=== PATIENT | female | born 1950 | race Caucasian/White ===

== ENCOUNTER 2019-05-19 05:14 | Inpatient (IN) | payer MEDICARE, SELFPAY ==
[2019-05-19] VITALS (8 sets, daily range): BP systolic 148–187; BP diastolic 65–100; PULSE 68–73; RESP 18–20; TEMP 36.6–37.1; O2SAT 94–96; BMI 30.4
--- NOTE | ~2019-05-19 | XR_ITS ---
EXAMINATION: XR chest 2V DATE: 05/19/2019 05:58 INDICATION: Shortness of breath. TECHNIQUE: Frontal and lateral views of the chest were obtained. COMPARISON: Chest 2 views 01/16/2019 FINDINGS: There are small pleural effusions. There are airspace opacities at the lung bases, left wor se than right. No pneumothorax. The heart size is normal. There is a chronic compression fracture in lumbar spine. IMPRESSION: 1. Small pleural effusions. 2. Airspace opacities at the lung bases, left worse than right, consistent with atelectasis versus pn eumonia. Reviewed, dictated and finalized at location A. STORAGE SUPERVISOR IMPRESSION: 1. Small pleural effusions. 2. Airspace opacities at the lung bases, left worse than right, consistent with atelectasis versus pneumonia.
--- NOTE | 2019-05-19 05:34 | ECG_ITS ---
Measurements Intervals [place] Rate: 72 P: 72 NM: 171 QRS: 14 QRSD: 91 T: 93 QT: 407 QTc: 447 Interpretive Statements SINUS RHYTHM BORDERLINE ST-T WAVE ABNORMALITY- INF/LAT LEADS BASELINE ARTIFACT- II, III, AVL, AVF, V6 BORDERLINE ECG Electronically Signed On 05-19-2019 8:09:20 WASHING MACHINE LOADER by Jl Floyd D.O.
[2019-05-19 05:47] LABS: Basophils Absolute Auto 0.1 K/mm3 (0.0-0.1); Basophils Percent Auto 0.9 % (0.2-1.2); Eosinophils Absolute Auto 0.5 K/mm3 (0-0.3); Eosinophils Percent Auto 4.3 % (0-4.4); Hematocrit 35.1 % (37.0-47.0); Hemoglobin 11.5 g/dL (12.0-15.0); Immature Granulocyte Absolute 0.06 K/mm3 (0.00-0.031); Immature Granulocyte Percent A 0.5 % (0-0.5); Lymphocytes Absolute Auto 1.96 K/mm3 (0.9-3.2); Lymphocytes Percent Auto 16.7 % (18.3-44.2); Mean Corpuscular HGB Conc 32.8 g/dl (32-36); Mean Corpuscular Hemoglobin 28.6 pg (26-34); Mean Corpuscular Volume 87.3 fl (80-100); Mean Platelet Volume 10.2 fl (7.4-10.4); Monocytes Absolute Auto 0.7 K/mm3 (0.1-0.6); Monocytes Percent Auto 6.3 % (2.6-8.5); Neutrophils Absolute Auto 8.4 K/mm3 (1.3-6.7); Neutrophils Percent Auto 71.3 % (45.5-73.1); Platelet Count Result 472 k/mm3 (150-375); Red Blood Count 4.02 M/mm3 (4.2-5.4); Red Cell Distribution Width 13.7 % (11.5-14.5); White Blood Count 11.8 K/mm3 (4.5-10.0)
[2019-05-19 06:02] LABS: INR 0.9; Prothrombin Time 12.1 Seconds (11.1-14.7)
[2019-05-19 06:03] LABS: Partial Thromboplastin Time 34.4 SECONDS (22.3-36.8)
[2019-05-19 06:14] LABS: Blood Urea Nitrogen 35 mg/dL (7-17); Carbon Dioxide 28 mmol/L (22-30); Chloride 97 mmol/L (98-107); Estimated CRCL calculation 30 ml/min; Estimated Glomerular Filt Rate 34; Glucose 95 mg/dL (65-105); NT Pro B Type Natriuretic Pept 5220 PG/ML (5-100); Potassium 4.4 mmol/L (3.4-5.0); Sodium 135 mmol/L (137-145)
[2019-05-19] MEDS: FUROSEMIDE INJ 40 MG/4 ML VIAL IV PUSH ×2 (06:25→18:12)
--- NOTE | 2019-05-19 06:27 | ED.SOB ---
HPI - SOB/Dyspnea General Chief Complaint: Shortness of Breath/Dyspnea Stated Complaint: sob Time Seen by Provider: 05/19/19 06:01 History of Present Illness HPI Narrative: Patient is a 69-year-old female who presents ER with shortness of breath ongoing since this morning. Patient has history of CHF and was found to be newly oxygen dependent this morning. She is wearing 2 L a minute via nasal cannula. Patient reports compliance with her home medications. Reports it is hard to maintain a good diet where she lives as they often feed her ham and hot dogs. She denies any runny nose/sore throat/productive cough. She is without any fevers or chills. She denies any chest pressure. She does note that she has had a 30 pound weight gain over the last couple weeks and has felt a decline in her energy and ability to get around. No alleviating factors. Exertion worsens her dyspnea. Related Data Home Medications Medication Instructions Recorded Confirmed amlodipine 10 mg tablet 10 mg PO DAILY tablet 03/29/19 atorvastatin 80 mg tablet 80 mg PO DAILY tablet 03/29/19 furosemide 80 mg tablet 80 mg PO DAILY tablet 03/29/19 metformin 1,000 mg tablet 1,000 mg PO BID tablet 03/29/19 metoprolol succinate 200 mg 200 mg PO DAILY tablet 03/29/19 tablet,extended release 24 hr morphine 15 mg tablet,extended tablet PO 03/29/19 release potassium chloride 20 mEq 20 meq PO DAILY tablet 03/29/19 tablet,extended release(part/cryst) ropinirole 0.5 mg tablet 0.5 mg PO DAILY tablet 03/29/19 telmisartan 40 mg tablet 40 mg PO DAILY tablet 03/29/19 sertraline [Zoloft] 50 mg PO DAILY 05/19/19 Allergies Allergy/AdvReac Type Severity Reaction Status Date / Time No Known Allergies Allergy Verified 05/19/19 05:37 Review of Systems Review of Systems: All systems reviewed & are unremarkable except as noted in HPI and below Constitutional: Constitutional: Denies chills, Reports fatigue and Denies fever(s) ENT: Denies dysphagia, Denies nasal congestion and Denies sore throat Cardiovascular: Cardiovascular: Denies chest pain and Denies radiating jaw, neck or arm pain Respiratory: Respiratory: Denies chest congestion, Denies cough, Reports dyspnea and Denies wheezing Neurologic: Denies focal weakness and Denies numbness PMFSH Past Medical History Medical History (Updated 05/19/19 @ 06:50 by Den Escalante MD) CVA (cerebral vascular accident) Depression DM type 2 (diabetes mellitus, type 2) Hyperlipidemia Hypertension Peripheral neuropathy Surgical History Surgical History (Updated 05/19/19 @ 06:46 by Den Escalante MD) H/O cataract extraction History of cholecystectomy Social History Social History (Updated 05/19/19 @ 06:47 by Den Escalante MD) Smoking status: Former smoker Exam Narrative: Exam Narrative: GENERAL: Well-appearing, well-nourished, and in no acute distress. HEAD: Normocephalic, atraumatic. ENT: Mucous membranes moist. CHEST: Diminished in bases bilaterally with faint crackles.. No respiratory distress. HEART: Regular rate and rhythm. Normal peripheral pulses. ABDOMEN: Soft, nontender, nondistended. EXTREMITIES: Normal range of motion. 2+ edema. SKIN: Warm, dry, no rash. NEURO: Alert and oriented x3. Course Vital Signs Vital signs: Vital Signs Temperature 98.7 F 05/19/19 05:13 Pulse Rate 69 05/19/19 05:13 Respiratory Rate 18 05/19/19 05:13 Blood Pressure 187/74 H 05/19/19 05:13 Pulse Oximetry 95 05/19/19 05:13 Temperature 98.7 F 05/19/19 05:13 Pulse Rate 71 05/19/19 05:23 Respiratory Rate 18 05/19/19 05:13 Blood Pressure 187/74 H 05/19/19 05:13 Pulse Oximetry 95 05/19/19 05:13 MDM - SOB/Dyspnea Lab Data Result diagrams: 05/19/19 05:37 05/19/19 05:37 Labs: Lab Results 05/19/19 05/19/19 05/19/19 Range/Units 05:37 05:37 05:37 WBC 11.8 H (4.5-10.0) K/mm3 RBC 4.02 L (4.2-5.4) M/mm3 Hgb
--- NOTE | 2019-05-19 07:32 | ADMGEN ---
This patient, Lupe Gomez, was admitted to 3 [facility] Surg Room 313-01. Patient/family oriented to hospital policies and general routines including ID bracelet, bed and alarms, visiting hours, pain management, procedures, bathroom and other care routines, personal items, smoking policy, room service/diet, and visiting hours. Valuables list has been completed. Information on how to activate the Rapid Response Team has been discussed. Patient/Family are encouraged to report perceived risks to care and to ask questions if they do not understand what they are told or what they should do.
[2019-05-19] MEDS: DOCUSATE SODIUM 100 MG CAPSULE PO (11:58)
[2019-05-19] MEDS: ASPIRIN 81 MG ENTERIC TABLET PO (11:58)
[2019-05-19] MEDS: AMLODIPINE BESYLATE 5 MG TABLET 10 MG PO (11:59)
[2019-05-19] MEDS: SERTRALINE HCL 50 MG TABLET PO (11:59)
[2019-05-19] MEDS: MAGNESIUM OXIDE 400 MG TABLET PO (11:59)
[2019-05-19] MEDS: METOPROLOL SUCCINATE EXT REL 100 MG TABCR 200 MG PO (11:59)
[2019-05-19] MEDS: ENOXAPARIN 40 MG/0.4 ML SYRINGE SUB-Q (12:01)
[2019-05-19] MEDS: ACETAMINOPHEN 325 MG TABLET 650 MG PO ×2 (12:28→18:18)
[2019-05-19 13:03] LABS: Glucose Point of Care 120 (65-105)
--- NOTE | 2019-05-19 16:35 | PM.IMHP ---
H&P: HPI History of Present Illness Chief complaint: chf exacerbation/hypoxia Narrative: Date of visit 05/19/2019. 1200 noon. Lupe Gomez is a 69 year old female with hypertension, diastolic heart failure, chronic renal failure stage 3 with nephrotic syndrome, diabetes mellitus and chronic pain syndrome who presented to the emergency room from the longterm with complaints of increasing weakness, shortness of breath, and edema. She states that over the last 1 week to week at least she has had increasing symptomatology. She admits to poor diet that she is fed with lots of salt. She does take her medicine faithfully and was last hospitalized here some 4 months ago. No chest pain or palpitations. In the emergency room she is found to be in heart failure was admitted for evaluation of the same Review of Systems Review of Systems: Narrative: Constitutional she says she has gained probably over 20 lb over last several weeks with no change in her eating habits, no fever no chills Ophthalmology , no scotomas or double vision Pulmonary as per speech present illness , all occasional cough nothing significant CV as per present illness no palpitation as stated above GI no melena medication diarrhea constipation no dysuria hematuria Musculoskeletal no particular joint discomfort but chronic back pain Integument no skin breakdown rashes Neuro no seizures no syncope Psych been some history of depression The remainder the of systems if not documented here were evaluated and found to be negative PMFSH Past Medical History Medical History (Updated 05/19/19 @ 16:42 by Jnoo Bustamante MD) CVA (cerebral vascular accident) Depression DM type 2 (diabetes mellitus, type 2) Hyperlipidemia Hypertension Peripheral neuropathy Surgical History Surgical History (Updated 05/19/19 @ 06:46 by eDn Escalante MD) H/O cataract extraction History of cholecystectomy Family History Family History (Updated 05/19/19 @ 08:00 by Amy Hall RN) Mother Lung cancer Sibling Malignant neoplasm of prostate Diabetes mellitus Osteoarthritis Dialysis patient Heart disease Social History Social History (Updated 05/19/19 @ 06:47 by Den Escalante MD) Smoking status: Former smoker Tobacco type: cigarettes Alcohol intake: former Substance use: never Gender identity (if verbalized by the patient): Female Meds Home Medications and Allergies Home Medications Medication Instructions Recorded Confirmed Type amlodipine 10 mg tablet 10 mg PO DAILY tablet 03/29/19 05/19/19 History aspirin 81 mg tablet,delayed 81 mg PO DAILY #1 tablet 03/29/19 05/19/19 Rx release atorvastatin 80 mg tablet 80 mg PO HS tablet 03/29/19 05/19/19 History docusate sodium 100 mg tablet 100 mg PO DAILY #1 tablet 03/29/19 05/19/19 Rx ergocalciferol (vitamin D2) 1,250 50,000 unit PO 3XW #1 cap 03/29/19 05/19/19 Rx mcg (50,000 unit) capsule furosemide 80 mg tablet 80 mg PO DAILY tablet 03/29/19 05/19/19 History magnesium oxide 400 mg PO DAILY #1 tablet 03/29/19 05/19/19 Rx metformin 1,000 mg tablet 1,000 mg PO BID tablet 03/29/19 05/19/19 History metoprolol succinate 200 mg 200 mg PO DAILY tablet 03/29/19 05/19/19 History tablet,extended release 24 hr morphine 15 mg tablet,extended 15 tablet PO Q12H 03/29/19 05/19/19 History release potassium chloride 20 mEq 20 meq PO DAILY tablet 03/29/19 05/19/19 History tablet,extended release(part/cryst) ropinirole 0.5 mg tablet 0.5 mg PO DAILY tablet 03/29/19 05/19/19 History sennosides 8.6 mg tablet 8.6 mg PO BID #1 tablet 03/29/19 05/19/19 Rx telmisartan 40 mg tablet 40 mg PO DAILY tablet 03/29/19 05/19/19 History hydrochlorothiazide 12.5 mg tablet 12.5 mg PO DAILY #30 tablet 05/10/19 05/19/19 Rx acetaminophen 1,000 mg PO Q12H PRN 05/19/19 05/19/19 History diphenhydramine HCl [Allergy 25 mg PO Q6H PRN 05/19/19 05/19/19 History (diphenhydramine)] morphine 15 mg PO Q12H 05/19/19 0
[2019-05-19 17:44] LABS: Glucose Point of Care 118 (65-105)
[2019-05-19] MEDS: ATORVASTATIN 40 MG TABLET 80 MG PO (21:22)
[2019-05-19 22:25] LABS: Glucose Point of Care 148 (65-105)
[2019-05-20] MEDS: MORPHINE SULFATE 4 MG/ML INJ IV PUSH (03:02)
[2019-05-20 06:00] VITALS: BP 177/66; PULSE 73; RESP 18; TEMP 36.5; O2SAT 100
[2019-05-20] MEDS: FUROSEMIDE INJ 40 MG/4 ML VIAL IV PUSH ×2 (06:02→18:13)
[2019-05-20 06:37] LABS: Alanine Aminotransferase 12 U/L (4-35); Alkaline Phosphatase 66 U/L (38-126); Aspartate Amino Transferase 26 U/L (14-36); Bilirubin,Total 0.2 mg/dL (0.2-1.3); Blood Urea Nitrogen 40 mg/dL (7-17); Calcium 8.3 mg/dL (8.4-10.2); Carbon Dioxide 29 mmol/L (22-30); Chloride 97 mmol/L (98-107); Estimated CRCL calculation 29 ml/min; Estimated Glomerular Filt Rate 34; Glucose 133 mg/dL (65-105); Potassium 3.7 mmol/L (3.4-5.0); Sodium 134 mmol/L (137-145)
[2019-05-20 07:49] LABS: Free T4 Free Thyroxine Reflex 1.43 ng/dL (0.78-2.19)
[2019-05-20 07:53] LABS: Glucose Point of Care 124 (65-105)
[2019-05-20] MEDS: AMLODIPINE BESYLATE 5 MG TABLET 10 MG PO (08:40)
[2019-05-20] MEDS: ENOXAPARIN 40 MG/0.4 ML SYRINGE SUB-Q (08:40)
[2019-05-20] MEDS: TELMISARTAN 40 MG TABLET PO (08:41)
[2019-05-20] MEDS: METOPROLOL SUCCINATE EXT REL 100 MG TABCR 200 MG PO (08:41)
[2019-05-20] MEDS: MORPHINE SULFATE 15 MG TABCR PO ×2 (10:18→20:46)
[2019-05-20 11:28] LABS: Total Triiodothyronine (T3) 0.88 NG/ML (0.97-1.69)
[2019-05-20 12:53] LABS: Glucose Point of Care 158 (65-105)
[2019-05-20] MEDS: DOCUSATE SODIUM 100 MG CAPSULE PO (13:20)
[2019-05-20] MEDS: ASPIRIN 81 MG ENTERIC TABLET PO (13:21)
[2019-05-20] MEDS: MAGNESIUM OXIDE 400 MG TABLET PO (13:21)
[2019-05-20 14:36] VITALS: BP 168/63; PULSE 69; RESP 16; TEMP 36.9; O2SAT 95
--- NOTE | 2019-05-20 14:38 | PM.IMPN ---
Progress Note: A&P Assessment and Plan (1) Acute on chronic diastolic CHF (congestive heart failure): Code(s): I50.33 - Acute on chronic diastolic (congestive) heart failure Status: Acute Assessment and Plan: Echo in January showed a normal ejection fraction of 70% with grade 2 diastolic dysfunction. Continue diuresis with beta-rika. In also continue her ARB (2) Essential (primary) hypertension: Code(s): I10 - Essential (primary) hypertension Status: Acute Assessment and Plan: Blood pressure fair controlled continue the ARB beta-rika and diuretic If stays up maybe even calcium channel rika (3) Nephrotic syndrome due to diabetes mellitus: Code(s): E11.21 - Type 2 diabetes mellitus with diabetic nephropathy Status: Acute Assessment and Plan: Recheck UA. 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 69-year-old hypertensive type 2 diabetic with diastolic heart failure chronic pain admitted with increasing weakness, edema, and weight gain. She states that she has not been following a diet correctly at the [place] [facility]. She relates to weight gain of several lb over last few weeks. No PND orthopnea male E increasing fatigue and edema. Thought to be in acute diastolic heart failure in ER and admitted for the same Exam Narrative: Exam Narrative: Blood pressure 170/66 pulse is 72 regular sat 100% on RA, is laying on her right side afebrile Pupils equal reactive to light sclera anicteric Lungs decreased breath sounds in the bases CV regular rate rhythm no murmurs Abdomen is soft nontender no masses Extremities edema to the knees bilaterally and some even in the thighs but decrease from admission, distal pulses are 1+ symmetrical Neuro alert pleasant cooperative no focal deficits Objective Data Vital Signs Vital Signs: Vital Signs - 24 hr 05/19/19 22:00 05/20/19 06:00 Temperature 36.9 C 36.5 C Pulse Rate 68 73 Respiratory Rate 20 18 Blood Pressure 160/65 H 177/66 H Pulse Oximetry 95 100 Intake/Output Intake/Output: Intake & Output 05/17/19 05/18/19 05/19/19 05/20/19 23:59 23:59 23:59 23:59 Intake Total 985 640 Output Total 1375 1300 Balance -390 -660 Meds/Results Medications: Active Medications Generic Name Dose Route Start Last Admin Trade Name Freq PRN Reason Stop Dose Admin Acetaminophen 650 mg 05/19/19 06:42 05/19/19 18:18 Tylenol Tablet PO 650 mg Q4H PRN Administration Mild Pain (1-3) or Fever Hydrocodone Bitart/Acetaminophen 1 tab 05/19/19 06:42 05/19/19 23:42 [place] 5-325 Mg PO 1 tab Q4H PRN Administration Pain Rated 4-6 Amlodipine Besylate 10 mg 05/19/19 09:30 05/20/19 08:40 Norvasc PO 10 mg DAILY KEIRA Administration Aspirin 81 mg 05/19/19 09:30 05/20/19 13:21 Aspirin Ec PO 81 mg DAILY KEIRA Administration Atorvastatin Calcium 80 mg 05/19/19 21:00 05/19/19 21:22 Lipitor PO 80 mg HS KEIRA Administration Dextrose 12.5 gm 05/19/19 12:25 Dextrose 50% Syringe IV PUSH PRN PRN
[2019-05-20 17:21] LABS: Glucose Point of Care 119 (65-105)
[2019-05-20] MEDS: ATORVASTATIN 40 MG TABLET 80 MG PO (20:46)
[2019-05-20 21:26] LABS: Add Urine Microscopic? YES; Appearance Urine Clear (Clear); Bilirubin Urine Negative (Negative); Blood Urine Negative (Negative); Color Urine Straw (Yellow); Glucose Urine UA 2+ mg/dL (Negative); Ketones Urine Negative (Negative); Leukocyte Esterase Ur Negative LEU/UL (NEGATIVE); Mucus Urine Rare /lpf; Nitrate Urine Negative (Negative); Protein Urine 3+ mg/dL (Negative); Specific Grav Ur 1.013 (1.001-1.035); Squamous Epithelial Cell Urine Rare /hpf (Few); Urobilinogen Urine Negative mg/dL (<2.0); WBC Urine 0-3 /hpf (0-3)
[2019-05-20 22:00] VITALS: BP 160/84; PULSE 101; RESP 20; TEMP 37; O2SAT 94
[2019-05-21] MEDS: FUROSEMIDE INJ 40 MG/4 ML VIAL IV PUSH ×2 (05:26→18:24)
[2019-05-21 06:00] VITALS: BP 156/75; PULSE 71; RESP 20; TEMP 36.7; O2SAT 94
[2019-05-21 06:51] LABS: Blood Urea Nitrogen 36 mg/dL (7-17); Calcium 8.3 mg/dL (8.4-10.2); Carbon Dioxide 27 mmol/L (22-30); Chloride 96 mmol/L (98-107); Estimated CRCL calculation 34 ml/min; Estimated Glomerular Filt Rate 40; Glucose 114 mg/dL (65-105); Potassium 3.5 mmol/L (3.4-5.0); Sodium 132 mmol/L (137-145)
[2019-05-21 08:25] LABS: Glucose Point of Care 108 (65-105)
[2019-05-21] MEDS: MORPHINE SULFATE 15 MG TABCR PO ×2 (08:33→20:16)
[2019-05-21 08:34] VITALS: PULSE 71
[2019-05-21] MEDS: AMLODIPINE BESYLATE 5 MG TABLET 10 MG PO (08:34)
[2019-05-21] MEDS: METOPROLOL SUCCINATE EXT REL 100 MG TABCR 200 MG PO (08:34)
[2019-05-21] MEDS: ENOXAPARIN 40 MG/0.4 ML SYRINGE SUB-Q (08:35)
[2019-05-21] MEDS: ASPIRIN 81 MG ENTERIC TABLET PO (08:35)
[2019-05-21] MEDS: DOCUSATE SODIUM 100 MG CAPSULE PO (08:35)
[2019-05-21] MEDS: TELMISARTAN 40 MG TABLET PO (08:35)
--- NOTE | 2019-05-21 10:57 | PCPTNOTE ---
Attempted PT evaluation this date at approximately 10:45 AM. Pt refused to participate in evaluation at this time. Will attempt to complete PT eval at a later time.
[2019-05-21 11:59] LABS: Glucose Point of Care 178 (65-105)
[2019-05-21] MEDS: POTASSIUM CHLORIDE 20 MEQ TABLET 40 MEQ PO (13:00)
[2019-05-21] MEDS: ERGOCALCIFEROL 50,000 UNIT CAPSULE 50000 UNITS PO (13:01)
[2019-05-21] MEDS: MAGNESIUM OXIDE 400 MG TABLET PO (13:01)
--- NOTE | 2019-05-21 13:15 | PM.IMPN ---
Progress Note: A&P Assessment and Plan (1) Acute on chronic diastolic CHF (congestive heart failure): Code(s): I50.33 - Acute on chronic diastolic (congestive) heart failure Status: Acute Assessment and Plan: Echo in January showed a normal ejection fraction of 70% with grade 2 diastolic dysfunction. Continue diuresis with beta-rika. also continue her ARB (2) Essential (primary) hypertension: Code(s): I10 - Essential (primary) hypertension Status: Acute Assessment and Plan: Blood pressure fair controlled continue the ARB ,beta-rika,amlodipine, and diuretic (3) Nephrotic syndrome due to diabetes mellitus: Code(s): E11.21 - Type 2 diabetes mellitus with diabetic nephropathy Status: Acute Assessment and Plan: UA 3+ prot and serum albumin 3.0. 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 PT for ambulation (6) DVT prophylaxis: Code(s): Z29.9 - Encounter for prophylactic measures, unspecified Status: Acute Assessment and Plan: Lovenox Subjective Date/time seen: 05/21/19 13:15 Interval history: Date of visit 05/20/2019. 69-year-old hypertensive type 2 diabetic with diastolic heart failure chronic pain admitted with increasing weakness, edema, and weight gain. She states that she has not been following a diet correctly at the [place] [facility]. She relates to weight gain of several lbs over last few weeks. No PND orthopnea but iincreasing fatigue and edema. Thought to be in acute diastolic heart failure in ER and admitted for the same Slept better and less fatigued Exam Narrative: Exam Narrative: Blood pressure 156/75 pulse is 72 regular sat 100% on RA, is laying on her right side afebrile Pupils equal reactive to light sclera anicteric Lungs decreased breath sounds in the bases CV regular rate rhythm no murmurs Abdomen is soft nontender no masses Extremities edema subsiding and none above knees now, distal pulses are 1+ symmetrical Neuro alert pleasant cooperative no focal deficits Objective Data Vital Signs Vital Signs: Vital Signs - 24 hr 05/20/19 14:36 05/20/19 22:00 05/21/19 06:00 Temperature 36.9 C 37.0 C 36.7 C Pulse Rate 69 101 H 71 Respiratory Rate 16 20 20 Blood Pressure 168/63 H 160/84 H 156/75 H Pulse Oximetry 95 94 94 05/21/19 08:34 Temperature Pulse Rate 71 Respiratory Rate Blood Pressure Pulse Oximetry Intake/Output Intake/Output: Intake & Output 05/18/19 05/19/19 05/20/19 05/21/19 23:59 23:59 23:59 23:59 Intake Total 985 1870 390 Output Total 1375 1700 600 Balance -390 170 -210 Meds/Results Medications: Active Medications Generic Name Dose Route Start Last Admin Trade Name Freq PRN Reason Stop Dose Admin Acetaminophen 650 mg 05/19/19 06:42 05/19/19 18:18 Tylenol Tablet PO 650 mg Q4H PRN Administration Mild Pain (1-3) or Fever Hydrocodone Bitart/Acetaminophen 1 tab 05/19/19 06:42 05/21/19 00:13 [place] 5-325 Mg PO 1 tab Q4H PRN Administration Pain Rated 4-6 Amlodipine Besylate 10 mg 05/19/19 09:30 05/21/19 08:34 Norvasc PO 10 mg DAILY KEIRA Administration Aspirin 81 mg 05/19/19 09:30 05/21/19 08:35 Aspirin Ec PO 81 mg DAILY KEIRA Administration Atorvastatin Calcium 80 mg 05/19/19 21:00
[2019-05-21 14:00] VITALS: BP 151/59; PULSE 67; RESP 16; TEMP 36.9; O2SAT 95
[2019-05-21 18:58] LABS: Glucose Point of Care 144 (65-105)
[2019-05-21] MEDS: ATORVASTATIN 40 MG TABLET 80 MG PO (20:16)
[2019-05-21 20:32] LABS: Glucose Point of Care 179 (65-105)
[2019-05-21 21:41] VITALS: BP 148/58; PULSE 74; RESP 20; TEMP 37
[2019-05-21 22:52] VITALS: O2SAT 94
[2019-05-22] MEDS: ACETAMINOPHEN 325 MG TABLET 650 MG PO (01:24)
[2019-05-22 06:00] VITALS: BP 133/57; PULSE 78; RESP 20; TEMP 37.5; O2SAT 90
[2019-05-22] MEDS: FUROSEMIDE INJ 40 MG/4 ML VIAL IV PUSH ×2 (06:25→18:09)
[2019-05-22 07:11] LABS: Blood Urea Nitrogen 38 mg/dL (7-17); Calcium 7.7 mg/dL (8.4-10.2); Carbon Dioxide 25 mmol/L (22-30); Chloride 98 mmol/L (98-107); Estimated CRCL calculation 34 ml/min; Estimated Glomerular Filt Rate 40; Glucose 117 mg/dL (65-105); Potassium 3.9 mmol/L (3.4-5.0); Sodium 131 mmol/L (137-145)
[2019-05-22 07:59] LABS: Glucose Point of Care 112 (65-105)
[2019-05-22] MEDS: MORPHINE SULFATE 15 MG TABCR PO ×2 (08:35→20:32)
[2019-05-22 08:36] VITALS: PULSE 78
[2019-05-22] MEDS: AMLODIPINE BESYLATE 5 MG TABLET 10 MG PO (08:36)
[2019-05-22] MEDS: ASPIRIN 81 MG ENTERIC TABLET PO (08:36)
[2019-05-22] MEDS: ENOXAPARIN 40 MG/0.4 ML SYRINGE SUB-Q (08:36)
[2019-05-22] MEDS: METOPROLOL SUCCINATE EXT REL 100 MG TABCR 200 MG PO (08:36)
[2019-05-22] MEDS: TELMISARTAN 40 MG TABLET PO (08:37)
--- NOTE | 2019-05-22 09:57 | PCOTNOTE ---
Attempted to see patient this AM for skilled OT, however, patient stated she was tired and was waiting for the doctor to come in and did not wish to participate in any functional activities or transfers at this time. Will re-attempt if time permits today.
--- NOTE | 2019-05-22 11:06 | PCPTNOTE ---
Patient refused treatment at this time due to not wanting to do anything until this afternoon. Therapist reminded Pt of the importance of therapy however Pt continued to refuse stating she was waiting for the doctor to come in and is not going to do anything until this afternoon.
[2019-05-22] MEDS: MAGNESIUM OXIDE 400 MG TABLET PO (13:05)
[2019-05-22] MEDS: DOCUSATE SODIUM 100 MG CAPSULE PO (13:05)
--- NOTE | 2019-05-22 13:05 | PM.IMPN ---
Progress Note: A&P Assessment and Plan (1) Acute on chronic diastolic CHF (congestive heart failure): Code(s): I50.33 - Acute on chronic diastolic (congestive) heart failure Status: Acute Assessment and Plan: Echo in January showed a normal ejection fraction of 70% with grade 2 diastolic dysfunction. Continue diuresis with beta-rika and ARB. Home oxygen evaluation. [facility]. (2) Essential (primary) hypertension: Code(s): I10 - Essential (primary) hypertension Status: Acute Assessment and Plan: Blood pressure fair controlled continue the ARB ,beta-rika,amlodipine, and diuretic (3) Nephrotic syndrome due to diabetes mellitus: Code(s): E11.21 - Type 2 diabetes mellitus with diabetic nephropathy Status: Acute Assessment and Plan: UA 3+ prot and serum albumin 3.0. Stage III renal failure and creatinine of about where has been at 1.4-2.0, continue the ARB and diurese Creatinine 1.3 today (4) Type 2 diabetes mellitus with complication, with long-term current use of insulin: Code(s): E11.8 - Type 2 diabetes mellitus with unspecified complications; Z79.4 - [facility] (current) use of insulin Status: Acute Assessment and Plan: A1c 6.0, held oral hypoglycemic and started low-dose sliding scale (5) Chronic low back pain: Qualifiers: Back pain laterality: unspecified Sciatica presence: unspecified whether sciatica present Qualified Code(s): M54.5 - Low back pain; G89.29 - Other chronic pain Code(s): M54.5 - Low back pain; G89.29 - Other chronic pain Status: Acute Assessment and Plan: Patient has tapered off some of for pain medications but with worsening pain will restart her MS contin. PT for ambulation (6) DVT prophylaxis: Code(s): Z29.9 - Encounter for prophylactic measures, unspecified Status: Acute Assessment and Plan: Lovenox Subjective Date/time seen: 05/22/19 13:05 Interval history: Breathing better. Discouraged. Still with some edema. Still dyspnea on exertion. Still very short of breath without her oxygen at 3 L. Review of Systems Review of Systems: All systems reviewed & are unremarkable except as noted in HPI and below Exam Narrative: Exam Narrative: HEENT: EOMI, PERRL, pharyngeal mucosa pink and intact NECK: No JVD, adenopathy, or thyromegaly CHEST: Clear to auscultation. Normal effort. HEART: NL S1/S2, regular, no murmur ABDOMEN: BS+, soft, nontender, no mass, no bruits EXTREMITIES: No cyanosis, 1+ pretibial edema NEUROLOGIC: CN intact and symmetric to inspection. MUSCULOSKELETAL: Tone and strength symmetric. PSYCH: Alert. Oriented to person, place, and time. Objective Data Vital Signs Vital Signs: Vital Signs - 24 hr 05/21/19 14:00 05/21/19 21:41 05/21/19 22:52 Temperature 98.4 F 98.6 F Pulse Rate 67 74 Respiratory Rate 16 20 Blood Pressure 151/59 H 148/58 H Pulse Oximetry 95 94 05/22/19 06:00 05/22/19 08:36 Temperature 99.5 F Pulse Rate 78 78 Respiratory Rate 20 Blood Pressure 133/57 L Pulse Oximetry 90 Intake/Output Intake/Output: Intake & Output 05/19/19 05/20/19 05/21/19 05/22/19 23:59 23:59 23:59 23:59 Intake Total 985 1870 1405 570 Output Total 1375 1700 2100 550 Balance -390 170 -695 20 Meds/Results Medications: Active Medications Generic Name Dose Route Start Last Admin Trade Name Freq PRN Reason Stop Dose Admin Acetaminophen 650 mg 05/19/19 06:42 05/22/19 01:24 Tylenol Tablet PO 650 mg Q4H PRN Administration Mild Pain (1-3) or Fever Hydrocodone Bitart/Acetaminophen 1 tab 05/19/19 06:42 05/21/19 00:13 [place] 5-325 Mg PO 1 tab Q4H PRN Administration Pain Rated 4-6 Amlodipine Besylate 10 mg 05/19/19 09:30 05/22/19 08:36 Norvasc PO 10 mg DAILY KEIRA Administration Aspirin 81 mg 05/19/19 09:30 05/22/19 08:36 Aspirin Ec PO 81 mg VANCE
[2019-05-22 13:30] LABS: Glucose Point of Care 119 (65-105)
[2019-05-22 14:00] VITALS: BP 181/72; PULSE 64; RESP 16; TEMP 37.1; O2SAT 96
--- NOTE | 2019-05-22 14:26 | PCOTNOTE ---
Pt refused skilled OT this pm. Pt stated that she was feeling punky .
--- NOTE | 2019-05-22 14:42 | PCPTNOTE ---
Patient refused treatment this session due to fatigue and not feeling well. Pt explained to therapist that they knew the importance of therapy however just did not feel well enough this date to participate.
[2019-05-22 17:35] LABS: Glucose Point of Care 131 (65-105)
[2019-05-22] MEDS: ATORVASTATIN 40 MG TABLET 80 MG PO (20:32)
[2019-05-22 22:00] VITALS: BP 156/64; PULSE 72; RESP 16; TEMP 36.9; O2SAT 94
[2019-05-22 22:52] LABS: Glucose Point of Care 143 (65-105)
[2019-05-23] MEDS: ONDANSETRON INJ 4 MG/2 ML VIAL IV PUSH (05:22)
[2019-05-23] MEDS: FUROSEMIDE INJ 40 MG/4 ML VIAL IV PUSH (05:22)
[2019-05-23 06:00] VITALS: BP 174/67; PULSE 83; RESP 18; TEMP 37.1; O2SAT 91
[2019-05-23 06:37] LABS: Hematocrit 32.5 % (37.0-47.0); Hemoglobin 10.7 g/dL (12.0-15.0); Mean Corpuscular HGB Conc 32.9 g/dl (32-36); Mean Corpuscular Hemoglobin 28.5 pg (26-34); Mean Corpuscular Volume 86.4 fl (80-100); Mean Platelet Volume 10.4 fl (7.4-10.4); Platelet Count Result 402 k/mm3 (150-375); Red Blood Count 3.76 M/mm3 (4.2-5.4); Red Cell Distribution Width 14.2 % (11.5-14.5); White Blood Count 12.1 K/mm3 (4.5-10.0)
[2019-05-23 07:06] LABS: Blood Urea Nitrogen 37 mg/dL (7-17); Calcium 8.2 mg/dL (8.4-10.2); Carbon Dioxide 29 mmol/L (22-30); Chloride 95 mmol/L (98-107); Estimated CRCL calculation 32 ml/min; Estimated Glomerular Filt Rate 37; Glucose 111 mg/dL (65-105); Potassium 3.5 mmol/L (3.4-5.0); Sodium 131 mmol/L (137-145)
[2019-05-23] MEDS: DOCUSATE SODIUM 100 MG CAPSULE PO (08:13)
[2019-05-23] MEDS: MAGNESIUM OXIDE 400 MG TABLET PO (08:13)
[2019-05-23 08:14] VITALS: PULSE 72
[2019-05-23] MEDS: METOPROLOL SUCCINATE EXT REL 100 MG TABCR 200 MG PO (08:14)
[2019-05-23] MEDS: ASPIRIN 81 MG ENTERIC TABLET PO (08:14)
[2019-05-23] MEDS: ERGOCALCIFEROL 50,000 UNIT CAPSULE 50000 UNITS PO (08:15)
[2019-05-23] MEDS: ENOXAPARIN 40 MG/0.4 ML SYRINGE SUB-Q (08:16)
[2019-05-23] MEDS: AMLODIPINE BESYLATE 5 MG TABLET 10 MG PO (08:16)
[2019-05-23] MEDS: TELMISARTAN 40 MG TABLET PO (08:17)
[2019-05-23] MEDS: MORPHINE SULFATE 15 MG TABCR PO ×2 (08:18→20:29)
[2019-05-23 08:29] LABS: Glucose Point of Care 102 (65-105)
--- NOTE | 2019-05-23 08:33 | PCOTNOTE ---
Attempted to see patient this am, however patient declined therapy stating, I don't want to.
--- NOTE | 2019-05-23 11:24 | PCRCNOTE ---
HOME O2 EVAL COMPLETE. NO REQUIREMENTS.
--- NOTE | 2019-05-23 11:40 | PCRCNOTE ---
HOME O2 EVAL NOT REQUIRED, PT. GOING TO [facility].
--- NOTE | 2019-05-23 13:46 | PCPTNOTE ---
The PT treatment was unable to be completed today due to patient refusal. Will continue per Plan of Care frequency and duration.
--- NOTE | 2019-05-23 13:54 | PM.DS ---
DS: Diagnosis Admitting Diagnosis Admitting Diagnosis: Acute on chronic diastolic (congestive) heart failure Discharge Diagnosis (1) Acute on chronic diastolic CHF (congestive heart failure): Code(s): I50.33 - Acute on chronic diastolic (congestive) heart failure Status: Acute Assessment and Plan: Echo in January showed a normal ejection fraction of 70% with grade 2 diastolic dysfunction. Continue diuresis with beta-rika and ARB. Home oxygen evaluation. Possibly return to prison in 1-2 days. (2) Essential (primary) hypertension: Code(s): I10 - Essential (primary) hypertension Status: Acute Assessment and Plan: Blood pressure fair controlled continue the ARB ,beta-rika,amlodipine, and diuretic (3) Nephrotic syndrome due to diabetes mellitus: Code(s): E11.21 - Type 2 diabetes mellitus with diabetic nephropathy Status: Acute Assessment and Plan: UA 3+ prot and serum albumin 3.0. Stage III renal failure and creatinine of about where has been at 1.4-2.0. Continued the ARB and diuresis Creatinine 1.4 today (4) Type 2 diabetes mellitus with complication, with long-term current use of insulin: Code(s): E11.8 - Type 2 diabetes mellitus with unspecified complications; Z79.4 - intermediate manager (current) use of insulin Status: Acute Assessment and Plan: A1c 6.0 Resume oral hypoglycemic (5) Chronic low back pain: Qualifiers: Back pain laterality: unspecified Sciatica presence: unspecified whether sciatica present Qualified Code(s): M54.5 - Low back pain; G89.29 - Other chronic pain Code(s): M54.5 - Low back pain; G89.29 - Other chronic pain Status: Acute Assessment and Plan: Patient has tapered off some of for pain medications but with worsening pain will restart her MS contin. PT for ambulation, but patient refused meaningful participation. (6) DVT prophylaxis: Code(s): Z29.9 - Encounter for prophylactic measures, unspecified Status: Acute Assessment and Plan: Lovenox DS: Summary Hospital Course Reason for hospitalization: dyspnea Hospital Course: 69 y/o female presented [facility] the emergency room from the prison with complaints of increasing weakness, shortness of breath, and edema. She states that over the last 1 week to week at least she has had increasing symptomatology. She admits to poor diet that she is fed with lots of salt. She does take her medicine faithfully and was last hospitalized here some 4 months ago. No chest pain or palpitations. In the emergency room imaging studies and lab were c/w heart failure and was admitted for treatment. Status at Discharge Functional status at discharge: wheelchair bound Overall status at discharge: patient is progressing back to baseline Time Spent with Patient Time attestation: Total time spent providing and/or coordinating discharge services: 38 min Exam Narrative: Exam Narrative: HEENT: EOMI, PERRL, pharyngeal mucosa pink and intact NECK: No JVD, adenopathy, or thyromegaly CHEST: Clear to auscultation. Normal effort. HEART: NL S1/S2, regular, no murmur ABDOMEN: BS+, soft, nontender, no mass, no bruits EXTREMITIES: No cyanosis, 1+ pretibial edema NEUROLOGIC: CN intact and symmetric to inspection. MUSCULOSKELETAL: Tone and strength symmetric. PSYCH: Alert. Oriented to person, place, and time. DS: Data Data Completed and Pending Labs on day of discharge: Labs from last 24 hours 05/23/19 05/23/19 05/23/19 08:12 05:54 05:54 WBC 12.1 H RBC 3.76 L Hgb 10.7 L Hct 32.5 L MCV 86.4 MCH 28.5 MCHC 32.9 RDW 14.2 Plt Count 402 H MPV 10.4 Sodium 131 L Potassium 3.5 Chloride 95 L Carbon Dioxide 29 BUN 37 H Creatinine 1.40 H Estim Creat Clear Calc 32 Estimated GFR 37 L Glucose 111 H POC Capillary Glucose 102 Calcium 8.2 L 05/22/19 05/22/19 20:34 17:29 WBC RBC Hg
[2019-05-23 13:58] LABS: Glucose Point of Care 123 (65-105)
[2019-05-23 14:00] VITALS: BP 130/58; PULSE 73; RESP 18; TEMP 36.7; O2SAT 97
[2019-05-23] MEDS: ATORVASTATIN 40 MG TABLET 80 MG PO (20:30)
[2019-05-24 04:11] LABS: Glucose Point of Care 108 (65-105)
== END 2019-05-23 21:25 | DRG 291 ==
LOC: ANHED 06:50 → ANH3MEDSUR 06:53
PROVIDERS: Emergency Medicine; Internal Medicine; Admitting Provider Family Medicine; Emergency Provider Emergency Medicine; PCP Internal Medicine; Visit Provider Internal Medicine
DX: I13.0 Hypertensive heart and chronic kidney disease with heart failure and stage 1 through stage 4 chronic kidney disease, or unspecified chronic kidney disease (principal); I50.33 Acute on chronic diastolic (congestive) heart failure; E11.22 Type 2 diabetes mellitus with diabetic chronic kidney disease; N18.3 Chronic kidney disease, stage 3 (moderate); E11.21 Type 2 diabetes mellitus with diabetic nephropathy; E11.42 Type 2 diabetes mellitus with diabetic polyneuropathy; M54.5 Low back pain; G89.29 Other chronic pain; E78.5 Hyperlipidemia, unspecified; F32.9 Major depressive disorder, single episode, unspecified; Z99.3 Dependence on wheelchair; Z86.73 Personal history of transient ischemic attack (TIA), and cerebral infarction without residual deficits; Z90.49 Acquired absence of other specified parts of digestive tract; Z79.4 Long term (current) use of insulin; Z87.891 Personal history of nicotine dependence
CPT/HCPCS: 36415; 71046; 80048; 80076; 81001; 83036; 83880; 84439; 84443; 84480; 84484; 85025; 85027; 85610; 85730; 87081; 93005; 96372; 96374; 96375; 96376; 97161; 97165; 99285; A9270; G0378; J1650; J1940; J2270; J2405

== ENCOUNTER 2019-07-05 13:58 | Inpatient (IN) | payer MEDICARE, SELFPAY ==
[2019-07-05] VITALS (17 sets, daily range): BP systolic 115–152; BP diastolic 56–106; PULSE 66–77; RESP 13–20; TEMP 36.4–36.7; O2SAT 84–94; BMI 32.1
--- NOTE | ~2019-07-05 | US_ITS ---
EXAMINATION: US venous doppler LE EXAM DATE: 07/06/2019 09:18 INDICATION: Bilateral leg edema. TECHNIQUE: Multiple grayscale, color flow and Doppler images of the lower extremity deep venous syste ms bilaterally were obtained and reviewed. Comparison is made to prior examination from 01/16/2019. FINDINGS: RIGHT SIDE Common femoral: -------- Normal. Profunda femoral: ------- Normal. Femoral: Normal. Popliteal: Normal. Posterior tibial: --------- Paired, nonocclusive thrombus. Peroneal: Normal. Gastrocnemius: Not visualized. Soleus: Not visualized. Greater saphenous: ----- Normal. Lesser saphenous: ------ Not visualized. LEFT SIDE Common femoral: -------- Normal. Profunda femoral: ------- Normal. Femoral: Normal. Popliteal: Normal. Posterior tibial: --------- Normal. Peroneal: Paired, 1 thrombosed. Gastrocnemius: Not visualized. Soleus: Not visualized. Greater saphenous: ----- Normal. Lesser saphenous: ------ Not visualized. IMPRESSION: 1. Positive for bilateral calf DVT I discussed positive results with nurse practitioner Ruthie Hawkins at 07/06/2019 09:25 OUTBOARD MOTOR TESTER Reviewed, dictated and finalized at location A. OARD MOTOR TESTER
--- NOTE | ~2019-07-05 | XR_ITS ---
EXAMINATION: XR chest 2V DATE: 07/13/2019 13:51 INDICATION: Infiltrates. TECHNIQUE: Frontal and lateral views of the chest were obtained. COMPARISON: Chest single view 07/10/2019 FINDINGS: There are moderate-sized right and small left pleural effusions. There are airspace opaciti es at the lung bases, right worse than left. There is a diffuse interstitial pattern in the lungs, co nsistent with pulmonary edema. No pneumothorax. Cardiomegaly is noted. IMPRESSION: 1. Mild pulmonary edema. 2. Airspace opacities at the lung bases, right worse than left with worsening on the right, consisten t with atelectasis versus pneumonia. 3. Moderate-sized right and small left pleural effusions. 4. Cardiomegaly. Reviewed, dictated and finalized at location A. UNT EXECUTIVE IMPRESSION: 1. Mild pulmonary edema. 2. Airspace opacities at the lung bases, right worse than left with worsening o n the right, consistent with atelectasis versus pneumonia. 3. Moderate-sized right and small left pleural effusions. 4. Cardiomegaly.
--- NOTE | ~2019-07-05 | XR_ITS ---
EXAMINATION: XR chest 2V DATE: 07/16/2019 11:18 INDICATION: Pleural effusion right postthoracentesis TECHNIQUE: frontal and lateral views of the chest were obtained. COMPARISON: Chest radiograph dated 07/15/2019 FINDINGS: Significant decrease in size of a now very small right pleural effusion. There is some residual airsp keshia disease in the right lower lung zone. No significant change in a small left pleural effusion with additional airspace disease in the left lower lung zone. No pneumothorax. Cardiomegaly. Atherosclero tic aorta. Severe thoracolumbar spondylosis. Chronic upper lumbar compression fracture. Bilateral corbin oping shoulders with caudal subluxation of the left and right humeral heads with respect to the gleno ids which given the symmetry most likely reflects muscular weakness of the shoulder girdle. IMPRESSION: 1. Small bilateral pleural effusions significantly decreased on the right post right-sided thoracente sis. No pneumothorax. 2. Airspace disease at the bilateral lower lung zones which could represent atelectasis and/or pneumo yvette. 3. Cardiomegaly. Reviewed, dictated and finalized at location A. PING AND RECEIVING COORDINATOR IMPRESSION: 1. Small bilateral pleural effusions significantly decreased on the right post right-sided thoracentesis. No pneumothorax. 2. Airspace disease at the bilateral lower lung zones which could represent ate lectasis and/or pneumonia. 3. Cardiomegaly.
--- NOTE | ~2019-07-05 | US_ITS ---
EXAMINATION: US renal BI DATE: 07/13/2019 13:06 INDICATION: Chronic renal failure stage III with nephrotic syndrome. TECHNIQUE: Multiple ultrasound grayscale images of the kidneys were obtained. COMPARISON: None. FINDINGS: The right kidney measures 11.3 x 4.4 x 4.8 cm. The left kidney measures 10.4 x 5.0 x 5.9 cm. The kidn eys demonstrate normal parenchymal echogenicity. There is no hydronephrosis. The bladder is decompres sed by a Arshad catheter. IMPRESSION: 1. Normal kidney sizes. No hydronephrosis. Reviewed, dictated and finalized at location A. Y
--- NOTE | ~2019-07-05 | XR_ITS ---
EXAMINATION: XR chest 1V portable DATE: 07/10/2019 17:34 INDICATION: Shortness of breath TECHNIQUE: frontal and lateral views of the chest were obtained. COMPARISON: Chest radiograph dated 07/05/2019 FINDINGS: Lung volumes are decreased with gradient of hazy airspace opacities at the bilateral lower lung zones consistent with small bilateral pleural effusions with associated basilar atelectasis versus pneumon ia. Pulmonary vascular congestion with increased bilateral perihilar opacities most likely worsening pulmonary edema. No pneumothorax. Cardiac megaly. Atherosclerotic aorta. Severe thoracolumbar spondyl osis. IMPRESSION: 1. Small bilateral pleural effusions with bibasilar opacities which could represent atelectasis and/o r pneumonia. 2. Increasing bilateral perihilar opacities most likely pulmonary edema although differential include s pneumonia 2. Cardiomegaly. Reviewed, dictated and finalized at location A. TECHNOLOGIST IMPRESSION: 1. Small bilateral pleural effusions with bibasilar opacities which could repre sent atelectasis and/or pneumonia. 2. Increasing bilateral perihilar opacities most likely pulmonary edema althoug h differential includes pneumonia 2. Cardiomegaly.
--- NOTE | ~2019-07-05 | XR_ITS ---
EXAMINATION: XR chest 2V DATE: 07/15/2019 09:11 INDICATION: Pleural effusions. TECHNIQUE: Frontal and lateral views of the chest were obtained. COMPARISON: Chest 2 views 07/13/2019 FINDINGS: There are small pleural effusions. There are airspace opacities at the lung bases, right wo rse than left. No pneumothorax. The heart size is normal. IMPRESSION: 1. Stable small pleural effusions. 2. Airspace opacities at the lung bases, right worse than left with worsening on the right, consisten t with atelectasis versus pneumonia. Reviewed, dictated and finalized at location A. NCIAL AID OFFICER IMPRESSION: 1. Stable small pleural effusions. 2. Airspace opacities at the lung bases, right worse than left with worsening o n the right, consistent with atelectasis versus pneumonia.
--- NOTE | ~2019-07-05 | XR_ITS ---
XR chest 2V 07/05/2019 15:33 Indication: Hypoxia. Dyspnea. Procedure: 2 view chest Comparison: 05/19/2019 Findings: Persistent bibasilar airspace disease, compatible with pneumonia. Cardiomegaly. Small pleur al effusions. There is atherosclerosis. No pneumothorax. Impression: 1: Bibasilar airspace disease, compatible with pneumonia. 2: Small pleural effusions. Reviewed, dictated and finalized at location A. IFIED CRAFT WORKER ELECTRICIAN Impression: 1: Bibasilar airspace disease, compatible with pneumonia. 2: Small pleural effusions.
--- NOTE | ~2019-07-05 | US_ITS ---
EXAMINATION: US venous doppler [facility] DATE: 07/09/2019 08:57 INDICATION: Lower limb edema, deep venous thrombosis TECHNIQUE: Thomas scale images without and with compression and Doppler images of the bilateral lower e xtremity veins were obtained. COMPARISON: 07/06/2019. FINDINGS: The right common femoral vein, profunda femoral vein, femoral vein, popliteal vein, peroneal trunk, p osterior tibial veins, and greater saphenous vein are patent. The left common femoral vein, profunda femoral vein, femoral vein, popliteal vein, peroneal trunk, po sterior tibial veins, and greater saphenous vein are patent. IMPRESSION: 1. Patent bilateral lower extremity veins. No evidence of deep venous thrombosis. Reviewed, dictated and finalized at location A. CHECKER IMPRESSION: 1. Patent bilateral lower extremity veins. No evidence of deep venous thrombosi s.
--- NOTE | ~2019-07-05 | US_ITS ---
EXAMINATION: US thoracentesis DATE: 07/16/2019 11:18 INDICATION: pleural effusion TECHNIQUE: The procedure and its risks and benefits were discussed with the patient. Potential risks discussed included bleeding, infection, and pneumothorax. The patient understood the risks and agreed to proceed. The skin was prepped and draped in sterile fashion. 1% lidocaine was used for local anes thesia. Under ultrasound guidance, a 5 Fr catheter with trochar was advanced into the small to modera te sized right pleural effusion. Fluid was aspirated and sent to the lab for studies as ordered by [facility] referring physician. The catheter was removed, and a dressing was applied. There were no immediate complications. FINDINGS: Ultrasound images demonstrate a small to moderate sized right pleural effusion and the catheter withi n the fluid. Minimal residual pleural effusion post aspiration 1000 mL of fluid. IMPRESSION: 1. Successful ultrasound-guided thoracentesis yielding 1000 mL of clear yellowish fluid. Reviewed, dictated and finalized at location A. GRATION CONSULTANT IMPRESSION: 1. Successful ultrasound-guided thoracentesis yielding 1000 mL of clear yellow patricia fluid.
--- NOTE | ~2019-07-05 | XR_ITS ---
EXAMINATION: XR cervical spine min 6V DATE: 07/13/2019 13:51 INDICATION: Arm weakness. TECHNIQUE: 6 views of cervical spine including flexion and extension views were obtained. COMPARISON: None. FINDINGS: Bone alignment is normal. Vertebral body heights are normal. There is moderately decreased disc height at C5-C6 and C6-C7. The spine is hypomobile with flexion and extension. There is multilev el mild facet joint osteoarthritis. No central canal stenosis or prevertebral soft tissue swelling. IMPRESSION: 1. Moderate cervical spondylosis. Reviewed, dictated and finalized at location A. L COORDINATOR
--- NOTE | 2019-07-05 14:15 | ECG_ITS ---
Measurements Intervals [place] Rate: 69 P: [place]: 0 QRS: 14 QRSD: 84 T: 75 QT: 388 QTc: 418 Interpretive Statements ECTOPIC ATRIAL RHYTHM LOW QRS VOLTAGE IN PRECORDIAL LEADS CANNOT RULE OUT SEPTAL INFARCT, AGE INDETERMINATE BORDERLINE ST-T WAVE ABNORMALITY- LATERAL LEADS ABNORMAL ECG Electronically Signed On 07-05-2019 15:23:04 FINANCE EFFECTIVENESS MANAGER by Jl Floyd D.O.
--- NOTE | 2019-07-05 14:43 | ED.WEAKNESS ---
HPI - Weakness General Chief complaint: Unspecified Stated complaint: SWELLING Time Seen by Provider: 07/05/19 14:40 Source: patient, family and RN notes reviewed Mode of arrival: EMS Limitations: no limitations History of Present Illness HPI Narrative: A 69 y/o female presents to the ED via EMS from [place] with generalized weakness beginning this morning. She states that she was laying in bed on her rt side earlier today and was too weak to sit up, so the staff called EMS to bring the pt here. The pt reports that he weakness has since improved but that she has been having generalized swelling that is most severe in her face. She also notes increased thirst and that she is currently on Lasix. She denies any CP, SOB, fevers, chills, sweats, dysuria, urinary frequency, or ABD pain. MD Complaint: generalized weakness Onset (ago): hour(s) (this morning) Duration: improved Location: generalized Associated symptoms: other (generalized swelling that is most severe in her face, increased thirst) Related Data Home Medications Medication Instructions Recorded Confirmed amlodipine 10 mg tablet 10 mg PO DAILY tablet 03/29/19 07/05/19 atorvastatin 80 mg tablet 80 mg PO HS tablet 03/29/19 07/05/19 furosemide 80 mg tablet 80 mg PO DAILY tablet 03/29/19 07/05/19 metformin 1,000 mg tablet 1,000 mg PO BID tablet 03/29/19 07/05/19 metoprolol succinate 200 mg 200 mg PO DAILY tablet 03/29/19 07/05/19 tablet,extended release 24 hr potassium chloride 20 mEq 20 meq PO DAILY tablet 03/29/19 07/05/19 tablet,extended release(part/cryst) ropinirole 0.5 mg tablet 0.5 mg PO DAILY tablet 03/29/19 07/05/19 ergocalciferol (vitamin D2) 50,000 unit .ROUTE 3XW 07/05/19 07/05/19 metoclopramide HCl [Reglan] 10 mg PO HS 07/05/19 07/05/19 pregabalin 75 mg PO HS 07/05/19 07/05/19 sacubitril-valsartan [Entresto] 1 tablet PO BID 07/05/19 07/05/19 valacyclovir 1,000 mg PO TID 07/05/19 07/05/19 Allergies Allergy/AdvReac Type Severity Reaction Status Date / Time No Known Allergies Allergy Verified 05/19/19 05:37 Review of Systems Review of Systems: All systems reviewed & are unremarkable except as noted in HPI and below Constitutional: Constitutional: Denies chills, Denies fever(s), Reports weakness (generalized) and Reports other (generalized swelling that is most severe in her face. Denies: sweats.) ENT: Reports other (increased thirst) Cardiovascular: Cardiovascular: Denies chest pain Respiratory: Respiratory: Denies dyspnea Gastrointestinal: Gastrointestinal: Denies abdominal pain Genitourinary: Genitourinary: Denies nocturia and Denies dysuria [facility] Past Medical History Medical History (Updated 07/05/19 @ 21:04 by Yvette Floyd MD) Chronic anemia Chronic kidney disease, stage 3 Baseline creatinine between 1.4 and 1.60. Chronic low back pain Chronic pain syndrome Had previously been on morphine 15 milligrams b.i.d. Recently started on Lyrica. Depression Diastolic congestive heart failure Echocardiogram in January 2019 demonstrated normal left ventricular size and function with ejection fraction of > 70% diastolic dysfunction grade 2. Hyperlipidemia Hypertension Type 2 diabetes mellitus with peripheral neuropathy Surgical History Surgical History History of knee surgery Hx of toe surgery Status post cataract extraction Status post cholecystectomy Family History Family History Mother Lung cancer Sibling Malignant neoplasm of prostate Diabetes mellitus Osteoarthritis Dialysis patient Heart disease Social History Social History (Updated 07/05/19 @ 19:08 by Maricruz Randall PA-C) Social History: The patient has been since 2010, when her from cancer. Her daughter was killed that same year and a drunk driving accident. She does have a son who lives in [place], [place]. Her
[2019-07-05 15:12] LABS: Alveolar/Arterial O2 Gradient 48.2 mmHg; Base Excess ABG 1.2 mEq/l (+/-2.0); Carboxyhemoglobin 0.3 % THb (0-2.0); Fractional Inspired Oxygen 21 %; HCO3 ABG 25.6 mEq/l (22.0-26.0); Methemoglobin ABG 0.1 %THb (0-1.5); Oxygen Content ABG 11.7 %vol (16.0-22.0); Oxygen Saturation ABG 89.2 % (95.0-100.0); Oxyhemoglobin 88.2 % THb (90.0-100.0); PCO2 ABG 39.4 mmHg (35.0-45.0); PO2 ABG 54.4 mmHg (80.0-100.0); PO2 FiO2 Ratio Arterial Blood 2.59 %; Reduced Hemoglobin 11.4 %THb (0-5.0); Total Hemoglobin 9.4 g/dL (12.0-18.0)
[2019-07-05 15:13] LABS: Device ROOM AIR; Modified Allen's Test Pass; Site Drawn RIGHT RADIAL
[2019-07-05 15:18] LABS: Basophils Absolute Auto 0.1 K/mm3 (0.0-0.1); Basophils Percent Auto 0.7 % (0.2-1.2); Eosinophils Absolute Auto 0.1 K/mm3 (0-0.3); Eosinophils Percent Auto 0.4 % (0-4.4); Hemoglobin 9.4 g/dL (12.0-15.0); Immature Granulocyte Absolute 0.06 K/mm3 (0.00-0.031); Immature Granulocyte Percent A 0.5 % (0-0.5); Lymphocytes Absolute Auto 2.41 K/mm3 (0.9-3.2); Lymphocytes Percent Auto 20.4 % (18.3-44.2); Mean Corpuscular HGB Conc 31.3 g/dl (32-36); Mean Corpuscular Hemoglobin 28.7 pg (26-34); Mean Corpuscular Volume 91.7 fl (80-100); Mean Platelet Volume 10.3 fl (7.4-10.4); Monocytes Absolute Auto 1.3 K/mm3 (0.1-0.6); Monocytes Percent Auto 11.3 % (2.6-8.5); Neutrophils Absolute Auto 7.9 K/mm3 (1.3-6.7); Neutrophils Percent Auto 66.7 % (45.5-73.1); Platelet Count Result 379 k/mm3 (150-375); Red Blood Count 3.27 M/mm3 (4.2-5.4); Red Cell Distribution Width 17.2 % (11.5-14.5); White Blood Count 11.8 K/mm3 (4.5-10.0)
[2019-07-05 15:25] LABS: INR 0.9
[2019-07-05 15:26] LABS: Partial Thromboplastin Time 34.4 SECONDS (22.3-36.8)
[2019-07-05 15:27] LABS: Alanine Aminotransferase 32 U/L (4-35); Albumin Level 3.1 g/dL (3.5-5.1); Alkaline Phosphatase 91 U/L (38-126); Aspartate Amino Transferase 48 U/L (14-36); Bilirubin,Total 0.4 mg/dL (0.2-1.3); Blood Urea Nitrogen 52 mg/dL (7-17); Calcium 8.5 mg/dL (8.4-10.2); Carbon Dioxide 27 mmol/L (22-30); Chloride 99 mmol/L (98-107); Estimated Glomerular Filt Rate 28; Glucose 99 mg/dL (65-105); Potassium 5.2 mmol/L (3.4-5.0); Sodium 136 mmol/L (137-145)
[2019-07-05 15:52] LABS: NT Pro B Type Natriuretic Pept 6720 PG/ML (5-100)
[2019-07-05 15:53] LABS: Troponin I 0.014 ng/mL (0.000-0.034)
[2019-07-05] MEDS: IPRATROPIUM BR 0.02% INH SOLN 0.5 MG/2.5 ML VIAL INHALATION ×2 (16:15→19:49)
[2019-07-05] MEDS: ALBUTEROL SULFATE NEB 2.5 MG/0.5 ML INH 5 MG INHALATION ×2 (16:15→19:49)
[2019-07-05 16:18] LABS: Add Urine Microscopic? YES; Appearance Urine Clear (Clear); Bacteria Urine Trace /hpf; Bilirubin Urine Negative (Negative); Blood Urine Negative (Negative); Color Urine Straw (Yellow); Glucose Urine UA 1+ mg/dL (Negative); Ketones Urine Negative (Negative); Leukocyte Esterase Ur Negative LEU/UL (Negative); Mucus Urine Rare /lpf; Nitrate Urine Negative (Negative); Protein Urine 3+ mg/dL (Negative); RBC Urine 0-2 /hpf (0-2); Squamous Epithelial Cell Urine Rare /hpf (Few); Urobilinogen Urine Negative mg/dL (<2.0)
--- NOTE | 2019-07-05 16:30 | PM.IMHP ---
H&P: HPI History of Present Illness Chief complaint: Generalized weakness. Narrative: Lupe Gomez is a very pleasant 69-year-old female with type 2 diabetes mellitus, hypertension, and hyperlipidemia who presented to the emergency department earlier this afternoon via EMS from [facility] for evaluation of generalized weakness. She reports a gradual onset of generalized malaise and weakness for the last day and a half or so. She does not have any specific symptoms aside from the generalized malaise. Today, she could hardly even get herself out of bed to the wheelchair, and staff were concerned that perhaps her speech was slurred and so they sent her in for evaluation. It is also noted that she has periorbital edema, but says that is not unusual for to have swelling ?off and on? for which she is taking furosemide. She was hypoxic on arrival to the emergency department, and chest x-ray did demonstrate bibasilar pneumonia. She denies fever, chills, sweats, sinus congestion, rhinorrhea, otalgia, and odynophagia. She has not really had a cough but perhaps is mildly short of breath. No chest pain, pleuritic pain, or palpitations. She has chronic edema as detailed above, and that has not been any worse than usual. No calf pain or tenderness. She has not had nausea, vomiting, or diarrhea. She denies focal weakness and paresthesias, but does mention that she has pretty severe neuropathy from her diabetes. She denies dysarthria and dysphagia. Review of Systems Review of Systems: Narrative: Twelve systems were reviewed with pertinent positive and negatives as per HPI. No headache or neck ache. We his remained stable to her knowledge. No history of thyroid disease. She denies significant hair loss. No diarrhea or constipation. She for edema, which is unchanged, and she takes furosemide for this daily. Her appetite has been okay. She denies nausea and vomiting. No diarrhea. Occasional constipation due to pain medications. She has pretty severe neuropathy in her lower legs, and she says this is why she is mostly in a wheelchair. She blames it on not taking care for diabetes when she was younger. She denies blurry vision, polydipsia, and polyuria. She does not recall her last hemoglobin A1c. Except as documented, all other systems were reviewed and are negative. [facility] Past Medical History Medical History (Updated 07/05/19 @ 19:08 by Maricruz Randall PA-C) Chronic anemia Chronic kidney disease, stage 3 Baseline creatinine between 1.4 and 1.60. Chronic low back pain Chronic pain syndrome Had previously been on morphine 15 milligrams b.i.d. Recently started on Lyrica. Depression Diastolic congestive heart failure Echocardiogram in January 2019 demonstrated normal left ventricular size and function with ejection fraction of > 70% diastolic dysfunction grade 2. Hyperlipidemia Hypertension Type 2 diabetes mellitus with peripheral neuropathy Surgical History Surgical History History of knee surgery Hx of toe surgery Status post cataract extraction Status post cholecystectomy Family History Family History Mother Lung cancer Sibling Malignant neoplasm of prostate Diabetes mellitus Osteoarthritis Dialysis patient Heart disease Social History Social History (Updated 07/05/19 @ 19:08 by Maricruz Randall PA-C) Social History: The patient has been since 2010, when her from cancer. Her daughter was killed that same year and a drunk driving accident. She does have a son who lives in [place], [place]. Her brother, Kolton Macias, is her surrogate decision maker and she wishes to be a do not resuscitate. She is a former smoker and denies alcohol and drug abuse. Smoking packs per day: 1 Smoking cigarettes per day: 20.0 Years smoked: 5 Smoking pack-years: 5.00
--- NOTE | 2019-07-05 17:51 | ADMGEN ---
This patient, Lupe Gomez, was admitted to Medical Room 343-01. Patient/family oriented to hospital policies and general routines including ID bracelet, bed and alarms, visiting hours, pain management, procedures, bathroom and other care routines, personal items, smoking policy, room service/diet, and visiting hours. Valuables list has been completed. Information on how to activate the Rapid Response Team has been discussed. Patient/Family are encouraged to report perceived risks to care and to ask questions if they do not understand what they are told or what they should do.
[2019-07-05 20:05] LABS: Hemoglobin A1C 5.9 % (<5.7)
[2019-07-05 20:08] LABS: Blood Urea Nitrogen 53 mg/dL (7-17); Calcium 8.1 mg/dL (8.4-10.2); Carbon Dioxide 26 mmol/L (22-30); Chloride 99 mmol/L (98-107); Creatine Kinase 56 U/L (30-135); Estimated CRCL calculation 26 ml/min; Estimated Glomerular Filt Rate 30; Glucose 136 mg/dL (65-105); Potassium 5.2 mmol/L (3.4-5.0); Sodium 133 mmol/L (137-145)
[2019-07-05] MEDS: SODIUM CHLORIDE 0.9% IV 250 ML 75 ML IV CONT (20:55)
[2019-07-05] MEDS: METOCLOPRAMIDE HCL 10 MG TABLET PO (23:07)
[2019-07-05] MEDS: ATORVASTATIN 40 MG TABLET 80 MG PO (23:07)
[2019-07-05] MEDS: PREGABALIN 75 MG CAPSULE PO (23:09)
[2019-07-05 23:52] LABS: Glucose Point of Care 140 (65-105)
[2019-07-06] VITALS (12 sets, daily range): BP systolic 135–150; BP diastolic 53–66; PULSE 71–93; RESP 14–20; TEMP 36.1–36.5; O2SAT 91–96
[2019-07-06] MEDS: IPRATROPIUM BR 0.02% INH SOLN 0.5 MG/2.5 ML VIAL INHALATION ×4 (02:47→21:08)
[2019-07-06] MEDS: ALBUTEROL SULFATE NEB 2.5 MG/0.5 ML INH 5 MG INHALATION ×4 (02:47→21:07)
[2019-07-06 06:05] LABS: Blood Urea Nitrogen 54 mg/dL (7-17); Calcium 7.9 mg/dL (8.4-10.2); Carbon Dioxide 28 mmol/L (22-30); Chloride 99 mmol/L (98-107); Estimated CRCL calculation 23 ml/min; Estimated Glomerular Filt Rate 26; Glucose 148 mg/dL (65-105); Magnesium 2.4 mg/dL (1.6-2.3); Phosphorus 5.9 mg/dL (2.5-4.5); Potassium 4.9 mmol/L (3.4-5.0); Sodium 133 mmol/L (137-145)
[2019-07-06 06:57] LABS: Basophils Absolute Auto 0.1 K/mm3 (0.0-0.1); Basophils Percent Auto 0.5 % (0.2-1.2); Eosinophils Percent Auto 0.3 % (0-4.4); Hematocrit 24.5 % (37.0-47.0); Hemoglobin 7.9 g/dL (12.0-15.0); Immature Granulocyte Absolute 0.06 K/mm3 (0.00-0.031); Immature Granulocyte Percent A 0.5 % (0-0.5); Lymphocytes Absolute Auto 1.53 K/mm3 (0.9-3.2); Mean Corpuscular HGB Conc 32.2 g/dl (32-36); Mean Corpuscular Hemoglobin 29.3 pg (26-34); Mean Corpuscular Volume 90.7 fl (80-100); Mean Platelet Volume 10.7 fl (7.4-10.4); Monocytes Absolute Auto 1.2 K/mm3 (0.1-0.6); Monocytes Percent Auto 10.5 % (2.6-8.5); Neutrophils Absolute Auto 8.8 K/mm3 (1.3-6.7); Neutrophils Percent Auto 75.2 % (45.5-73.1); Platelet Count Result 335 k/mm3 (150-375); Red Cell Distribution Width 17.1 % (11.5-14.5); White Blood Count 11.7 K/mm3 (4.5-10.0)
[2019-07-06] MEDS: MAGNESIUM OXIDE 400 MG TABLET PO (09:41)
[2019-07-06] MEDS: FUROSEMIDE 80 MG TABLET PO (09:41)
[2019-07-06] MEDS: AMLODIPINE BESYLATE 5 MG TABLET 10 MG PO (09:41)
[2019-07-06] MEDS: DOCUSATE SODIUM 100 MG CAPSULE PO (09:41)
[2019-07-06] MEDS: VALACYCLOVIR HCL 500 MG TABLET 1000 MG PO ×3 (09:42→17:39)
[2019-07-06] MEDS: METOPROLOL SUCCINATE EXT REL 100 MG TABCR 200 MG PO (09:42)
[2019-07-06] MEDS: SENNOSIDES 8.6 MG TABLET PO ×2 (09:45→17:39)
[2019-07-06 09:47] LABS: Hematocrit 25.5 % (37.0-47.0); Hemoglobin 8.2 g/dL (12.0-15.0)
[2019-07-06 09:49] LABS: Immature Reticulocyte Fraction 12.8 % (3.0-15.9); Reticulocyte Hemoglobin Conten 32.1 pg (28.2-35.7); Reticulocyte Percent 2.02 % (0.7-4.3); Reticulocytes Absolute 0.06 B/L (32.2-175.7)
[2019-07-06] MEDS: ASPIRIN 81 MG ENTERIC TABLET PO (09:55)
[2019-07-06 09:59] LABS: Bilirubin,Total 0.3 mg/dL (0.2-1.3); Lactate Dehydrogenase 422 U/L (313-618)
[2019-07-06 10:08] LABS: Transferrin 187 mg/dL (206-381)
[2019-07-06 10:10] LABS: NT Pro B Type Natriuretic Pept 7190 PG/ML (5-100)
[2019-07-06 10:32] LABS: Iron 14 ug/dL (37-170)
[2019-07-06 10:43] LABS: Percent Iron Saturation 5 % (20-50)
[2019-07-06 11:02] LABS: Glucose Point of Care 111 (65-105)
[2019-07-06 11:07] LABS: Folic Acid 12.5 ng/mL (2.76->20)
[2019-07-06 12:18] LABS: Glucose Point of Care 175 (65-105)
[2019-07-06] MEDS: FUROSEMIDE INJ 40 MG/4 ML VIAL IV PUSH (15:21)
[2019-07-06 15:26] LABS: Glucose Point of Care 175 (65-105)
--- NOTE | 2019-07-06 15:38 | P.PNIM_ITS ---
Progress Note: A&P Assessment and Plan (1) Acute respiratory failure with hypoxia: Code(s): J96.01 - Acute respiratory failure with hypoxia Status: Acute Assessment and Plan: * Secondary to pneumonia. * Pulmonary embolism is considered but is less likely by history. * Doppler positive cap DVTs * Wean oxygen as tolerated. (2) Community acquired pneumonia: Qualifiers: Laterality: unspecified laterality Qualified Code(s): J18.9 - Pneumonia, unspecified organism Code(s): J18.9 - Pneumonia, unspecified organism Status: Acute Assessment and Plan: * Continue azithromycin and ceftriaxone per antibiotic stewardship recommendations. * Influenza testing is negative. * Sputum to be attempted for culture. * Will schedule updrafts q.6 hours. (3) Chronic kidney disease, stage 3: Code(s): N18.3 - Chronic kidney disease, stage 3 (moderate) Status: Acute Assessment and Plan: * BUN creatinine are higher than what they typically run, likely due to her diuretics. * creatine Today 1.90, baseline 1.30 It is noted that she is now taking Entresto, which could be in implicating factor as well. -BMP yesterday 6720 due to overnight fluid challenge and treatment for dehydration BNP has increased to 7190. - avoid nephrotoxic agents * Continue Lasix * Repeat renal function in a.m. (4) Chronic anemia: Code(s): D64.9 - Anemia, unspecified Status: Acute Assessment and Plan: * Previous labs were reviewed, and her hemoglobin is about a gram lower than what it typically runs. * She gives no history to suggest acute blood loss. * Previous hemoglobin 9.4 this a.m. from 7.9 repeat 8.2 * -hemoglobins and hematocrits q.8 hours * Type and screen completed, will infuse as needed * For now will continue to monitor. * Anemia workup pending * Occult blood pending * Will continue to monitor hemoglobin and hematocrit possible hemorrhage. (5) Hypertension: Code(s): I10 - Essential (primary) hypertension Status: Acute Assessment and Plan: * Blood pressures were reviewed and they are reasonably well controlled. * Will continue antihypertensives and monitor daily. (6) Edema: Code(s): R60.9 - Edema, unspecified Status: Acute Assessment and Plan: * A chronic ongoing issue with this patient with multiple causes including diastolic dysfunction, chronic kidney disease with nephrotic syndrome. (7) Type 2 diabetes mellitus with peripheral neuropathy: Code(s): E11.42 - Type 2 diabetes mellitus with diabetic polyneuropathy Status: Acute Assessment and Plan: * Hold metformin given worsening renal function. * Will initiate sliding scale insulin, Accu-Cheks, and hypoglycemic protocol. * hemoglobin A1c-5.9 (8) DVT (deep venous thrombosis): Code(s): I82.409 - Acute embolism and thrombosis of unspecified deep veins of unspecified lower extremity Status: Acute Assessment and Plan: -Dopplers indicated calf DVT's -spoke with Dr. Fleming-suggested we start the patient on high-dose ASA. Due to location of clots patient sent over. Repeat in 2 days. Determine if the patient has a bleeding. If it is determined that the patient is not hemorrha ging, start therapy and consult him. Subjective Date/time seen: 07/06/19 15:38 patient is complaining of generalized weakness and requesting physical therapy/occupational therapy .Patient able to tolerate
--- NOTE | 2019-07-06 15:38 | PM.IMPN ---
Progress Note: A&P Assessment and Plan (1) Acute respiratory failure with hypoxia: Code(s): J96.01 - Acute respiratory failure with hypoxia Status: Acute Assessment and Plan: Secondary to pneumonia. Pulmonary embolism is considered but is less likely by history. Doppler positive cap DVTs Wean oxygen as tolerated. (2) Community acquired pneumonia: Qualifiers: Laterality: unspecified laterality Qualified Code(s): J18.9 - Pneumonia, unspecified organism Code(s): J18.9 - Pneumonia, unspecified organism Status: Acute Assessment and Plan: Continue azithromycin and ceftriaxone per antibiotic stewardship recommendations. Influenza testing is negative. Sputum to be attempted for culture. Will schedule updrafts q.6 hours. (3) Chronic kidney disease, stage 3: Code(s): N18.3 - Chronic kidney disease, stage 3 (moderate) Status: Acute Assessment and Plan: BUN creatinine are higher than what they typically run, likely due to her diuretics. creatine Today 1.90, baseline 1.30 It is noted that she is now taking Entresto, which could be in implicating factor as well. -BMP yesterday 6720 due to overnight fluid challenge and treatment for dehydration BNP has increased to 7190. - avoid nephrotoxic agents Continue Lasix Repeat renal function in a.m. (4) Chronic anemia: Code(s): D64.9 - Anemia, unspecified Status: Acute Assessment and Plan: Previous labs were reviewed, and her hemoglobin is about a gram lower than what it typically runs. She gives no history to suggest acute blood loss. Previous hemoglobin 9.4 this a.m. from 7.9 repeat 8.2 -hemoglobins and hematocrits q.8 hours Type and screen completed, will infuse as needed For now will continue to monitor. Anemia workup pending Occult blood pending Will continue to monitor hemoglobin and hematocrit possible hemorrhage. (5) Hypertension: Code(s): I10 - Essential (primary) hypertension Status: Acute Assessment and Plan: Blood pressures were reviewed and they are reasonably well controlled. Will continue antihypertensives and monitor daily. (6) Edema: Code(s): R60.9 - Edema, unspecified Status: Acute Assessment and Plan: A chronic ongoing issue with this patient with multiple causes including diastolic dysfunction, chronic kidney disease with nephrotic syndrome. (7) Type 2 diabetes mellitus with peripheral neuropathy: Code(s): E11.42 - Type 2 diabetes mellitus with diabetic polyneuropathy Status: Acute Assessment and Plan: Hold metformin given worsening renal function. Will initiate sliding scale insulin, Accu-Cheks, and hypoglycemic protocol. hemoglobin A1c-5.9 (8) DVT (deep venous thrombosis): Code(s): I82.409 - Acute embolism and thrombosis of unspecified deep veins of unspecified lower extremity Status: Acute Assessment and Plan: -Dopplers indicated calf DVT's -spoke with Dr. Fleming-suggested we start the patient on high-dose ASA. Due to location of clots patient sent over. Repeat in 2 days. Determine if the patient has a bleeding. If it is determined that the patient is not hemorrhaging, start therapy and consult him. Subjective Date/time seen: 07/06/19 15:38 patient is complaining of generalized weakness and requesting physical therapy/occupational therapy .Patient able to tolerate all meals , and slept well. Patient denies SOB, CP, palpitation, extremity numbness, lightheadness, dizziness, constipation, diarrhea, or chills or fever. doppler indicated positive bilateral DVTs. Patient hemoglobin dropped from 9.4 to a 7.9 repeat hemoglobin indicated 8.2. Speak with Dr. Fleming - will repeat a Noam LE doppler on tuesday to determine to status of DVT. below the knee dvt puts pt at lo risk. Will start on high dose AsA and monitor patient to make sure s
[2019-07-06 17:00] LABS: Glucose Point of Care 148 (65-105)
[2019-07-06 19:28] LABS: Hematocrit 26.6 % (37.0-47.0); Hemoglobin 8.5 g/dL (12.0-15.0)
[2019-07-06] MEDS: ATORVASTATIN 40 MG TABLET 80 MG PO (21:22)
[2019-07-06] MEDS: METOCLOPRAMIDE HCL 10 MG TABLET PO (21:22)
[2019-07-06] MEDS: PREGABALIN 75 MG CAPSULE PO (21:22)
[2019-07-06 22:31] LABS: Glucose Point of Care 135 (65-105)
[2019-07-07] VITALS (14 sets, daily range): BP systolic 126–155; BP diastolic 58–72; PULSE 68–101; RESP 16–20; TEMP 36.2–36.4; O2SAT 86–97
[2019-07-07] MEDS: IPRATROPIUM BR 0.02% INH SOLN 0.5 MG/2.5 ML VIAL INHALATION ×4 (03:09→20:20)
[2019-07-07] MEDS: ALBUTEROL SULFATE NEB 2.5 MG/0.5 ML INH 5 MG INHALATION ×4 (03:09→20:20)
[2019-07-07 06:18] LABS: Hematocrit 22.7 % (37.0-47.0); Hemoglobin 7.3 g/dL (12.0-15.0); Mean Corpuscular HGB Conc 32.2 g/dl (32-36); Mean Corpuscular Hemoglobin 29.1 pg (26-34); Mean Corpuscular Volume 90.4 fl (80-100); Mean Platelet Volume 10.5 fl (7.4-10.4); Platelet Count Result 315 k/mm3 (150-375); Red Blood Count 2.51 M/mm3 (4.2-5.4); Red Cell Distribution Width 16.7 % (11.5-14.5); White Blood Count 10.2 K/mm3 (4.5-10.0)
[2019-07-07 06:30] LABS: Blood Urea Nitrogen 59 mg/dL (7-17); Carbon Dioxide 27 mmol/L (22-30); Chloride 97 mmol/L (98-107); Estimated CRCL calculation 22 ml/min; Estimated Glomerular Filt Rate 25; Glucose 121 mg/dL (65-105); Potassium 4.2 mmol/L (3.4-5.0); Sodium 133 mmol/L (137-145)
[2019-07-07 06:39] LABS: NT Pro B Type Natriuretic Pept 5930 PG/ML (5-100)
[2019-07-07] MEDS: INSULIN ASPART (*BKC) 100 UNITS/ML SUB-Q (07:21)
[2019-07-07 07:22] LABS: Glucose Point of Care 234 (65-105)
--- NOTE | 2019-07-07 08:53 | P.PNIM_ITS ---
Progress Note: A&P Assessment and Plan (1) Acute respiratory failure with hypoxia: Code(s): J96.01 - Acute respiratory failure with hypoxia Status: Acute Assessment and Plan: * Secondary to pneumonia.. * Doppler positive for DVT (2) Community acquired pneumonia: Qualifiers: Laterality: unspecified laterality Qualified Code(s): J18.9 - Pneumonia, unspecified organism Code(s): J18.9 - Pneumonia, unspecified organism Status: Acute Assessment and Plan: * Continue azithromycin and ceftriaxone per antibiotic stewardship recommendations. * Influenza testing is negative. * Sputum to be attempted for culture. * Will schedule updrafts q.6 hours. (3) Chronic kidney disease, stage 3: Code(s): N18.3 - Chronic kidney disease, stage 3 (moderate) Status: Acute Assessment and Plan: * BUN creatinine are higher than what they typically run, likely due to her diuretics. * creatine Today 2.00, baseline 1.30 * Nephro consulted-awaiting recommendation. Thank you for the care this patient * avoid nephrotoxic agents * Continue Lasix with cautious due to kidney disease * Repeat renal function in a.m. (4) Chronic anemia: Code(s): D64.9 - Anemia, unspecified Status: Acute Assessment and Plan: * Hemoglobin dropping today at a 7.3 on admission 9.4 * She gives no history to suggest acute blood loss. * GI consult- awaiting recommendations thank you for the care of this patient * Type and screen completed, infused with hemoglobin of less than 7 * For now will continue to monitor. * Anemia workup pending * Occult blood pending * * (5) Hypertension: Code(s): I10 - Essential (primary) hypertension Status: Acute Assessment and Plan: * Blood pressures were reviewed and they are reasonably well controlled. * Will continue antihypertensives and monitor daily. (6) Edema: Code(s): R60.9 - Edema, unspecified Status: Acute Assessment and Plan: * A chronic ongoing issue with this patient with multiple causes including diastolic dysfunction, chronic kidney disease with nephrotic syndrome. (7) Type 2 diabetes mellitus with peripheral neuropathy: Code(s): E11.42 - Type 2 diabetes mellitus with diabetic polyneuropathy Status: Acute Assessment and Plan: * Hold metformin given worsening renal function. * Will initiate sliding scale insulin, Accu-Cheks, and hypoglycemic protocol. * hemoglobin A1c-5.9 (8) DVT (deep venous thrombosis): Code(s): I82.409 - Acute embolism and thrombosis of unspecified deep veins of unspecified lower extremity Status: Acute Assessment and Plan: -Dopplers indicated calf DVT's -spoke with Dr. Fleming-suggested we start the patient on high-dose ASA. Due to location of clots patient is at low risk. Repeat Doppler in 2 days. Will determine if the patient has a bleed. If it is determined that the patient is not hemorrhaging, start anticoagulant therapy and consult Cardiology. Subjective Date/time seen: 07/07/19 08:53 patient in bed and is more fatigued then yesterday. she noted that she is extremity tired and she she pale in color. she is not having any problems with breathing , cp, palpitations ,n/v, hematuria, bloody stools or or diarrhea. She is constipated . GI has been consulted for possible GI bleed. awaiting recomendation. Review of Systems Constitutional: Constitutional: Ca
--- NOTE | 2019-07-07 08:53 | PM.IMPN ---
Progress Note: A&P Assessment and Plan (1) Acute respiratory failure with hypoxia: Code(s): J96.01 - Acute respiratory failure with hypoxia Status: Acute Assessment and Plan: Secondary to pneumonia.. Doppler positive for DVT (2) Community acquired pneumonia: Qualifiers: Laterality: unspecified laterality Qualified Code(s): J18.9 - Pneumonia, unspecified organism Code(s): J18.9 - Pneumonia, unspecified organism Status: Acute Assessment and Plan: Continue azithromycin and ceftriaxone per antibiotic stewardship recommendations. Influenza testing is negative. Sputum to be attempted for culture. Will schedule updrafts q.6 hours. (3) Chronic kidney disease, stage 3: Code(s): N18.3 - Chronic kidney disease, stage 3 (moderate) Status: Acute Assessment and Plan: BUN creatinine are higher than what they typically run, likely due to her diuretics. creatine Today 2.00, baseline 1.30 Nephro consulted-awaiting recommendation. Thank you for the care this patient avoid nephrotoxic agents Continue Lasix with cautious due to kidney disease Repeat renal function in a.m. (4) Chronic anemia: Code(s): D64.9 - Anemia, unspecified Status: Acute Assessment and Plan: Hemoglobin dropping today at a 7.3 on admission 9.4 She gives no history to suggest acute blood loss. GI consult- awaiting recommendations thank you for the care of this patient Type and screen completed, infused with hemoglobin of less than 7 For now will continue to monitor. Anemia workup pending Occult blood pending (5) Hypertension: Code(s): I10 - Essential (primary) hypertension Status: Acute Assessment and Plan: Blood pressures were reviewed and they are reasonably well controlled. Will continue antihypertensives and monitor daily. (6) Edema: Code(s): R60.9 - Edema, unspecified Status: Acute Assessment and Plan: A chronic ongoing issue with this patient with multiple causes including diastolic dysfunction, chronic kidney disease with nephrotic syndrome. (7) Type 2 diabetes mellitus with peripheral neuropathy: Code(s): E11.42 - Type 2 diabetes mellitus with diabetic polyneuropathy Status: Acute Assessment and Plan: Hold metformin given worsening renal function. Will initiate sliding scale insulin, Accu-Cheks, and hypoglycemic protocol. hemoglobin A1c-5.9 (8) DVT (deep venous thrombosis): Code(s): I82.409 - Acute embolism and thrombosis of unspecified deep veins of unspecified lower extremity Status: Acute Assessment and Plan: -Dopplers indicated calf DVT's -spoke with Dr. Fleming-suggested we start the patient on high-dose ASA. Due to location of clots patient is at low risk. Repeat Doppler in 2 days. Will determine if the patient has a bleed. If it is determined that the patient is not hemorrhaging, start anticoagulant therapy and consult Cardiology. Subjective Date/time seen: 07/07/19 08:53 patient in bed and is more fatigued then yesterday. she noted that she is extremity tired and she she pale in color. she is not having any problems with breathing , cp, palpitations ,n/v, hematuria, bloody stools or or diarrhea. She is constipated . GI has been consulted for possible GI bleed. awaiting recomendation. Review of Systems Constitutional: Constitutional: Denies chills, Reports fatigue, Denies fever(s), Denies headache(s) and Reports lethargy ENT: Denies headache(s) Cardiovascular: Cardiovascular: Denies chest pain, Denies chest pain with activity, Denies diaphoresis, Denies rapid heart rate, Denies dyspnea and Denies dyspnea on exertion Respiratory: Respiratory: Denies cough, Denies hemoptysis, Denies dyspnea and Denies dyspnea on exertion Gastrointestinal: Gastrointestinal: Denies melena, Denies bloating, Denies hematochezia, D
[2019-07-07] MEDS: polyethylene glycoL 3350 17 GM POWD.PACK PO (09:34)
[2019-07-07] MEDS: METOPROLOL SUCCINATE EXT REL 100 MG TABCR 200 MG PO (09:34)
[2019-07-07] MEDS: FUROSEMIDE 80 MG TABLET PO (09:35)
[2019-07-07] MEDS: MAGNESIUM OXIDE 400 MG TABLET PO (09:35)
[2019-07-07] MEDS: VALACYCLOVIR HCL 500 MG TABLET 1000 MG PO ×3 (09:35→16:29)
[2019-07-07] MEDS: AMLODIPINE BESYLATE 5 MG TABLET 10 MG PO (09:35)
[2019-07-07] MEDS: DOCUSATE SODIUM 100 MG CAPSULE PO (09:35)
[2019-07-07] MEDS: SENNOSIDES 8.6 MG TABLET PO ×2 (09:38→16:32)
[2019-07-07] MEDS: ASPIRIN 325 MG ENTERIC TABLET PO (09:58)
--- NOTE | 2019-07-07 11:16 | WPDGICN ---
Assessment and Plan Assessment and plan (1) Chronic anemia: Code(s): D64.9 - Anemia, unspecified Status: Acute Assessment and Plan: new diagnosis of DVT and also noted anemia, patient will need anticoagulation. probably we can proceed with scopes to make sure that she won't be at risk of bleeding when she is put on blood thinners, but will wait another day until respiratory condition is better, apparently she never had scopes, no overt gib probably part of her anemia could be from acute on chronic disease. 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: Code(s): E11.21 - Type 2 diabetes mellitus with diabetic nephropathy Status: Acute (5) Acute on chronic diastolic CHF (congestive heart failure): Code(s): I50.33 - Acute on chronic diastolic (congestive) heart failure Status: Acute (6) DVT (deep venous thrombosis): Qualifiers: DVT location: lower extremity Affected thrombotic vein of extremity: unspecified vein of extremity Chronicity: acute Laterality: bilateral Qualified Code(s): I82.403 - Acute embolism and thrombosis of unspecified deep veins of lower extremity, bilateral Code(s): I82.409 - Acute embolism and thrombosis of unspecified deep veins of unspecified lower extremity Status: Acute Assessment and Plan: new diagnosis, primary started her on aspirin for now with plan to repeat another doppler to reassess with consideration to start blood thinners GI Consult Note Consult date/time: 07/07/19 11:16 Reason for consult: anemia HPI: Lupe Gomez is a 69 year old female with history of diabetes mellitus, hypertension, CKD stage 3 here with new onset of generalized weakness and malaise for almost 2 days. She was not even able to get herself out of bed to the wheelchair thus staff were concerned and she was sent to the ER. Evaluation in the emergency showed that she was hypoxic and chest x-ray did demonstrate bibasilar pneumonia. She was admitted to the hospital, started on antibiotics and using oxygen. Still feeling weak. I was called because hb 7.5 (baseline 9), she also had ANGIE (creatinine 2- baseline 1.6). She denies overt GIB, no melena. Normal platelets and coagulation. Never had scopes. Review of Systems Constitutional: Constitutional: Reports fatigue and Reports weakness Eyes: Eyes: Denies blurry vision ENT: Reports Normal hearing present Cardiovascular: Cardiovascular: Denies leg edema Respiratory: Respiratory: Reports dyspnea Gastrointestinal: Gastrointestinal: Denies abdominal pain and Denies hematochezia Genitourinary: Genitourinary: Denies dysuria Musculoskeletal: Musculoskeletal: Denies joint swelling Integumentary/Breasts: Skin/Breast: Denies rash Neurologic: Denies confusion Psychiatric: Psychiatric: Denies homicidal ideation Hematologic/Lymphatic: Hematologic/Lymphatic: Denies easy bleeding Allergic/Immunologic: Allergic/Immunologic: Denies urticaria PMFSH Past Medical History Medical History (Updated 07/07/19 @ 11:25 by Kurtis iFnney MD) Chronic anemia Chronic kidney disease, stage 3 Baseline creatinine between 1.4 and 1.60. Chronic low back pain Chronic pain syndrome Had previously been on morphine 15 milligrams b.i.d. Recently started on Lyrica. Depression Diastolic congestive heart failure Echocardiogram in January 2019 demonstrated normal left ventricular size and function with ejection fraction of > 70% diastolic dysfunction grade 2. Hyperlipidemia Hypertension Type 2 diabetes mellitu
[2019-07-07 11:38] LABS: Glucose Point of Care 155 (65-105)
[2019-07-07 17:02] LABS: Glucose Point of Care 128 (65-105)
[2019-07-07] MEDS: ATORVASTATIN 40 MG TABLET 80 MG PO (21:15)
[2019-07-07] MEDS: PREGABALIN 75 MG CAPSULE PO (21:17)
[2019-07-07] MEDS: METOCLOPRAMIDE HCL 10 MG TABLET PO (21:18)
[2019-07-07] MEDS: ACETAMINOPHEN 325 MG TABLET 650 MG PO (23:06)
[2019-07-07 23:09] LABS: Glucose Point of Care 199 (65-105)
[2019-07-08] VITALS (12 sets, daily range): BP systolic 114–155; BP diastolic 71–89; PULSE 66–77; RESP 15–20; TEMP 36.1–36.6; O2SAT 92–96
[2019-07-08] MEDS: ALBUTEROL SULFATE NEB 2.5 MG/0.5 ML INH 5 MG INHALATION ×4 (03:22→21:39)
[2019-07-08] MEDS: IPRATROPIUM BR 0.02% INH SOLN 0.5 MG/2.5 ML VIAL INHALATION ×4 (03:23→21:38)
[2019-07-08 05:41] LABS: Hematocrit 22.5 % (37.0-47.0); Hemoglobin 7.5 g/dL (12.0-15.0); Mean Corpuscular HGB Conc 33.3 g/dl (32-36); Mean Corpuscular Hemoglobin 29.3 pg (26-34); Mean Corpuscular Volume 87.9 fl (80-100); Mean Platelet Volume 10.5 fl (7.4-10.4); Platelet Count Result 338 k/mm3 (150-375); Red Blood Count 2.56 M/mm3 (4.2-5.4); Red Cell Distribution Width 16.6 % (11.5-14.5); White Blood Count 8.9 K/mm3 (4.5-10.0)
[2019-07-08 05:58] LABS: Blood Urea Nitrogen 64 mg/dL (7-17); Carbon Dioxide 25 mmol/L (22-30); Chloride 98 mmol/L (98-107); Estimated CRCL calculation 23 ml/min; Estimated Glomerular Filt Rate 26; Glucose 114 mg/dL (65-105); Potassium 4.4 mmol/L (3.4-5.0); Sodium 133 mmol/L (137-145)
[2019-07-08 07:09] LABS: Glucose Point of Care 110 (65-105)
[2019-07-08] MEDS: ASPIRIN 325 MG ENTERIC TABLET PO (08:45)
[2019-07-08] MEDS: FUROSEMIDE 80 MG TABLET PO (08:45)
[2019-07-08] MEDS: DOCUSATE SODIUM 100 MG CAPSULE PO (08:45)
[2019-07-08] MEDS: VALACYCLOVIR HCL 500 MG TABLET 1000 MG PO ×3 (08:45→16:37)
[2019-07-08] MEDS: MAGNESIUM OXIDE 400 MG TABLET PO (08:45)
[2019-07-08] MEDS: AMLODIPINE BESYLATE 5 MG TABLET 10 MG PO (08:45)
[2019-07-08] MEDS: SENNOSIDES 8.6 MG TABLET PO ×2 (09:45→16:30)
[2019-07-08] MEDS: METOPROLOL SUCCINATE EXT REL 100 MG TABCR 200 MG PO (09:45)
[2019-07-08 12:30] LABS: Glucose Point of Care 162 (65-105)
--- NOTE | 2019-07-08 12:45 | WPDGIPROGNO ---
Progress Note: A&P Assessment and Plan (1) Chronic anemia: Code(s): D64.9 - Anemia, unspecified Status: Acute Assessment and Plan: patient will need anticoagulation given new diagnosis of DVT, patient denies gi work up to assess for source of anemia. will proceed with egd and colonoscopy tomorrow. (2) Community acquired pneumonia: Qualifiers: Laterality: unspecified laterality Qualified Code(s): J18.9 - Pneumonia, unspecified organism Code(s): J18.9 - Pneumonia, unspecified organism Status: Acute Assessment and Plan: she is feeling better, on iv abx (3) DVT (deep venous thrombosis): Qualifiers: DVT location: lower extremity Affected thrombotic vein of extremity: unspecified vein of extremity Chronicity: acute Laterality: bilateral Qualified Code(s): I82.403 - Acute embolism and thrombosis of unspecified deep veins of lower extremity, bilateral Code(s): I82.409 - Acute embolism and thrombosis of unspecified deep veins of unspecified lower extremity Status: Acute Assessment and Plan: new diagnosis, fow now only on aspirin but consideration to use other blood thinners (4) Type 2 diabetes mellitus with peripheral neuropathy: Code(s): E11.42 - Type 2 diabetes mellitus with diabetic polyneuropathy Status: Acute Subjective Date/time seen: 07/08/19 12:45 Interval history: complaining of weakness and generalized pain in arms, no signs of bleeding. Review of Systems Review of Systems: All systems reviewed & are unremarkable except as noted in HPI and below Exam Const: Other: using oxygen HENMT: General nose exam: Normal nares present Eyes: General: appearance normal, both eyes and all related structures Neck: Neck: no JVD Resp: Auscultation: no wheezes and diminished lung sounds Cardio: Rate: regular rate Rhythm: regular rhythm GI: Inspection: non-distended GI Palp: Yes Soft to palpation and No Tenderness to palpation present (GI) Auscultation: normal bowel sounds Skin: General skin exam: no erythema, no jaundice and pallor Neuro: Speech: normal speech Extrem: General: normal to inspection Psych: Mental Status: mental status grossly normal Objective Data Vital Signs Vital Signs: Vital Signs - 24 hr 07/07/19 14:00 07/07/19 15:20 07/07/19 15:25 Temperature 97.6 F Pulse Rate 68 70 74 Respiratory Rate 20 16 20 Blood Pressure 126/72 Pulse Oximetry 97 07/07/19 20:20 07/07/19 20:22 07/07/19 20:32 Temperature Pulse Rate 75 77 Respiratory Rate 18 18 Blood Pressure Pulse Oximetry 90 07/07/19 22:00 07/08/19 03:23 07/08/19 03:33 Temperature 97.1 F L Pulse Rate 79 72 74 Respiratory Rate 18 18 18 Blood Pressure 155/62 H Pulse Oximetry 92 07/08/19 04:31 07/08/19 07:47 07/08/19 08:01 Temperature 97.2 F L Pulse Rate 73 74 77 Respiratory Rate 16 18 18 Blood Pressure 155/71 H Pulse Oximetry 95 93 07/08/19 09:45 Temperature Pulse Rate 77 Respiratory Rate Blood Pressure Pulse Oximetry Intake/Output Intake/Output: Intake & Output 07/05/19 07/06/19 07/07/19 07/08/19 23:59 23:59 23:59 23:59 Intake Total 200 2040 2936 440 Output Total 800 1850 2100 900 Balance -600 190 836 -460 Meds/Results Medications: Active Medications Generic Name Dose Route Start Last Admin Trade Name Freq PRN Reason Stop Dose Admin Acetaminophen 650 mg 07/07/19 15:45 07/07/19 23:06 Tylenol Tablet PO 650 mg Q4H PRN Administration Mild Pain (1-3) or Fever Hydrocodone Bitart/Acetaminophen 1 tab 07/07/19 15:45 [place] 5-325 Mg PO Q6H PRN Pain Rated 7-10 Albuterol 5 mg 07/05/19 20:00 07/08/19 07:47 Albuterol Sulf Neb 2.5mg/0.5ml INHALATION 5 mg Q6HRT KEIRA Administration Amlodipine Besylate 10 mg 07/06/19 09:00 07/08/19 08:45 Norvasc PO 10 mg DAILY KEIRA Administration Aspirin 325 mg 07/07/19 09:00 07/08/19 08:45 A
--- NOTE | 2019-07-08 13:52 | P.PNIM_ITS ---
Progress Note: A&P Assessment and Plan (1) Community acquired pneumonia: Qualifiers: Laterality: unspecified laterality Qualified Code(s): J18.9 - Pneumonia, unspecified organism Code(s): J18.9 - Pneumonia, unspecified organism Status: Acute Assessment and Plan: * Continue azithromycin and ceftriaxone (2) Acute respiratory failure with hypoxia: Code(s): J96.01 - Acute respiratory failure with hypoxia Status: Acute Assessment and Plan: * Secondary to pneumonia. (3) DVT (deep venous thrombosis): Qualifiers: DVT location: lower extremity Affected thrombotic vein of extremity: unspecified vein of extremity Chronicity: acute Laterality: bilateral Qualified Code(s): I82.403 - Acute embolism and thrombosis of unspecified deep veins of lower extremity, bilateral Code(s): I82.409 - Acute embolism and thrombosis of unspecified deep veins of unspecified lower extremity Status: Acute Assessment and Plan: * bilateral tibial and peroneal DVTs * ASA * Repeat venous doppler 07/09 * Prophylactic heparin (no overt bleeding) (4) Type 2 diabetes mellitus with complication, with long-term current use of insulin: Code(s): E11.8 - Type 2 diabetes mellitus with unspecified complications; Z79.4 - intermediate designer (current) use of insulin Status: Acute Assessment and Plan: * continue SSI (5) Chronic kidney disease, stage 3: Code(s): N18.3 - Chronic kidney disease, stage 3 (moderate) Status: Acute Assessment and Plan: * 07/08 creatinine 1.9 (6) Chronic anemia: Code(s): D64.9 - Anemia, unspecified Status: Acute Assessment and Plan: * lab c/w ACD * no sign of overt bleeding * GI evaluation in progress (EGD and colon planned for 07/09) (7) Hypertension: Qualifiers: Hypertension type: essential hypertension Qualified Code(s): I10 - Essential (primary) hypertension Code(s): I10 - Essential (primary) hypertension Status: Acute Assessment and Plan: * Blood pressures were reviewed and they are reasonably well controlled. * Will continue antihypertensives and monitor daily. (8) Edema: Qualifiers: Edema type: localized Qualified Code(s): R60.0 - Localized edema Code(s): R60.9 - Edema, unspecified Status: Acute Assessment and Plan: * A chronic ongoing issue with this patient with multiple causes including diastolic dysfunction, chronic kidney disease with nephrotic syndrome. (9) Type 2 diabetes mellitus with peripheral neuropathy: Code(s): E11.42 - Type 2 diabetes mellitus with diabetic polyneuropathy Status: Acute Assessment and Plan: * Hold metformin given worsening renal function. * Will initiate sliding scale insulin, Accu-Cheks, and hypoglycemic protocol. * hemoglobin A1c-5.9 Subjective Date/time seen: 07/08/19 13:52 Interval history: Feels like crap . HUTCHINS. Fatigued. No cp. No gi/gu c/o. No ABNL bleeding. Review of Systems Review of Systems: All systems reviewed & are unremarkable except as noted in HPI and below Exam Narrative: Exam Narrative: HEENT: EOMI, PERRL, pharyngeal mucosa pink and intact NECK: No JVD CHEST: Coarse BS bilaterally, NL effort HEART: NL S1/S2, regular, no murmur ABDOMEN: BS+, soft, nontender, no mass, no bruits EXTREMITIES: No cyanosis, mild bilateral ankle edema
--- NOTE | 2019-07-08 13:52 | PM.IMPN ---
Progress Note: A&P Assessment and Plan (1) Community acquired pneumonia: Qualifiers: Laterality: unspecified laterality Qualified Code(s): J18.9 - Pneumonia, unspecified organism Code(s): J18.9 - Pneumonia, unspecified organism Status: Acute Assessment and Plan: Continue azithromycin and ceftriaxone (2) Acute respiratory failure with hypoxia: Code(s): J96.01 - Acute respiratory failure with hypoxia Status: Acute Assessment and Plan: Secondary to pneumonia. (3) DVT (deep venous thrombosis): Qualifiers: DVT location: lower extremity Affected thrombotic vein of extremity: unspecified vein of extremity Chronicity: acute Laterality: bilateral Qualified Code(s): I82.403 - Acute embolism and thrombosis of unspecified deep veins of lower extremity, bilateral Code(s): I82.409 - Acute embolism and thrombosis of unspecified deep veins of unspecified lower extremity Status: Acute Assessment and Plan: bilateral tibial and peroneal DVTs ASA Repeat venous doppler 07/09 Prophylactic heparin (no overt bleeding) (4) Type 2 diabetes mellitus with complication, with long-term current use of insulin: Code(s): E11.8 - Type 2 diabetes mellitus with unspecified complications; Z79.4 - ocean transportation intermediary (current) use of insulin Status: Acute Assessment and Plan: continue SSI (5) Chronic kidney disease, stage 3: Code(s): N18.3 - Chronic kidney disease, stage 3 (moderate) Status: Acute Assessment and Plan: 07/08 creatinine 1.9 (6) Chronic anemia: Code(s): D64.9 - Anemia, unspecified Status: Acute Assessment and Plan: lab c/w ACD no sign of overt bleeding GI evaluation in progress (EGD and colon planned for 07/09) (7) Hypertension: Qualifiers: Hypertension type: essential hypertension Qualified Code(s): I10 - Essential (primary) hypertension Code(s): I10 - Essential (primary) hypertension Status: Acute Assessment and Plan: Blood pressures were reviewed and they are reasonably well controlled. Will continue antihypertensives and monitor daily. (8) Edema: Qualifiers: Edema type: localized Qualified Code(s): R60.0 - Localized edema Code(s): R60.9 - Edema, unspecified Status: Acute Assessment and Plan: A chronic ongoing issue with this patient with multiple causes including diastolic dysfunction, chronic kidney disease with nephrotic syndrome. (9) Type 2 diabetes mellitus with peripheral neuropathy: Code(s): E11.42 - Type 2 diabetes mellitus with diabetic polyneuropathy Status: Acute Assessment and Plan: Hold metformin given worsening renal function. Will initiate sliding scale insulin, Accu-Cheks, and hypoglycemic protocol. hemoglobin A1c-5.9 Subjective Date/time seen: 07/08/19 13:52 Interval history: Feels like crap . HUTCHINS. Fatigued. No cp. No gi/gu c/o. No ABNL bleeding. Review of Systems Review of Systems: All systems reviewed & are unremarkable except as noted in HPI and below Exam Narrative: Exam Narrative: HEENT: EOMI, PERRL, pharyngeal mucosa pink and intact NECK: No JVD CHEST: Coarse BS bilaterally, NL effort HEART: NL S1/S2, regular, no murmur ABDOMEN: BS+, soft, nontender, no mass, no bruits EXTREMITIES: No cyanosis, mild bilateral ankle edema NEUROLOGIC: CN intact and symmetric to inspection. MUSCULOSKELETAL: Tone and strength symmetric. PSYCH: Alert. Oriented to person, place, and time (including year, mo, day of week) Objective Data Vital Signs Vital Signs: Vital Signs - 24 hr 07/07/19 14:00 07/07/19 15:20 07/07/19 15:25 Temperature 97.6 F Pulse Rate 68 70 74 Respiratory Rate 20 16 20 Blood Pressure 126/72 Pulse Oximetry 97 07/07/19 20:20 07/07/19 20:22 07/07/19 20:32 Temperature Pulse Rate 75 77 Respiratory Rate 18
[2019-07-08 14:58] LABS: Legionella pneumophila Ag Ur Not Detected (Not Detected); Pneumococcal Antigen Urine Not Detected (Not Detected)
[2019-07-08 15:09] LABS: Hemoglobin 7.9 g/dL (12.0-15.0)
[2019-07-08] MEDS: BISACODYL 5 MG TABLET EC 20 MG PO (16:25)
[2019-07-08] MEDS: polyethylene glycoL 3350 238 GM BOTTLE PO (16:26)
--- NOTE | 2019-07-08 16:54 | PCOTNOTE ---
The patient treatment was not able to be completed on [07/08/2019]. Will plan to continue treatment per plan of care.
[2019-07-08 17:03] LABS: Glucose Point of Care 189 (65-105)
[2019-07-08] MEDS: PREGABALIN 75 MG CAPSULE PO (20:52)
[2019-07-08] MEDS: ATORVASTATIN 40 MG TABLET 80 MG PO (20:52)
[2019-07-08] MEDS: HEPARIN SODIUM 5,000 UNITS/ML VIAL 5000 UNITS SUB-Q (20:53)
[2019-07-08] MEDS: METOCLOPRAMIDE HCL 10 MG TABLET PO (20:53)
[2019-07-08 21:57] LABS: Glucose Point of Care 297 (65-105)
[2019-07-09] VITALS (13 sets, daily range): BP systolic 137–151; BP diastolic 57–98; PULSE 63–88; RESP 14–22; TEMP 35.6–36.1; O2SAT 86–98
[2019-07-09] MEDS: IPRATROPIUM BR 0.02% INH SOLN 0.5 MG/2.5 ML VIAL INHALATION ×4 (04:19→19:29)
[2019-07-09] MEDS: ALBUTEROL SULFATE NEB 2.5 MG/0.5 ML INH 5 MG INHALATION ×4 (04:19→19:29)
[2019-07-09 07:00] LABS: IFOB Positive Control Positive; Immunochemical Fecal Occult Bl Negative (N)
--- NOTE | 2019-07-09 07:48 | PC.NURSE ---
Spoke with Sophie in GI lab in regards to pt 0900 meds, pt can take them with a sip of water.
[2019-07-09 08:01] LABS: Glucose Point of Care 114 (65-105)
[2019-07-09] MEDS: MAGNESIUM CITRATE 300 ML BTL PO (08:08)
[2019-07-09] MEDS: HEPARIN SODIUM 5,000 UNITS/ML VIAL 5000 UNITS SUB-Q ×2 (08:12→21:36)
[2019-07-09] MEDS: AMLODIPINE BESYLATE 5 MG TABLET 10 MG PO (09:09)
[2019-07-09] MEDS: METOPROLOL SUCCINATE EXT REL 100 MG TABCR 200 MG PO (09:09)
[2019-07-09] MEDS: MAGNESIUM OXIDE 400 MG TABLET PO (09:09)
[2019-07-09] MEDS: VALACYCLOVIR HCL 500 MG TABLET 1000 MG PO ×2 (09:09→17:39)
[2019-07-09] MEDS: FUROSEMIDE 80 MG TABLET PO (09:10)
[2019-07-09] MEDS: DOCUSATE SODIUM 100 MG CAPSULE PO (09:10)
[2019-07-09] MEDS: SENNOSIDES 8.6 MG TABLET PO ×2 (09:11→17:39)
--- NOTE | 2019-07-09 09:26 | PCOTNOTE ---
Pt refused skilled OT this am. Pt stated not now, Not now, I'm too tired.
--- NOTE | 2019-07-09 09:29 | PCOTNOTE ---
Attempted to see pt for skilled OT. Pt was in dialysis.
--- NOTE | 2019-07-09 11:50 | PC.NURSE ---
Per Dr. Finney start pt on clear liquids, coloncoscopy/EGD tomorrow. Pt can continue with Sub-Q heparin injections for procedure.
[2019-07-09 12:23] LABS: Glucose Point of Care 120 (65-105)
--- NOTE | 2019-07-09 12:54 | WPDGIPROGNO ---
Progress Note: A&P Assessment and Plan (1) Chronic anemia: Code(s): D64.9 - Anemia, unspecified Status: Acute Assessment and Plan: repeat doppler ultrasound negative for DVT but need to assess for source of anemia. will give more bowel prep tonight and proceed with egd and colonoscopy tomorrow. (2) Community acquired pneumonia: Qualifiers: Laterality: unspecified laterality Qualified Code(s): J18.9 - Pneumonia, unspecified organism Code(s): J18.9 - Pneumonia, unspecified organism Status: Acute Assessment and Plan: she is feeling better, on iv abx (3) DVT (deep venous thrombosis): Qualifiers: DVT location: lower extremity Affected thrombotic vein of extremity: unspecified vein of extremity Chronicity: acute Laterality: bilateral Qualified Code(s): I82.403 - Acute embolism and thrombosis of unspecified deep veins of lower extremity, bilateral Code(s): I82.409 - Acute embolism and thrombosis of unspecified deep veins of unspecified lower extremity Status: Acute Assessment and Plan: repeat doppler ultrasound was negative, on aspirin and heparin sc (4) Type 2 diabetes mellitus with peripheral neuropathy: Code(s): E11.42 - Type 2 diabetes mellitus with diabetic polyneuropathy Status: Acute Subjective Date/time seen: 07/09/19 12:54 Interval history: she had bowel prep but only soft brown stool- she is not ready for colonoscopy thus will postpone for tomorrow. No signs of GIB but still anemic Review of Systems Review of Systems: All systems reviewed & are unremarkable except as noted in HPI and below Exam Const: Other: sleeping now HENMT: General nose exam: Normal nares present Eyes: General: appearance normal, both eyes and all related structures Neck: Neck: no JVD Resp: Auscultation: no wheezes and diminished lung sounds Cardio: Rate: regular rate Rhythm: regular rhythm GI: Inspection: non-distended GI Palp: Yes Soft to palpation and No Tenderness to palpation present (GI) Auscultation: normal bowel sounds Skin: General skin exam: no erythema, no jaundice and pallor Neuro: Speech: normal speech Extrem: General: normal to inspection Psych: Mental Status: mental status grossly normal Objective Data Vital Signs Vital Signs: Vital Signs - 24 hr 07/08/19 13:45 07/08/19 13:58 07/08/19 14:00 Temperature 97.8 F Pulse Rate 73 74 68 Respiratory Rate 18 18 18 Blood Pressure 136/78 Pulse Oximetry 96 07/08/19 20:44 07/08/19 21:39 07/08/19 21:49 Temperature 97 F L Pulse Rate 67 66 68 Respiratory Rate 15 20 20 Blood Pressure 114/89 Pulse Oximetry 93 92 07/09/19 04:19 07/09/19 04:25 07/09/19 05:13 Temperature 97 F L Pulse Rate 69 65 75 Respiratory Rate 20 20 18 Blood Pressure 137/57 L Pulse Oximetry 90 07/09/19 07:05 07/09/19 07:09 07/09/19 07:14 Temperature Pulse Rate 67 68 Respiratory Rate 18 18 Blood Pressure Pulse Oximetry 96 07/09/19 09:09 Temperature Pulse Rate 73 Respiratory Rate Blood Pressure Pulse Oximetry Intake/Output Intake/Output: Intake & Output 07/06/19 07/07/19 07/08/19 07/09/19 23:59 23:59 23:59 23:59 Intake Total 2040 2936 2320 150 Output Total 1850 2100 1300 300 Balance 015 053 4410 -150 Meds/Results Medications: Active Medications Generic Name Dose Route Start Last Admin Trade Name Freq PRN Reason Stop Dose Admin Acetaminophen 650 mg 07/07/19 15:45 07/07/19 23:06 Tylenol Tablet PO 650 mg Q4H PRN Administration Mild Pain (1-3) or Fever Hydrocodone Bitart/Acetaminophen 1 tab 07/07/19 15:45 07/09/19 02:15 [place] 5-325 Mg PO 1 tab Q6H PRN Administration Pain Rated 7-10 Albuterol 5 mg 07/05/19 20:00 07/09/19 07:05 Albuterol Sulf Neb 2.5mg/0.5ml INHALATION 5 mg Q6HRT KEIRA Administration Amlodipine Besylate 10 mg 07/06/19 09:00 07/09/19 09:09 Norvasc PO 10 mg
--- NOTE | 2019-07-09 13:56 | P.PNIM_ITS ---
Progress Note: A&P Assessment and Plan (1) Community acquired pneumonia: Qualifiers: Laterality: unspecified laterality Qualified Code(s): J18.9 - Pneumonia, unspecified organism Code(s): J18.9 - Pneumonia, unspecified organism Status: Acute Assessment and Plan: * Continue azithromycin and ceftriaxone day 09/19 (2) Acute respiratory failure with hypoxia: Code(s): J96.01 - Acute respiratory failure with hypoxia Status: Acute Assessment and Plan: * Secondary to pneumonia. * wean oxygen as tolerated (3) DVT (deep venous thrombosis): Qualifiers: Affected thrombotic vein of extremity: unspecified vein of extremity Chronicity: acute DVT location: lower extremity Laterality: bilateral Qualified Code(s): I82.403 - Acute embolism and thrombosis of unspecified deep veins of lower extremity, bilateral Code(s): I82.409 - Acute embolism and thrombosis of unspecified deep veins of unspecified lower extremity Status: Acute Assessment and Plan: * bilateral tibial and peroneal DVTs * ASA * Repeat venous doppler 07/09 showed NO DVT * Continue prophylactic heparin (no overt bleeding) (4) Type 2 diabetes mellitus with complication, with long-term current use of insulin: Code(s): E11.8 - Type 2 diabetes mellitus with unspecified complications; Z79.4 - termite treater helper (current) use of insulin Status: Acute Assessment and Plan: * continue SSI (5) Chronic kidney disease, stage 3: Code(s): N18.3 - Chronic kidney disease, stage 3 (moderate) Status: Acute Assessment and Plan: * 07/08 creatinine 1.9 (6) Chronic anemia: Code(s): D64.9 - Anemia, unspecified Status: Acute Assessment and Plan: * lab c/w ACD * no sign of overt bleeding * GI evaluation in progress (EGD and colon planned for 07/09) (7) Hypertension: Qualifiers: Hypertension type: essential hypertension Qualified Code(s): I10 - Essential (primary) hypertension Code(s): I10 - Essential (primary) hypertension Status: Acute Assessment and Plan: * Control adequate * Will continue antihypertensives and monitor daily. (8) Edema: Qualifiers: Edema type: localized Qualified Code(s): R60.0 - Localized edema Code(s): R60.9 - Edema, unspecified Status: Acute Assessment and Plan: * A chronic ongoing issue with this patient with multiple causes including diastolic dysfunction, chronic kidney disease with nephrotic syndrome. (9) Type 2 diabetes mellitus with peripheral neuropathy: Code(s): E11.42 - Type 2 diabetes mellitus with diabetic polyneuropathy Status: Acute Assessment and Plan: * Hold metformin given worsening renal function. * Continue SSI * hemoglobin A1c-5.9 * She may be able to manage on diet alone or perhaps low dose sitagliptin Subjective Date/time seen: 07/09/19 13:56 Interval history: Exhausted and emotional today. Tolerating clear liquids. Colon prep inadequate and must do it again tonight. No cp. +HUTCHINS, cough. No abd pain. +diarrhea. No dy/hematuria. No abnormal bleeding. Review of Systems Review of Systems: All systems reviewed & are unremarkable except as noted in HPI and below Exam Narrative: Exam Narrative: HEENT: EOMI, PERRL, pharyngeal mucosa pink and intact NECK: No JVD CHEST: Coarse BS bilaterally, NL effort
--- NOTE | 2019-07-09 13:56 | PM.IMPN ---
Progress Note: A&P Assessment and Plan (1) Community acquired pneumonia: Qualifiers: Laterality: unspecified laterality Qualified Code(s): J18.9 - Pneumonia, unspecified organism Code(s): J18.9 - Pneumonia, unspecified organism Status: Acute Assessment and Plan: Continue azithromycin and ceftriaxone day 09/19 (2) Acute respiratory failure with hypoxia: Code(s): J96.01 - Acute respiratory failure with hypoxia Status: Acute Assessment and Plan: Secondary to pneumonia. wean oxygen as tolerated (3) DVT (deep venous thrombosis): Qualifiers: Affected thrombotic vein of extremity: unspecified vein of extremity Chronicity: acute DVT location: lower extremity Laterality: bilateral Qualified Code(s): I82.403 - Acute embolism and thrombosis of unspecified deep veins of lower extremity, bilateral Code(s): I82.409 - Acute embolism and thrombosis of unspecified deep veins of unspecified lower extremity Status: Acute Assessment and Plan: bilateral tibial and peroneal DVTs ASA Repeat venous doppler 07/09 showed NO DVT Continue prophylactic heparin (no overt bleeding) (4) Type 2 diabetes mellitus with complication, with long-term current use of insulin: Code(s): E11.8 - Type 2 diabetes mellitus with unspecified complications; Z79.4 - rn long term care (current) use of insulin Status: Acute Assessment and Plan: continue SSI (5) Chronic kidney disease, stage 3: Code(s): N18.3 - Chronic kidney disease, stage 3 (moderate) Status: Acute Assessment and Plan: 07/08 creatinine 1.9 (6) Chronic anemia: Code(s): D64.9 - Anemia, unspecified Status: Acute Assessment and Plan: lab c/w ACD no sign of overt bleeding GI evaluation in progress (EGD and colon planned for 07/09) (7) Hypertension: Qualifiers: Hypertension type: essential hypertension Qualified Code(s): I10 - Essential (primary) hypertension Code(s): I10 - Essential (primary) hypertension Status: Acute Assessment and Plan: Control adequate Will continue antihypertensives and monitor daily. (8) Edema: Qualifiers: Edema type: localized Qualified Code(s): R60.0 - Localized edema Code(s): R60.9 - Edema, unspecified Status: Acute Assessment and Plan: A chronic ongoing issue with this patient with multiple causes including diastolic dysfunction, chronic kidney disease with nephrotic syndrome. (9) Type 2 diabetes mellitus with peripheral neuropathy: Code(s): E11.42 - Type 2 diabetes mellitus with diabetic polyneuropathy Status: Acute Assessment and Plan: Hold metformin given worsening renal function. Continue SSI hemoglobin A1c-5.9 She may be able to manage on diet alone or perhaps low dose sitagliptin Subjective Date/time seen: 07/09/19 13:56 Interval history: Exhausted and emotional today. Tolerating clear liquids. Colon prep inadequate and must do it again tonight. No cp. +HUTCHINS, cough. No abd pain. +diarrhea. No dy/hematuria. No abnormal bleeding. Review of Systems Review of Systems: All systems reviewed & are unremarkable except as noted in HPI and below Exam Narrative: Exam Narrative: HEENT: EOMI, PERRL, pharyngeal mucosa pink and intact NECK: No JVD CHEST: Coarse BS bilaterally, NL effort HEART: NL S1/S2, regular, no murmur ABDOMEN: BS+, soft, nontender, no mass, no bruits EXTREMITIES: No cyanosis, mild bilateral ankle edema NEUROLOGIC: CN intact and symmetric to inspection. MUSCULOSKELETAL: Tone and strength symmetric. PSYCH: Alert. Oriented to person, place, and time (including year, mo) Objective Data Vital Signs Vital Signs: Vital Signs - 24 hr 07/08/19 13:58 07/08/19 14:00 07/08/19 20:44 Temperature 97.8 F 97 F L Pulse Rate 74 68 67 Respiratory Rate 18 18 15 Blood Pressure 136/78 1
--- NOTE | 2019-07-09 14:40 | PM.IMPN ---
Subjective Date/time seen: 07/09/19 14:40 Interval history: Tired. Napping with CPAP on. Denied pain in chest, abdomen, back, extremities, head. Denied sob. Denied edema. Denied gi/gu c/o. Denied ABNL bleeding. Review of Systems Review of Systems: All systems reviewed & are unremarkable except as noted in HPI and below Exam Narrative: Exam Narrative: HEENT: EOMI, PERRL, pharyngeal mucosa pink and intact NECK: No JVD CHEST: Clear to auscultation, but decreased BS at bases. Normal effort. HEART: NL S1/S2, regular, no murmur ABDOMEN: BS+, soft, nontender, no mass, no bruits EXTREMITIES: No cyanosis, trace ankle edema NEUROLOGIC: CN intact and symmetric to inspection. MUSCULOSKELETAL: Tone and strength symmetric. PSYCH: Alert. Oriented to person, place, and time (year, but not month) Objective Data Vital Signs Vital Signs: Vital Signs - 24 hr 07/08/19 20:44 07/08/19 21:39 07/08/19 21:49 Temperature 97 F L Pulse Rate 67 66 68 Respiratory Rate 15 20 20 Blood Pressure 114/89 Pulse Oximetry 93 92 07/09/19 04:19 07/09/19 04:25 07/09/19 05:13 Temperature 97 F L Pulse Rate 69 65 75 Respiratory Rate 20 20 18 Blood Pressure 137/57 L Pulse Oximetry 90 07/09/19 07:05 07/09/19 07:09 07/09/19 07:14 Temperature Pulse Rate 67 68 Respiratory Rate 18 18 Blood Pressure Pulse Oximetry 96 07/09/19 09:09 07/09/19 13:09 07/09/19 13:14 Temperature Pulse Rate 73 88 86 Respiratory Rate 20 20 Blood Pressure Pulse Oximetry Intake/Output Intake/Output: Intake & Output 07/06/19 07/07/19 07/08/19 07/09/19 23:59 23:59 23:59 23:59 Intake Total 2040 2936 2320 150 Output Total 1850 2100 1300 300 Balance 259 239 8858 -150 Meds/Results Medications: Active Medications Generic Name Dose Route Start Last Admin Trade Name Freq PRN Reason Stop Dose Admin Acetaminophen 650 mg 07/07/19 15:45 07/07/19 23:06 Tylenol Tablet PO 650 mg Q4H PRN Administration Mild Pain (1-3) or Fever Hydrocodone Bitart/Acetaminophen 1 tab 07/07/19 15:45 07/09/19 02:15 [place] 5-325 Mg PO 1 tab Q6H PRN Administration Pain Rated 7-10 Albuterol 5 mg 07/05/19 20:00 07/09/19 13:08 Albuterol Sulf Neb 2.5mg/0.5ml INHALATION 5 mg Q6HRT KEIRA Administration Amlodipine Besylate 10 mg 07/06/19 09:00 07/09/19 09:09 Norvasc PO 10 mg DAILY KEIRA Administration Aspirin 325 mg 07/07/19 09:00 07/09/19 12:13 Aspirin Ec PO Not Given QAM KEIRA Atorvastatin Calcium 80 mg 07/05/19 21:00 07/08/19 20:52 Lipitor PO 80 mg HS KEIRA Administration Bisacodyl 20 mg 07/09/19 18:00 Dulcolax Tab PO 07/09/19 18:01 ONCE ONE Dextrose 12.5 gm 07/05/19 19:09 Dextrose 50% Syringe IV PUSH PRN PRN Hypoglycemia Protocol Docusate Sodium 100 mg 07/06/19 09:00 07/09/19 09:10 Colace Capsule PO 100 mg DAILY KEIRA Administration Furosemide 80 mg 07/06/19 09:00 07/09/19 09:10 Lasix Tablet PO 80 mg DAILY KEIRA Administration Glucagon 1 mg 07/05/19 19:09 Glucagon For Inj IM PRN PRN Hypoglycemia Protocol Glucose 15 gm 07/05/19 19:09 Glutose 15 PO PRN PRN Hypoglycemia Protocol Heparin Sodium (Porcine) 5,000 units 07/08/19 21:00 07/09/19 08:12 Heparin Sodium SUB-Q 5,000 units Q12HR KEIRA Administration Ceftriaxone Sodium/Dextrose 1 gm in 50 mls @ 100 mls/hr 07/06/19 14:00 07/09/19 14:20 Rocephin 1 Gm/D5w 50 Ml IVPB 100 mls/hr Q24H KEIRA Infusion Azithromycin 500 mg in 250 mls @ 250 mls/hr 07/06/19 18:00 07/08/19 19:00 Zithromax IVPB Infused Q24H KEIRA Infusion Dextrose 1,000 mls @ 100 mls/hr 07/05/19 19:09 Dextrose 5% 1,000 Ml IVPB PRN PRN Hypoglycemia Protocol Insulin Aspart 3 - 6 units 07/06/19 08:00 07/09/19 12:15 Novolog SUB-Q Not Given TIDWM KEIRA Protocol Ipratropium [place] 0.5 mg 07/05/19 20:00 07/09/19 13:08
--- NOTE | 2019-07-09 14:49 | PCOTNOTE ---
Pt refused skilled OT this date. Pt just shook her head no and said no .
[2019-07-09 17:15] LABS: Glucose Point of Care 121 (65-105)
[2019-07-09] MEDS: polyethylene glycoL 3350 238 GM BOTTLE PO (17:38)
[2019-07-09] MEDS: BISACODYL 5 MG TABLET EC 20 MG PO (17:39)
[2019-07-09 18:55] LABS: Haptoglobin 244 mg/dL (43-212)
[2019-07-09] MEDS: ATORVASTATIN 40 MG TABLET 80 MG PO (21:35)
[2019-07-09] MEDS: METOCLOPRAMIDE HCL 10 MG TABLET PO (21:36)
[2019-07-09] MEDS: PREGABALIN 75 MG CAPSULE PO (21:36)
[2019-07-09 23:14] LABS: Glucose Point of Care 302 (65-105)
[2019-07-10] VITALS (20 sets, daily range): BP systolic 126–169; BP diastolic 41–92; PULSE 61–100; RESP 16–35; TEMP 36.1–36.8; O2SAT 65–97
[2019-07-10] MEDS: MAGNESIUM CITRATE 300 ML BTL PO (05:24)
[2019-07-10 06:55] LABS: Glucose Point of Care 175 (65-105)
[2019-07-10] MEDS: METOPROLOL SUCCINATE EXT REL 100 MG TABCR 200 MG PO (08:41)
[2019-07-10] MEDS: VALACYCLOVIR HCL 500 MG TABLET 1000 MG PO (08:42)
[2019-07-10] MEDS: SENNOSIDES 8.6 MG TABLET PO (08:42)
[2019-07-10] MEDS: MAGNESIUM OXIDE 400 MG TABLET PO (08:42)
[2019-07-10] MEDS: FUROSEMIDE 80 MG TABLET PO (08:42)
[2019-07-10] MEDS: ASPIRIN 325 MG ENTERIC TABLET PO (08:42)
[2019-07-10] MEDS: AMLODIPINE BESYLATE 5 MG TABLET 10 MG PO (08:42)
[2019-07-10] MEDS: DOCUSATE SODIUM 100 MG CAPSULE PO (08:43)
[2019-07-10] MEDS: HEPARIN SODIUM 5,000 UNITS/ML VIAL 5000 UNITS SUB-Q ×2 (08:43→21:07)
[2019-07-10] MEDS: IPRATROPIUM BR 0.02% INH SOLN 0.5 MG/2.5 ML VIAL INHALATION ×2 (09:41→19:59)
[2019-07-10] MEDS: ALBUTEROL SULFATE NEB 2.5 MG/0.5 ML INH 5 MG INHALATION ×2 (09:41→19:58)
--- NOTE | 2019-07-10 09:43 | PCOTNOTE ---
Pt refused skilled OT this am. Pt stated no, no, no.
--- NOTE | 2019-07-10 13:05 | PCDIET ---
Nutrition Screen Complete: Pt current nutrition is NPO/clear. Nutrition recommendation: Agree, continue DBCC after colonoscopy Last recorded weight is 77 kg. Bowel Motility:(colonoscopy prep) Labs Reviewed:07/10 Glucose 175 Meds Noted:Mag Oxide, Reglan, Colace, Lipitor, Insulin, Lasix Additional Notes: Seeing pt today due to LOS. Pt has been on an appropriate diet: DBCC, eating 100% of all meals. Plans for colonoscopy today. Appears well nourished. Last A1c 5.9. K on hold today due to elevated levels. Metformin on hold due to worsening CKD. We will continue to follow every seven days to monitor for appropriate diet, intake, and labs.
[2019-07-10 13:41] LABS: Glucose Point of Care 145 (65-105)
--- NOTE | 2019-07-10 14:04 | PC.NURSE ---
Patient to GI lab per katey. Report to BRISEIDA Coppola.
--- NOTE | 2019-07-10 14:43 | WPDANESEPPF ---
Anes - Initial Pre Proc Eval Procedure: Operation Date: 07/10/19 14:15 Proposed Procedures p Esophagogastroduodenoscopy & Colonoscopy - Kurtis Finney MD Date/Time: 07/10/19 14:43 Surgeon: Vaibhav Lal MD Pre Op Diagnosis: Pneumona, hypoxia Patient Data Age: 69 Gender: F Height: 5 ft 1 in Weight: 77 kg Last Vital Signs Temp 36.2 C L 07/10/19 14:35 Pulse 69 07/10/19 14:35 Resp 16 07/10/19 14:35 BP 158/64 H 07/10/19 14:35 Pulse Ox 91 07/10/19 14:35 Allergies Allergy/AdvReac Type Severity Reaction Status Date / Time No Known Allergies Allergy Verified 05/19/19 05:37 Home Medications Medication Instructions Recorded Confirmed Type amlodipine 10 mg tablet 10 mg PO DAILY tablet 03/29/19 07/05/19 History aspirin 81 mg tablet,delayed 81 mg PO DAILY #1 tablet 03/29/19 07/05/19 Rx release atorvastatin 80 mg tablet 80 mg PO HS tablet 03/29/19 07/05/19 History docusate sodium 100 mg tablet 100 mg PO DAILY #1 tablet 03/29/19 07/05/19 Rx furosemide 80 mg tablet 80 mg PO DAILY tablet 03/29/19 07/05/19 History magnesium oxide 400 mg PO DAILY #1 tablet 03/29/19 07/05/19 Rx metformin 1,000 mg tablet 1,000 mg PO BID tablet 03/29/19 07/05/19 History metoprolol succinate 200 mg 200 mg PO DAILY tablet 03/29/19 07/05/19 History tablet,extended release 24 hr potassium chloride 20 mEq 20 meq PO DAILY tablet 03/29/19 07/05/19 History tablet,extended release(part/cryst) ropinirole 0.5 mg tablet 0.5 mg PO DAILY tablet 03/29/19 07/05/19 History sennosides 8.6 mg tablet 8.6 mg PO BID #1 tablet 03/29/19 07/05/19 Rx hydrochlorothiazide 12.5 mg tablet 12.5 mg PO DAILY #30 tablet 05/10/19 07/05/19 Rx morphine 15 tablet PO Q12H #30 tablet 05/23/19 07/05/19 Rx ergocalciferol (vitamin D2) 50,000 unit .ROUTE 3XW 07/05/19 07/05/19 History metoclopramide HCl [Reglan] 10 mg PO HS 07/05/19 07/05/19 History pregabalin 75 mg PO HS 07/05/19 07/05/19 History sacubitril-valsartan [Entresto] 1 tablet PO BID 07/05/19 07/05/19 History valacyclovir 1,000 mg PO TID 07/05/19 07/05/19 History ropinirole 0.5 mg PO TID PRN 07/07/19 07/07/19 History Laboratory Tests 07/06/19 07/09/19 07/09/19 09:42 17:12 21:46 Haptoglobin 244 mg/dL H mg/dL (43-212) POC Capillary Glucose 121 mg/dl H mg/dl 302 mg/dl H mg/dl (65-105) (65-105) 07/10/19 07/10/19 05:52 13:27 Haptoglobin POC Capillary Glucose 175 mg/dl H mg/dl 145 mg/dl H mg/dl (65-105) (65-105) Patient hx anesthesia problems: none Family hx anesthesia problems: none PMFSH Past Medical History Medical History Chronic anemia Chronic kidney disease, stage 3 Baseline creatinine between 1.4 and 1.60. Chronic low back pain Chronic pain syndrome Had previously been on morphine 15 milligrams b.i.d. Recently started on Lyrica. Depression Diastolic congestive heart failure Echocardiogram in January 2019 demonstrated normal left ventricular size and function with ejection fraction of > 70% diastolic dysfunction grade 2. Hyperlipidemia Hypertension Type 2 diabetes mellitus with peripheral neuropathy Surgical History Surgical History History of knee surgery Hx of toe surgery Status post cataract extraction Status post cholecystectomy Family History Family History Mother Lung cancer Sibling Malignant neoplasm of prostate Diabetes mellitus Osteoarthritis Dialysis patient Heart disease Social History Social History Social History: The patient has been since 2010, when her from cancer. Her daughter was killed that same year and a drunk driving accident. She does have a son who lives in [place], [place]. Her brother, Kolton Macias, is her surrogate decision
[2019-07-10] MEDS: LACTATED RINGERS 1,000 ML 150 ML IV CONT (14:50)
--- NOTE | 2019-07-10 15:05 | PCPTNOTE ---
The PT treatment was unable to be completed today due to patient out of room for tests. Will continue per Plan of Care frequency and duration.
[2019-07-10 15:11] LABS: Glucose Point of Care 119 (65-105)
--- NOTE | 2019-07-10 15:13 | PM.IMPN ---
Progress Note: A&P Assessment and Plan (1) Community acquired pneumonia: Qualifiers: Laterality: unspecified laterality Qualified Code(s): J18.9 - Pneumonia, unspecified organism Code(s): J18.9 - Pneumonia, unspecified organism Status: Acute Assessment and Plan: Continue azithromycin and ceftriaxone day 10/20 (2) Acute respiratory failure with hypoxia: Code(s): J96.01 - Acute respiratory failure with hypoxia Status: Acute Assessment and Plan: Secondary to pneumonia. wean oxygen as tolerated (3) DVT (deep venous thrombosis): Qualifiers: DVT location: lower extremity Affected thrombotic vein of extremity: unspecified vein of extremity Chronicity: acute Laterality: bilateral Qualified Code(s): I82.403 - Acute embolism and thrombosis of unspecified deep veins of lower extremity, bilateral Code(s): I82.409 - Acute embolism and thrombosis of unspecified deep veins of unspecified lower extremity Status: Acute Assessment and Plan: bilateral tibial and peroneal DVTs ASA Repeat venous doppler 07/09 showed NO DVT Continue prophylactic heparin (no overt bleeding) (4) Chronic kidney disease, stage 3: Code(s): N18.3 - Chronic kidney disease, stage 3 (moderate) Status: Acute Assessment and Plan: 07/08 creatinine 1.9 and will repeat in a.m. (5) Chronic anemia: Code(s): D64.9 - Anemia, unspecified Status: Acute Assessment and Plan: lab c/w ACD no sign of overt bleeding GI evaluation in progress (EGD and colon planned for today) (6) Hypertension: Qualifiers: Hypertension type: essential hypertension Qualified Code(s): I10 - Essential (primary) hypertension Code(s): I10 - Essential (primary) hypertension Status: Acute Assessment and Plan: Control adequate Will continue antihypertensives and monitor daily. (7) Edema: Qualifiers: Edema type: localized Qualified Code(s): R60.0 - Localized edema Code(s): R60.9 - Edema, unspecified Status: Acute Assessment and Plan: A chronic ongoing issue with this patient with multiple causes including diastolic dysfunction, chronic kidney disease with nephrotic syndrome. Decrease much for her previous admissions (8) Type 2 diabetes mellitus with peripheral neuropathy: Code(s): E11.42 - Type 2 diabetes mellitus with diabetic polyneuropathy Status: Acute Assessment and Plan: Held metformin given worsening renal function. Continue SSI hemoglobin A1c-5.9 She may be able to manage on diet alone or perhaps low dose sitagliptin Subjective Date/time seen: 07/10/19 15:13 Interval history: Date of visit 07/10. 69-year-old white female with chronic renal failure stage 3, nephrotic syndrome, diastolic heart failure, and chronic anemia admitted with cough shortness of breath found to have pneumonia. Completing course of antibiotic therapy and still feels very weak. To have GI valid today for anemia. Exam Narrative: Exam Narrative: Blood pressure 140/56 pulse 64 saturating 94% on 4 L nasal cannula afebrile Pupils equal reactive to light sclera anicteric Neck supple no adenopathy Lungs some crackles in the left posterior base CV irregular I hear no murmurs Abdomen is soft nontender Extremities without edema distal pulses 1+ Neuro alert pleasant cooperative no focal deficits Objective Data Vital Signs Vital Signs: Vital Signs - 24 hr 07/09/19 19:29 07/09/19 20:23 07/09/19 22:00 Temperature Pulse Rate 64 66 63 Respiratory Rate 22 H 20 16 Blood Pressure 143/62 H Pulse Oximetry 86 L 95 98 07/10/19 06:09 07/10/19 08:41 07/10/19 09:41 Temperature Pulse Rate 71 69 61 Respiratory Rate 17 20 Blood Pressure 169/64 H Pulse Oximetry 93 07/10/19 09:45 07/10/19 09:50 07/10/19 14:00 Temperature 36.1 C L Pulse Rate 78 63
--- NOTE | 2019-07-10 16:26 | SUR.PHASEII ---
PATIENT ARRIVED TO RECOVERY ON 15L FACE MASK. NICKEL PLANT OPERATOR AT BEDSIDE. 1605 RESPIRATORY CALLED BY BRISEIDA HIDALGO. BREATH SOUNDS ASSESSMENT BY ROCKY RN SEE ASSESSMENT. 1609 RESPIRATORY AT BEDSIDE WITH BREATHING TREATMENT. [address] DIXON CALLED TO TRANSFER PATIENT OVER TO IMU. RESPIRATORY REMAINS AT BEDSIDE.
--- NOTE | 2019-07-10 16:40 | SUR.PHASEII ---
1610 APPLICATIONS SUPPORT ENGINEER CALLED. 1620 APPLICATIONS SUPPORT ENGINEER ARRIVED TO ENDOSCOPY.
[2019-07-10 17:01] LABS: Alveolar/Arterial O2 Gradient 396.5 mmHg; Base Excess ABG 2.3 mEq/l (+/-2.0); Fractional Inspired Oxygen 70 %; HCO3 ABG 27.8 mEq/l (22.0-26.0); Oxygen Content ABG 10.6 %vol (16.0-22.0); Oxyhemoglobin 82.6 % THb (90.0-100.0); PCO2 ABG 47.6 mmHg (35.0-45.0); PO2 ABG 51.4 mmHg (80.0-100.0); PO2 FiO2 Ratio Arterial Blood 0.73 %; Total Hemoglobin 9.1 g/dL (12.0-18.0); pH ABG 7.384 (7.350-7.450)
[2019-07-10 17:03] LABS: Device SIMPLE MASK; Oxygen Saturation ABG 85.6 % (95.0-100.0); Site Drawn RIGHT BRACHIAL
--- NOTE | 2019-07-10 17:15 | ECG_ITS ---
Measurements Intervals [place] Rate: 65 P: 43 VA: 191 QRS: 19 QRSD: 110 T: 86 QT: 461 QTc: 481 Interpretive Statements SINUS OR ECTOPIC ATRIAL RHYTHM INTRAVENTRICULAR CONDUCTION DELAY CANNOT RULE OUT SEPTAL INFARCT, AGE INDETERMINATE BORDERLINE ST-T WAVE ABNORMALITY- INF/LAT LEADS ABNORMAL ECG Electronically Signed On 07-11-2019 7:00:13 [employer]YLIST by Jl Floyd D.O.
[2019-07-10 18:02] LABS: Basophils Absolute Auto 0.1 K/mm3 (0.0-0.1); Basophils Percent Auto 1.2 % (0.2-1.2); Eosinophils Absolute Auto 0.3 K/mm3 (0-0.3); Eosinophils Percent Auto 5.4 % (0-4.4); Hematocrit 26.5 % (37.0-47.0); Hemoglobin 8.6 g/dL (12.0-15.0); Immature Granulocyte Absolute 0.01 K/mm3 (0.00-0.031); Immature Granulocyte Percent A 0.2 % (0-0.5); Lymphocytes Absolute Auto 1.29 K/mm3 (0.9-3.2); Lymphocytes Percent Auto 24.8 % (18.3-44.2); Mean Corpuscular HGB Conc 32.5 g/dl (32-36); Mean Corpuscular Hemoglobin 29.5 pg (26-34); Mean Corpuscular Volume 90.8 fl (80-100); Mean Platelet Volume 10.5 fl (7.4-10.4); Monocytes Absolute Auto 0.4 K/mm3 (0.1-0.6); Monocytes Percent Auto 8.5 % (2.6-8.5); Neutrophils Absolute Auto 3.1 K/mm3 (1.3-6.7); Neutrophils Percent Auto 59.9 % (45.5-73.1); Platelet Count Result 374 k/mm3 (150-375); Red Blood Count 2.92 M/mm3 (4.2-5.4); Red Cell Distribution Width 16.4 % (11.5-14.5); White Blood Count 5.2 K/mm3 (4.5-10.0)
[2019-07-10 18:17] LABS: Blood Urea Nitrogen 45 mg/dL (7-17); Calcium 8.1 mg/dL (8.4-10.2); Carbon Dioxide 28 mmol/L (22-30); Chloride 101 mmol/L (98-107); Estimated CRCL calculation 29 ml/min; Estimated Glomerular Filt Rate 34; Glucose 135 mg/dL (65-105); Potassium 3.4 mmol/L (3.4-5.0); Sodium 136 mmol/L (137-145)
[2019-07-10] MEDS: FUROSEMIDE INJ 100 MG/10 ML VIAL 80 MG IV PUSH (18:20)
[2019-07-10 18:32] LABS: Glucose Point of Care 133 (65-105)
--- NOTE | 2019-07-10 20:13 | PCRCNOTE ---
PT SPO2 82% ON ORDERED BIPAP SETTINGS OF 12/5 R6 30%. INCREASED FIO2 TO 60% FOR SPO2 93%. RN LUCIANO MILLER NOTIFIED. PT PLACED ON CONTINOUS POX MONITOR. ALBUTEROL/ATROVENT TX GIVEN.
[2019-07-10 21:01] LABS: Glucose Point of Care 142 (65-105)
[2019-07-10] MEDS: ATORVASTATIN 40 MG TABLET 80 MG PO (21:06)
[2019-07-10] MEDS: PREGABALIN 75 MG CAPSULE PO (21:06)
[2019-07-10] MEDS: METOCLOPRAMIDE HCL 10 MG TABLET PO (21:06)
[2019-07-10] MEDS: PANTOPRAZOLE 40 MG TABLET PO (21:06)
[2019-07-11] VITALS (27 sets, daily range): BP systolic 116–159; BP diastolic 54–86; PULSE 63–83; RESP 18–30; TEMP 36.1–36.7; O2SAT 90–98
[2019-07-11] MEDS: ALBUTEROL SULFATE NEB 2.5 MG/0.5 ML INH 5 MG INHALATION ×4 (01:35→20:27)
[2019-07-11] MEDS: IPRATROPIUM BR 0.02% INH SOLN 0.5 MG/2.5 ML VIAL INHALATION ×4 (01:35→20:27)
[2019-07-11 05:15] LABS: Basophils Percent Auto 0.7 % (0.2-1.2); Eosinophils Absolute Auto 0.3 K/mm3 (0-0.3); Eosinophils Percent Auto 4.9 % (0-4.4); Immature Granulocyte Absolute 0.01 K/mm3 (0.00-0.031); Immature Granulocyte Percent A 0.2 % (0-0.5); Lymphocytes Absolute Auto 1.71 K/mm3 (0.9-3.2); Lymphocytes Percent Auto 30.1 % (18.3-44.2); Mean Corpuscular HGB Conc 32.7 g/dl (32-36); Mean Corpuscular Hemoglobin 28.8 pg (26-34); Mean Corpuscular Volume 88.1 fl (80-100); Mean Platelet Volume 10.5 fl (7.4-10.4); Monocytes Absolute Auto 0.6 K/mm3 (0.1-0.6); Monocytes Percent Auto 9.7 % (2.6-8.5); Neutrophils Absolute Auto 3.1 K/mm3 (1.3-6.7); Neutrophils Percent Auto 54.4 % (45.5-73.1); Platelet Count Result 321 k/mm3 (150-375); Red Blood Count 2.36 M/mm3 (4.2-5.4); Red Cell Distribution Width 16.3 % (11.5-14.5); White Blood Count 5.7 K/mm3 (4.5-10.0)
[2019-07-11 05:29] LABS: Blood Urea Nitrogen 41 mg/dL (7-17); Calcium 7.5 mg/dL (8.4-10.2); Carbon Dioxide 27 mmol/L (22-30); Chloride 100 mmol/L (98-107); Estimated CRCL calculation 29 ml/min; Estimated Glomerular Filt Rate 34; Glucose 113 mg/dL (65-105); Potassium 3.1 mmol/L (3.4-5.0); Sodium 137 mmol/L (137-145)
[2019-07-11 05:40] LABS: Hematocrit 20.8 % (37.0-47.0); Hemoglobin 6.8 g/dL (12.0-15.0)
[2019-07-11 09:08] LABS: Glucose Point of Care 112 (65-105)
[2019-07-11] MEDS: FUROSEMIDE INJ 100 MG/10 ML VIAL 80 MG IV PUSH ×2 (09:23→18:29)
[2019-07-11] MEDS: POTASSIUM CHLORIDE 20 MEQ TABLET 40 MEQ PO ×2 (09:28→13:14)
[2019-07-11] MEDS: VALACYCLOVIR HCL 500 MG TABLET 1000 MG PO ×3 (09:28→18:29)
[2019-07-11] MEDS: METOPROLOL SUCCINATE EXT REL 100 MG TABCR 200 MG PO (09:29)
[2019-07-11] MEDS: DOCUSATE SODIUM 100 MG CAPSULE PO (09:30)
[2019-07-11] MEDS: MAGNESIUM OXIDE 400 MG TABLET PO (09:31)
[2019-07-11] MEDS: AMLODIPINE BESYLATE 5 MG TABLET 10 MG PO (09:31)
[2019-07-11] MEDS: ASPIRIN 325 MG ENTERIC TABLET PO (09:31)
[2019-07-11] MEDS: PANTOPRAZOLE 40 MG TABLET PO ×2 (09:32→21:08)
[2019-07-11 13:10] LABS: Glucose Point of Care 128 (65-105)
--- NOTE | 2019-07-11 13:18 | WPDGIPROGNO ---
Progress Note: A&P Assessment and Plan (1) Gastritis: Qualifiers: Gastritis type: unspecified gastritis Chronicity: unspecified Gastritis bleeding: without bleeding Qualified Code(s): K29.70 - Gastritis, unspecified, without bleeding Code(s): K29.70 - Gastritis, unspecified, without bleeding Status: Acute Assessment and Plan: egd showed gastritis without bleeding, no ulcers. Colonoscopy with polyps that were removed, no stigmata of bleeding. on ppi bid (2) Community acquired pneumonia: Qualifiers: Laterality: unspecified laterality Qualified Code(s): J18.9 - Pneumonia, unspecified organism Code(s): J18.9 - Pneumonia, unspecified organism Status: Acute Assessment and Plan: on iv antibiotics, also treated for pulmonary edema and better today (3) Chronic anemia: Code(s): D64.9 - Anemia, unspecified Status: Acute Assessment and Plan: no signs of gi bleed, transfuse one unit and monitor hb anemia probably multifactorial please call if questions (4) Acute respiratory failure with hypoxia: Code(s): J96.01 - Acute respiratory failure with hypoxia Status: Acute (5) Edema: Qualifiers: Edema type: localized Qualified Code(s): R60.0 - Localized edema Code(s): R60.9 - Edema, unspecified Status: Acute Subjective Date/time seen: 07/11/19 13:18 Interval history: yesterday scopes was more hypoxic, responded to gentle diuresis and bipap (had some pulmonary edema in cxr and mild hypercapnic). Now she is back to her baseline. No signs of bleeding, hb dropped to 6.8 Review of Systems Review of Systems: All systems reviewed & are unremarkable except as noted in HPI and below Exam Const: General: comfortable Other: chronically ill appearing, she is resting and feeling better today HENMT: General nose exam: Normal nares present Eyes: General: appearance normal, both eyes and all related structures Neck: Neck: no JVD Resp: Auscultation: no wheezes and diminished lung sounds Cardio: Rate: regular rate Rhythm: regular rhythm GI: Inspection: non-distended GI Palp: Yes Soft to palpation, No Firmness to palpation present (GI) and No Tenderness to palpation present (GI) Auscultation: normal bowel sounds Skin: General skin exam: no erythema, no jaundice and pallor Neuro: Speech: normal speech Extrem: General: normal to inspection Psych: Mental Status: mental status grossly normal Objective Data Vital Signs Vital Signs: Vital Signs - 24 hr 07/10/19 14:00 07/10/19 14:35 07/10/19 15:55 Temperature 96.9 F L 97.1 F L Pulse Rate 63 69 63 Respiratory Rate 18 16 28 H Blood Pressure 140/55 L 158/64 H 131/55 L Pulse Oximetry 94 91 90 07/10/19 16:05 07/10/19 16:15 07/10/19 16:25 Temperature Pulse Rate 61 64 64 Respiratory Rate 26 H 24 H 23 H Blood Pressure 127/52 L 145/41 H 139/56 L Pulse Oximetry 91 97 91 07/10/19 16:35 07/10/19 16:45 07/10/19 16:55 Temperature Pulse Rate 67 67 66 Respiratory Rate 27 H 26 H 25 H Blood Pressure 128/92 H 126/62 150/66 H Pulse Oximetry 97 94 94 07/10/19 18:21 07/10/19 19:59 07/10/19 20:00 Temperature 98.2 F Pulse Rate 100 61 62 Respiratory Rate 35 H 20 18 Blood Pressure 155/68 H Pulse Oximetry 65 L 82 L 92 07/10/19 20:16 07/10/19 22:00 07/10/19 23:45 Temperature Pulse Rate 62 68 72 Respiratory Rate 20 20 Blood Pressure Pulse Oximetry 92 07/11/19 00:00 07/11/19 01:35 07/11/19 01:43 Temperature 98.0 F Pulse Rate 72 71 77 Respiratory Rate 20 28 H 30 H Blood Pressure 136/86 Pulse Oximetry 97 96 07/11/19 02:27 07/11/19 04:00 07/11/19 05:25 Temperature 98.0 F Pulse Rate 74 66 68 Respiratory Rate 18 Blood Pressure 116/67 Pulse Oximetry 98 07/11/19 08:00 07/11/19 08:10 07/11/19 09:29 Temperature 97 F L Pulse Rate 63 69 80 Respiratory Rate 24 H 24 H Blood Pressure 155/66 H Pulse Oximetry 9
--- NOTE | 2019-07-11 14:00 | WPDANESPN ---
Anes - Prog Note Post-Op Date/Time: 07/11/19 14:00 Cardiovascular status: normal Respiratory status: normal Airway patency: baseline Mental status: baseline Post-Op hydration status: normal Vital Signs: Last Vital Signs Temp 36.1 C L 07/11/19 08:00 Pulse 80 07/11/19 09:29 Resp 24 H 07/11/19 08:10 BP 155/66 H 07/11/19 08:00 Pulse Ox 97 07/11/19 08:00 Pain Score (VAS): 0/10. Patient resting in bed at time of assessment, appears comfortable. Support person and RN at bedside. I/O: Intake & Output 07/10/19 07/11/19 07/11/19 23:59 07:59 15:59 Intake Total 250 100 120 Output Total 650 Balance 250 -550 120 Laboratory Tests 07/11/19 04:23 07/11/19 04:23 07/10/19 07/10/19 07/10/19 14:24 16:47 17:47 WBC 5.2 RBC 2.92 L Hgb 8.6 L Hct 26.5 L MCV 90.8 MCH 29.5 MCHC 32.5 RDW 16.4 H Plt Count 374 MPV 10.5 H Immature Gran % (Auto) 0.2 Neut % (Auto) 59.9 Lymph % (Auto) 24.8 [place] % (Auto) 8.5 Eos % (Auto) 5.4 H Baso % (Auto) 1.2 Lymph # (Auto) 1.29 [place] # (Auto) 0.4 Eos # (Auto) 0.3 Baso # (Auto) 0.1 Abs Immat Gran (auto) 0.01 Absolute Neuts (auto) 3.1 Absolute Nucleated RBC 0.0 Nucleated RBC % 0.0 Puncture Site Right brachial ABG pH 7.384 ABG pCO2 47.6 H ABG pO2 51.4 L ABG PO2/FiO2 Ratio 0.73 ABG HCO3 27.8 H ABG O2 Saturation 85.6 L* ABG O2 Content 10.6 L ABG Base Excess 2.3 A-a Gradient 396.5 Oxyhemoglobin 82.6 L Total Hemoglobin 9.1 L O2 Delivery Device Simple mask O2 Liters/Min 12.0 FiO2 70 Sodium Potassium Chloride Carbon Dioxide BUN Creatinine Estim Creat Clear Calc Estimated GFR Glucose POC Capillary Glucose 119 H Calcium Blood Type Antibody Screen Crossmatch 07/10/19 07/10/19 07/10/19 17:48 18:29 20:48 WBC RBC Hgb Hct MCV MCH MCHC RDW Plt Count MPV Immature Gran % (Auto) Neut % (Auto) Lymph % (Auto) [place] % (Auto) Eos % (Auto) Baso % (Auto) Lymph # (Auto) [place] # (Auto) Eos # (Auto) Baso # (Auto) Abs Immat Gran (auto) Absolute Neuts (auto) Absolute Nucleated RBC Nucleated RBC % Puncture Site ABG pH ABG pCO2 ABG pO2 ABG PO2/FiO2 Ratio ABG HCO3 ABG O2 Saturation ABG O2 Content ABG Base Excess A-a Gradient Oxyhemoglobin Total Hemoglobin O2 Delivery Device O2 Liters/Min FiO2 Sodium 136 L Potassium 3.4 Chloride 101 Carbon Dioxide 28 BUN 45 H D Creatinine 1.50 H Estim Creat Clear Calc 29 Estimated GFR 34 L Glucose 135 H POC Capillary Glucose 133 H 142 H Calcium 8.1 L Blood Type Antibody Screen Crossmatch 07/11/19 07/11/19 07/11/19 04:23 04:23 07:55 WBC 5.7 RBC 2.36 L Hgb 6.8 L* Hct 20.8 L* MCV 88.1 MCH 28.8 MCHC 32.7 RDW 16.3 H Plt Count 321 MPV 10.5 H Immature Gran % (Auto) 0.2 Neut % (Auto) 54.4 Lymph % (Auto) 30.1 [place] % (Auto) 9.7 H Eos % (Auto) 4.9 H Baso % (Auto) 0.7 Lymph # (Auto) 1.71 [place] # (Auto) 0.6 Eos # (Auto) 0.3 Baso # (Auto) 0.0 Abs Immat Gran (auto) 0.01 Absolute Neuts (auto) 3.1 Absolute Nucleated RBC 0.0 Nucleated RBC % 0.0 Puncture Site ABG pH ABG pCO2 ABG pO2 ABG PO2/FiO2 Ratio ABG HCO3 ABG O2 Saturation ABG O2 Content ABG Base Excess A-a Gradient Oxyhemoglobin Total Hemoglobin O2 Delivery Device O2 Liters/Min FiO2 Sodium 137 Potassium 3.1 L Chloride 100 Carbon Dioxide 27 BUN 41 H Creatinine 1.50 H Estim Creat Clear Calc 29 Estimated GFR 34 L Glucose 113 H POC Capillary Glucose Calcium 7.5 L Blood Type O Positive Antibody Screen Negative Crossmatch See Detail 07/11/19 07/11/19 08:12 12:50 WBC RBC H
[2019-07-11] MEDS: HEPARIN SODIUM 5,000 UNITS/ML VIAL 5000 UNITS SUB-Q (14:48)
--- NOTE | 2019-07-11 16:04 | PM.IMPN ---
Progress Note: A&P Assessment and Plan (1) Community acquired pneumonia: Qualifiers: Laterality: unspecified laterality Qualified Code(s): J18.9 - Pneumonia, unspecified organism Code(s): J18.9 - Pneumonia, unspecified organism Status: Acute Assessment and Plan: finish azithromycin and ceftriaxone day11/19 today (2) Acute respiratory failure with hypoxia: Code(s): J96.01 - Acute respiratory failure with hypoxia Status: Acute Assessment and Plan: Secondary to pneumonia. wean oxygen as tolerated (3) DVT (deep venous thrombosis): Qualifiers: DVT location: lower extremity Affected thrombotic vein of extremity: unspecified vein of extremity Chronicity: acute Laterality: bilateral Qualified Code(s): I82.403 - Acute embolism and thrombosis of unspecified deep veins of lower extremity, bilateral Code(s): I82.409 - Acute embolism and thrombosis of unspecified deep veins of unspecified lower extremity Status: Acute Assessment and Plan: bilateral tibial and peroneal DVTs ASA Repeat venous doppler 07/09 showed NO DVT Continue prophylactic heparin (no overt bleeding) (4) Chronic kidney disease, stage 3: Code(s): N18.3 - Chronic kidney disease, stage 3 (moderate) Status: Acute Assessment and Plan: 07/08 creatinine 1.9 and will repeat in a.m. (5) Chronic anemia: Code(s): D64.9 - Anemia, unspecified Status: Acute Assessment and Plan: lab c/w ACD no sign of overt bleeding GI evaluation in progress (EGD and colon 06/20 no dnrvr) (6) Hypertension: Qualifiers: Hypertension type: essential hypertension Qualified Code(s): I10 - Essential (primary) hypertension Code(s): I10 - Essential (primary) hypertension Status: Acute Assessment and Plan: Control adequate Will continue antihypertensives and monitor daily. (7) Edema: Qualifiers: Edema type: localized Qualified Code(s): R60.0 - Localized edema Code(s): R60.9 - Edema, unspecified Status: Acute Assessment and Plan: A chronic ongoing issue with this patient with multiple causes including diastolic dysfunction, chronic kidney disease with nephrotic syndrome. Decrease much for her previous admissions (8) Type 2 diabetes mellitus with peripheral neuropathy: Code(s): E11.42 - Type 2 diabetes mellitus with diabetic polyneuropathy Status: Acute Assessment and Plan: Held metformin given worsening renal function. Continue SSI hemoglobin A1c-5.9 She may be able to manage on diet alone or perhaps low dose sitagliptin Subjective Date/time seen: 07/11/19 16:04 Interval history: Date of visit 07/11. 69-year-old white female with chronic renal failure stage 3, nephrotic syndrome, diastolic heart failure, and chronic anemia admitted with cough shortness of breath found to have pneumonia. Completing course of antibiotic therapy and still feels very weak. Short breath and hypoxic after EGD/colon 07/10. Slept well with BiPAP and feels better today.. Exam Narrative: Exam Narrative: Blood pressure 128/74 pulse 76 saturating 94% on 5 L nasal cannula afebrile Pupils equal reactive to light sclera anicteric Neck supple no adenopathy Lungs some crackles in the left posterior base as before CV irregular I hear no murmurs Abdomen is soft nontender Extremities without edema distal pulses 1+ Neuro alert pleasant cooperative no focal deficits Objective Data Vital Signs Vital Signs: Vital Signs - 24 hr 07/10/19 16:05 07/10/19 16:15 07/10/19 16:25 Temperature Pulse Rate 61 64 64 Respiratory Rate 26 H 24 H 23 H Blood Pressure 127/52 L 145/41 H 139/56 L Pulse Oximetry 91 97 91 07/10/19 16:35 07/10/19 16:45 07/10/19 16:55 Temperature Pulse Rate 67 67 66 Respiratory Rate 27 H 26 H 25 H Blood Pressure 128/92 H 126/62 150/66 H Pulse
[2019-07-11 16:56] LABS: Glucose Point of Care 119 (65-105)
[2019-07-11] MEDS: TUBING, BLOOD PLUM PUMP TUBING 1 EACH XX (17:04)
[2019-07-11 18:04] LABS: Hematocrit 30.5 % (37.0-47.0); Hemoglobin 9.7 g/dL (12.0-15.0)
[2019-07-11] MEDS: METOCLOPRAMIDE HCL 10 MG TABLET PO (20:12)
[2019-07-11] MEDS: ATORVASTATIN 40 MG TABLET 80 MG PO (20:12)
[2019-07-11] MEDS: PREGABALIN 75 MG CAPSULE PO (20:14)
[2019-07-11 20:38] LABS: Glucose Point of Care 130 (65-105)
[2019-07-12] VITALS (20 sets, daily range): BP systolic 150–176; BP diastolic 60–78; PULSE 70–87; RESP 18–30; TEMP 36.1–36.8; O2SAT 92–99
[2019-07-12] MEDS: IPRATROPIUM BR 0.02% INH SOLN 0.5 MG/2.5 ML VIAL INHALATION ×4 (02:39→21:37)
[2019-07-12] MEDS: ALBUTEROL SULFATE NEB 2.5 MG/0.5 ML INH 5 MG INHALATION ×4 (02:39→21:36)
[2019-07-12 05:11] LABS: Basophils Absolute Auto 0.1 K/mm3 (0.0-0.1); Basophils Percent Auto 0.7 % (0.2-1.2); Eosinophils Absolute Auto 0.4 K/mm3 (0-0.3); Eosinophils Percent Auto 3.8 % (0-4.4); Hematocrit 29.4 % (37.0-47.0); Hemoglobin 9.4 g/dL (12.0-15.0); Immature Granulocyte Absolute 0.04 K/mm3 (0.00-0.031); Immature Granulocyte Percent A 0.4 % (0-0.5); Lymphocytes Absolute Auto 1.99 K/mm3 (0.9-3.2); Lymphocytes Percent Auto 20.4 % (18.3-44.2); Mean Corpuscular Volume 90.7 fl (80-100); Mean Platelet Volume 10.6 fl (7.4-10.4); Monocytes Absolute Auto 1.1 K/mm3 (0.1-0.6); Monocytes Percent Auto 11.2 % (2.6-8.5); Neutrophils Absolute Auto 6.2 K/mm3 (1.3-6.7); Neutrophils Percent Auto 63.5 % (45.5-73.1); Nucleated Red Blood Cells Perc 0.2 % (0.0-0.2); Platelet Count Result 340 k/mm3 (150-375); Red Blood Count 3.24 M/mm3 (4.2-5.4); Red Cell Distribution Width 16.3 % (11.5-14.5); White Blood Count 9.8 K/mm3 (4.5-10.0)
[2019-07-12 05:35] LABS: Blood Urea Nitrogen 38 mg/dL (7-17); Calcium 8.2 mg/dL (8.4-10.2); Carbon Dioxide 28 mmol/L (22-30); Chloride 103 mmol/L (98-107); Estimated CRCL calculation 29 ml/min; Estimated Glomerular Filt Rate 34; Glucose 117 mg/dL (65-105); Potassium 3.9 mmol/L (3.4-5.0); Sodium 139 mmol/L (137-145)
[2019-07-12 08:11] LABS: Glucose Point of Care 104 (65-105)
[2019-07-12] MEDS: POTASSIUM CHLORIDE 20 MEQ TABLET 40 MEQ PO (10:51)
[2019-07-12] MEDS: VALACYCLOVIR HCL 500 MG TABLET 1000 MG PO ×3 (10:53→15:51)
[2019-07-12] MEDS: SENNOSIDES 8.6 MG TABLET PO ×2 (10:54→15:51)
[2019-07-12] MEDS: PANTOPRAZOLE 40 MG TABLET PO ×2 (10:56→21:17)
[2019-07-12] MEDS: METOPROLOL SUCCINATE EXT REL 100 MG TABCR 200 MG PO (10:56)
[2019-07-12] MEDS: MAGNESIUM OXIDE 400 MG TABLET PO (10:57)
[2019-07-12] MEDS: AMLODIPINE BESYLATE 5 MG TABLET 10 MG PO (10:58)
[2019-07-12] MEDS: DOCUSATE SODIUM 100 MG CAPSULE PO (10:58)
[2019-07-12] MEDS: FUROSEMIDE INJ 100 MG/10 ML VIAL 80 MG IV PUSH (10:59)
--- NOTE | 2019-07-12 11:08 | PCDIET ---
Weekly nutritional screen. Patient is tolerating current diet with adequate intake. Ate minimally the past couple of days due to testing but reports appetite remains good. No weight loss reported. Diet is diabetic, carbohydrate controlled. No nutritional needs at this time.
[2019-07-12 12:28] LABS: Glucose Point of Care 171 (65-105)
[2019-07-12] MEDS: HEPARIN SODIUM 5,000 UNITS/ML VIAL 5000 UNITS SUB-Q ×2 (13:37→21:18)
--- NOTE | 2019-07-12 14:24 | PC.NURSE ---
On 07/12/19, the student, [laurence del castillo ], provided care and completed [facility] documentation on this patient. I have reviewed the student's documentation and agree with the findings.
--- NOTE | 2019-07-12 15:38 | WPDGIPROGNO ---
Progress Note: A&P Assessment and Plan (1) Gastritis: Qualifiers: Chronicity: unspecified Gastritis bleeding: without bleeding Gastritis type: unspecified gastritis Qualified Code(s): K29.70 - Gastritis, unspecified, without bleeding Code(s): K29.70 - Gastritis, unspecified, without bleeding Status: Acute Assessment and Plan: continue with ppi. (2) Rectal bleeding: Code(s): K62.5 - Hemorrhage of anus and rectum Status: Acute Assessment and Plan: resolved, probably related to recent polypectomy (small size though). Hb now stable. ok to keep using heparin SQ (3) Chronic anemia: Code(s): D64.9 - Anemia, unspecified Status: Acute (4) Community acquired pneumonia: Qualifiers: Laterality: unspecified laterality Qualified Code(s): J18.9 - Pneumonia, unspecified organism Code(s): J18.9 - Pneumonia, unspecified organism Status: Acute Assessment and Plan: on medical treatment, using oxygen (5) Acute on chronic diastolic CHF (congestive heart failure): Code(s): I50.33 - Acute on chronic diastolic (congestive) heart failure Status: Acute Subjective Date/time seen: 07/12/19 15:38 Interval history: had rectal bleeding yesterday but resolved now. Hb stable after one unit given yesterday. Still with arm weakness and fatigue, better spirits today. Review of Systems Review of Systems: All systems reviewed & are unremarkable except as noted in HPI and below Exam Const: General: comfortable Other: chronically ill appearing, on oxygen. HENMT: General nose exam: Normal nares present Eyes: General: appearance normal, both eyes and all related structures Neck: Neck: no JVD Resp: Auscultation: no wheezes and diminished lung sounds Cardio: Rate: regular rate Rhythm: regular rhythm GI: Inspection: non-distended GI Palp: Yes Soft to palpation, No Firmness to palpation present (GI) and No Tenderness to palpation present (GI) Auscultation: normal bowel sounds Skin: General skin exam: no erythema, no jaundice and pallor Neuro: Speech: normal speech Extrem: General: normal to inspection Psych: Mental Status: mental status grossly normal Objective Data Vital Signs Vital Signs: Vital Signs - 24 hr 07/11/19 15:45 07/11/19 16:00 07/11/19 16:45 Temperature 98.0 F 97.9 F Pulse Rate 76 75 73 Respiratory Rate 22 H 18 Blood Pressure 128/54 L 159/62 H Pulse Oximetry 91 96 07/11/19 17:45 07/11/19 18:00 07/11/19 20:00 Temperature 97.9 F 97.8 F Pulse Rate 74 72 72 Respiratory Rate 20 22 H Blood Pressure 156/61 H 131/74 Pulse Oximetry 93 91 07/11/19 20:28 07/11/19 20:33 07/11/19 20:36 Temperature Pulse Rate 73 72 72 Respiratory Rate 22 H 22 H Blood Pressure Pulse Oximetry 91 07/11/19 22:00 07/11/19 23:43 07/12/19 00:00 Temperature 97.8 F Pulse Rate 81 77 80 Respiratory Rate 26 H Blood Pressure 150/61 H Pulse Oximetry 98 07/12/19 02:00 07/12/19 02:39 07/12/19 02:47 Temperature Pulse Rate 77 79 79 Respiratory Rate 28 H 28 H Blood Pressure Pulse Oximetry 97 07/12/19 02:51 07/12/19 04:00 07/12/19 06:00 Temperature 97.9 F Pulse Rate 77 84 70 Respiratory Rate 30 H 20 Blood Pressure 163/63 H Pulse Oximetry 99 07/12/19 08:00 07/12/19 08:19 07/12/19 08:29 Temperature 97 F L Pulse Rate 80 82 84 Respiratory Rate 29 H 25 H 26 H Blood Pressure 162/60 H Pulse Oximetry 94 94 07/12/19 10:56 07/12/19 12:01 Temperature 98.3 F Pulse Rate 84 75 Respiratory Rate 22 H Blood Pressure 176/78 H Pulse Oximetry 92 Intake/Output Intake/Output: Intake & Output 07/09/19 07/10/19 07/11/19 07/12/19 23:59 23:59 23:59 23:59 Intake Total 0330 363 4404 1120 Output Total 1100 2000 1850 Balance 70 [phone] -[phone] Meds/Results Medications: Active Medications Generic Name Dose Route Start Last Admin Trade Name Freq PRN Reason Stop Do
--- NOTE | 2019-07-12 17:01 | P.PNIM_ITS ---
Progress Note: A&P Assessment and Plan (1) Community acquired pneumonia: Qualifiers: Laterality: unspecified laterality Qualified Code(s): J18.9 - Pneumonia, unspecified organism Code(s): J18.9 - Pneumonia, unspecified organism Status: Acute Assessment and Plan: * finish azithromycin and ceftriaxone day11/19 07/11, probable repeat cxr 1-2 days (2) Acute respiratory failure with hypoxia: Code(s): J96.01 - Acute respiratory failure with hypoxia Status: Acute Assessment and Plan: * Secondary to pneumonia. * wean oxygen as tolerated (3) DVT (deep venous thrombosis): Qualifiers: DVT location: lower extremity Affected thrombotic vein of extremity: unspecified vein of extremity Chronicity: acute Laterality: bilateral Qualified Code(s): I82.403 - Acute embolism and thrombosis of unspecified deep veins of lower extremity, bilateral Code(s): I82.409 - Acute embolism and thrombosis of unspecified deep veins of unspecified lower extremity Status: Acute Assessment and Plan: * bilateral tibial and peroneal DVTs * ASA * Repeat venous doppler 07/09 showed NO DVT * Continue prophylactic heparin (no overt bleeding) (4) Chronic kidney disease, stage 3: Code(s): N18.3 - Chronic kidney disease, stage 3 (moderate) Status: Acute Assessment and Plan: * 07/08 creatinine 1.9 and will repeat in a.m. * creatinine 1.5 last 2 days (5) Chronic anemia: Code(s): D64.9 - Anemia, unspecified Status: Acute Assessment and Plan: * lab c/w ACD * no sign of overt bleeding * GI evaluation in progress (EGD and colon 06/20 no source of blood loss) * transfused 1 unit PRBCs after hgb dipped to 6,8 07/01 and hgb up to 9.4 today (6) Hypertension: Qualifiers: Hypertension type: essential hypertension Qualified Code(s): I10 - Essential (primary) hypertension Code(s): I10 - Essential (primary) hypertension Status: Acute Assessment and Plan: * Control fair * Will continue antihypertensives amlodipine and metoprolol. With the Lasix. Her entreso has been on hold. (7) Edema: Qualifiers: Edema type: localized Qualified Code(s): R60.0 - Localized edema Code(s): R60.9 - Edema, unspecified Status: Acute Assessment and Plan: * A chronic ongoing issue with this patient with multiple causes including diastolic dysfunction, chronic kidney disease with nephrotic syndrome. Decreased much for her previous admissions (8) Type 2 diabetes mellitus with peripheral neuropathy: Code(s): E11.42 - Type 2 diabetes mellitus with diabetic polyneuropathy Status: Acute Assessment and Plan: * Held metformin given worsening renal function. * Continue SSI * hemoglobin A1c-5.9 * She may be able to manage on diet alone or perhaps low dose sitagliptin Subjective Date/time seen: 07/12/19 17:01 Interval history: Date of visit 07/12. 69-year-old white female with chronic renal failure stage 3, nephrotic syndrome, diastolic heart failure, and chronic anemia admitted with cough shortness of breath found to have pneumonia. Compl eting course of antibiotic therapy and still feels very weak. Short breath and hypoxic after EGD/colon 07/10. Slept well with BiPAP and feels better each day.. Exam Narrative: Exam Narrative: Blood pressure 160/60 pulse 80 saturating 94% on 5 L nasal cannula afebrile Pupils equal jackie
--- NOTE | 2019-07-12 17:01 | PM.IMPN ---
Progress Note: A&P Assessment and Plan (1) Community acquired pneumonia: Qualifiers: Laterality: unspecified laterality Qualified Code(s): J18.9 - Pneumonia, unspecified organism Code(s): J18.9 - Pneumonia, unspecified organism Status: Acute Assessment and Plan: finish azithromycin and ceftriaxone day11/19 07/11, probable repeat cxr 1-2 days (2) Acute respiratory failure with hypoxia: Code(s): J96.01 - Acute respiratory failure with hypoxia Status: Acute Assessment and Plan: Secondary to pneumonia. wean oxygen as tolerated (3) DVT (deep venous thrombosis): Qualifiers: DVT location: lower extremity Affected thrombotic vein of extremity: unspecified vein of extremity Chronicity: acute Laterality: bilateral Qualified Code(s): I82.403 - Acute embolism and thrombosis of unspecified deep veins of lower extremity, bilateral Code(s): I82.409 - Acute embolism and thrombosis of unspecified deep veins of unspecified lower extremity Status: Acute Assessment and Plan: bilateral tibial and peroneal DVTs ASA Repeat venous doppler 07/09 showed NO DVT Continue prophylactic heparin (no overt bleeding) (4) Chronic kidney disease, stage 3: Code(s): N18.3 - Chronic kidney disease, stage 3 (moderate) Status: Acute Assessment and Plan: 07/08 creatinine 1.9 and will repeat in a.m. creatinine 1.5 last 2 days (5) Chronic anemia: Code(s): D64.9 - Anemia, unspecified Status: Acute Assessment and Plan: lab c/w ACD no sign of overt bleeding GI evaluation in progress (EGD and colon 06/20 no source of blood loss) transfused 1 unit PRBCs after hgb dipped to 6,8 16 and hgb up to 9.4 today (6) Hypertension: Qualifiers: Hypertension type: essential hypertension Qualified Code(s): I10 - Essential (primary) hypertension Code(s): I10 - Essential (primary) hypertension Status: Acute Assessment and Plan: Control fair Will continue antihypertensives amlodipine and metoprolol. With the Lasix. Her entreso has been on hold. (7) Edema: Qualifiers: Edema type: localized Qualified Code(s): R60.0 - Localized edema Code(s): R60.9 - Edema, unspecified Status: Acute Assessment and Plan: A chronic ongoing issue with this patient with multiple causes including diastolic dysfunction, chronic kidney disease with nephrotic syndrome. Decreased much for her previous admissions (8) Type 2 diabetes mellitus with peripheral neuropathy: Code(s): E11.42 - Type 2 diabetes mellitus with diabetic polyneuropathy Status: Acute Assessment and Plan: Held metformin given worsening renal function. Continue SSI hemoglobin A1c-5.9 She may be able to manage on diet alone or perhaps low dose sitagliptin Subjective Date/time seen: 07/12/19 17:01 Interval history: Date of visit 07/12. 69-year-old white female with chronic renal failure stage 3, nephrotic syndrome, diastolic heart failure, and chronic anemia admitted with cough shortness of breath found to have pneumonia. Completing course of antibiotic therapy and still feels very weak. Short breath and hypoxic after EGD/colon 07/10. Slept well with BiPAP and feels better each day.. Exam Narrative: Exam Narrative: Blood pressure 160/60 pulse 80 saturating 94% on 5 L nasal cannula afebrile Pupils equal reactive to light sclera anicteric Neck supple no adenopathy Lungs some crackles in the left posterior base as before but decreased CV irregular I hear no murmurs Abdomen is soft nontender Extremities without edema distal pulses 1+ Neuro alert pleasant cooperative no focal deficits Objective Data Vital Signs Vital Signs: Vital Signs - 24 hr 07/11/19 17:45 07/11/19 18:00 07/11/19 20:00 Temperature 36.6 C 36.6 C Pulse Rate 74 72 72 Respiratory Rate 20 22 H Blood P
[2019-07-12 18:07] LABS: Glucose Point of Care 157 (65-105)
[2019-07-12] MEDS: ATORVASTATIN 40 MG TABLET 80 MG PO (21:17)
[2019-07-12] MEDS: PREGABALIN 75 MG CAPSULE PO (21:18)
[2019-07-12] MEDS: METOCLOPRAMIDE HCL 10 MG TABLET PO (21:18)
[2019-07-12 21:37] LABS: Glucose Point of Care 168 (65-105)
[2019-07-13] VITALS (14 sets, daily range): BP systolic 159–177; BP diastolic 60–74; PULSE 66–88; RESP 16–26; TEMP 36.2–36.5; O2SAT 91–95
[2019-07-13] MEDS: ALBUTEROL SULFATE NEB 2.5 MG/0.5 ML INH 5 MG INHALATION ×4 (02:51→20:45)
[2019-07-13] MEDS: IPRATROPIUM BR 0.02% INH SOLN 0.5 MG/2.5 ML VIAL INHALATION ×4 (02:51→20:45)
[2019-07-13] MEDS: HEPARIN SODIUM 5,000 UNITS/ML VIAL 5000 UNITS SUB-Q ×3 (05:19→21:06)
[2019-07-13 06:28] LABS: Basophils Absolute Auto 0.1 K/mm3 (0.0-0.1); Basophils Percent Auto 0.7 % (0.2-1.2); Eosinophils Absolute Auto 0.5 K/mm3 (0-0.3); Eosinophils Percent Auto 4.6 % (0-4.4); Hematocrit 28.2 % (37.0-47.0); Hemoglobin 8.9 g/dL (12.0-15.0); Immature Granulocyte Absolute 0.05 K/mm3 (0.00-0.031); Immature Granulocyte Percent A 0.5 % (0-0.5); Lymphocytes Absolute Auto 1.99 K/mm3 (0.9-3.2); Lymphocytes Percent Auto 19.9 % (18.3-44.2); Mean Corpuscular HGB Conc 31.6 g/dl (32-36); Mean Corpuscular Hemoglobin 28.9 pg (26-34); Mean Corpuscular Volume 91.6 fl (80-100); Mean Platelet Volume 10.7 fl (7.4-10.4); Monocytes Percent Auto 9.7 % (2.6-8.5); Neutrophils Absolute Auto 6.5 K/mm3 (1.3-6.7); Neutrophils Percent Auto 64.6 % (45.5-73.1); Nucleated Red Blood Cells Perc 0.3 % (0.0-0.2); Platelet Count Result 343 k/mm3 (150-375); Red Blood Count 3.08 M/mm3 (4.2-5.4); Red Cell Distribution Width 16.6 % (11.5-14.5)
[2019-07-13 06:41] LABS: Blood Urea Nitrogen 34 mg/dL (7-17); Calcium 8.4 mg/dL (8.4-10.2); Carbon Dioxide 30 mmol/L (22-30); Chloride 103 mmol/L (98-107); Estimated CRCL calculation 24 ml/min; Estimated Glomerular Filt Rate 28; Glucose 135 mg/dL (65-105); Potassium 4.2 mmol/L (3.4-5.0); Sodium 139 mmol/L (137-145)
[2019-07-13 07:43] LABS: Glucose Point of Care 127 (65-105)
[2019-07-13] MEDS: METOPROLOL SUCCINATE EXT REL 100 MG TABCR 200 MG PO (09:25)
[2019-07-13] MEDS: AMLODIPINE BESYLATE 5 MG TABLET 10 MG PO (09:26)
[2019-07-13] MEDS: DOCUSATE SODIUM 100 MG CAPSULE PO (09:28)
[2019-07-13] MEDS: MAGNESIUM OXIDE 400 MG TABLET PO (09:29)
[2019-07-13] MEDS: VALACYCLOVIR HCL 500 MG TABLET 1000 MG PO ×3 (09:29→17:53)
[2019-07-13] MEDS: PANTOPRAZOLE 40 MG TABLET PO ×2 (09:29→21:04)
[2019-07-13] MEDS: SENNOSIDES 8.6 MG TABLET PO ×2 (09:36→17:53)
--- NOTE | 2019-07-13 10:50 | PCPTNOTE ---
Pt refused treatment. Therapist explained the importance of therapy, Pt agreed and stated she worked with PT yesterday and was too tired to work today. Will attempt again.
--- NOTE | 2019-07-13 11:26 | P.CDI_ITS ---
CDI Query Clarification Request Two queries: 1)- CHF diastolic has been documented. -Lasix 80mg IV has been given 07/10, 07/11 X2, and 07/12 and 40mg IV on 07/06 - BNP 07/05- 20, BNP 07/06- 6450 and BNP 07/07- 1949 Please clarify acuity of diastolic CHF * Acute * Chronic * Acute on Chronic * Unable to determine 2) Acute bilateral DVT has been documented. - Repeat Venous doppler on 07/09 with no DVT Please clarify if acute bilateral DVT's have been ruled in or ruled out.
[2019-07-13 11:36] LABS: Glucose Point of Care 174 (65-105)
--- NOTE | 2019-07-13 12:54 | PM.IMPN ---
Progress Note: A&P Assessment and Plan (1) Community acquired pneumonia: Qualifiers: Laterality: unspecified laterality Qualified Code(s): J18.9 - Pneumonia, unspecified organism Code(s): J18.9 - Pneumonia, unspecified organism Status: Acute Assessment and Plan: finish azithromycin and ceftriaxone day11/19 07/11, probable repeat cxr today (2) Acute respiratory failure with hypoxia: Code(s): J96.01 - Acute respiratory failure with hypoxia Status: Acute Assessment and Plan: Secondary to pneumonia. wean oxygen as tolerated (3) DVT (deep venous thrombosis): Qualifiers: DVT location: lower extremity Affected thrombotic vein of extremity: unspecified vein of extremity Chronicity: acute Laterality: bilateral Qualified Code(s): I82.403 - Acute embolism and thrombosis of unspecified deep veins of lower extremity, bilateral Code(s): I82.409 - Acute embolism and thrombosis of unspecified deep veins of unspecified lower extremity Status: Acute Assessment and Plan: bilateral tibial and peroneal DVTs ASA Repeat venous doppler 07/09 showed NO DVT Continue prophylactic heparin (no overt bleeding) (4) Chronic kidney disease, stage 3: Code(s): N18.3 - Chronic kidney disease, stage 3 (moderate) Status: Acute Assessment and Plan: 07/08 creatinine 1.9 and will repeat in a.m. creatinine 1.8 today, will get renal US and have seen by nephrology (5) Chronic anemia: Code(s): D64.9 - Anemia, unspecified Status: Acute Assessment and Plan: lab c/w ACD no sign of overt bleeding GI evaluation in progress (EGD and colon 06/20 no source of blood loss) transfused 1 unit PRBCs after hgb dipped to 6,8 07/01 and hgb up to 8.9 today, may be candidate for epigen (6) Hypertension: Qualifiers: Hypertension type: essential hypertension Qualified Code(s): I10 - Essential (primary) hypertension Code(s): I10 - Essential (primary) hypertension Status: Acute Assessment and Plan: Control fair Will continue antihypertensives amlodipine and metoprolol. With the Lasix. will restart ARB with her nephrotic syndrome (7) Edema: Qualifiers: Edema type: localized Qualified Code(s): R60.0 - Localized edema Code(s): R60.9 - Edema, unspecified Status: Acute Assessment and Plan: A chronic ongoing issue with this patient with multiple causes including chronic diastolic heart failure, chronic kidney disease with nephrotic syndrome. Decreased much for her previous admissions (8) Type 2 diabetes mellitus with peripheral neuropathy: Code(s): E11.42 - Type 2 diabetes mellitus with diabetic polyneuropathy Status: Acute Assessment and Plan: Held metformin given worsening renal function. Continue SSI hemoglobin A1c-5.9 She may be able to manage on diet alone or perhaps low dose sitagliptin Subjective Date/time seen: 07/13/19 12:54 Interval history: Date of visit 07/13. 69-year-old white female with chronic renal failure stage 3, nephrotic syndrome, diastolic heart failure, and chronic anemia admitted with cough shortness of breath found to have pneumonia. Completing course of antibiotic therapy and still feels very weak. Short breath and hypoxic after EGD/colon 07/10. Slept well with BiPAP and feels better each day..Family concerned with upper extremity weakness Exam Narrative: Exam Narrative: Blood pressure 160/60 pulse 82 saturating 91% on 5 L nasal cannula afebrile Pupils equal reactive to light sclera anicteric Neck supple no adenopathy Lungs some crackles in the left posterior base as before but decreased CV irregular I hear no murmurs Abdomen is soft nontender Extremities without edema distal pulses 1+ Neuro alert pleasant cooperative no focal deficits no appreciable weakness detected in upper extremities. Ob
--- NOTE | 2019-07-13 13:59 | PCPTNOTE ---
The PT treatment was unable to be completed today due to patient refusal. Will continue per Plan of Care frequency and duration.
[2019-07-13] MEDS: FUROSEMIDE INJ 100 MG/10 ML VIAL 80 MG IV PUSH ×2 (15:24→17:52)
[2019-07-13] MEDS: VALSARTAN 80 MG TABLET PO (15:31)
[2019-07-13 16:03] LABS: Glucose Point of Care 141 (65-105)
--- NOTE | 2019-07-13 16:59 | PM.CNNEP ---
Assessment and Plan Assessment and plan (1) ANGIE (acute kidney injury): Code(s): N17.9 - Acute kidney failure, unspecified Status: Acute (2) Chronic kidney disease, stage 3: Code(s): N18.3 - Chronic kidney disease, stage 3 (moderate) Status: Acute (3) Community acquired pneumonia: Qualifiers: Laterality: unspecified laterality Qualified Code(s): J18.9 - Pneumonia, unspecified organism Code(s): J18.9 - Pneumonia, unspecified organism Status: Acute (4) Nephrotic range proteinuria: Code(s): R80.9 - Proteinuria, unspecified Status: Acute Assessment and Plan: . Additional Plan Lupe has an elevated creatinine on top of her baseline chronic kidney disease. I am unclear if this is just a manifestation of CKD progression or is a truly an acute insult on top of her baseline kidney disease. Given her acute illness (pneumonia), I can easily see her creatinine running a little higher because of this. However, there are other factors that may explain her elevated creatinine as well. She is on diuretic therapy given the lower extremity edema associated with her nephrotic range proteinuria so this could be causing her creatinine to rule on the higher side of normal. Furthermore, she was also on Entresto in conjunction with Lasix and hydrochlorothiazide which could have precipitated her rising creatinine. Lastly, she is currently admitted with pneumonia and is on IV antibiotic therapy so this could have caused some degree of mild ATN given the infection in of itself but difficult to say for sure. Her renal ultrasound did not demonstrate in time anatomical abnormalities and although I could check urine electrolytes for better assessment of his volume status, fact he is currently on diuretic therapy may skew the results. It has already been demonstrated that she has known nephrotic range proteinuria so is very possible that this has put more stress on her kidneys there relating to the a for mentioned rise in kidney function. At this point, I would focus my attention on treating her pneumonia on the assumption that her kidney function will eventually stabilize back to his previous baseline was see acute if it infection is resolved or resolving. I will follow the trend of her repeat labs to ensure that her kidney function has not deteriorated further but she is still on diuretic therapy although on half the dose since admission. I will continue follow patient with you while she remains hospitalized and make further recommendations during her hospital course. Thank you for allowing risk participate in the care of this patient. History of Present Illness Reason for Consult Consult date: 07/13/19 Reason for consult: chronic renal failure Chief Complaint Chief complaint: Pneumona, hypoxia History of Present Illness Narrative: The patient is a very pleasant 69-year-old female with past medical history as outlined above who presented to the [facility] ER for further evaluation of generalized weakness. She reports a gradual onset of fatigue and weakness for the last 2 days prior to admission. Apparently, on the day of admission, she was so weak that she could not get herself out of bed. Furthermore, the nursing staff at her facility were concerned by the fact her speech was somewhat slurred prompting the transfer to the ER. Work-up and evaluation in the ER demonstrated the patient to be hypoxic on room air along with a chest x-ray reporting bibasilar pneumonia. She denies fever, chills, sweats, sinus congestion, rhinorrhea, nausea or vomiting. She has not really had a significant cough but admits some shortness of breath. No chest pain, pleuritic pain, or palpitations. She has chronic edema that appears as its baseline. Routine blood test demonstrated mildly elevated white blood cell count as well as an elevated BUN and creatinine somewhat higher than her baseline. Gi
[2019-07-13] MEDS: ATORVASTATIN 40 MG TABLET 80 MG PO (21:03)
[2019-07-13] MEDS: METOCLOPRAMIDE HCL 10 MG TABLET PO (21:04)
[2019-07-13] MEDS: PREGABALIN 75 MG CAPSULE PO (21:08)
[2019-07-13 21:43] LABS: Glucose Point of Care 129 (65-105)
[2019-07-14] VITALS (13 sets, daily range): BP systolic 151–174; BP diastolic 62–67; PULSE 71–89; RESP 18–22; TEMP 36.2–36.8; O2SAT 90–99
[2019-07-14] MEDS: ALBUTEROL SULFATE NEB 2.5 MG/0.5 ML INH 5 MG INHALATION ×4 (02:30→21:49)
[2019-07-14] MEDS: IPRATROPIUM BR 0.02% INH SOLN 0.5 MG/2.5 ML VIAL INHALATION ×4 (02:30→21:49)
[2019-07-14] MEDS: HEPARIN SODIUM 5,000 UNITS/ML VIAL 5000 UNITS SUB-Q ×3 (05:36→22:56)
[2019-07-14 06:24] LABS: Basophils Absolute Auto 0.1 K/mm3 (0.0-0.1); Basophils Percent Auto 0.7 % (0.2-1.2); Eosinophils Absolute Auto 0.5 K/mm3 (0-0.3); Eosinophils Percent Auto 4.4 % (0-4.4); Hematocrit 29.2 % (37.0-47.0); Hemoglobin 9.2 g/dL (12.0-15.0); Immature Granulocyte Absolute 0.06 K/mm3 (0.00-0.031); Immature Granulocyte Percent A 0.6 % (0-0.5); Lymphocytes Absolute Auto 1.72 K/mm3 (0.9-3.2); Mean Corpuscular HGB Conc 31.5 g/dl (32-36); Mean Corpuscular Volume 92.1 fl (80-100); Mean Platelet Volume 10.5 fl (7.4-10.4); Monocytes Absolute Auto 0.9 K/mm3 (0.1-0.6); Monocytes Percent Auto 8.2 % (2.6-8.5); Neutrophils Absolute Auto 7.5 K/mm3 (1.3-6.7); Neutrophils Percent Auto 70.1 % (45.5-73.1); Platelet Count Result 336 k/mm3 (150-375); Red Blood Count 3.17 M/mm3 (4.2-5.4); Red Cell Distribution Width 16.5 % (11.5-14.5); White Blood Count 10.7 K/mm3 (4.5-10.0)
[2019-07-14 06:32] LABS: Blood Urea Nitrogen 34 mg/dL (7-17); Calcium 8.2 mg/dL (8.4-10.2); Carbon Dioxide 27 mmol/L (22-30); Chloride 103 mmol/L (98-107); Estimated CRCL calculation 26 ml/min; Estimated Glomerular Filt Rate 30; Glucose 135 mg/dL (65-105); Potassium 4.4 mmol/L (3.4-5.0); Sodium 138 mmol/L (137-145)
[2019-07-14] MEDS: VALACYCLOVIR HCL 500 MG TABLET 1000 MG PO ×3 (09:13→17:26)
[2019-07-14] MEDS: PANTOPRAZOLE 40 MG TABLET PO ×2 (09:14→22:56)
[2019-07-14] MEDS: VALSARTAN 80 MG TABLET PO (09:14)
[2019-07-14] MEDS: AMLODIPINE BESYLATE 5 MG TABLET 10 MG PO (09:14)
[2019-07-14] MEDS: METOPROLOL SUCCINATE EXT REL 100 MG TABCR 200 MG PO (09:15)
[2019-07-14] MEDS: SENNOSIDES 8.6 MG TABLET PO ×2 (09:15→17:26)
[2019-07-14] MEDS: MAGNESIUM OXIDE 400 MG TABLET PO (09:15)
[2019-07-14] MEDS: FUROSEMIDE INJ 100 MG/10 ML VIAL 80 MG IV PUSH ×2 (09:16→17:26)
[2019-07-14] MEDS: DOCUSATE SODIUM 100 MG CAPSULE PO (09:21)
[2019-07-14 10:18] LABS: Glucose Point of Care 121 (65-105)
--- NOTE | 2019-07-14 12:13 | P.PNIM_ITS ---
Progress Note: A&P Assessment and Plan (1) Community acquired pneumonia: Qualifiers: Laterality: unspecified laterality Qualified Code(s): J18.9 - Pneumonia, unspecified organism Code(s): J18.9 - Pneumonia, unspecified organism Status: Acute Assessment and Plan: * finish azithromycin and ceftriaxone day11/19 07/11, * repeat cxr 07/13 bilateral effusions. R>L, will continue diuresing and if does not subside then will need thoracentesis (2) Acute respiratory failure with hypoxia: Code(s): J96.01 - Acute respiratory failure with hypoxia Status: Acute Assessment and Plan: * Secondary to pneumonia. * wean oxygen as tolerated (3) DVT (deep venous thrombosis): Qualifiers: DVT location: lower extremity Affected thrombotic vein of extremity: unspecified vein of extremity Chronicity: acute Laterality: bilateral Qualified Code(s): I82.403 - Acute embolism and thrombosis of unspecified deep veins of lower extremity, bilateral Code(s): I82.409 - Acute embolism and thrombosis of unspecified deep veins of unspecified lower extremity Status: Acute Assessment and Plan: * bilateral tibial and peroneal DVTs * ASA * Repeat venous doppler 07/09 showed NO DVT * Continue prophylactic heparin (no overt bleeding) (4) Chronic kidney disease, stage 3: Code(s): N18.3 - Chronic kidney disease, stage 3 (moderate) Status: Acute Assessment and Plan: * 07/08 creatinine 1.9 and will repeat in a.m. * creatinine 1.7 today, and repeat sono no obstruction (5) Chronic anemia: Code(s): D64.9 - Anemia, unspecified Status: Acute Assessment and Plan: * lab c/w ACD * no sign of overt bleeding * GI evaluation in progress (EGD and colon 06/20 no source of blood loss) * transfused 1 unit PRBCs after hgb dipped to 6,8 216 and hgb up to 9.2 today, may be candidate for epigen (6) Hypertension: Qualifiers: Hypertension type: essential hypertension Qualified Code(s): I10 - Essential (primary) hypertension Code(s): I10 - Essential (primary) hypertension Status: Acute Assessment and Plan: * Control fair * Will continue antihypertensives amlodipine and metoprolol. With the Lasix. * restarted ARB with her nephrotic syndrome and systolic bp consistently >160 (7) Edema: Qualifiers: Edema type: localized Qualified Code(s): R60.0 - Localized edema Code(s): R60.9 - Edema, unspecified Status: Acute Assessment and Plan: * A chronic ongoing issue with this patient with multiple causes including chronic diastolic heart failure, chronic kidney disease with nephrotic syndrome. Decreased much for her previous admissions (8) Type 2 diabetes mellitus with peripheral neuropathy: Code(s): E11.42 - Type 2 diabetes mellitus with diabetic polyneuropathy Status: Acute Assessment and Plan: * Held metformin given worsening renal function. * Continue SSI * hemoglobin A1c-5.9 * She may be able to manage on diet alone or perhaps low dose sitagliptin Subjective Date/time seen: 07/14/19 12:13 Interval history: Date of visit . 69-year-old white female with chronic renal failure stage 3, nephrotic syndrome, diastolic heart failure, and chronic anemia admitted with cough shortness of breath found to have pneumonia. Completing course of antibiotic therapy and still feels very weak. Short breath and hypoxic after EGD/colon 07/10.
--- NOTE | 2019-07-14 12:13 | PM.IMPN ---
Progress Note: A&P Assessment and Plan (1) Community acquired pneumonia: Qualifiers: Laterality: unspecified laterality Qualified Code(s): J18.9 - Pneumonia, unspecified organism Code(s): J18.9 - Pneumonia, unspecified organism Status: Acute Assessment and Plan: finish azithromycin and ceftriaxone day11/19 07/11, repeat cxr 07/13 bilateral effusions. R>L, will continue diuresing and if does not subside then will need thoracentesis (2) Acute respiratory failure with hypoxia: Code(s): J96.01 - Acute respiratory failure with hypoxia Status: Acute Assessment and Plan: Secondary to pneumonia. wean oxygen as tolerated (3) DVT (deep venous thrombosis): Qualifiers: DVT location: lower extremity Affected thrombotic vein of extremity: unspecified vein of extremity Chronicity: acute Laterality: bilateral Qualified Code(s): I82.403 - Acute embolism and thrombosis of unspecified deep veins of lower extremity, bilateral Code(s): I82.409 - Acute embolism and thrombosis of unspecified deep veins of unspecified lower extremity Status: Acute Assessment and Plan: bilateral tibial and peroneal DVTs ASA Repeat venous doppler 07/09 showed NO DVT Continue prophylactic heparin (no overt bleeding) (4) Chronic kidney disease, stage 3: Code(s): N18.3 - Chronic kidney disease, stage 3 (moderate) Status: Acute Assessment and Plan: 07/08 creatinine 1.9 and will repeat in a.m. creatinine 1.7 today, and repeat sono no obstruction (5) Chronic anemia: Code(s): D64.9 - Anemia, unspecified Status: Acute Assessment and Plan: lab c/w ACD no sign of overt bleeding GI evaluation in progress (EGD and colon 06/20 no source of blood loss) transfused 1 unit PRBCs after hgb dipped to 6,8 07/01 and hgb up to 9.2 today, may be candidate for epigen (6) Hypertension: Qualifiers: Hypertension type: essential hypertension Qualified Code(s): I10 - Essential (primary) hypertension Code(s): I10 - Essential (primary) hypertension Status: Acute Assessment and Plan: Control fair Will continue antihypertensives amlodipine and metoprolol. With the Lasix. restarted ARB with her nephrotic syndrome and systolic bp consistently >160 (7) Edema: Qualifiers: Edema type: localized Qualified Code(s): R60.0 - Localized edema Code(s): R60.9 - Edema, unspecified Status: Acute Assessment and Plan: A chronic ongoing issue with this patient with multiple causes including chronic diastolic heart failure, chronic kidney disease with nephrotic syndrome. Decreased much for her previous admissions (8) Type 2 diabetes mellitus with peripheral neuropathy: Code(s): E11.42 - Type 2 diabetes mellitus with diabetic polyneuropathy Status: Acute Assessment and Plan: Held metformin given worsening renal function. Continue SSI hemoglobin A1c-5.9 She may be able to manage on diet alone or perhaps low dose sitagliptin Subjective Date/time seen: 07/14/19 12:13 Interval history: Date of visit . 69-year-old white female with chronic renal failure stage 3, nephrotic syndrome, diastolic heart failure, and chronic anemia admitted with cough shortness of breath found to have pneumonia. Completing course of antibiotic therapy and still feels very weak. Short breath and hypoxic after EGD/colon 07/10. Up in chair today and some better Slept well with BiPAP and feels better each day. Exam Narrative: Exam Narrative: Blood pressure 166/66 pulse 82 saturating 91% on 5 L nasal cannula afebrile Pupils equal reactive to light sclera anicteric Neck supple no adenopathy Lungs some decreased BS R post base CV irregular I hear no murmurs Abdomen is soft nontender Extremities without edema distal pulses 1+ Neuro alert pleasant cooperative no focal de
[2019-07-14 13:17] LABS: Glucose Point of Care 170 (65-105)
--- NOTE | 2019-07-14 15:20 | PM.PNNEP ---
Progress Note: A&P Assessment and Plan (1) ANGIE (acute kidney injury): Code(s): N17.9 - Acute kidney failure, unspecified Status: Acute Assessment and Plan: creatinine a little worse from baseline likely due to acute infection (pneumonia) and necessity of diuretic therapy however, appears relatively stable follow trend of labs and UOP (2) Chronic kidney disease, stage 3: Code(s): N18.3 - Chronic kidney disease, stage 3 (moderate) Status: Chronic Assessment and Plan: creatinine was ~ 1.0 - 1.3mg/dl about a year ago unclear if elevated creatinine at this time is ANGIE or just progression of CKD (particularly with # 4) (3) Community acquired pneumonia: Qualifiers: Laterality: unspecified laterality Qualified Code(s): J18.9 - Pneumonia, unspecified organism Code(s): J18.9 - Pneumonia, unspecified organism Status: Acute Assessment and Plan: as evidence by imaging on admission on IV antibiotics follow culture date (4) Nephrotic range proteinuria: Code(s): R80.9 - Proteinuria, unspecified Status: Acute Assessment and Plan: known issue based on outpatient evaluation follow-up on SPEP. UPEP, and immunofixation check other serologies as well Will continue to follow Subjective Date/time seen: 07/14/19 15:20 Appears to be making slow and steady improvement; renal function tolerating diuretic therapy; no other acute issues or problems voiced at this time; no apparent distress noted. Exam Narrative: Exam Narrative: General: WD/WN female in NAD Heart: normal S1 and S2; no rub Lungs: decreased at bases Abdomen: soft, nontender, nondistended, positive bowel sounds Extremities: no cyanosis or clubbing; trace - 1+ edema Skin: warm and dry Objective Data Vital Signs Vital Signs: Vital Signs Temp Pulse Resp BP Pulse Ox 07/14/19 14:00 36.7 C 72 18 174/62 H 99 07/14/19 09:15 82 07/14/19 08:30 78 20 07/14/19 08:20 77 20 90 07/14/19 06:00 36.2 C L 82 20 166/66 H 91 07/14/19 03:16 76 18 92 07/14/19 02:40 79 18 07/14/19 02:30 71 18 07/13/19 22:00 36.3 C L 72 18 177/74 H 94 07/13/19 20:54 88 20 07/13/19 20:46 79 20 07/13/19 18:26 66 20 91 07/13/19 16:00 36.5 C 70 16 168/71 H 93 Intake/Output Intake/Output: Intake & Output 07/11/19 07/12/19 07/13/19 07/14/19 23:59 23:59 23:59 23:59 Intake Total 1220 1120 1440 880 Output Total 1999 1850 1200 1000 Balance -780 -730 240 -120 Meds/Results Medications: Active Medications Generic Name Dose Route Start Last Admin Trade Name Freq PRN Reason Stop Dose Admin Acetaminophen 650 mg 07/07/19 15:45 07/07/19 23:06 Tylenol Tablet PO 650 mg Q4H PRN Administration Mild Pain (1-3) or Fever Hydrocodone Bitart/Acetaminophen 1 tab 07/07/19 15:45 07/14/19 03:19 [place] 5-325 Mg PO 1 tab Q6H PRN Administration Pain Rated 7-10 Albuterol 5 mg 07/05/19 20:00 07/14/19 13:19 Albuterol Sulf Neb 2.5mg/0.5ml INHALATION 5 mg Q6HRT KEIRA Administration Amlodipine Besylate 10 mg 07/06/19 09:00 07/14/19 09:14 Norvasc PO 10 mg DAILY KEIRA Administration Atorvastatin Calcium 80 mg 07/05/19 21:00 07/13/19 21:03 Lipitor PO 80 mg HS KEIRA Administration Dextrose 12.5 gm 07/05/19 19:09 Dextrose 50% Syringe IV PUSH PRN PRN Hypoglycemia Protocol Docusate Sodium 100 mg 07/06/19 09:00 07/14/19 09:21 Colace Capsule PO 100 mg DAILY KEIRA Administration Furosemide 80 mg 07/13/19 17:00 07/14/19 09:16 Lasix Inj IV PUSH 80 mg BID KEIRA Administration Glucagon 1 mg 07/05/19 19:09 Glucagon For Inj IM PRN PRN Hypoglycemia Protocol Glucose 15 gm 07/05/19 19:09 Glutose 15 PO PRN PRN Hypoglycemia Protocol Heparin Sodium (Porcine) 5,000 units 07/10/19 22:00 07/14/19 13:35 Heparin So
[2019-07-14 18:33] LABS: Glucose Point of Care 183 (65-105)
[2019-07-14 22:54] LABS: Glucose Point of Care 161 (65-105)
[2019-07-14] MEDS: ATORVASTATIN 40 MG TABLET 80 MG PO (22:55)
[2019-07-14] MEDS: PREGABALIN 75 MG CAPSULE PO (22:55)
[2019-07-14] MEDS: METOCLOPRAMIDE HCL 10 MG TABLET PO (22:56)
[2019-07-15] VITALS (11 sets, daily range): BP systolic 142–156; BP diastolic 56–68; PULSE 69–89; RESP 16–20; TEMP 36.5–36.9; O2SAT 91–95
[2019-07-15] MEDS: IPRATROPIUM BR 0.02% INH SOLN 0.5 MG/2.5 ML VIAL INHALATION ×3 (03:01→21:00)
[2019-07-15] MEDS: ALBUTEROL SULFATE NEB 2.5 MG/0.5 ML INH 5 MG INHALATION ×3 (03:02→20:59)
[2019-07-15 06:34] LABS: Basophils Absolute Auto 0.1 K/mm3 (0.0-0.1); Basophils Percent Auto 0.5 % (0.2-1.2); Eosinophils Absolute Auto 0.5 K/mm3 (0-0.3); Eosinophils Percent Auto 5.2 % (0-4.4); Hematocrit 27.3 % (37.0-47.0); Hemoglobin 8.4 g/dL (12.0-15.0); Immature Granulocyte Absolute 0.04 K/mm3 (0.00-0.031); Immature Granulocyte Percent A 0.4 % (0-0.5); Lymphocytes Absolute Auto 2.77 K/mm3 (0.9-3.2); Lymphocytes Percent Auto 29.1 % (18.3-44.2); Mean Corpuscular HGB Conc 30.8 g/dl (32-36); Mean Corpuscular Hemoglobin 28.6 pg (26-34); Mean Corpuscular Volume 92.9 fl (80-100); Mean Platelet Volume 10.7 fl (7.4-10.4); Monocytes Percent Auto 10.3 % (2.6-8.5); Neutrophils Absolute Auto 5.2 K/mm3 (1.3-6.7); Neutrophils Percent Auto 54.5 % (45.5-73.1); Platelet Count Result 305 k/mm3 (150-375); Red Blood Count 2.94 M/mm3 (4.2-5.4); Red Cell Distribution Width 16.7 % (11.5-14.5); White Blood Count 9.5 K/mm3 (4.5-10.0)
[2019-07-15] MEDS: HEPARIN SODIUM 5,000 UNITS/ML VIAL 5000 UNITS SUB-Q (06:35)
[2019-07-15 06:51] LABS: Albumin Level 2.7 g/dL (3.5-5.1); Blood Urea Nitrogen 38 mg/dL (7-17); Calcium 8.2 mg/dL (8.4-10.2); Carbon Dioxide 28 mmol/L (22-30); Chloride 106 mmol/L (98-107); Estimated CRCL calculation 26 ml/min; Estimated Glomerular Filt Rate 30; Glucose 113 mg/dL (65-105); Phosphorus 5.3 mg/dL (2.5-4.5); Potassium 3.7 mmol/L (3.4-5.0); Sodium 139 mmol/L (137-145)
[2019-07-15 08:11] LABS: Glucose Point of Care 107 (65-105)
[2019-07-15] MEDS: MAGNESIUM OXIDE 400 MG TABLET PO (08:26)
[2019-07-15] MEDS: FUROSEMIDE INJ 100 MG/10 ML VIAL 80 MG IV PUSH ×2 (08:26→17:10)
[2019-07-15] MEDS: AMLODIPINE BESYLATE 5 MG TABLET 10 MG PO (08:26)
[2019-07-15] MEDS: SENNOSIDES 8.6 MG TABLET PO (08:27)
[2019-07-15] MEDS: VALACYCLOVIR HCL 500 MG TABLET 1000 MG PO ×3 (08:27→17:11)
[2019-07-15] MEDS: VALSARTAN 80 MG TABLET PO (08:27)
[2019-07-15] MEDS: METOPROLOL SUCCINATE EXT REL 100 MG TABCR 200 MG PO (08:27)
[2019-07-15] MEDS: PANTOPRAZOLE 40 MG TABLET PO ×2 (08:27→20:07)
[2019-07-15] MEDS: DOCUSATE SODIUM 100 MG CAPSULE PO (08:30)
--- NOTE | 2019-07-15 10:21 | PC.NURSE ---
Patient's bed alarm is not working. Patient is refusing to allow staff to zero the bed or place a alarm mat under the patient. Patient states she can refuse this per her rights as a patient. Patient has been educated on the importance of the alarms.
[2019-07-15 11:57] LABS: Glucose Point of Care 155 (65-105)
[2019-07-15 12:34] LABS: Lactate Dehydrogenase 601 U/L (313-618)
--- NOTE | 2019-07-15 13:06 | P.PNIM_ITS ---
Progress Note: A&P Assessment and Plan (1) Community acquired pneumonia: Qualifiers: Laterality: unspecified laterality Qualified Code(s): J18.9 - Pneumonia, unspecified organism Code(s): J18.9 - Pneumonia, unspecified organism Status: Acute Assessment and Plan: * finished azithromycin and ceftriaxone day11/19 07/11, * repeat cxr 07/13 bilateral effusions. R>L, will continue diuresing and no improvement on effusion today so will get thoracentesis (2) Acute respiratory failure with hypoxia: Code(s): J96.01 - Acute respiratory failure with hypoxia Status: Acute Assessment and Plan: * Secondary to pneumonia.and/or now effusion * wean oxygen as tolerated (3) DVT (deep venous thrombosis): Qualifiers: DVT location: lower extremity Affected thrombotic vein of extremity: unspecified vein of extremity Chronicity: acute Laterality: bilateral Qualified Code(s): I82.403 - Acute embolism and thrombosis of unspecified deep veins of lower extremity, bilateral Code(s): I82.409 - Acute embolism and thrombosis of unspecified deep veins of unspecified lower extremity Status: Acute Assessment and Plan: * bilateral tibial and peroneal DVTs * ASA * Repeat venous doppler 07/09 showed NO DVT * Continue prophylactic heparin (no overt bleeding) and hold now for thoracentesis (4) Chronic kidney disease, stage 3: Code(s): N18.3 - Chronic kidney disease, stage 3 (moderate) Status: Chronic Assessment and Plan: * 07/08 creatinine 1.9 and will repeat in a.m. * creatinine 1.7 again today, and repeat sono no obstruction (5) Chronic anemia: Code(s): D64.9 - Anemia, unspecified Status: Acute Assessment and Plan: * lab c/w ACD * no sign of overt bleeding * GI evaluation in progress (EGD and colon 06/20 no source of blood loss) * transfused 1 unit PRBCs after hgb dipped to 6,8 07/01 and hgb up to 8.4 today, urology following (6) Hypertension: Qualifiers: Hypertension type: essential hypertension Qualified Code(s): I10 - Essential (primary) hypertension Code(s): I10 - Essential (primary) hypertension Status: Acute Assessment and Plan: * Control fair * Will continue antihypertensives amlodipine and metoprolol. With the Lasix. * restarted ARB 2/28 with her nephrotic syndrome and systolic bp consistently >160 (7) Edema: Qualifiers: Edema type: localized Qualified Code(s): R60.0 - Localized edema Code(s): R60.9 - Edema, unspecified Status: Acute Assessment and Plan: * A chronic ongoing issue with this patient with multiple causes including chronic diastolic heart failure, chronic kidney disease with nephrotic syndrome. Decreased much for her previous admissions (8) Type 2 diabetes mellitus with peripheral neuropathy: Code(s): E11.42 - Type 2 diabetes mellitus with diabetic polyneuropathy Status: Acute Assessment and Plan: * Held metformin given worsening renal function. * Continue SSI * hemoglobin A1c-5.9 * She may be able to manage on diet alone or perhaps low dose sitagliptin Subjective Date/time seen: 07/15/19 13:06 Interval history: Date of visit 07/14. 69-year-old white female with chronic renal failure stage 3, nephrotic syndrome, diastolic heart failure, and chronic anemia admitted with cough shortness of breath found to have pneumonia. Completed course of antibiotic therapy an
--- NOTE | 2019-07-15 13:06 | PM.IMPN ---
Progress Note: A&P Assessment and Plan (1) Community acquired pneumonia: Qualifiers: Laterality: unspecified laterality Qualified Code(s): J18.9 - Pneumonia, unspecified organism Code(s): J18.9 - Pneumonia, unspecified organism Status: Acute Assessment and Plan: finished azithromycin and ceftriaxone day11/19 07/11, repeat cxr 07/13 bilateral effusions. R>L, will continue diuresing and no improvement on effusion today so will get thoracentesis (2) Acute respiratory failure with hypoxia: Code(s): J96.01 - Acute respiratory failure with hypoxia Status: Acute Assessment and Plan: Secondary to pneumonia.and/or now effusion wean oxygen as tolerated (3) DVT (deep venous thrombosis): Qualifiers: DVT location: lower extremity Affected thrombotic vein of extremity: unspecified vein of extremity Chronicity: acute Laterality: bilateral Qualified Code(s): I82.403 - Acute embolism and thrombosis of unspecified deep veins of lower extremity, bilateral Code(s): I82.409 - Acute embolism and thrombosis of unspecified deep veins of unspecified lower extremity Status: Acute Assessment and Plan: bilateral tibial and peroneal DVTs ASA Repeat venous doppler 07/09 showed NO DVT Continue prophylactic heparin (no overt bleeding) and hold now for thoracentesis (4) Chronic kidney disease, stage 3: Code(s): N18.3 - Chronic kidney disease, stage 3 (moderate) Status: Chronic Assessment and Plan: 07/08 creatinine 1.9 and will repeat in a.m. creatinine 1.7 again today, and repeat sono no obstruction (5) Chronic anemia: Code(s): D64.9 - Anemia, unspecified Status: Acute Assessment and Plan: lab c/w ACD no sign of overt bleeding GI evaluation in progress (EGD and colon 06/20 no source of blood loss) transfused 1 unit PRBCs after hgb dipped to 6,8 07/01 and hgb up to 8.4 today, urology following (6) Hypertension: Qualifiers: Hypertension type: essential hypertension Qualified Code(s): I10 - Essential (primary) hypertension Code(s): I10 - Essential (primary) hypertension Status: Acute Assessment and Plan: Control fair Will continue antihypertensives amlodipine and metoprolol. With the Lasix. restarted ARB 07/13 with her nephrotic syndrome and systolic bp consistently >160 (7) Edema: Qualifiers: Edema type: localized Qualified Code(s): R60.0 - Localized edema Code(s): R60.9 - Edema, unspecified Status: Acute Assessment and Plan: A chronic ongoing issue with this patient with multiple causes including chronic diastolic heart failure, chronic kidney disease with nephrotic syndrome. Decreased much for her previous admissions (8) Type 2 diabetes mellitus with peripheral neuropathy: Code(s): E11.42 - Type 2 diabetes mellitus with diabetic polyneuropathy Status: Acute Assessment and Plan: Held metformin given worsening renal function. Continue SSI hemoglobin A1c-5.9 She may be able to manage on diet alone or perhaps low dose sitagliptin Subjective Date/time seen: 07/15/19 13:06 Interval history: Date of visit 07/14. 69-year-old white female with chronic renal failure stage 3, nephrotic syndrome, diastolic heart failure, and chronic anemia admitted with cough shortness of breath found to have pneumonia. Completed course of antibiotic therapy and still feels very weak. Short breath and hypoxic after EGD/colon 07/10. Up in chair today and some better Slept well with BiPAP and feels better each day.but still reqiring 5 L NC Exam Narrative: Exam Narrative: Blood pressure 156/68 pulse 72 saturating 92% on 5 L nasal cannula afebrile Pupils equal reactive to light sclera anicteric Neck supple no adenopathy Lungs some decreased BS R post base still CV irregular I hear no murmurs Abdomen is soft non
--- NOTE | 2019-07-15 14:29 | PM.PNNEP ---
Progress Note: A&P Assessment and Plan (1) ANGIE (acute kidney injury): Code(s): N17.9 - Acute kidney failure, unspecified Status: Acute Assessment and Plan: creatinine a little worse from baseline likely due to acute infection (pneumonia) and necessity of diuretic therapy however, appears relatively stable since admission follow trend of labs and UOP (2) Chronic kidney disease, stage 3: Code(s): N18.3 - Chronic kidney disease, stage 3 (moderate) Status: Chronic Assessment and Plan: creatinine was ~ 1.0 - 1.3mg/dl about a year ago unclear if elevated creatinine at this time is ANGIE or just progression of CKD (particularly with #4) (3) Community acquired pneumonia: Qualifiers: Laterality: unspecified laterality Qualified Code(s): J18.9 - Pneumonia, unspecified organism Code(s): J18.9 - Pneumonia, unspecified organism Status: Acute Assessment and Plan: as evidence by imaging on admission on IV antibiotics follow culture date (4) Nephrotic range proteinuria: Code(s): R80.9 - Proteinuria, unspecified Status: Acute Assessment and Plan: known issue based on outpatient evaluation follow-up on SPEP. UPEP, and immunofixation and pending serologies continue supportive therapy Will continue to follow Subjective Date/time seen: 07/15/19 14:29 Overall, feels much better but still weak and requiring supplemental oxygen at this time; no acute events overnight or earlier this AM; no apparent distress voiced. Exam Narrative: Exam Narrative: General: WD/WN female in NAD Heart: normal S1 and S2; no rub Lungs: decreased at bases Abdomen: soft, nontender, nondistended, positive bowel sounds Extremities: no cyanosis or clubbing; trace - 1+ edema Skin: warm and dry Objective Data Vital Signs Vital Signs: Vital Signs Temp Pulse Resp BP Pulse Ox 07/15/19 08:27 77 07/15/19 08:17 77 20 07/15/19 08:07 75 20 91 07/15/19 06:00 36.5 C 72 18 156/68 H 92 07/15/19 03:09 89 20 07/15/19 03:02 83 20 07/14/19 22:00 36.8 C 82 20 151/67 H 95 07/14/19 21:58 89 22 H 07/14/19 21:49 87 22 H 90 Intake/Output Intake/Output: Intake & Output 07/12/19 07/13/19 07/14/19 07/15/19 23:59 23:59 23:59 23:59 Intake Total 1120 1440 1630 900 Output Total 1850 1200 1500 500 Balance -730 240 130 400 Meds/Results Medications: Active Medications Generic Name Dose Route Start Last Admin Trade Name Freq PRN Reason Stop Dose Admin Acetaminophen 650 mg 07/07/19 15:45 07/07/19 23:06 Tylenol Tablet PO 650 mg Q4H PRN Administration Mild Pain (1-3) or Fever Hydrocodone Bitart/Acetaminophen 1 tab 07/07/19 15:45 07/15/19 03:23 [place] 5-325 Mg PO 1 tab Q6H PRN Administration Pain Rated 7-10 Albuterol 5 mg 07/05/19 20:00 07/15/19 08:06 Albuterol Sulf Neb 2.5mg/0.5ml INHALATION 5 mg Q6HRT KEIRA Administration Amlodipine Besylate 10 mg 07/06/19 09:00 07/15/19 08:26 Norvasc PO 10 mg DAILY KEIRA Administration Atorvastatin Calcium 80 mg 07/05/19 21:00 07/14/19 22:55 Lipitor PO 80 mg HS KEIRA Administration Dextrose 12.5 gm 07/05/19 19:09 Dextrose 50% Syringe IV PUSH PRN PRN Hypoglycemia Protocol Docusate Sodium 100 mg 07/06/19 09:00 07/15/19 08:30 Colace Capsule PO 100 mg DAILY KEIRA Administration Furosemide 80 mg 07/13/19 17:00 07/15/19 08:26 Lasix Inj IV PUSH 80 mg BID KEIRA Administration Glucagon 1 mg 07/05/19 19:09 Glucagon For Inj IM PRN PRN Hypoglycemia Protocol Glucose 15 gm 07/05/19 19:09 Glutose 15 PO PRN PRN Hypoglycemia Protocol Heparin Sodium (Porcine) 5,000 units 07/10/19 22:00 07/15/19 06:35 Heparin Sodium SUB-Q 5,000 units Q8HR KEIRA Administration Dextrose 1,000 mls @ 100 mls/hr 07/05/19 19:09 Dextrose 5% 1,000 Ml IVPB
--- NOTE | 2019-07-15 15:03 | PCOTNOTE ---
Attempted to see patient for skilled OT, however, upon entering room patient was asleep. Therapist attempted to rouse patient, but patient was asleep soundly. Patient not seen for OT this date.
--- NOTE | 2019-07-15 18:01 | PCRCNOTE ---
Window of time for administration has passed. See next scheduled administration.
[2019-07-15 19:41] LABS: Glucose Point of Care 186 (65-105)
[2019-07-15] MEDS: ATORVASTATIN 40 MG TABLET 80 MG PO (20:06)
[2019-07-15] MEDS: METOCLOPRAMIDE HCL 10 MG TABLET PO (20:06)
[2019-07-15] MEDS: PREGABALIN 75 MG CAPSULE PO (20:09)
[2019-07-15 21:47] LABS: Glucose Point of Care 226 (65-105)
--- NOTE | 2019-07-15 22:29 | PC.NURSE ---
Patient's bed alarm currently working and on Zone 2. Patient very unhappy with having the alarm on, and frequently wants to have her legs hanging out of the bed. As she is a max 1 to 2 staff assist, I am uncomfortable with this. I have had an indepth conversation with the patient about her safety and the necessity of having the bed alarm on as well as not being able to have her legs out of the bed. She is still unhappy but, is cooperative with the alarm. She would like to speak with my facility operations manager in the morning.
[2019-07-16] VITALS (12 sets, daily range): BP systolic 153–182; BP diastolic 60–93; PULSE 55–76; RESP 18–22; TEMP 36.2–36.8; O2SAT 92–97
[2019-07-16] MEDS: ALBUTEROL SULFATE NEB 2.5 MG/0.5 ML INH 5 MG INHALATION ×3 (01:54→14:11)
[2019-07-16] MEDS: IPRATROPIUM BR 0.02% INH SOLN 0.5 MG/2.5 ML VIAL INHALATION ×3 (01:55→14:11)
[2019-07-16 06:39] LABS: Basophils Percent Auto 0.4 % (0.2-1.2); Eosinophils Absolute Auto 0.6 K/mm3 (0-0.3); Hematocrit 30.3 % (37.0-47.0); Hemoglobin 9.7 g/dL (12.0-15.0); Immature Granulocyte Absolute 0.06 K/mm3 (0.00-0.031); Immature Granulocyte Percent A 0.7 % (0-0.5); Lymphocytes Absolute Auto 2.49 K/mm3 (0.9-3.2); Lymphocytes Percent Auto 27.2 % (18.3-44.2); Mean Corpuscular Hemoglobin 29.1 pg (26-34); Mean Platelet Volume 10.2 fl (7.4-10.4); Monocytes Absolute Auto 0.8 K/mm3 (0.1-0.6); Monocytes Percent Auto 8.7 % (2.6-8.5); Neutrophils Absolute Auto 5.2 K/mm3 (1.3-6.7); Platelet Count Result 325 k/mm3 (150-375); Red Blood Count 3.33 M/mm3 (4.2-5.4); Red Cell Distribution Width 16.6 % (11.5-14.5); White Blood Count 9.2 K/mm3 (4.5-10.0)
[2019-07-16 06:49] LABS: INR 0.9
[2019-07-16 06:50] LABS: Partial Thromboplastin Time 32.9 SECONDS (22.3-36.8)
[2019-07-16 06:52] LABS: Blood Urea Nitrogen 39 mg/dL (7-17); Calcium 8.4 mg/dL (8.4-10.2); Carbon Dioxide 26 mmol/L (22-30); Chloride 102 mmol/L (98-107); Estimated CRCL calculation 24 ml/min; Estimated Glomerular Filt Rate 28; Glucose 129 mg/dL (65-105); Potassium 3.7 mmol/L (3.4-5.0); Sodium 139 mmol/L (137-145)
[2019-07-16 06:55] LABS: Complement C3 127 mg/dL (88-165)
[2019-07-16 07:25] LABS: Hepatitis B Surface Antigen Negative (Negative)
[2019-07-16 07:30] LABS: HAV RESULT Negative (Negative); Hepatitis B Core IgM Result Negative (Negative)
[2019-07-16 07:42] LABS: Hepatitis C Virus Antibody Negative (Negative)
[2019-07-16 08:17] LABS: Glucose Point of Care 121 (65-105)
--- NOTE | 2019-07-16 08:22 | PM.PNNEP ---
Progress Note: A&P Assessment and Plan (1) ANGIE (acute kidney injury): Code(s): N17.9 - Acute kidney failure, unspecified Status: Acute Assessment and Plan: creatinine a little worse from baseline likely due to acute infection (pneumonia) and necessity of diuretic therapy Creatinine seems to rise and fall S but overall is relatively stable in the high ones. (2) Chronic kidney disease, stage 3: Code(s): N18.3 - Chronic kidney disease, stage 3 (moderate) Status: Chronic Assessment and Plan: creatinine was ~ 1.0 - 1.3mg/dl about a year ago unclear if elevated creatinine at this time is ANGIE or just progression of CKD (particularly with #4) Will continue to treat infection/pneumonia and see how the creatinine does. No clear evidence of other causes of his acute kidney injury (3) Community acquired pneumonia: Qualifiers: Laterality: unspecified laterality Qualified Code(s): J18.9 - Pneumonia, unspecified organism Code(s): J18.9 - Pneumonia, unspecified organism Status: Acute Assessment and Plan: as evidence by imaging on admission on IV antibiotics Cough is about the same follow culture date (4) Nephrotic range proteinuria: Code(s): R80.9 - Proteinuria, unspecified Status: Acute Assessment and Plan: known issue based on outpatient evaluation Dr. Sotomayor ordered ordered serology and immunofixation GI Complements are normal would everything else is pending continue supportive therapy Subjective Date/time seen: 07/16/19 08:22 Interval history: Patient is alert. Still coughing. She is here to get her procedure done today. Review of Systems Cardiovascular: Cardiovascular: Reports no additional cardiovascular complaints Respiratory: Respiratory: Reports no additional respiratory complaints Gastrointestinal: Gastrointestinal: Reports no additional gastrointestinal complaints Genitourinary: Genitourinary: Reports no additional female genitourinary complaints Exam Narrative: Exam Narrative: General: WD/WN female in NAD Heart: normal S1 and S2; no rub Lungs: decreased at bases especially on the rise, crackles as well on the right Abdomen: soft, nontender, nondistended, positive bowel sounds Extremities: no cyanosis or clubbing; trace - 1+ edema Skin: warm and dry without rash Objective Data Vital Signs Vital Signs: Vital Signs - 24 hr 07/15/19 08:27 07/15/19 14:00 07/15/19 21:00 Temperature 36.9 C Pulse Rate 77 73 69 Respiratory Rate 16 20 Blood Pressure 142/58 H Pulse Oximetry 91 07/15/19 21:03 07/15/19 21:08 07/15/19 22:00 Temperature 36.6 C Pulse Rate 79 82 Respiratory Rate 20 20 Blood Pressure 148/56 H Pulse Oximetry 93 95 07/16/19 01:55 07/16/19 02:03 07/16/19 06:00 Temperature 36.2 C L Pulse Rate 66 69 67 Respiratory Rate 20 20 20 Blood Pressure 182/77 H Pulse Oximetry 94 Intake/Output Intake/Output: Intake & Output 07/13/19 07/14/19 07/15/19 07/16/19 23:59 23:59 23:59 23:59 Intake Total 1440 1630 1100 Output Total 1200 1500 1100 850 Balance 240 130 0 -850 Meds/Results Medications: Active Medications Generic Name Dose Route Start Last Admin Trade Name Freq PRN Reason Stop Dose Admin Acetaminophen 650 mg 07/07/19 15:45 07/07/19 23:06 Tylenol Tablet PO 650 mg Q4H PRN Administration Mild Pain (1-3) or Fever Hydrocodone Bitart/Acetaminophen 1 tab 07/07/19 15:45 07/15/19 22:08 [place] 5-325 Mg PO 1 tab Q6H PRN Administration Pain Rated 7-10 Albuterol 5 mg 07/05/19 20:00 07/16/19 01:54 Albuterol Sulf Neb 2.5mg/0.5ml INHALATION 5 mg Q6HRT KEIRA Administration Amlodipine Besylate 10 mg 07/06/19 09:00 07/15/19 08:26 Norvasc PO 10 mg DAILY KEIRA Administration Atorvastatin Calcium 80 mg 07/05/19 21:00 07/15/19 20:06 Lipitor PO 80 mg HS KEIRA Administration Dextrose 12.5 gm 07/05/19 19:09
[2019-07-16] MEDS: VALSARTAN 80 MG TABLET PO (08:53)
[2019-07-16] MEDS: FUROSEMIDE INJ 100 MG/10 ML VIAL 80 MG IV PUSH ×2 (08:53→18:25)
[2019-07-16] MEDS: AMLODIPINE BESYLATE 5 MG TABLET 10 MG PO (08:53)
[2019-07-16] MEDS: METOPROLOL SUCCINATE EXT REL 100 MG TABCR 200 MG PO (08:53)
[2019-07-16 11:31] LABS: pH Pleural Fluid 7.472 (7.210-7.500)
[2019-07-16] MEDS: MAGNESIUM OXIDE 400 MG TABLET PO (11:32)
[2019-07-16] MEDS: PANTOPRAZOLE 40 MG TABLET PO ×2 (11:32→20:59)
[2019-07-16] MEDS: VALACYCLOVIR HCL 500 MG TABLET 1000 MG PO ×2 (12:49→17:38)
[2019-07-16 13:07] LABS: Glucose Point of Care 115 (65-105)
--- NOTE | 2019-07-16 13:53 | P.PNIM_ITS ---
Progress Note: A&P Assessment and Plan (1) Community acquired pneumonia: Qualifiers: Laterality: unspecified laterality Qualified Code(s): J18.9 - Pneumonia, unspecified organism Code(s): J18.9 - Pneumonia, unspecified organism Status: Acute Assessment and Plan: * finished azithromycin and ceftriaxone day11/19 07/11, * repeat cxr 07/13 bilateral effusions. R>L, continued diuresing and no improvement on effusion 07/14 thoracentesis today 1000ml yellow slightly cloudy with phyllis ph so probably transudate with her nephrotic syndrome and diastolic HF but further analysis pending (2) Acute respiratory failure with hypoxia: Code(s): J96.01 - Acute respiratory failure with hypoxia Status: Acute Assessment and Plan: * Secondary to pneumonia.and/or now effusion * wean oxygen as tolerated (3) DVT (deep venous thrombosis): Qualifiers: DVT location: lower extremity Affected thrombotic vein of extremity: unspecified vein of extremity Chronicity: acute Laterality: bilateral Qualified Code(s): I82.403 - Acute embolism and thrombosis of unspecified deep veins of lower extremity, bilateral Code(s): I82.409 - Acute embolism and thrombosis of unspecified deep veins of unspecified lower extremity Status: Acute Assessment and Plan: * bilateral tibial and peroneal DVTs * ASA * Repeat venous doppler 07/09 showed NO DVT * Continue prophylactic heparin (no overt bleeding) and hold now for thoracentesis (4) Chronic kidney disease, stage 3: Code(s): N18.3 - Chronic kidney disease, stage 3 (moderate) Status: Chronic Assessment and Plan: * 07/08 creatinine 1.9 and will repeat in a.m. * creatinine 1.8 today, and repeat sono no obstruction (5) Chronic anemia: Code(s): D64.9 - Anemia, unspecified Status: Acute Assessment and Plan: * lab c/w ACD * no sign of overt bleeding * GI evaluation in progress (EGD and colon 06/20 no source of blood loss) * transfused 1 unit PRBCs after hgb dipped to 6,8 07/01 and hgb up to 9.7 today, urology following, possibly epogen later (6) Hypertension: Qualifiers: Hypertension type: essential hypertension Qualified Code(s): I10 - Essential (primary) hypertension Code(s): I10 - Essential (primary) hypertension Status: Acute Assessment and Plan: * Control fair antihypertensives amlodipine and metoprolol. With the Lasix. * restarted ARB 07/13 with her nephrotic syndrome and systolic bp consistently >160 * Higher today but did not have morning meds prior to thoracentesis (7) Edema: Qualifiers: Edema type: localized Qualified Code(s): R60.0 - Localized edema Code(s): R60.9 - Edema, unspecified Status: Acute Assessment and Plan: * A chronic ongoing issue with this patient with multiple causes including chronic diastolic heart failure, chronic kidney disease with nephrotic syndrome. Decreased much for her previous admissions (8) Type 2 diabetes mellitus with peripheral neuropathy: Code(s): E11.42 - Type 2 diabetes mellitus with diabetic polyneuropathy Status: Acute Assessment and Plan: * Held metformin given worsening renal function. * Continue SSI * hemoglobin A1c-5.9 * She may be able to manage on diet alone or perhaps low dose sitagliptin Subjective Date/time seen: 07/16/19 13:53 Interval history: Date of visit 07/15. 69-year-old white
--- NOTE | 2019-07-16 13:53 | PM.IMPN ---
Progress Note: A&P Assessment and Plan (1) Community acquired pneumonia: Qualifiers: Laterality: unspecified laterality Qualified Code(s): J18.9 - Pneumonia, unspecified organism Code(s): J18.9 - Pneumonia, unspecified organism Status: Acute Assessment and Plan: finished azithromycin and ceftriaxone day11/19 07/11, repeat cxr 07/13 bilateral effusions. R>L, continued diuresing and no improvement on effusion 07/14 thoracentesis today 1000ml yellow slightly cloudy with phyllis ph so probably transudate with her nephrotic syndrome and diastolic HF but further analysis pending (2) Acute respiratory failure with hypoxia: Code(s): J96.01 - Acute respiratory failure with hypoxia Status: Acute Assessment and Plan: Secondary to pneumonia.and/or now effusion wean oxygen as tolerated (3) DVT (deep venous thrombosis): Qualifiers: DVT location: lower extremity Affected thrombotic vein of extremity: unspecified vein of extremity Chronicity: acute Laterality: bilateral Qualified Code(s): I82.403 - Acute embolism and thrombosis of unspecified deep veins of lower extremity, bilateral Code(s): I82.409 - Acute embolism and thrombosis of unspecified deep veins of unspecified lower extremity Status: Acute Assessment and Plan: bilateral tibial and peroneal DVTs ASA Repeat venous doppler 07/09 showed NO DVT Continue prophylactic heparin (no overt bleeding) and hold now for thoracentesis (4) Chronic kidney disease, stage 3: Code(s): N18.3 - Chronic kidney disease, stage 3 (moderate) Status: Chronic Assessment and Plan: 07/08 creatinine 1.9 and will repeat in a.m. creatinine 1.8 today, and repeat sono no obstruction (5) Chronic anemia: Code(s): D64.9 - Anemia, unspecified Status: Acute Assessment and Plan: lab c/w ACD no sign of overt bleeding GI evaluation in progress (EGD and colon 06/20 no source of blood loss) transfused 1 unit PRBCs after hgb dipped to 6,8 07/01 and hgb up to 9.7 today, urology following, possibly epogen later (6) Hypertension: Qualifiers: Hypertension type: essential hypertension Qualified Code(s): I10 - Essential (primary) hypertension Code(s): I10 - Essential (primary) hypertension Status: Acute Assessment and Plan: Control fair antihypertensives amlodipine and metoprolol. With the Lasix. restarted ARB 07/13 with her nephrotic syndrome and systolic bp consistently >160 Higher today but did not have morning meds prior to thoracentesis (7) Edema: Qualifiers: Edema type: localized Qualified Code(s): R60.0 - Localized edema Code(s): R60.9 - Edema, unspecified Status: Acute Assessment and Plan: A chronic ongoing issue with this patient with multiple causes including chronic diastolic heart failure, chronic kidney disease with nephrotic syndrome. Decreased much for her previous admissions (8) Type 2 diabetes mellitus with peripheral neuropathy: Code(s): E11.42 - Type 2 diabetes mellitus with diabetic polyneuropathy Status: Acute Assessment and Plan: Held metformin given worsening renal function. Continue SSI hemoglobin A1c-5.9 She may be able to manage on diet alone or perhaps low dose sitagliptin Subjective Date/time seen: 07/16/19 13:53 Interval history: Date of visit 07/15. 69-year-old white female with chronic renal failure stage 3, nephrotic syndrome, diastolic heart failure, and chronic anemia admitted with cough shortness of breath found to have pneumonia. Completed course of antibiotic therapy and still feels very weak. Short breath and hypoxic after EGD/colon 07/10. Up in chair today and some better Slept well with BiPAP and feels better each day.but still reqiring 5 L NC, thoracentesis today Exam Narrative: Exam Narrative: Blood pressure 1
[2019-07-16 14:32] LABS: Appearance Pleural Fluid Hazy (Clear); Color Pleural Fluid Yellow (Colorless); Lymphocytes Pleural Fluid 89 %; Mesothelial Cells Pleural Flui 7 %; Monocytes Pleural Fluid 4 %; Nucleated Cell Pleural Fluid 188 /uL (0-1000); Pleural fluid source Pleural fluid; RBC Pleural Fluid 806 /uL (0-0)
[2019-07-16 16:42] LABS: Glucose Point of Care 108 (65-105)
[2019-07-16] MEDS: SENNOSIDES 8.6 MG TABLET PO (17:39)
[2019-07-16] MEDS: HEPARIN SODIUM 5,000 UNITS/ML VIAL 5000 UNITS SUB-Q ×2 (17:41→21:00)
[2019-07-16 20:22] LABS: Glucose Point of Care 189 (65-105)
[2019-07-16] MEDS: ATORVASTATIN 40 MG TABLET 80 MG PO (20:57)
[2019-07-16] MEDS: METOCLOPRAMIDE HCL 10 MG TABLET PO (21:01)
[2019-07-16] MEDS: PREGABALIN 75 MG CAPSULE PO (21:02)
[2019-07-17] VITALS (15 sets, daily range): BP systolic 156–172; BP diastolic 63–72; PULSE 70–82; RESP 16–20; TEMP 36.3–37.4; O2SAT 93–97
--- NOTE | 2019-07-17 01:08 | PCRCNOTE ---
Window of time for administration has passed. See next scheduled administration.
[2019-07-17] MEDS: ALBUTEROL SULFATE NEB 2.5 MG/0.5 ML INH 5 MG INHALATION ×4 (03:19→21:05)
[2019-07-17] MEDS: IPRATROPIUM BR 0.02% INH SOLN 0.5 MG/2.5 ML VIAL INHALATION ×4 (03:19→21:05)
[2019-07-17] MEDS: HEPARIN SODIUM 5,000 UNITS/ML VIAL 5000 UNITS SUB-Q ×3 (05:36→21:13)
[2019-07-17 06:04] LABS: Basophils Absolute Auto 0.1 K/mm3 (0.0-0.1); Basophils Percent Auto 0.6 % (0.2-1.2); Eosinophils Absolute Auto 0.4 K/mm3 (0-0.3); Eosinophils Percent Auto 5.1 % (0-4.4); Hematocrit 25.7 % (37.0-47.0); Hemoglobin 8.4 g/dL (12.0-15.0); Immature Granulocyte Absolute 0.04 K/mm3 (0.00-0.031); Immature Granulocyte Percent A 0.5 % (0-0.5); Lymphocytes Absolute Auto 2.64 K/mm3 (0.9-3.2); Lymphocytes Percent Auto 31.2 % (18.3-44.2); Mean Corpuscular HGB Conc 32.7 g/dl (32-36); Mean Corpuscular Hemoglobin 29.7 pg (26-34); Mean Corpuscular Volume 90.8 fl (80-100); Mean Platelet Volume 10.9 fl (7.4-10.4); Monocytes Absolute Auto 0.9 K/mm3 (0.1-0.6); Monocytes Percent Auto 10.8 % (2.6-8.5); Neutrophils Absolute Auto 4.4 K/mm3 (1.3-6.7); Neutrophils Percent Auto 51.8 % (45.5-73.1); Platelet Count Result 263 k/mm3 (150-375); Red Blood Count 2.83 M/mm3 (4.2-5.4); Red Cell Distribution Width 16.9 % (11.5-14.5); White Blood Count 8.5 K/mm3 (4.5-10.0)
[2019-07-17 06:29] LABS: Albumin Level 2.6 g/dL (3.5-5.1); Blood Urea Nitrogen 38 mg/dL (7-17); Carbon Dioxide 28 mmol/L (22-30); Chloride 102 mmol/L (98-107); Estimated CRCL calculation 26 ml/min; Estimated Glomerular Filt Rate 30; Glucose 125 mg/dL (65-105); Potassium 3.6 mmol/L (3.4-5.0); Sodium 138 mmol/L (137-145)
[2019-07-17 07:54] LABS: Glucose Point of Care 117 (65-105)
[2019-07-17] MEDS: PANTOPRAZOLE 40 MG TABLET PO ×2 (08:04→21:14)
[2019-07-17] MEDS: VALACYCLOVIR HCL 500 MG TABLET 1000 MG PO ×3 (08:04→17:15)
[2019-07-17] MEDS: METOPROLOL SUCCINATE EXT REL 100 MG TABCR 200 MG PO (08:04)
[2019-07-17] MEDS: AMLODIPINE BESYLATE 5 MG TABLET 10 MG PO (08:04)
[2019-07-17] MEDS: MAGNESIUM OXIDE 400 MG TABLET PO (08:04)
[2019-07-17] MEDS: FUROSEMIDE INJ 100 MG/10 ML VIAL 80 MG IV PUSH ×2 (08:04→17:15)
[2019-07-17] MEDS: VALSARTAN 80 MG TABLET PO (08:05)
--- NOTE | 2019-07-17 09:50 | PM.PNNEP ---
Progress Note: A&P Assessment and Plan (1) ANGIE (acute kidney injury): Code(s): N17.9 - Acute kidney failure, unspecified Status: Acute Assessment and Plan: Creatinine was 1.1 in February. Creatinine 1.9 in May. Then she saw me in the office but did not get any blood work done that I ordered. Now creatinine is about the same. She has proteinuria. Serology is pending. She may need a kidney biopsy or may not. We can't determine this in the future. For now we need her to CT over her pneumonia, before we do anything. (2) Chronic kidney disease, stage 3: Code(s): N18.3 - Chronic kidney disease, stage 3 (moderate) Status: Chronic Assessment and Plan: creatinine was ~ 1.0 - 1.3mg/dl about a year ago unclear if elevated creatinine at this time is ANGIE or just progression of CKD (particularly with #4) Will continue to treat infection/pneumonia and see how the creatinine does. No clear evidence of other causes of his acute kidney injury (3) Community acquired pneumonia: Qualifiers: Laterality: unspecified laterality Qualified Code(s): J18.9 - Pneumonia, unspecified organism Code(s): J18.9 - Pneumonia, unspecified organism Status: Acute Assessment and Plan: as evidence by imaging on admission on IV antibiotics Cough is about the same She feels a lot better since the thoracentesis. (4) Nephrotic range proteinuria: Code(s): R80.9 - Proteinuria, unspecified Status: Acute Assessment and Plan: known issue based on outpatient evaluation Dr. Sotomayor ordered ordered serology and immunofixation GI Complements are normal would everything else is pending Diabetes can do this. But it does not usually make the creatinine worsened from 1.1 to 1.9 in just 3 months. Subjective Date/time seen: 07/17/19 09:50 Interval history: Patient is alert. Feels so much better. Less short of breath and cough is almost gone Review of Systems Cardiovascular: Cardiovascular: Reports no additional cardiovascular complaints Respiratory: Respiratory: Reports no additional respiratory complaints Gastrointestinal: Gastrointestinal: Reports no additional gastrointestinal complaints Genitourinary: Genitourinary: Reports no additional female genitourinary complaints Exam Narrative: Exam Narrative: General: WD/WN female in NAD Heart: normal S1 and S2; no rub Lungs: Breath sounds better. Moving air better. Still some decreased breath sounds at the bases but improved especially on the right Abdomen: soft, nontender, nondistended, positive bowel sounds Extremities: 1+ edema Skin: warm and dry without rash Objective Data Vital Signs Vital Signs: Vital Signs - 24 hr 07/16/19 09:58 07/16/19 10:01 07/16/19 10:07 Temperature Pulse Rate 76 76 72 Respiratory Rate 20 20 20 Blood Pressure Pulse Oximetry 92 07/16/19 11:15 07/16/19 14:00 07/16/19 14:11 Temperature 36.3 C L Pulse Rate 73 70 73 Respiratory Rate 20 22 H 20 Blood Pressure 174/93 H 155/62 H Pulse Oximetry 92 96 07/16/19 14:19 07/16/19 20:21 07/16/19 22:00 Temperature 36.8 C Pulse Rate 73 55 L 76 Respiratory Rate 20 18 20 Blood Pressure 153/60 H Pulse Oximetry 92 97 07/17/19 03:19 07/17/19 03:27 07/17/19 06:44 Temperature 37.4 C Pulse Rate 70 74 75 Respiratory Rate 20 20 20 Blood Pressure 172/72 H Pulse Oximetry 93 07/17/19 07:48 07/17/19 07:59 07/17/19 08:04 Temperature Pulse Rate 73 78 74 Respiratory Rate 18 18 Blood Pressure Pulse Oximetry 94 07/17/19 08:59 Temperature Pulse Rate Respiratory Rate Blood Pressure Pulse Oximetry 94 Intake/Output Intake/Output: Intake & Output 07/14/19 07/15/19 07/16/19 07/17/19 23:59 23:59 23:59 23:59 Intake Total 1630 1100 960 690 Output Total 1500 1100 1850 475 Balance 130 0 -890 215 Meds/Results Medications: Active Medications Generic Name Dose Route St
[2019-07-17 11:55] LABS: Glucose Point of Care 169 (65-105)
[2019-07-17 13:45] LABS: Total Protein Urine Random > 600 mg/dL
--- NOTE | 2019-07-17 17:11 | P.PNIM_ITS ---
Progress Note: A&P Assessment and Plan (1) Community acquired pneumonia: Qualifiers: Laterality: unspecified laterality Qualified Code(s): J18.9 - Pneumonia, unspecified organism Code(s): J18.9 - Pneumonia, unspecified organism Status: Acute Assessment and Plan: * finished azithromycin and ceftriaxone day11/19 07/11, * repeat cxr 07/13 bilateral effusions. R>L, continued diuresing and no improvement on effusion 07/14 thoracentesis today 1000ml yellow slightly cloudy with phyllis ph so probably transudate with her nephrotic syndrome and diastolic HF (2) Acute respiratory failure with hypoxia: Code(s): J96.01 - Acute respiratory failure with hypoxia Status: Acute Assessment and Plan: * Secondary to pneumonia initially * resolved (3) DVT (deep venous thrombosis): Qualifiers: DVT location: lower extremity Affected thrombotic vein of extremity: unspecified vein of extremity Chronicity: acute Laterality: bilateral Qualified Code(s): I82.403 - Acute embolism and thrombosis of unspecified deep veins of lower extremity, bilateral Code(s): I82.409 - Acute embolism and thrombosis of unspecified deep veins of unspecified lower extremity Status: Acute Assessment and Plan: * bilateral tibial and peroneal DVTs * ASA * Repeat venous doppler 07/09 showed NO DVT * Continue prophylactic heparin (no overt bleeding) (4) Chronic kidney disease, stage 3: Code(s): N18.3 - Chronic kidney disease, stage 3 (moderate) Status: Chronic Assessment and Plan: * 07/08 creatinine 1.9 and will repeat in a.m. * creatinine 1.8 today, and repeat sono no obstruction (5) Chronic anemia: Code(s): D64.9 - Anemia, unspecified Status: Acute Assessment and Plan: * lab c/w ACD * no sign of overt bleeding * GI evaluation in progress (EGD and colon 06/20 no source of blood loss) * transfused 1 unit PRBCs after hgb dipped to 6,8 07/01 and hgb up to 9.7 today, urology following, possibly epogen later (6) Hypertension: Qualifiers: Hypertension type: essential hypertension Qualified Code(s): I10 - Es sential (primary) hypertension Code(s): I10 - Essential (primary) hypertension Status: Acute Assessment and Plan: * Control fair antihypertensives amlodipine and metoprolol. With the Lasix. * restarted ARB 07/13 with her nephrotic syndrome and systolic bp consistently >160 * BP 150s systolic 3/3 * Monitor (7) Edema: Qualifiers: Edema type: localized Qualified Code(s): R60.0 - Localized edema Code(s): R60.9 - Edema, unspecified Status: Acute Assessment and Plan: * A chronic ongoing issue with this patient with multiple causes including chronic diastolic heart failure, chronic kidney disease with nephrotic syndrome. Decreased much for her previous admissions (8) Type 2 diabetes mellitus with peripheral neuropathy: Code(s): E11.42 - Type 2 diabetes mellitus with diabetic polyneuropathy Status: Acute Assessment and Plan: * Held metformin given worsening renal function. * Continue SSI * hemoglobin A1c-5.9 * She may be able to manage on diet alone or perhaps low dose sitagliptin Subjective Date/time seen: 07/17/19 17:11 Interval history: Feels better 3/3 after thoracentesis 07/15. Denied pain. Eating well. No gi/gu c/o. Review of Systems Review of Systems: All s
--- NOTE | 2019-07-17 17:11 | PM.IMPN ---
Progress Note: A&P Assessment and Plan (1) Community acquired pneumonia: Qualifiers: Laterality: unspecified laterality Qualified Code(s): J18.9 - Pneumonia, unspecified organism Code(s): J18.9 - Pneumonia, unspecified organism Status: Acute Assessment and Plan: finished azithromycin and ceftriaxone day11/19 07/11, repeat cxr 07/13 bilateral effusions. R>L, continued diuresing and no improvement on effusion 07/14 thoracentesis today 1000ml yellow slightly cloudy with phyllis ph so probably transudate with her nephrotic syndrome and diastolic HF (2) Acute respiratory failure with hypoxia: Code(s): J96.01 - Acute respiratory failure with hypoxia Status: Acute Assessment and Plan: Secondary to pneumonia initially resolved (3) DVT (deep venous thrombosis): Qualifiers: DVT location: lower extremity Affected thrombotic vein of extremity: unspecified vein of extremity Chronicity: acute Laterality: bilateral Qualified Code(s): I82.403 - Acute embolism and thrombosis of unspecified deep veins of lower extremity, bilateral Code(s): I82.409 - Acute embolism and thrombosis of unspecified deep veins of unspecified lower extremity Status: Acute Assessment and Plan: bilateral tibial and peroneal DVTs ASA Repeat venous doppler 07/09 showed NO DVT Continue prophylactic heparin (no overt bleeding) (4) Chronic kidney disease, stage 3: Code(s): N18.3 - Chronic kidney disease, stage 3 (moderate) Status: Chronic Assessment and Plan: 07/08 creatinine 1.9 and will repeat in a.m. creatinine 1.8 today, and repeat sono no obstruction (5) Chronic anemia: Code(s): D64.9 - Anemia, unspecified Status: Acute Assessment and Plan: lab c/w ACD no sign of overt bleeding GI evaluation in progress (EGD and colon 06/20 no source of blood loss) transfused 1 unit PRBCs after hgb dipped to 6,8 07/01 and hgb up to 9.7 today, urology following, possibly epogen later (6) Hypertension: Qualifiers: Hypertension type: essential hypertension Qualified Code(s): I10 - Essential (primary) hypertension Code(s): I10 - Essential (primary) hypertension Status: Acute Assessment and Plan: Control fair antihypertensives amlodipine and metoprolol. With the Lasix. restarted ARB 07/13 with her nephrotic syndrome and systolic bp consistently >160 BP 150s systolic 07/16 Monitor (7) Edema: Qualifiers: Edema type: localized Qualified Code(s): R60.0 - Localized edema Code(s): R60.9 - Edema, unspecified Status: Acute Assessment and Plan: A chronic ongoing issue with this patient with multiple causes including chronic diastolic heart failure, chronic kidney disease with nephrotic syndrome. Decreased much for her previous admissions (8) Type 2 diabetes mellitus with peripheral neuropathy: Code(s): E11.42 - Type 2 diabetes mellitus with diabetic polyneuropathy Status: Acute Assessment and Plan: Held metformin given worsening renal function. Continue SSI hemoglobin A1c-5.9 She may be able to manage on diet alone or perhaps low dose sitagliptin Subjective Date/time seen: 07/17/19 17:11 Interval history: Feels better /3 after thoracentesis 07/15. Denied pain. Eating well. No gi/gu c/o. Review of Systems Review of Systems: All systems reviewed & are unremarkable except as noted in HPI and below Exam Narrative: Exam Narrative: HEENT: EOMI, PERRL, sclerae nonicteric, pharyngeal mucosa pink and intact NECK: No JVD CHEST: Coarse BS HEART: NL S1/S2, regular, no murmur ABDOMEN: BS+, soft, nontender, no mass, no bruits EXTREMITIES: No cyanosis, edema, or clubbing NEUROLOGIC: CN intact and symmetric to inspection. MUSCULOSKELETAL: Tone and strength symmetric. PSYCH: Alert. Oriented to person, place, and time. Obje
[2019-07-17 17:13] LABS: Glucose Point of Care 235 (65-105)
[2019-07-17] MEDS: INSULIN ASPART (*BKC) 100 UNITS/ML SUB-Q (17:14)
[2019-07-17] MEDS: ATORVASTATIN 40 MG TABLET 80 MG PO (21:12)
[2019-07-17] MEDS: METOCLOPRAMIDE HCL 10 MG TABLET PO (21:15)
[2019-07-17] MEDS: PREGABALIN 75 MG CAPSULE PO (21:17)
[2019-07-17 21:47] LABS: Glucose Point of Care 163 (65-105)
[2019-07-17] MEDS: ACETAMINOPHEN 325 MG TABLET 650 MG PO (23:24)
[2019-07-18] VITALS (11 sets, daily range): BP systolic 167–176; BP diastolic 68–72; PULSE 70–89; RESP 18–20; TEMP 37.2; O2SAT 94–98
[2019-07-18] MEDS: ALBUTEROL SULFATE NEB 2.5 MG/0.5 ML INH 5 MG INHALATION ×4 (01:30→20:45)
[2019-07-18] MEDS: IPRATROPIUM BR 0.02% INH SOLN 0.5 MG/2.5 ML VIAL INHALATION ×4 (01:30→20:46)
[2019-07-18 05:38] LABS: Glucose Pleural Fluid 132 mg/dL; LDH Pleural Fluid 69 U/L; Total Protein Pleural Fluid <3.0 g/dL
--- NOTE | 2019-07-18 07:29 | P.PNNP_ITS ---
Progress Note: A&P Assessment and Plan (1) ANGIE (acute kidney injury): Code(s): N17.9 - Acute kidney failure, unspecified Status: Acute Assessment and Plan: * Creatinine was 1.1 in February. * Creatinine 1.9 in May. * Then she saw me in the office but did not get any blood work done that I ordered. * Now creatinine is about the same. * She has proteinuria. * Serology is pending. (2) Chronic kidney disease, stage 3: Code(s): N18.3 - Chronic kidney disease, stage 3 (moderate) Status: Chronic Assessment and Plan: * creatinine was ~ 1.0 - 1.3mg/dl about a year ago * No clear evidence of other causes of her acute kidney injury (3) Community acquired pneumonia: Qualifiers: Laterality: unspecified laterality Qualified Code(s): J18.9 - Pneumonia, unspecified organism Code(s): J18.9 - Pneumonia, unspecified organism Status: Acute Assessment and Plan: * as evidence by imaging on admission * on IV antibiotics * Cough is about the same * She feels a lot better since the thoracentesis. (4) Nephrotic range proteinuria: Code(s): R80.9 - Proteinuria, unspecified Status: Acute Assessment and Plan: * known issue based on outpatient evaluation * Dr. Sotomayor ordered ordered serology and immunofixation GI * Complements are normal would everything else is pending * Consider biopsy down the line as an outpatient after recovered from pneumonia. Additional Plan Subjective Date/time seen: 07/18/19 07:29 Interval history: Patient is alert. Feels good. Less short of breath and cough is almost gone Review of Systems Cardiovascular: Cardiovascular: Reports no additional cardiovascular complaints Respiratory: Respiratory: Reports no additional respiratory complaints Gastrointestinal: Gastrointestinal: Reports no additional gastrointestinal complaints Genitourinary: Genitourinary: Reports no additional female genitourinary complaints Exam Narrative: Exam Narrative: General: WD/WN female in NAD Heart: normal S1 and S2; no rub Lungs: Breath sounds better. Moving air better. Still some decreased breath sounds at the bases especially on the right Abdomen: soft, nontender, nondistended, positive bowel sounds Extremities: Trace edema and no cyanosis Skin: warm and dry without rash Objective Data Vital Signs Vital Signs: Vital Signs - 24 hr 07/17/19 07:48 07/17/19 07:59 07/17/19 08:04 Temperature Pulse Rate 73 78 74 Respiratory Rate 18 18 Blood Pressure Pulse Oximetry 94 07/17/19 08:59 07/17/19 14:26 07/17/19 14:40 Temperature Pulse Rate 73 73 Respiratory Rate 18 18 Blood Pressure Pulse Oximetry 94 07/17/19 14:53 07/17/19 20:14 07/17/19 21:05 Temperature 37.1 C Pulse Rate 72 75 75 Respiratory Rate 18 16 18 Blood Pressure 156/63 H Pulse Oximetry 96 97 07/17/19 21:15 07/17/19 21:19 07/17/19 22:00 Temperature 36.3 C L Pulse Rate 75 82 Respiratory Rate 18 20 Blood Pressure 171/71 H Pulse Oximetry 94 96 07/18/19 01:30 07/18/19 01:43 07/18/19 06:00 Temperature 37.2 C P
--- NOTE | 2019-07-18 07:29 | PM.PNNEP ---
Progress Note: A&P Assessment and Plan (1) ANGIE (acute kidney injury): Code(s): N17.9 - Acute kidney failure, unspecified Status: Acute Assessment and Plan: Creatinine was 1.1 in February. Creatinine 1.9 in May. Then she saw me in the office but did not get any blood work done that I ordered. Now creatinine is about the same. She has proteinuria. Serology is pending. (2) Chronic kidney disease, stage 3: Code(s): N18.3 - Chronic kidney disease, stage 3 (moderate) Status: Chronic Assessment and Plan: creatinine was ~ 1.0 - 1.3mg/dl about a year ago No clear evidence of other causes of her acute kidney injury (3) Community acquired pneumonia: Qualifiers: Laterality: unspecified laterality Qualified Code(s): J18.9 - Pneumonia, unspecified organism Code(s): J18.9 - Pneumonia, unspecified organism Status: Acute Assessment and Plan: as evidence by imaging on admission on IV antibiotics Cough is about the same She feels a lot better since the thoracentesis. (4) Nephrotic range proteinuria: Code(s): R80.9 - Proteinuria, unspecified Status: Acute Assessment and Plan: known issue based on outpatient evaluation Dr. Sotomayor ordered ordered serology and immunofixation GI Complements are normal would everything else is pending Consider biopsy down the line as an outpatient after recovered from pneumonia. Additional Plan Subjective Date/time seen: 07/18/19 07:29 Interval history: Patient is alert. Feels good. Less short of breath and cough is almost gone Review of Systems Cardiovascular: Cardiovascular: Reports no additional cardiovascular complaints Respiratory: Respiratory: Reports no additional respiratory complaints Gastrointestinal: Gastrointestinal: Reports no additional gastrointestinal complaints Genitourinary: Genitourinary: Reports no additional female genitourinary complaints Exam Narrative: Exam Narrative: General: WD/WN female in NAD Heart: normal S1 and S2; no rub Lungs: Breath sounds better. Moving air better. Still some decreased breath sounds at the bases especially on the right Abdomen: soft, nontender, nondistended, positive bowel sounds Extremities: Trace edema and no cyanosis Skin: warm and dry without rash Objective Data Vital Signs Vital Signs: Vital Signs - 24 hr 07/17/19 07:48 07/17/19 07:59 07/17/19 08:04 Temperature Pulse Rate 73 78 74 Respiratory Rate 18 18 Blood Pressure Pulse Oximetry 94 07/17/19 08:59 07/17/19 14:26 07/17/19 14:40 Temperature Pulse Rate 73 73 Respiratory Rate 18 18 Blood Pressure Pulse Oximetry 94 07/17/19 14:53 07/17/19 20:14 07/17/19 21:05 Temperature 37.1 C Pulse Rate 72 75 75 Respiratory Rate 18 16 18 Blood Pressure 156/63 H Pulse Oximetry 96 97 07/17/19 21:15 07/17/19 21:19 07/17/19 22:00 Temperature 36.3 C L Pulse Rate 75 82 Respiratory Rate 18 20 Blood Pressure 171/71 H Pulse Oximetry 94 96 07/18/19 01:30 07/18/19 01:43 07/18/19 06:00 Temperature 37.2 C Pulse Rate 89 86 78 Respiratory Rate 18 18 20 Blood Pressure 167/68 H Pulse Oximetry 95 Intake/Output Intake/Output: Intake & Output 07/15/19 07/16/19 07/17/19 07/18/19 23:59 23:59 23:59 23:59 Intake Total 7425 277 8483 550 Output Total 1100 1850 1075 600 Balance 0 -890 1195 -50 Meds/Results Medications: Active Medications Generic Name Dose Route Start Last Admin Trade Name Angela PRN Reason Stop Dose Admin Acetaminophen 650 mg 07/07/19 15:45 07/17/19 23:24 Tylenol Tablet PO 650 mg Q4H PRN Administration Mild Pain (1-3) or Fever Albuterol 5 mg 07/05/19 20:00 07/18/19 01:30 Albuterol Sulf Neb 2.5mg/0.5ml INHALATION 5 mg Q6HRT KEIRA Administration Amlodipine Besylate 10 mg 07/06/19 09:00 07/17/19 08:04 Norvasc PO 10 mg DAILY KEIRA Administration Atorvastatin Ca
[2019-07-18 07:43] LABS: Albumin Level 2.7 g/dL (3.5-5.1); Blood Urea Nitrogen 43 mg/dL (7-17); Calcium 8.1 mg/dL (8.4-10.2); Carbon Dioxide 23 mmol/L (22-30); Chloride 107 mmol/L (98-107); Estimated CRCL calculation 27 ml/min; Estimated Glomerular Filt Rate 32; Glucose 214 mg/dL (65-105); Phosphorus 5.9 mg/dL (2.5-4.5); Potassium 3.8 mmol/L (3.4-5.0); Sodium 136 mmol/L (137-145)
[2019-07-18 07:52] LABS: Glucose Point of Care 160 (65-105)
[2019-07-18] MEDS: SENNOSIDES 8.6 MG TABLET PO ×2 (09:27→16:03)
[2019-07-18] MEDS: MAGNESIUM OXIDE 400 MG TABLET PO (09:27)
[2019-07-18] MEDS: METOPROLOL SUCCINATE EXT REL 100 MG TABCR 200 MG PO (09:27)
[2019-07-18] MEDS: VALACYCLOVIR HCL 500 MG TABLET 1000 MG PO ×3 (09:27→16:03)
[2019-07-18] MEDS: VALSARTAN 80 MG TABLET PO (09:27)
[2019-07-18] MEDS: PANTOPRAZOLE 40 MG TABLET PO ×2 (09:27→23:07)
[2019-07-18] MEDS: AMLODIPINE BESYLATE 5 MG TABLET 10 MG PO (09:28)
[2019-07-18] MEDS: DOCUSATE SODIUM 100 MG CAPSULE PO (09:32)
[2019-07-18] MEDS: FUROSEMIDE INJ 100 MG/10 ML VIAL 80 MG IV PUSH ×2 (09:38→16:02)
[2019-07-18] MEDS: HEPARIN SODIUM 5,000 UNITS/ML VIAL 5000 UNITS SUB-Q ×2 (09:38→22:30)
[2019-07-18 11:27] LABS: Glucose Point of Care 194 (65-105)
--- NOTE | 2019-07-18 13:34 | P.DS_ITS ---
DS: Diagnosis Admitting Diagnosis Admitting Diagnosis: Acute respiratory failure with hypoxia Discharge Diagnosis (1) Community acquired pneumonia: Qualifiers: Laterality: unspecified laterality Qualified Code(s): J18.9 - Pneumonia, unspecified organism Code(s): J18.9 - Pneumonia, unspecified organism Status: Acute Assessment and Plan: * finished azithromycin and ceftriaxone day11/19 07/11, * repeat cxr 07/13 bilateral effusions. R>L, continued diuresing and no improvement on effusion 07/14 thoracentesis 1000ml yellow slightly cloudy with phyllis ph c/w transudate due to nephrotic syndrome and diastolic HF (2) Acute respiratory failure with hypoxia: Code(s): J96.01 - Acute respiratory failure with hypoxia Status: Acute Assessment and Plan: * Secondary to pneumonia initially * resolved (3) DVT (deep venous thrombosis): Qualifiers: Affected thrombotic vein of extremity: unspecified vein of extremity Chronicity: acute DVT location: lower extremity Laterality: bilateral Qualified Code(s): I82.403 - Acute embolism and thrombosis of unspecified deep veins of lower extremity, bilateral Code(s): I82.409 - Acute embolism and thrombosis of unspecified deep veins of unspecified lower extremity Status: Acute Assessment and Plan: * bilateral tibial and peroneal DVTs * ASA * Repeat venous doppler 07/09 showed NO DVT * Continued prophylactic heparin while inpatient (4) Chronic kidney disease, stage 3: Code(s): N18.3 - Chronic kidney disease, stage 3 (moderate) Status: Chronic Assessment and Plan: * creatinine 1.8 on 07/13 and 1.6 on day of discharge (5) Chronic anemia: Code(s): D64.9 - Anemia, unspecified Status: Acute Assessment and Plan: * lab c/w ACD * no sign of overt bleeding * GI evaluation in progress (EGD and colon 06/20 no source of blood loss) * transfused 1 unit PRBCs after hgb dipped to 6,8 2/16 and hgb up to 9.7, 3/4 hgb 8.4 (6) Hypertension: Qualifiers: Hypertension type: essential hypertension Qualified Code(s): I10 - Essential (primary) hypertension Code(s): I10 - Essential (primary) hypertension Status: Acute Assessment and Plan: * Control fair antihypertensives amlodipine and metoprolol. With the Lasix. * restarted ARB 07/13 with her nephrotic syndrome and systolic bp consistently >160 * BP 150s systolic 07/16 * Monitor (7) Edema: Qualifiers: Edema type: localized Qualified Code(s): R60.0 - Localized edema Code(s): R60.9 - Edema, unspecified Status: Acute Assessment and Plan: * A chronic ongoing issue with this patient with multiple causes including chronic diastolic heart failure, chronic kidney disease with nephrotic syndrome. Decreased much for her previous admissions (8) Type 2 diabetes mellitus with peripheral neuropathy: Code(s): E11.42 - Type 2 diabetes mellitus with diabetic polyneuropathy Status: Acute Assessment and Plan: * Held metformin given worsening renal function. * Continue SSI * hemoglobin A1c-5.9 * She may be able to manage on diet alone or perhaps low dose sitagliptin DS: Summary Hospital Course Reason for hospitalization: dyspnea Hospital Course: Admitted with dyspnea. Found to have CXR showing bibasilar air space disease. Treated with 7 days Rocephin and Zithromax and responded well. Anemia was e
--- NOTE | 2019-07-18 13:34 | PM.DS ---
DS: Diagnosis Admitting Diagnosis Admitting Diagnosis: Acute respiratory failure with hypoxia Discharge Diagnosis (1) Community acquired pneumonia: Qualifiers: Laterality: unspecified laterality Qualified Code(s): J18.9 - Pneumonia, unspecified organism Code(s): J18.9 - Pneumonia, unspecified organism Status: Acute Assessment and Plan: finished azithromycin and ceftriaxone day11/19 07/11, repeat cxr 07/13 bilateral effusions. R>L, continued diuresing and no improvement on effusion 07/14 thoracentesis 1000ml yellow slightly cloudy with phyllis ph c/w transudate due to nephrotic syndrome and diastolic HF (2) Acute respiratory failure with hypoxia: Code(s): J96.01 - Acute respiratory failure with hypoxia Status: Acute Assessment and Plan: Secondary to pneumonia initially resolved (3) DVT (deep venous thrombosis): Qualifiers: Affected thrombotic vein of extremity: unspecified vein of extremity Chronicity: acute DVT location: lower extremity Laterality: bilateral Qualified Code(s): I82.403 - Acute embolism and thrombosis of unspecified deep veins of lower extremity, bilateral Code(s): I82.409 - Acute embolism and thrombosis of unspecified deep veins of unspecified lower extremity Status: Acute Assessment and Plan: bilateral tibial and peroneal DVTs ASA Repeat venous doppler 07/09 showed NO DVT Continued prophylactic heparin while inpatient (4) Chronic kidney disease, stage 3: Code(s): N18.3 - Chronic kidney disease, stage 3 (moderate) Status: Chronic Assessment and Plan: creatinine 1.8 on 07/13 and 1.6 on day of discharge (5) Chronic anemia: Code(s): D64.9 - Anemia, unspecified Status: Acute Assessment and Plan: lab c/w ACD no sign of overt bleeding GI evaluation in progress (EGD and colon 06/20 no source of blood loss) transfused 1 unit PRBCs after hgb dipped to 6,8 07/01 and hgb up to 9.7, / hgb 8.4 (6) Hypertension: Qualifiers: Hypertension type: essential hypertension Qualified Code(s): I10 - Essential (primary) hypertension Code(s): I10 - Essential (primary) hypertension Status: Acute Assessment and Plan: Control fair antihypertensives amlodipine and metoprolol. With the Lasix. restarted ARB 07/13 with her nephrotic syndrome and systolic bp consistently >160 BP 150s systolic 3/3 Monitor (7) Edema: Qualifiers: Edema type: localized Qualified Code(s): R60.0 - Localized edema Code(s): R60.9 - Edema, unspecified Status: Acute Assessment and Plan: A chronic ongoing issue with this patient with multiple causes including chronic diastolic heart failure, chronic kidney disease with nephrotic syndrome. Decreased much for her previous admissions (8) Type 2 diabetes mellitus with peripheral neuropathy: Code(s): E11.42 - Type 2 diabetes mellitus with diabetic polyneuropathy Status: Acute Assessment and Plan: Held metformin given worsening renal function. Continue SSI hemoglobin A1c-5.9 She may be able to manage on diet alone or perhaps low dose sitagliptin DS: Summary Hospital Course Reason for hospitalization: dyspnea Hospital Course: Admitted with dyspnea. Found to have CXR showing bibasilar air space disease. Treated with 7 days Rocephin and Zithromax and responded well. Anemia was evaluated with EGD and colonoscopy, both negative. She received 1 U PRBC during admission. No overt bleeding occurred. Hgb 9.4 to to 6.8. Creatinine was 1.9 at admission and 1.6 at discharge. Proteinuria was nephrotic range. Complements were negative and remainder of serologies were pending. Renal U/s was NL. 07/14 thoracentesis was c/w transudate. Patient tolerated PT/OT and diet. See problem list for timeline of individual problems. Status at Discharge Overall status at d
[2019-07-18 13:47] LABS: Complement Total CH50 >60 U/mL (31-60)
--- NOTE | 2019-07-18 14:36 | PCCCNOTE ---
On 07/18/19, the student, [Cleopatra Mckenna ], provided care and completed [facility] documentation on this patient. I have reviewed the student's documentation and agree with the findings.
[2019-07-18 17:18] LABS: Glucose Point of Care 170 (65-105)
[2019-07-18 19:22] LABS: Creatinine, Random Urine 30 mg/dL (20-275)
[2019-07-18] MEDS: ATORVASTATIN 40 MG TABLET 80 MG PO (22:30)
[2019-07-18] MEDS: METOCLOPRAMIDE HCL 10 MG TABLET PO (23:07)
[2019-07-18] MEDS: PREGABALIN 75 MG CAPSULE PO (23:10)
[2019-07-18 23:14] LABS: Albumin 2.5 g/dL (3.8-4.8); Alpha 1 Globulin 0.4 g/dL (0.2-0.3); Alpha 2 Globulin 0.9 g/dL (0.5-0.9); Beta 1 Globulin 0.4 g/dL (0.4-0.6); Gamma Globulin 0.8 g/dL (0.8-1.7); Protein, Total 5.3 g/dL (6.1-8.1)
--- NOTE | 2019-07-18 23:20 | PC.NURSE ---
[facility] present to transport patient to [facility]. Vital signs given.
[2019-07-18 23:40] LABS: Glucose Point of Care 181 (65-105)
[2019-07-19 10:26] LABS: RNP Antibodies <1.0
[2019-07-20 23:55] LABS: ANCA Screen Negative (Negative)
[2019-07-23 11:17] LABS: Anti Glomerular Basement Memb <1.0 AI (<1.0)
== END 2019-07-18 23:20 | DRG 193 ==
LOC: ANHED 16:19 → ANH3MED 17:43 → ANH3MEDSUR 07-14 02:25 → ANH3MED 07-19 09:03 → ANH3MEDSUR 07-19 09:03 → ANHIMU 07-19 09:03
PROVIDERS: Anesthesiology; Internal Medicine; Internal Medicine Gastroenterology; Internal Medicine Nephrology; Nurse Practitioner; Physician Assistant; Admitting Provider Family Medicine; Emergency Provider Emergency Medicine; PCP Internal Medicine; Visit Provider Internal Medicine
PROC: 0DJ08ZZ Inspection of Upper Intestinal Tract, Via Natural or Artificial Opening Endoscopic (ICD-10-PCS; CPT 43235; principal; 2019-07-10 14:15)
DX: J18.9 Pneumonia, unspecified organism (principal); J96.01 Acute respiratory failure with hypoxia; I50.33 Acute on chronic diastolic (congestive) heart failure; I13.0 Hypertensive heart and chronic kidney disease with heart failure and stage 1 through stage 4 chronic kidney disease, or unspecified chronic kidney disease; I82.441 Acute embolism and thrombosis of right tibial vein; I82.452 Acute embolism and thrombosis of left peroneal vein; N17.9 Acute kidney failure, unspecified; N18.3 Chronic kidney disease, stage 3 (moderate); D64.9 Anemia, unspecified; E11.42 Type 2 diabetes mellitus with diabetic polyneuropathy; K63.5 Polyp of colon; K57.90 Diverticulosis of intestine, part unspecified, without perforation or abscess without bleeding
CPT/HCPCS: 32555; 36415; 36430; 36600; 51701; 71045; 71046; 72052; 76775; 80048; 80053; 80069; 80074; 81001; 82247; 82248; 82375; 82550; 82570; 82607; 82728; 82746; 82805; 82945; 83010; 83036; 83050; 83520; 83540; 83550; 83615; 83735; 83880; 83986; 84100; 84155; 84156; 84157; 84165; 84166; 84443; 84466; 84484; 85014; 85018; 85025; 85027; 85046; 85610; 85730; 86021; 86038; 86039; 86160; 86162; 86225; 86235; 86334; 86335; 86850; 86900; 86901; 86923; 87015; 87040; 87070; 87075; 87081; 87116; 87205; 87206; 87449; 87804; 87899; 88104; 88108; 88184; 88305; 89051; 93005; 93970; 94002; 94003; 94640; 96374; 96375; 97110; 97116; 97161; 97166; 97530; 99285; A9270; J0456; J0696; J1644; J1815; J1940; J2704; J7050; J7120; P9016

== ENCOUNTER 2019-08-03 01:20 | Outpatient (CLI) | payer MEDICARE, SELFPAY ==
[2019-08-03 07:56] LABS: Mean Platelet Volume 10.8 fl (7.4-10.4); Platelet Count Result 316 k/mm3 (150-375)
[2019-08-03 08:05] LABS: Prothrombin Time 12.8 Seconds (11.1-14.7)
== END 2019-08-03 01:21 | disposition home or self-care (01) ==
LOC: SURGERY 01:22 → ANHSURGERY 07:36
PROVIDERS: PCP Internal Medicine; Visit Provider Internal Medicine Nephrology
DX: N04.9 Nephrotic syndrome with unspecified morphologic changes (principal); N18.3 Chronic kidney disease, stage 3 (moderate); E11.9 Type 2 diabetes mellitus without complications
CPT/HCPCS: 36415; 85049; 85610

== ENCOUNTER 2019-08-25 23:54 | Inpatient (IN) | payer MEDICARE, SELFPAY ==
--- NOTE | ~2019-08-25 | CT_ITS ---
EXAMINATION: CT abdomen pelvis wo con DATE: 08/26/2019 01:03 INDICATION: Abdominal pain. TECHNIQUE: Computed tomography (CT) of the abdomen and pelvis was performed without intravenous contr ast. Automated exposure control and iterative reconstruction technique were employed. The dose-length product was 523.52 mGy-cm. COMPARISON: None. FINDINGS: The visualized portions of the lung bases demonstrate mild atelectasis. There is a small ri ght pleural effusion. Calcified bilateral hilar lymph nodes are consistent with old granulomatous dis ease. The heart size is normal. There are coronary artery calcifications. No pericardial effusion. Ma in pulmonary artery is enlarged, consistent with pulmonary arterial hypertension. The liver is normal . There are changes of cholecystectomy. Calcifications in the spleen are consistent with old granulom atous disease. The pancreas and adrenal glands are normal. There is calcified atherosclerosis of the aorta and many of the other arteries. There are vascular calcifications at the socorro of the kidneys. T here is no urolithiasis. The endometrial complex is thickened to 4.8 cm. There is diverticulosis of t he colon without evidence of diverticulitis. There are no dilated loops of bowel. The appendix is nor mal. There are no pathologically enlarged lymph nodes. There is no free intraperitoneal fluid. Body w all edema is noted. There is a chronic burst fracture of L1. There is mild chronic height loss of mul tiple thoracic vertebral bodies. There is moderate thoracolumbar spondylosis. A small sclerotic lesio n in T12 vertebral body is likely a benign bone island. IMPRESSION: 1. Severely thickened endometrial complex suspicious for malignancy. Biopsy is recommended. 2. Small right pleural effusion. Reviewed, dictated and finalized at location A.
--- NOTE | ~2019-08-25 | US_ITS ---
EXAMINATION: US venous doppler [facility] DATE: 08/26/2019 11:07 INDICATION: Left lower limb edema. TECHNIQUE: Grayscale ultrasound images without and with compression and Doppler ultrasound images of the bilateral lower extremity veins were obtained. COMPARISON: Ultrasound 07/09/2019 FINDINGS: The visualized portions of right common femoral vein, profunda (deep) femoral vein, femoral vein, pop liteal vein, posterior tibial veins, and greater saphenous vein outflow are patent. There is thrombus in the peroneal veins. The visualized portions of left common femoral vein, profunda femoral vein, femoral vein, popliteal v ein, posterior tibial veins, and greater saphenous vein outflow are patent. There is thrombus in the peroneal veins. IMPRESSION: 1. Deep vein thrombosis involving the bilateral peroneal veins. Reviewed, dictated and finalized at location A.
[2019-08-25 23:51] VITALS: BP 205/76; PULSE 79; RESP 20; TEMP 36.6; O2SAT 97
[2019-08-26] VITALS (29 sets, daily range): BP systolic 162–221; BP diastolic 61–96; PULSE 65–92; RESP 12–22; TEMP 36.6–37.3; O2SAT 79–100; BMI 20.9
--- NOTE | 2019-08-26 00:12 | ED.RECABL ---
HPI - Recheck/Abnormal Lab/Rx General Chief Complaint: Recheck/Abnormal Lab/Rx Stated Complaint: n/v htn Source: RN notes reviewed History of Present Illness HPI narrative: Patient presents emergency department from [facility] for nausea vomiting. Patient states she is been having nausea vomiting for the past 3 days. States is associated with some diffuse abdominal pain described as cramping. She denies any fevers or chills chest pain shortness of breath or any other symptoms. Patient was given Zofran in route by EMS. Patient states she has been having hard time keeping down her medications secondary to her vomiting. Patient does note that she slipped and fell approximately 4 days ago injuring her right hip and states she has had evaluation at the detention for this. Related Data Home Medications Medication Instructions Recorded Confirmed metoclopramide HCl [Reglan] 10 mg PO HS 07/05/19 08/01/19 pregabalin 75 mg PO HS 07/05/19 08/01/19 acetaminophen 1,000 mg PO Q12H PRN 08/01/19 08/01/19 atorvastatin 20 mg PO HS 08/01/19 08/01/19 bumetanide 3 mg PO BID 08/01/19 08/01/19 lisinopril 5 mg PO DAILY 08/01/19 08/01/19 metoprolol succinate 50 mg PO DAILY 08/01/19 08/01/19 morphine 15 mg PO Q12H PRN 08/01/19 08/01/19 ondansetron 4 mg PO Q6H PRN 08/01/19 08/01/19 polyethylene glycol 3350 [Miralax] 17 g PO DAILY 08/01/19 08/01/19 ropinirole 0.5 mg PO TID PRN 08/01/19 08/01/19 sevelamer carbonate [Renvela] 800 mg PO TID 08/01/19 08/01/19 spironolactone 25 mg PO DAILY 08/01/19 08/01/19 baclofen 5 mg PO TID PRN 08/26/19 Allergies Allergy/AdvReac Type Severity Reaction Status Date / Time No Known Allergies Allergy Verified 08/26/19 00:20 Review of Systems Review of Systems: Narrative: Gen.: Denies fevers or chills ENT: Denies congestion Respiratory: Denies shortness of breath or cough CV: Denies chest pain or palpitations GI: See HPI denies burning, urgency, frequency or hematuria Musculoskeletal: Denies back pain or muscle pain Neuro: Denies numbness, tingling, weakness or focal weakness Skin: Denies rash Except as documented, all other systems reviewed and negative [facility] Past Medical History Medical History Chronic anemia Chronic kidney disease, stage 3 Baseline creatinine between 1.4 and 1.60. Chronic low back pain Chronic pain syndrome Had previously been on morphine 15 milligrams b.i.d. Recently started on Lyrica. Depression Diastolic congestive heart failure Echocardiogram in January 2019 demonstrated normal left ventricular size and function with ejection fraction of > 70% diastolic dysfunction grade 2. Gastritis Hyperlipidemia Hypertension Rectal bleeding Type 2 diabetes mellitus with peripheral neuropathy Surgical History Surgical History History of knee surgery Hx of toe surgery Status post cataract extraction Status post cholecystectomy Social History Social History Social History: The patient has been since 2010, when her from cancer. Her daughter was killed that same year and a drunk driving accident. She does have a son who lives in [place], [place]. Her brother, Kolton Macias, is her surrogate decision maker and she wishes to be a do not resuscitate. She is a former smoker and denies alcohol and drug abuse. Smoking packs per day: 1 Smoking cigarettes per day: 20.0 Years smoked: 5 Smoking pack-years: 5.00 Smoking status: Former smoker Tobacco type: cigarettes Alcohol intake: never Substance use: never Spiritual care concerns: No Agree to blood products: Yes Exam Narrative: Exam Narrative: APPEARANCE: No acute distress, nontoxic, resting in bed EYES: EOMI HEENT: Normocephalic, atraumatic, OMM RESPIRATORY: No respiratory distress Clear to auscultation bilaterally with no rho
[2019-08-26] MEDS: SODIUM CHLORIDE 0.9% IV 1,000 ML 999 ML IV CONT (00:26)
[2019-08-26 00:36] LABS: Basophils Absolute Auto 0.1 K/mm3 (0.0-0.1); Basophils Percent Auto 0.2 % (0.2-1.2); Eosinophils Percent Auto 0.1 % (0-4.4); Hematocrit 36.7 % (37.0-47.0); Hemoglobin 11.4 g/dL (12.0-15.0); Immature Granulocyte Absolute 0.12 K/mm3 (0.00-0.031); Immature Granulocyte Percent A 0.5 % (0-0.5); Lymphocytes Absolute Auto 1.41 K/mm3 (0.9-3.2); Lymphocytes Percent Auto 6.1 % (18.3-44.2); Mean Corpuscular HGB Conc 31.1 g/dl (32-36); Mean Corpuscular Hemoglobin 28.6 pg (26-34); Mean Corpuscular Volume 92.2 fl (80-100); Mean Platelet Volume 9.6 fl (7.4-10.4); Monocytes Absolute Auto 1.5 K/mm3 (0.1-0.6); Monocytes Percent Auto 6.5 % (2.6-8.5); Neutrophils Percent Auto 86.6 % (45.5-73.1); Platelet Count Result 596 k/mm3 (150-375); Red Blood Count 3.98 M/mm3 (4.2-5.4); Red Cell Distribution Width 15.7 % (11.5-14.5); White Blood Count 23.1 K/mm3 (4.5-10.0)
[2019-08-26 00:39] LABS: Glucose Point of Care 150 (65-105)
[2019-08-26 00:42] LABS: INR 1.2; Prothrombin Time 14.5 Seconds (11.1-14.7)
[2019-08-26 00:43] LABS: Alanine Aminotransferase 11 U/L (4-35); Albumin Level 2.9 g/dL (3.5-5.1); Alkaline Phosphatase 101 U/L (38-126); Aspartate Amino Transferase 21 U/L (14-36); Bilirubin,Total 0.3 mg/dL (0.2-1.3); Blood Urea Nitrogen 54 mg/dL (7-17); Calcium 8.4 mg/dL (8.4-10.2); Carbon Dioxide 27 mmol/L (22-30); Chloride 101 mmol/L (98-107); Estimated Glomerular Filt Rate 28; Glucose 168 mg/dL (65-105); Lactic Acid Reflex 1.1 mmol/L (0.7-2.1); Lipase 33 U/L (23-300); Partial Thromboplastin Time 35.8 SECONDS (22.3-36.8); Sodium 136 mmol/L (137-145)
[2019-08-26 00:50] LABS: Platelet Estimate Adequate (Adequate)
[2019-08-26 00:51] LABS: Microcytosis 1+ (NORMAL); Ovalocytes 1+ (NORMAL)
[2019-08-26 00:54] LABS: Add Urine Microscopic? YES; Appearance Urine Clear (Clear); Bacteria Urine Trace /hpf; Bilirubin Urine Negative (Negative); Blood Urine Negative (Negative); Color Urine Yellow (Yellow); Glucose Urine UA 3+ mg/dL (Negative); Ketones Urine 1+ mg/dL (Negative); Leukocyte Esterase Ur Negative LEU/UL (Negative); Mucus Urine Few /lpf; Nitrate Urine Negative (Negative); Protein Urine 3+ mg/dL (Negative); Specific Grav Ur 1.017 (1.001-1.035); Squamous Epithelial Cell Urine Few /hpf (Few); Urobilinogen Urine Negative mg/dL (<2.0)
--- NOTE | 2019-08-26 01:45 | PC.NURSE ---
Called lab to add on MG
--- NOTE | 2019-08-26 03:08 | ADMGEN ---
This patient, Lupe Gomez, was admitted to 2 Medical Room 257-01 @ 0300. Patient/family oriented to hospital policies and general routines including ID bracelet, bed and alarms, visiting hours, pain management, procedures, bathroom and other care routines, personal items, smoking policy, room service/diet, and visiting hours. Valuables list has been completed. Information on how to activate the Rapid Response Team has been discussed. Patient/Family are encouraged to report perceived risks to care and to ask questions if they do not understand what they are told or what they should do.
--- NOTE | 2019-08-26 03:56 | PM.IMHP ---
H&P: HPI History of Present Illness Chief complaint: Nausea, Vomiting, Renal Insufficiency, Hypokalemia Narrative: This is a pleasant diabetic 69 year old female with a history of CKD stage 3, chronic pain syndrome on oral morphine BID, and diastolic heart failure who presented to the hospital [facility] from [facility] secondary to nausea and vomiting. The patient describes having nausea and vomiting for the past 4 days since she suffered a fall in her room when she landed on her left knee. The patient describes having numerous episodes of vomiting over the past few days. She has had clear emesis. She denies any fever, chills, chest pain, shortness of breath, sore throat, dysuria, hematuria, diarrhea or rectal bleeding. She hasn't been able to keep down her medications secondary to nausea and vomiting. The patient was evaluated in the ER [facility] and found to have an elevated WBC of 23,100. She was also found to have a low potassium level of 3.0 and acute renal failure w/ Cr of 1.80. We have been asked to admit the patient to the hospital for her nausea, vomiting, and acute dehydration. She has no other complaints. On my encounter with the patient she is nauseated and vomiting. Apparently the patient arrived to the floor and was given clear liquids that was ordered in the ER. Review of Systems Review of Systems: All systems reviewed & are unremarkable except as noted in HPI and below PMFSH Past Medical History Medical History Chronic anemia Chronic kidney disease, stage 3 Baseline creatinine between 1.4 and 1.60. Chronic low back pain Chronic pain syndrome Had previously been on morphine 15 milligrams b.i.d. Recently started on Lyrica. Depression Diastolic congestive heart failure Echocardiogram in January 2019 demonstrated normal left ventricular size and function with ejection fraction of > 70% diastolic dysfunction grade 2. Gastritis Hyperlipidemia Hypertension Rectal bleeding Type 2 diabetes mellitus with peripheral neuropathy Surgical History Surgical History History of knee surgery Hx of toe surgery Status post cataract extraction Status post cholecystectomy Family History Family History Mother Lung cancer Sibling Malignant neoplasm of prostate Diabetes mellitus Osteoarthritis Dialysis patient Heart disease Social History Social History Social History: The patient has been since 2010, when her from cancer. Her daughter was killed that same year and a drunk driving accident. She does have a son who lives in [place], [place]. Her brother, Kolton Macias, is her surrogate decision maker and she wishes to be a do not resuscitate. She is a former smoker and denies alcohol and drug abuse. Smoking packs per day: 1 Smoking cigarettes per day: 20.0 Years smoked: 5 Smoking pack-years: 5.00 Smoking status: Former smoker Tobacco type: cigarettes Alcohol intake: never Substance use: never Substance use type: does not use Gender identity (if verbalized by the patient): Female Spiritual care concerns: No Agree to blood products: Yes Meds Home Medications and Allergies Home Medications Medication Instructions Recorded Confirmed Type docusate sodium 100 mg tablet 100 mg PO DAILY #1 tablet 03/29/19 08/26/19 Rx sennosides 8.6 mg tablet 8.6 mg PO BID #1 tablet 03/29/19 08/26/19 Rx metoclopramide HCl [Reglan] 10 mg PO HS 07/05/19 08/26/19 History pregabalin 75 mg PO HS 07/05/19 08/26/19 History pantoprazole 40 mg PO Q12HR #0 tablet 07/18/19 08/26/19 Rx acetaminophen 1,000 mg PO Q12H PRN 08/01/19 08/26/19 History atorvastatin 20 mg PO HS 08/01/19 08/26/19 History bumetanide 3 mg PO BID 08/01/19 08/26/19 History lisinopril 5 mg PO DAILY
[2019-08-26] MEDS: SODIUM CHLORIDE 0.9% IV 1,000 ML 80 ML IV CONT (05:42)
[2019-08-26] MEDS: ONDANSETRON INJ 4 MG/2 ML VIAL IV PUSH (08:50)
[2019-08-26] MEDS: PANTOPRAZOLE SODIUM IV 40 MG VIAL IV PUSH (08:52)
--- NOTE | 2019-08-26 09:04 | PM.IMPN ---
Progress Note: A&P Assessment and Plan (1) Nausea and vomiting: Qualifiers: Vomiting Intractability: unspecified Vomiting type: unspecified Qualified Code(s): R11.2 - Nausea with vomiting, unspecified Code(s): R11.2 - Nausea with vomiting, unspecified Status: Acute Assessment and Plan: The pt has a hx of nausea and vomiting for 4 days. This may be due to constipation as she does not believe she has had a BM since her fall due to immobility She is on morphine 15mg PO BID. She reports frequent flatus. Her sx may be due to constipation. CT abd/pelvis revealed diverticulosis without diverticulitis, no bowel loop dilation, normal appendix, no free intraperitoneal fluid, and normal pancreas. She fees like she can tolerate CLD at this time. The halfway reports that the pt responds better to metoclopramide so we will try this Continue gentle IV fluid hydration as the pt appears dehydrated due to GI losses and decreased PO intake. Will re-evaluate later today as pt has a hx of chronic ongoing edema due to hx of grade 2 diastolic dysfunction and CKD with nephrotic syndrome. Will do trial of CLD (2) Constipation: Code(s): K59.00 - Constipation, unspecified Status: Acute Assessment and Plan: The pt does not believe she has had a BM since her fall 08/08 but the halfway reports that she had a small BM 08/23. She is likely constipated and this may be contributing to her sx. Will resume senna and colace once she is no longer NPO (3) Thickened endometrium: Code(s): R93.89 - Abnormal findings on diagnostic imaging of other specified body structures Status: Acute Assessment and Plan: CT abd/pelvis revealed thickened endometrial complex suspicious for malignancy. She denies abnormal uterine bleeding. Pt will need referral to [facility] for endometrial biopsy outpatient (4) Acute on chronic renal failure: Qualifiers: Acute renal failure type: unspecified Chronic kidney disease stage: stage 3 (moderate) Qualified Code(s): N17.9 - Acute kidney failure, unspecified; N18.3 - Chronic kidney disease, stage 3 (moderate) Code(s): N17.9 - Acute kidney failure, unspecified; N18.9 - Chronic kidney disease, unspecified Status: Acute Assessment and Plan: Cr at presentation was 1.8 and BUN was 54. She has CKD stage III with proteinuria and was awaiting renal biopsy. She is established with Dr. Larson. Her Cr at this time appears close to her baseline from her recent admission 07/2019. The biopsy was cancelled due to HTN per the pt. Avoid nephrotoxic agents Renally dose medications Continue to monitor (5) Acute hypokalemia: Code(s): E87.6 - Hypokalemia Status: Acute Assessment and Plan: Potassium was 3.0 at presentation, likely due to GI losses from vomiting. She received 40mEq IV in the ED. Repeat potassium this AM was 3.1. Will give 40mEq of potassium supplementation Will continue to monitor (6) Leukocytosis: Qualifiers: Leukocytosis type: unspecified Qualified Code(s): D72.829 - Elevated white blood cell count, unspecified Code(s): D72.829 - Elevated white blood cell count, unspecified Status: Acute Assessment and Plan: The patient's leukocytosis may be reactive due to recurrent wretching. There is no clear source of infection at this time. Will trend (7) Type 2 diabetes mellitus with peripheral neuropathy: Code(s): E11.42 - Type 2 diabetes mellitus with diabetic polyneuropathy Status: Chronic Assessment and Plan: Metformin was held at the patient's last admission due to worsening renal function. Hb A1C at that time was 5.9 07/05/19. The patient is currently managing her diabetes with diet. FBS was 171. [facility] SSI Hypoglycemia protocol Will continue to monitor (8) Hypertension: Qualifiers: Hypertension type:
[2019-08-26 09:36] LABS: Blood Urea Nitrogen 48 mg/dL (7-17); Calcium 8.1 mg/dL (8.4-10.2); Carbon Dioxide 30 mmol/L (22-30); Chloride 103 mmol/L (98-107); Estimated CRCL calculation 27 ml/min; Estimated Glomerular Filt Rate 26; Glucose 171 mg/dL (65-105); Potassium 3.1 mmol/L (3.4-5.0); Sodium 136 mmol/L (137-145)
[2019-08-26] MEDS: POTASSIUM CHLORIDE 20 MEQ PACKET (FOR LIQUID) 40 MEQ PO (10:51)
[2019-08-26] MEDS: METOCLOPRAMIDE HCL 10 MG/10 ML SOLN UDC PO (11:12)
[2019-08-26] MEDS: hydrALAZINE HCL 20 MG/ML VIAL 10 MG IV PUSH ×2 (15:42→23:35)
[2019-08-26] MEDS: BUMETANIDE 1 MG TABLET 3 MG PO (16:48)
[2019-08-26] MEDS: SEVELAMER CARBONATE 800 MG TABLET PO (16:49)
[2019-08-26] MEDS: hydrALAZINE 10 MG TABLET PO (17:00)
[2019-08-26] MEDS: PANTOPRAZOLE 40 MG TABLET PO (21:15)
[2019-08-26] MEDS: PREGABALIN 75 MG CAPSULE PO (21:15)
[2019-08-26] MEDS: ATORVASTATIN 20 MG TABLET PO (21:15)
[2019-08-26] MEDS: BACLOFEN 5 MG TABLET PO (23:06)
[2019-08-27] VITALS (7 sets, daily range): BP systolic 147–200; BP diastolic 56–90; PULSE 77–86; RESP 16–20; TEMP 36.4–38.1; O2SAT 96–98
[2019-08-27 05:56] LABS: Basophils Percent Auto 0.2 % (0.2-1.2); Blood Urea Nitrogen 48 mg/dL (7-17); Calcium 7.6 mg/dL (8.4-10.2); Carbon Dioxide 25 mmol/L (22-30); Chloride 102 mmol/L (98-107); Eosinophils Absolute Auto 0.2 K/mm3 (0-0.3); Eosinophils Percent Auto 1.2 % (0-4.4); Estimated CRCL calculation 33 ml/min; Estimated Glomerular Filt Rate 34; Glucose 113 mg/dL (65-105); Hematocrit 29.5 % (37.0-47.0); Hemoglobin 9.5 g/dL (12.0-15.0); Immature Granulocyte Absolute 0.09 K/mm3 (0.00-0.031); Immature Granulocyte Percent A 0.6 % (0-0.5); Lymphocytes Absolute Auto 2.22 K/mm3 (0.9-3.2); Lymphocytes Percent Auto 14.7 % (18.3-44.2); Mean Corpuscular HGB Conc 32.2 g/dl (32-36); Mean Corpuscular Hemoglobin 28.7 pg (26-34); Mean Corpuscular Volume 89.1 fl (80-100); Monocytes Absolute Auto 1.6 K/mm3 (0.1-0.6); Monocytes Percent Auto 10.4 % (2.6-8.5); Neutrophils Percent Auto 72.9 % (45.5-73.1); Platelet Count Result 514 k/mm3 (150-375); Potassium 3.4 mmol/L (3.4-5.0); Red Blood Count 3.31 M/mm3 (4.2-5.4); Red Cell Distribution Width 15.6 % (11.5-14.5); Sodium 132 mmol/L (137-145); White Blood Count 15.1 K/mm3 (4.5-10.0)
[2019-08-27 06:32] LABS: Vitamin D 25 Hydroxy 21.2 ng/mL
[2019-08-27] MEDS: DOCUSATE SODIUM 100 MG CAPSULE PO (08:27)
[2019-08-27] MEDS: BUMETANIDE 1 MG TABLET 3 MG PO ×2 (08:27→17:05)
[2019-08-27] MEDS: SPIRONOLACTONE 25 MG TABLET PO (08:27)
[2019-08-27] MEDS: METOPROLOL SUCCINATE EXT REL 50 MG TABCR PO (08:27)
[2019-08-27] MEDS: PANTOPRAZOLE 40 MG TABLET PO ×2 (08:28→20:45)
[2019-08-27] MEDS: SENNOSIDES 8.6 MG TABLET PO ×2 (08:28→17:05)
[2019-08-27] MEDS: SEVELAMER CARBONATE 800 MG TABLET PO ×3 (08:28→17:05)
[2019-08-27] MEDS: LIDOCAINE 5% PATCH 1 PATCH TRANSDERM (08:41)
[2019-08-27] MEDS: CHOLECALCIFEROL 200 UNITS TABLET PO (08:41)
[2019-08-27] MEDS: CHOLECALCIFEROL 400 UNITS TABLET (VIT D) PO (08:41)
[2019-08-27] MEDS: lisinopriL 5 MG TABLET PO (08:42)
--- NOTE | 2019-08-27 09:23 | PM.IMPN ---
Progress Note: A&P Assessment and Plan (1) Hypertension: Qualifiers: Hypertension type: essential hypertension Qualified Code(s): I10 - Essential (primary) hypertension Code(s): I10 - Essential (primary) hypertension Status: Chronic Assessment and Plan: BP was elevated yesterday to 200/80. She remained asymptomatic through the episode and was treated with IV hydralazine. She had not had her PCAS antihypertensives because she was NPO so she was given IV hydralazine and her PO antihypertensives were resumed once appropriate. Her blood pressures are improving. She is also having pain due to her recent hamstring injury. I suspect that her BP will improve once her pain improves and she is back on her PO antihypetensive regimen. Upon reveiw of prior BP at her recent admission, she may benefit from uptitrating her BP control. I have added hydralazine 10mg PO TID temporarily Continue hydralazine IV PRN Continue metoprolol Continue lisinopril, will increase to 10mg starting tomorrow due to persistently elevated BP Continue bumetanide Continue spironolactone Continue to monitor (2) Peroneal DVT (deep venous thrombosis): Code(s): I82.459 - Acute embolism and thrombosis of unspecified peroneal vein Status: Acute Assessment and Plan: Venous doppler was repeated 08/26/19 due to lower extremity swelling and revealed bilateral peroneal DVTs. CT abd/pelvis revealed severely thickened endometrial complex suspicious for malignancy. Will begin therapeutic lovenox and monitor very closely for any bleeding due to concern for possible underlying malignancy She can discharge back to the senior living on lovenox She will need repeat CBC in 1 week. She has anemia of chronic disease. (3) Nausea and vomiting: Qualifiers: Vomiting Intractability: unspecified Vomiting type: unspecified Qualified Code(s): R11.2 - Nausea with vomiting, unspecified Code(s): R11.2 - Nausea with vomiting, unspecified Status: Acute Assessment and Plan: The pt has a hx of nausea and vomiting for [address] abd/pelvis revealed diverticulosis without diverticulitis, no bowel loop dilation, normal appendix, no free intraperitoneal fluid, and normal pancreas. She is tolerating full liquid diet well. I suspect viral gastroenteritis as the etiology for her sx which have resolved. She had a BM yesterday and is passing flatus. Advance to regular diet Continue metoclopramide PRN nausea and vomiting (4) Thickened endometrium: Code(s): R93.89 - Abnormal findings on diagnostic imaging of other specified body structures Status: Acute Assessment and Plan: CT abd/pelvis revealed thickened endometrial complex suspicious for malignancy. She denies abnormal uterine bleeding. I have reached out to Dr. Seymour's office who will see her outpatient for endometrial biopsy. An appt has been scheduled for 08/30/19 at 1:00PM. (5) Acute on chronic renal failure: Qualifiers: Acute renal failure type: unspecified Chronic kidney disease stage: stage 3 (moderate) Qualified Code(s): N17.9 - Acute kidney failure, unspecified; N18.3 - Chronic kidney disease, stage 3 (moderate) Code(s): N17.9 - Acute kidney failure, unspecified; N18.9 - Chronic kidney disease, unspecified Status: Resolved Assessment and Plan: Cr at presentation was 1.8 and BUN was 54. I suspect a pre-renal component as she appeared dehydrated clinically and on labs. She has baseline CKD stage III with proteinuria and is established with Dr. Foster. She is awaiting renal biopsy. Cr is 1.5 today and BUN 48, likely close to baseline. Continue follow-up with nephrology outpatient Encourage PO fluid intake Avoid nephrotoxic agents Renally dose medications Continue to monitor (6) Acute hypokalemia: Code(s): E87.6 - Hypokalemia Status: Resolved Assessment
[2019-08-27] MEDS: hydrALAZINE 10 MG TABLET PO ×2 (13:34→17:06)
[2019-08-27] MEDS: hydrALAZINE HCL 20 MG/ML VIAL 10 MG IV PUSH (18:45)
[2019-08-27] MEDS: ENOXAPARIN 80 MG/0.8 ML SYRINGE 70 MG SUB-Q (20:45)
[2019-08-27] MEDS: PREGABALIN 75 MG CAPSULE PO (20:45)
[2019-08-27] MEDS: ATORVASTATIN 20 MG TABLET PO (20:45)
[2019-08-28 04:54] LABS: Hematocrit 27.9 % (37.0-47.0); Mean Corpuscular HGB Conc 32.3 g/dl (32-36); Mean Corpuscular Hemoglobin 28.6 pg (26-34); Mean Corpuscular Volume 88.6 fl (80-100); Mean Platelet Volume 9.6 fl (7.4-10.4); Platelet Count Result 427 k/mm3 (150-375); Red Blood Count 3.15 M/mm3 (4.2-5.4); Red Cell Distribution Width 15.7 % (11.5-14.5); White Blood Count 10.6 K/mm3 (4.5-10.0)
[2019-08-28 05:21] LABS: Alanine Aminotransferase 8 U/L (4-35); Albumin Level 2.2 g/dL (3.5-5.1); Alkaline Phosphatase 76 U/L (38-126); Aspartate Amino Transferase 16 U/L (14-36); Bilirubin,Total < 0.1 mg/dL (0.2-1.3); Blood Urea Nitrogen 43 mg/dL (7-17); Calcium 7.7 mg/dL (8.4-10.2); Carbon Dioxide 28 mmol/L (22-30); Chloride 101 mmol/L (98-107); Estimated CRCL calculation 31 ml/min; Estimated Glomerular Filt Rate 32; Glucose 100 mg/dL (65-105); Potassium 3.6 mmol/L (3.4-5.0); Sodium 131 mmol/L (137-145)
[2019-08-28 06:00] VITALS: BP 182/86; PULSE 77; RESP 20; TEMP 37.3; O2SAT 96
[2019-08-28] MEDS: hydrALAZINE 10 MG TABLET PO ×2 (06:28→13:02)
[2019-08-28 08:00] VITALS: PULSE 83; RESP 16; O2SAT 98
[2019-08-28 08:19] VITALS: BP 153/59; PULSE 83; RESP 16; O2SAT 98
[2019-08-28 08:37] VITALS: PULSE 83
[2019-08-28] MEDS: DOCUSATE SODIUM 100 MG CAPSULE PO (08:37)
[2019-08-28] MEDS: METOPROLOL SUCCINATE EXT REL 50 MG TABCR PO (08:37)
[2019-08-28] MEDS: CHOLECALCIFEROL 400 UNITS TABLET (VIT D) PO (08:37)
[2019-08-28] MEDS: SENNOSIDES 8.6 MG TABLET PO (08:37)
[2019-08-28] MEDS: SEVELAMER CARBONATE 800 MG TABLET PO ×2 (08:37→13:02)
[2019-08-28] MEDS: PANTOPRAZOLE 40 MG TABLET PO (08:37)
[2019-08-28] MEDS: CHOLECALCIFEROL 200 UNITS TABLET PO (08:37)
[2019-08-28] MEDS: BUMETANIDE 1 MG TABLET 3 MG PO (08:37)
[2019-08-28] MEDS: polyethylene glycoL 3350 17 GM POWD.PACK PO (08:37)
[2019-08-28] MEDS: lisinopriL 10 MG TABLET PO (08:38)
[2019-08-28] MEDS: SPIRONOLACTONE 25 MG TABLET PO (08:38)
--- NOTE | 2019-08-28 13:50 | PM.DS ---
DS: Diagnosis Admitting Diagnosis Admitting Diagnosis: Nausea with vomiting, unspecified Discharge Diagnosis (1) Hypertension: Qualifiers: Hypertension type: essential hypertension Qualified Code(s): I10 - Essential (primary) hypertension Code(s): I10 - Essential (primary) hypertension Status: Chronic (2) Peroneal DVT (deep venous thrombosis): Code(s): I82.459 - Acute embolism and thrombosis of unspecified peroneal vein Status: Acute (3) Nausea and vomiting: Qualifiers: Vomiting Intractability: unspecified Vomiting type: unspecified Qualified Code(s): R11.2 - Nausea with vomiting, unspecified Code(s): R11.2 - Nausea with vomiting, unspecified Status: Acute Assessment and Plan: (4) Thickened endometrium: Code(s): R93.89 - Abnormal findings on diagnostic imaging of other specified body structures Status: Acute (5) Acute on chronic renal failure: Qualifiers: Acute renal failure type: unspecified Chronic kidney disease stage: stage 3 (moderate) Qualified Code(s): N17.9 - Acute kidney failure, unspecified; N18.3 - Chronic kidney disease, stage 3 (moderate) Code(s): N17.9 - Acute kidney failure, unspecified; N18.9 - Chronic kidney disease, unspecified Status: Resolved Assessment and Plan: (6) Acute hypokalemia: Code(s): E87.6 - Hypokalemia Status: Resolved (7) Leukocytosis: Qualifiers: Leukocytosis type: unspecified Qualified Code(s): D72.829 - Elevated white blood cell count, unspecified Code(s): D72.829 - Elevated white blood cell count, unspecified Status: Acute (8) Type 2 diabetes mellitus with peripheral neuropathy: Code(s): E11.42 - Type 2 diabetes mellitus with diabetic polyneuropathy Status: Chronic Assessment and Plan: (9) Chronic low back pain: Qualifiers: Back pain laterality: unspecified Sciatica presence: unspecified whether sciatica present Qualified Code(s): M54.5 - Low back pain; G89.29 - Other chronic pain Code(s): M54.5 - Low back pain; G89.29 - Other chronic pain Status: Chronic Assessment and Plan: (10) Chronic anemia: Code(s): D64.9 - Anemia, unspecified Status: Chronic (11) Constipation: Code(s): K59.00 - Constipation, unspecified Status: Resolved (12) Vitamin D deficiency: Code(s): E55.9 - Vitamin D deficiency, unspecified Status: Acute DS: Summary Hospital Course Reason for hospitalization: Nausea Hospital Course: Date of admission: 08/26/19 Date of discharge: 08/28/19 Lupe Gomez is a 69 yo F with PMH of CKD stage 3, HTN, and CHF who presented to the ED on 08/26/19 with complaints of nausea and vomiting for 3 days. At presentation her WBC was 23.1, plt 596, potassium 3.0, BUN 54 and Cr 1.8. She was admitted to the hospitalist service on 08/26/19 due to N/V and acute dehydration. CT abd/pelvis showed no abnormalities and she was able to tolerate regular diet and N/V improved with metoclopramide. Venous doppler performed on 08/25 due to BLE swelling revealed bilateral peroneal DVT and she was initiated on therapeutic Lovenox due to concern for underlying malignancy. She was noted to have a thickened endometrium on CT for which she will undergo endometrial biopsy on 08/30/19. She may be transitioned to oral anticoagulant at discretion of PCP based on results of biopsy. She did have many elevated BP readings during stay with highest at 200/96. Suspect mild increase may be related to pain as she incurred a hamstring injury during a fall 4 days prior to admission, but BP became persistently elevated. Her lisinopril was increased to 10 mg and she was initiated on hydralazine 10 mg TID. She was instructed to have her BP monitored by staff and recorded for review and medication adjustment by PCP. She was also instructed to follow up with PT at [facility]
[2019-08-28] MEDS: LIDOCAINE 5% PATCH 1 PATCH TRANSDERM (14:29)
== END 2019-08-28 15:13 | DRG 292 ==
LOC: ANHED 08-26 02:00 → ANH2MED 08-26 02:09
PROVIDERS: Physician Assistant; Admitting Provider Family Medicine; Emergency Provider Emergency Medicine; PCP Internal Medicine; Visit Provider Family Medicine
DX: I13.0 Hypertensive heart and chronic kidney disease with heart failure and stage 1 through stage 4 chronic kidney disease, or unspecified chronic kidney disease (principal); I82.453 Acute embolism and thrombosis of peroneal vein, bilateral; N17.9 Acute kidney failure, unspecified; I50.32 Chronic diastolic (congestive) heart failure; K59.00 Constipation, unspecified; N18.3 Chronic kidney disease, stage 3 (moderate); E86.0 Dehydration; E87.6 Hypokalemia; E11.42 Type 2 diabetes mellitus with diabetic polyneuropathy; M54.5 Low back pain; G89.29 Other chronic pain; E78.5 Hyperlipidemia, unspecified; E11.22 Type 2 diabetes mellitus with diabetic chronic kidney disease; Z98.49 Cataract extraction status, unspecified eye; Z90.49 Acquired absence of other specified parts of digestive tract; R93.89 Abnormal findings on diagnostic imaging of other specified body structures; Z86.718 Personal history of other venous thrombosis and embolism; E55.9 Vitamin D deficiency, unspecified; R11.2 Nausea with vomiting, unspecified
CPT/HCPCS: 36415; 51701; 74176; 80048; 80053; 81001; 82306; 82948; 83605; 83690; 83735; 85025; 85027; 85610; 85730; 87086; 87804; 93970; 96361; 96365; 96366; 96367; 96375; 96376; 99285; A9270; C9113; G0378; J0131; J0360; J1650; J2405; J3480; J7030

== ENCOUNTER 2020-03-05 08:10 | Outpatient (CLI) | payer MEDICARE, SELFPAY ==
[2020-02-28 10:22] VITALS: BMI 27.8
[2020-03-05] VITALS (18 sets, daily range): BP systolic 154–201; BP diastolic 65–94; PULSE 48–61; RESP 14–18; O2SAT 89–92
--- NOTE | ~2020-03-05 | US_ITS ---
US renal BI 03/05/2020 12:19 Procedure: Realtime transabdominal ultrasound of the kidneys and bladder. Indication: Proteinuria Comparison: Ultrasound dated 07/13/2019 Findings: Renal echotexture is normal bilaterally without hydronephrosis, contour deforming mass or r enal calculus. The right kidney measures 9.4 cm and left kidney measures 9.9 cm. Bladder within norm al limits. Impression: 1: Unremarkable renal ultrasound. No stones, masses or hydronephrosis. Reviewed, dictated and finalized at location B. Impression: 1: Unremarkable renal ultrasound. No stones, masses or hydronephrosis.
--- NOTE | ~2020-03-05 | US_ITS ---
EXAMINATION: US biopsy renal DATE: 03/05/2020 13:13 INDICATION: Proteinuria TECHNIQUE: The procedure including the risks, benefits, and alternatives was discussed with the patie nt. Risks discussed included bleeding and infection. The patient understood the risks and agreed to p roceed. A timeout was performed to verify the patient's name, date of , and procedure to be p erformed. The skin overlying the left kidney was prepped and draped in usual sterile fashion. Anest hetic was administered with 1% lidocaine subcutaneously. An 18 gauge core biopsy needle was then use d to obtain 4 core biopsy specimens under continuous sonographic guidance. The entry site was cleaned and dressed. There were no immediate complications. FINDINGS: Ultrasound images demonstrate the needle in the kidney. IMPRESSION: 1. Ultrasound-guided random left kidney core needle biopsy. Reviewed, dictated and finalized at location A.
[2020-03-05] MEDS: cloNIDine HCL 0.1 MG TABLET PO ×2 (09:54→11:05)
[2020-03-05 10:16] LABS: Basophils Absolute Auto 0.1 K/mm3 (0.0-0.1); Basophils Percent Auto 0.9 % (0.2-1.2); Eosinophils Absolute Auto 0.7 K/mm3 (0-0.3); Eosinophils Percent Auto 9.7 % (0-4.4); Hematocrit 27.9 % (37.0-47.0); Hemoglobin 8.8 g/dL (12.0-15.0); Immature Granulocyte Absolute 0.02 K/mm3 (0.00-0.031); Immature Granulocyte Percent A 0.3 % (0-0.5); Lymphocytes Absolute Auto 0.41 K/mm3 (0.9-3.2); Lymphocytes Percent Auto 6.1 % (18.3-44.2); Mean Corpuscular HGB Conc 31.5 g/dl (32-36); Mean Corpuscular Hemoglobin 30.4 pg (26-34); Mean Corpuscular Volume 96.5 fl (80-100); Mean Platelet Volume 9.8 fl (7.4-10.4); Monocytes Absolute Auto 0.7 K/mm3 (0.1-0.6); Monocytes Percent Auto 9.8 % (2.6-8.5); Neutrophils Absolute Auto 4.9 K/mm3 (1.3-6.7); Neutrophils Percent Auto 73.2 % (45.5-73.1); Platelet Count Result 268 k/mm3 (150-375); Red Blood Count 2.89 M/mm3 (4.2-5.4); Red Cell Distribution Width 14.5 % (11.5-14.5); White Blood Count 6.7 K/mm3 (4.5-10.0)
[2020-03-05 10:29] LABS: INR 1.2; Prothrombin Time 14.8 Seconds (11.1-14.7)
--- NOTE | 2020-03-05 11:18 | SUR.PHASEII ---
CALLED DR KING AT 1115 WITH HER LOWER BP AND HE SAID TO SEND HER TO ULTRASOUND.
--- NOTE | 2020-03-05 12:33 | SUR.PHASEII ---
PT CAME BACK FROM ULTRASOUND AT 1220. BP STABLE. WILL STAY FOR 4 HRS.
[2020-03-05] MEDS: hydrALAZINE HCL 20 MG/ML VIAL 10 MG IV PUSH (14:46)
--- NOTE | 2020-03-05 16:35 | SUR.PHASEII ---
DR YOON WAS NOTIFIED OF PTS DISCHARGE TIME. HE WAS OK WITH HER LEAVING.
== END 2020-03-05 16:20 | disposition home or self-care (01) ==
PROVIDERS: Radiology Diagnostic Radiology; PCP Internal Medicine; Visit Provider Internal Medicine Nephrology
DX: R60.1 Generalized edema (principal)
CPT/HCPCS: 36415; 50200; 76775; 76942; 85025; 85610; 88300; 88305; 88313; 88329; 88346; 88348; 88350; A9270

== ENCOUNTER 2020-03-26 05:19 | Inpatient (IN) | payer MEDICARE, MEDICAID, SELFPAY ==
[2020-03-26] VITALS (42 sets, daily range): BP systolic 152–249; BP diastolic 46–89; PULSE 63–102; RESP 11–22; TEMP 36.1–37.2; O2SAT 90–100
--- NOTE | ~2020-03-26 | XR_ITS ---
EXAMINATION: XR knee RT min 4V EXAM DATE: 03/26/2020 06:21 INDICATION: No known recent injury provided at this time. Pain of the right knee. TECHNIQUE: Right knee frontal, crosstable lateral, orthogonal oblique projections for interpretation . Comparison is made to prior examination from 07/12/2018. FINDINGS: There is moderate to severe right knee primary osteoarthritis. No joint effusion. Bones ar e osteopenic. There is meniscal chondrocalcinosis, more advanced than contralateral side. Chondrocalc inosis can be an age related finding, but with other possible etiologies including CPPD, parathyroid disorders, hemochromatosis, gout. There are arterial calcifications, arteriosclerosis. There are no acute fractures identified. IMPRESSION: 1. Moderate to severe right gastroenteritis. 2. Chondrocalcinosis. Reviewed, dictated and finalized at location A. BUILDER HELPER
--- NOTE | ~2020-03-26 | XR_ITS ---
EXAMINATION: XR knee LT min 4V EXAM DATE: 03/26/2020 06:21 INDICATION: No known recent injury provided at this time. Pain of the left knee. TECHNIQUE: Left knee frontal, crosstable lateral, orthogonal oblique projections for interpretation. There is no prior study for comparison. FINDINGS: There is moderate left knee primary osteoarthritis. There is meniscal chondrocalcinosis. C hondrocalcinosis can be an age related finding, but with other possible etiologies including CPPD, pa rathyroid disorders, hemochromatosis, gout. There are arterial calcifications, arteriosclerosis. Bon es are osteopenic. There are no acute fractures identified. Small joint effusion. IMPRESSION: Moderate osteoarthritis. Chondrocalcinosis. Small effusion. Reviewed, dictated and finalized at location A. POLISHER
--- NOTE | ~2020-03-26 | XR_ITS ---
EXAMINATION: XR chest 2V EXAM DATE: 03/26/2020 06:21 INDICATION: Weakness. TECHNIQUE: Frontal and lateral projections of the chest obtained and reviewed. Comparison is made to prior examination from 08/03/2019. FINDINGS: There is cardiomegaly and pulmonary vascular congestion. There is indistinct reticulation with a bibasal predominance which may indicate pulmonary edema. Small pleural effusions. No confluent consolidation, pneumothorax or pleural effusion suspected. There is aortic arteriosclerosis. The bon es are osteopenic. There are bony degenerative changes. IMPRESSION: 1. Findings consistent with CHF exacerbation. 2. Small pleural effusions. Reviewed, dictated and finalized at location A. NNAISSANCE MAN
--- NOTE | ~2020-03-26 | US_ITS ---
EXAMINATION: US venous doppler LE EXAM DATE: 03/26/2020 07:54 INDICATION: Bilateral leg swelling. TECHNIQUE: Multiple grayscale, color flow and Doppler images of the lower extremity deep venous syste ms bilaterally were obtained and reviewed. Comparison is made to prior examination from 08/26/2019. FINDINGS: Compared to previous examination the previously seen peroneal DVT has resolved. Right side: The right common femoral, femoral and profunda veins demonstrate normal color flow, respi ratory variation, augmentation and compressibility. Compressibility, color flow confirmed within the right popliteal, posterior tibial, peroneal, and greater saphenous veins. Left side: The left common femoral, femoral and profunda veins demonstrate normal color flow, respira tory variation, augmentation and compressibility. Compressibility, color flow confirmed within the l eft popliteal, posterior tibial, peroneal, and greater saphenous veins. IMPRESSION: 1. No lower extremity deep venous thrombosis bilaterally. Reviewed, dictated and finalized at location A. R RECLAMATION SYSTEMS OPERATOR
--- NOTE | 2020-03-26 05:28 | ECG_ITS ---
Measurements Intervals [place] Rate: 84 P: 72 NC: 170 QRS: 57 QRSD: 96 T: 44 QT: 368 QTc: 436 Interpretive Statements SINUS RHYTHM ATRIAL PREMATURE COMPLEX LOW QRS VOLTAGE IN PRECORDIAL LEADS POOR R WAVE PROGRESSION, ANTERIOR LEADS BASELINE ARTIFACT- I, III, AVR, AVL, V2-V3, V6 BORDERLINE ECG Electronically Signed On 03-26-2020 8:45:33 CUSTOMER LEADER by Jl Floyd D.O.
[2020-03-26 06:04] LABS: Basophils Percent Auto 0.5 % (0.2-1.2); Eosinophils Absolute Auto 0.4 K/mm3 (0-0.3); Hematocrit 30.3 % (37.0-47.0); Hemoglobin 9.7 g/dL (12.0-15.0); Immature Granulocyte Absolute 0.03 K/mm3 (0.00-0.031); Immature Granulocyte Percent A 0.5 % (0-0.5); Lymphocytes Absolute Auto 0.55 K/mm3 (0.9-3.2); Lymphocytes Percent Auto 8.5 % (18.3-44.2); Mean Corpuscular Hemoglobin 31.4 pg (26-34); Mean Corpuscular Volume 98.1 fl (80-100); Mean Platelet Volume 11.5 fl (7.4-10.4); Monocytes Absolute Auto 0.9 K/mm3 (0.1-0.6); Monocytes Percent Auto 13.2 % (2.6-8.5); Neutrophils Absolute Auto 4.6 K/mm3 (1.3-6.7); Neutrophils Percent Auto 71.3 % (45.5-73.1); Platelet Count Result 239 k/mm3 (150-375); Red Blood Count 3.09 M/mm3 (4.2-5.4); Red Cell Distribution Width 12.6 % (11.5-14.5); White Blood Count 6.5 K/mm3 (4.5-10.0)
[2020-03-26 06:12] LABS: INR 1.1; Prothrombin Time 14.6 Seconds (11.1-14.7)
--- NOTE | 2020-03-26 06:29 | ED.WEAKNESS ---
HPI - Weakness General Chief complaint: Weakness <Berkley De MD - Last Filed: 03/29/20 06:08> Stated complaint: weakness, swelling to bilateral legs <Berkley De MD - Last Filed: 03/29/20 06:08> Time Seen by Provider: 03/26/20 05:25 <Berkley De MD - Last Filed: 03/29/20 06:08> Source: patient <Berkley De MD - Last Filed: 03/29/20 06:08> Mode of arrival: ambulatory <Berkley De MD - Last Filed: 03/29/20 06:08> Limitations: no limitations <Berkley De MD - Last Filed: 03/29/20 06:08> History of Present Illness HPI Narrative: This patient is a 69 year old female with history of Hypertension, CHF, chronic renal disease, DM who presents from [facility] for evaluation of weakness and bilateral leg pain. Patient reports over the past couple of days she has been having difficulty walking due to bilateral knee pain and leg swelling. She has history of chronic pain syndrome and she takes morphine daily, but she denies having issues with chronic knee pain. She reports her leg swelling is chronic but it does seem worse. She denies injury to explain her pain. She also reported weakness. She denies chest pain, shortness of breath, fever, chills, nausea, vomiting, or cough. On review of her history she has history of DVT. <Berkley De MD - Last Filed: 03/29/20 06:08> Related Data Home medications: Home Medications Medication Instructions Recorded Confirmed metoclopramide HCl [Reglan] 10 mg PO QID 07/05/19 03/26/20 bumetanide 1 mg PO DAILY 08/01/19 03/26/20 metoprolol succinate 100 mg PO DAILY 08/01/19 03/26/20 polyethylene glycol 3350 [Miralax] 17 g PO DAILY 08/01/19 03/26/20 ropinirole 0.5 mg PO TID PRN 08/01/19 03/26/20 cholecalciferol (vitamin D3) 125 mcg PO DAILY 02/26/20 03/26/20 [Vitamin D3] loperamide [Imodium] 2 mg PO DIRECTED PRN 02/26/20 03/26/20 metolazone 10 mg PO DAILY 02/26/20 03/26/20 pantoprazole 40 mg PO QAM 02/26/20 03/26/20 sennosides [senna] 8.6 mg PO DAILY 02/26/20 03/26/20 sevelamer carbonate [Renvela] 800 mg PO TIDWM 02/26/20 03/26/20 temazepam 15 mg PO HS PRN 02/26/20 03/26/20 acetaminophen 500 mg PO BID PRN 03/26/20 03/26/20 diphenhydramine HCl [Allergy 25 mg PO TID PRN 03/26/20 03/26/20 (diphenhydramine)] escitalopram oxalate 5 mg PO QAM 03/26/20 03/26/20 morphine 15 mg PO Q12H PRN 03/26/20 03/26/20 ondansetron HCl 4 mg PO Q6H PRN 03/26/20 03/26/20 prochlorperazine 25 mg MO Q8H PRN 03/26/20 03/26/20 prochlorperazine maleate 5 mg PO Q6H PRN 03/26/20 03/26/20 <Berkley De MD - Last Filed: 03/29/20 06:08> Allergies/Adverse reactions: Allergies Allergy/AdvReac Type Severity Reaction Status Date / Time No Known Allergies Allergy Verified 03/26/20 13:39 <Berkley De MD - Last Filed: 03/29/20 06:08> Review of Systems Review of Systems: All systems reviewed & are unremarkable except as noted in HPI and below <Berkley De MD - Last Filed: 03/29/20 06:08> Constitutional: Constitutional: Denies chills, Reports fatigue and Denies fever(s) <Berkley De MD - Last Filed: 03/29/20 06:08> ENT: Denies nasal congestion and Denies sore throat <Berkley De MD - Last Filed: 03/29/20 06:08> Cardiovascular: Cardiovascular: Denies chest pain <Berkley De MD - Last Filed: 03/29/20 06:08> Respiratory: Respiratory: Denies cough and Denies dyspnea <Berkley De MD - Last Filed: 03/29/20 06:08> Gastrointestinal: Gastrointestinal: Denies abdominal pain, Denies nausea and Denies vomiting <Berkley De MD - Last Filed: 03/29/20 06:08> [facility] Past Medical History Medical History: Medical History (Updated 03/26/20 @ 19:02 by Chris Melton DO) Chronic anemia Chronic kidney disease, stage 3 Baseline creatinine between 1.4 and 1.60. Chronic low back pain Chronic pain syndrome Had previously been on morphine 15 milligrams b.i.d.
[2020-03-26 06:35] LABS: Platelet Estimate Adequate (Adequate)
[2020-03-26 06:51] LABS: Alanine Aminotransferase 16 U/L (4-35); Albumin Level 3.3 g/dL (3.5-5.1); Alkaline Phosphatase 92 U/L (38-126); Anion Gap 10 mmol/L (8-16); Aspartate Amino Transferase 20 U/L (14-36); Bilirubin,Total 0.2 mg/dL (0.2-1.3); Blood Urea Nitrogen 95 mg/dL (7-17); Calcium 8.1 mg/dL (8.4-10.2); Carbon Dioxide 27 mmol/L (22-30); Chloride 104 mmol/L (98-107); Estimated CRCL calculation 16 ml/min; Estimated Glomerular Filt Rate 17; Glucose 107 mg/dL (65-105); Potassium 3.9 mmol/L (3.4-5.0); Sodium 141 mmol/L (137-145)
[2020-03-26 07:00] LABS: NT Pro B Type Natriuretic Pept 8720 PG/ML (5-100)
[2020-03-26 07:01] LABS: Add Urine Microscopic? YES; Appearance Urine Clear (Clear); Bacteria Urine Trace /hpf; Bilirubin Urine Negative (Negative); Blood Urine Negative (Negative); Color Urine Straw (Yellow); Glucose Urine UA 1+ mg/dL (Negative); Ketones Urine Negative (Negative); Leukocyte Esterase Ur Negative LEU/UL (Negative); Nitrate Urine Negative (Negative); Protein Urine 3+ mg/dL (Negative); Specific Grav Ur 1.012 (1.001-1.035); Squamous Epithelial Cell Urine Rare /hpf (Few); Urobilinogen Urine Negative mg/dL (<2.0)
[2020-03-26 07:17] LABS: Creatine Kinase 76 U/L (30-135)
--- NOTE | 2020-03-26 07:25 | PC.NURSE ---
to ultrasound. stable at time of departure from unit.
[2020-03-26] MEDS: hydrALAZINE HCL 20 MG/ML VIAL 10 MG IV PUSH (08:00)
[2020-03-26] MEDS: MORPHINE SULFATE (*CRX) 4 MG/ML INJ IV PUSH (10:18)
[2020-03-26] MEDS: ONDANSETRON INJ 4 MG/2 ML VIAL IV PUSH (10:18)
--- NOTE | 2020-03-26 10:21 | PC.NURSE ---
medicated per orders for c/o low back pain. pt continues to refuse hospital gown at this time
--- NOTE | 2020-03-26 10:22 | PM.IMHP ---
H&P: HPI History of Present Illness Date/Time: 03/26/20 10:22 Chief complaint: CHF/ANGIE Narrative: Lupe Gomez is a 69 year old female with past medical history of congestive heart failure [facility] Past Medical History Medical History Chronic anemia Chronic kidney disease, stage 3 Baseline creatinine between 1.4 and 1.60. Chronic low back pain Chronic pain syndrome Had previously been on morphine 15 milligrams b.i.d. Recently started on Lyrica. Depression Diastolic congestive heart failure Echocardiogram in January 2019 demonstrated normal left ventricular size and function with ejection fraction of > 70% diastolic dysfunction grade 2. Gastritis Hyperlipidemia Hypertension Nephrotic syndrome 12/30/2019 had 24 hour urine Rectal bleeding Type 2 diabetes mellitus with peripheral neuropathy Surgical History Surgical History History of knee surgery Hx of toe surgery Status post cataract extraction Status post cholecystectomy Family History Family History Mother Lung cancer Sibling Malignant neoplasm of prostate Diabetes mellitus Osteoarthritis Dialysis patient Heart disease Social History Social History Social History: The patient has been since 2010, when her from cancer. Her daughter was killed that same year and a drunk driving accident. She does have a son who lives in [place], [place]. Her brother, Kolton Macias, is her surrogate decision maker and she wishes to be a do not resuscitate. She is a former smoker and denies alcohol and drug abuse. Smoking packs per day: 1 Smoking cigarettes per day: 20.0 Years smoked: 5 Smoking pack-years: 5.00 Smoking status: Former smoker Tobacco type: cigarettes Alcohol intake: never Substance use: never Substance use type: does not use Gender identity (if verbalized by the patient): Female Spiritual care concerns: No Agree to blood products: Yes Meds Home Medications and Allergies Home Medications Medication Instructions Recorded Confirmed Type docusate sodium 100 mg tablet 100 mg PO DAILY #1 tablet 03/29/19 03/26/20 Rx metoclopramide HCl [Reglan] 10 mg PO QID 07/05/19 03/26/20 History bumetanide 1 mg PO DAILY 08/01/19 03/26/20 History metoprolol succinate 100 mg PO DAILY 08/01/19 03/26/20 History polyethylene glycol 3350 [Miralax] 17 g PO DAILY 08/01/19 03/26/20 History ropinirole 0.5 mg PO TID PRN 08/01/19 03/26/20 History atorvastatin 20 mg tablet 20 mg PO HS #90 tablet 11/27/19 03/26/20 Rx hydralazine 10 mg tablet 50 mg PO TID #120 tablet 11/27/19 03/26/20 Rx cholecalciferol (vitamin D3) 125 mcg PO DAILY 02/26/20 03/26/20 History [Vitamin D3] loperamide [Imodium] 2 mg PO DIRECTED PRN 02/26/20 03/26/20 History metolazone 10 mg PO DAILY 02/26/20 03/26/20 History pantoprazole 40 mg PO QAM 02/26/20 03/26/20 History sennosides [senna] 8.6 mg PO DAILY 02/26/20 03/26/20 History sevelamer carbonate [Renvela] 800 mg PO TIDWM 02/26/20 03/26/20 History temazepam 15 mg PO HS PRN 02/26/20 03/26/20 History acetaminophen 500 mg PO BID PRN 03/26/20 03/26/20 History diphenhydramine HCl [Allergy 25 mg PO TID PRN 03/26/20 03/26/20 History (diphenhydramine)] escitalopram oxalate 5 mg PO QAM 03/26/20 03/26/20 History morphine 15 mg PO Q12H PRN 03/26/20 03/26/20 History ondansetron HCl 4 mg PO Q6H PRN 03/26/20 03/26/20 History prochlorperazine 25 mg HI Q8H PRN 03/26/20 03/26/20 History prochlorperazine maleate 5 mg PO Q6H PRN 03/26/20 03/26/20 History Allergies Allergy/AdvReac Type Severity Reaction Status Date / Time No Known Allergies Allergy Verified 03/26/20 13:39 Vital Signs Vital Signs - 24 hr 03/26/20 05:18 03/26/20 05:43 03/26/20 06:31 Temperature 37.2 C Pulse Rate 102 H
[2020-03-26] MEDS: FUROSEMIDE INJ 40 MG/4 ML VIAL IV PUSH ×2 (10:50→19:09)
--- NOTE | 2020-03-26 11:08 | PC.NURSE ---
received bedside report from Ernestine GOINS. resting on stretcher. waiting for bed upstairs. on site monitor. on O2. appears comfortable call light in reach.
--- NOTE | 2020-03-26 11:53 | PC.NURSE ---
patient has bed upstairs. SBAR completed. tubed and faxed.
--- NOTE | 2020-03-26 12:16 | PC.NURSE ---
report given to Maame GOINS on 2nd floor. patient transferred to 246 via sonogram technician and monitor. no change in condition.
--- NOTE | 2020-03-26 12:40 | ADMGEN ---
This patient, Lupe Gomez, was admitted to Medical Room 246-01. Patient/family oriented to hospital policies and general routines including ID bracelet, bed and alarms, visiting hours, pain management, procedures, bathroom and other care routines, personal items, smoking policy, room service/diet, and visiting hours. Information on how to activate the Rapid Response Team has been discussed. Patient/Family are encouraged to report perceived risks to care and to ask questions if they do not understand what they are told or what they should do.
[2020-03-26 16:45] LABS: Troponin I 0.039 ng/mL (0.000-0.034)
--- NOTE | 2020-03-26 18:35 | PM.IMHP ---
H&P: HPI History of Present Illness Date/Time: 03/26/20 18:35 Chief complaint: CHF/ANGIE Narrative: Lupe Gomez is a 69 year old female with past medical history of CKD, grade 3 uterine cancer, CHF, type 2 diabetes, peroneal DVT, GERD who presents the ED from [facility] weakness, bilateral edema/pain. Patient states she has been eating a lot of cottage cheese over last 2 weeks which she did not realize had a lot of salt. She then developed progressive swelling and bilateral knee and leg pain. Patient denies any trauma to her legs, recent travels, history of DVTs (ER documentation notes patient does have a history of DVT). Patient denies fever, chills, nausea, vomiting, diarrhea, chest pain, dyspnea, nocturia, paroxysmal nocturnal dyspnea. She does note sleeping on her left lateral decubitus position helps her breathe better. Patient had been previously admitted at this hospital on 08/26/2019 for nausea vomiting and renal insufficiency. In the ED: Venous duplex negative bilaterally. Knee x-ray shows moderate osteoarthritis, chest x-ray shows findings consistent with CHF exacerbation Patient given 40 mg IV Lasix, a g of Tylenol, hydralazine 10 mg once, morphine 4 mg once, Zofran 4 mg once. Creatinine at 2.80, hemoglobin 9.7, other labs stable. EKG is normal sinus rhythm rate 84. Patient admitted for acute kidney injury and congestive heart failure exacerbation. Review of Systems Review of Systems: Narrative: Constitutional: No Fever, No Chills, No Night Sweats, No Fatigue, No Malaise ENT/Mouth: No Hearing Changes, No Ear Pain, No Nasal Congestion, No Sinus Pain, No Hoarseness, No sore throat, No Rhinorrhea, No Swallowing Difficulty Eyes: No Eye Pain, No Redness, No Vision Changes Cardiovascular: No Chest Pain, No Palpitations No Orthopnea, No Claudication. Endorses bilateral edema, dyspnea relieved by laying in left lateral decubitus Respiratory: No Cough, No Sputum, No Wheezing, Gastrointestinal: No Nausea, No Vomiting, No Diarrhea, No Constipation, No Abdominal Pain, No Heartburn, No Hematochezia, No Melena Genitourinary: No Dysuria, No Urinary Frequency, No Hematuria, No Urinary Incontinence, No Urgency Musculoskeletal: Endorses bilateral lower extremity swelling, joint swelling, pain Skin: No Skin Lesions, No Pruritis, No Hair Changes Neuro: No Weakness, No Numbness, No Paresthesias, No Loss of Consciousness, No Syncope, No Dizziness, No Headache Psych: No Anxiety/Panic, No Depression, No Insomnia Heme: No Bruising, No Bleeding Lymph: No Adenopathy Endocrine: No Polyuria, No Polydipsia, No Temperature Intolerance PMFSH Past Medical History Medical History Chronic anemia Chronic kidney disease, stage 3 Baseline creatinine between 1.4 and 1.60. Chronic low back pain Chronic pain syndrome Had previously been on morphine 15 milligrams b.i.d. Recently started on Lyrica. Depression Diastolic congestive heart failure Echocardiogram in January 2019 demonstrated normal left ventricular size and function with ejection fraction of > 70% diastolic dysfunction grade 2. Gastritis Hyperlipidemia Hypertension Nephrotic syndrome 12/30/2019 had 24 hour urine Rectal bleeding Type 2 diabetes mellitus with peripheral neuropathy Surgical History Surgical History History of knee surgery Hx of toe surgery Status post cataract extraction Status post cholecystectomy Family History Family History Mother Lung cancer Sibling Malignant neoplasm of prostate Diabetes mellitus Osteoarthritis Dialysis patient Heart disease Social History Social History Social History: The patient has been since 2010, when her from cancer. Her daughter was killed that same year
[2020-03-26] MEDS: SEVELAMER CARBONATE 800 MG TABLET PO (19:09)
[2020-03-26] MEDS: hydrALAZINE HCL 50 MG TABLET PO (19:09)
[2020-03-26] MEDS: METOCLOPRAMIDE HCL 10 MG TABLET PO (21:53)
[2020-03-26] MEDS: ATORVASTATIN 20 MG TABLET PO (21:53)
[2020-03-27] VITALS (14 sets, daily range): BP systolic 126–210; BP diastolic 53–60; PULSE 58–88; RESP 14–18; TEMP 36.5–37.1; O2SAT 95–99
--- NOTE | 2020-03-27 | ECHO_ITS ---
Patient Info Name: Lupe Gomez Age: 69 years : 1950 Gender: Female Ht: 62 in Wt: 178 lbs BSA: 1.91 m2 HR: 61 bpm BP: 157 / 53 mmHg Heart Rhythm: Sinus Rhythm Technical Quality: Good Exam Date: 03/27/2020 1:03 PM Exam Location: [facility] Pulmonary Exam Room: 246 Patient Status: Inpatient Admit Date: 03/26/2020 Staff Ordering Physician: Chris Melton DO [employer] Team Member: Lisbeth Wilson RDCS Attending Provider: Chris Melton DO Referring Physician: Geronimo MADSEN; Exam Type: CA echo doppler color flow Study Info Indications - chf eval EF Complete two-dimensional, color flow and Doppler transthoracic echocardiogram is performed. Summary 1. Left ventricular systolic function is normal, estimated at 60-65%. 2. There is moderately increased left ventricular wall thickness. 3. The left ventricular diastolic function is grade II diastolic dysfunction. 4. Left atrial chamber dimension is moderately enlarged. 5. Right atrial chamber dimension is moderately enlarged. 6. Aortic valve is not well visualized. 7. There is no aortic valve stenosis. 8. There is mild mitral valve regurgitation. 9. There is moderate tricuspid valve regurgitation. 10. Moderate pulmonary hypertension, estimated pulmonary arterial systolic pressure is 47 mmHg. 11. There is a small pericardial effusion without tamponade physiology with mitral or tricuspid inflow velocities. Left pleural effusion identified. 12. Dilated inferior vena cava with >50% collapse upon inspiration consistent with elevated right atrial pressure, 10 mmHg. Left Ventricle Left ventricular chamber dimension is normal. Left ventricular systolic function is normal, estimated at 60-65%. There is moderately increased left ventricular wall thickness. The left ventricular diastolic function is grade II diastolic dysfunction. Right Ventricle Right ventricular chamber dimension is normal. Right ventricular systolic function is normal. Left Atria Left atrial chamber dimension is moderately enlarged. Right Atria Right atrial chamber dimension is moderately enlarged. Aortic Valve There is no aortic valve stenosis. There is no aortic valve regurgitation. Aortic valve is not well visualized. Pulmonic Valve The pulmonic valve is not well visualized. There is mild pulmonic regurgitation. Mitral Valve The mitral valve has thickened leaflets. There is mild mitral valve regurgitation. The mitral valve annulus is mildly calcified. Tricuspid Valve The tricuspid valve leaflets are normal. There is moderate tricuspid valve regurgitation. Moderate pulmonary hypertension, estimated pulmonary arterial systolic pressure is 47 mmHg. Pericardium/Pleural The pericardium appears normal. There is a small pericardial effusion without tamponade physiology with mitral or tricuspid inflow velocities. Left pleural effusion identified. Inferior Vena Cava Dilated inferior vena cava with >50% collapse upon inspiration consistent with elevated right atrial pressure, 10 mmHg. Aorta The aortic root size at the sinus of Valsalva is normal. There is mild aortic atherosclerosis. Left Ventricular Outflow Tract Name Value Normal LVOT 2D LVOT Diamet
[2020-03-27] MEDS: rOPINIRole HCL 0.5 MG TABLET PO (01:35)
[2020-03-27] MEDS: MORPHINE SULFATE (*CRX) 15 MG TABCR PO ×2 (01:51→21:23)
[2020-03-27] MEDS: hydrALAZINE HCL 20 MG/ML VIAL 10 MG IV PUSH (04:00)
[2020-03-27] MEDS: diphenhydrAMINE HCl CAP 25 MG CAPSULE PO ×2 (04:05→16:27)
[2020-03-27 05:42] LABS: Anion Gap 7 mmol/L (8-16); Blood Urea Nitrogen 93 mg/dL (7-17); Calcium 8.3 mg/dL (8.4-10.2); Carbon Dioxide 28 mmol/L (22-30); Chloride 103 mmol/L (98-107); Estimated CRCL calculation 17 ml/min; Estimated Glomerular Filt Rate 17; Glucose 122 mg/dL (65-105); Potassium 3.9 mmol/L (3.4-5.0); Sodium 138 mmol/L (137-145)
[2020-03-27 05:59] LABS: Hemoglobin A1C 4.8 % (<5.7)
[2020-03-27] MEDS: METOCLOPRAMIDE HCL 10 MG TABLET PO ×4 (06:18→21:24)
[2020-03-27] MEDS: METOPROLOL SUCCINATE EXT REL 100 MG TABCR PO (08:24)
[2020-03-27] MEDS: DOCUSATE SODIUM 100 MG CAPSULE PO (08:24)
[2020-03-27] MEDS: PANTOPRAZOLE 40 MG TABLET PO (08:25)
[2020-03-27] MEDS: metOLazone 5 MG TABLET 10 MG PO (08:25)
[2020-03-27] MEDS: hydrALAZINE HCL 50 MG TABLET PO ×3 (08:25→16:19)
[2020-03-27] MEDS: CHOLECALCIFEROL 1,000 UNITS TABLET 1000 UNITS PO (08:25)
[2020-03-27] MEDS: SEVELAMER CARBONATE 800 MG TABLET PO ×3 (08:25→16:19)
[2020-03-27] MEDS: ESCITALOPRAM OXALATE 5 MG TABLET PO (08:25)
[2020-03-27] MEDS: TOLNAFTATE 1% POWDER 45 GM BTL 1 APPLIC TOPICAL ×2 (08:26→21:25)
[2020-03-27] MEDS: ENOXAPARIN 40 MG/0.4 ML SYRINGE SUB-Q (08:26)
[2020-03-27] MEDS: ONDANSETRON INJ 4 MG/2 ML VIAL IV PUSH (08:31)
--- NOTE | 2020-03-27 09:39 | PCOTNOTE ---
Attempted OT evaluation, patient declined stating that she is nauseated and does not think she can move at the moment. Nurse notified, will continue to attempt.
[2020-03-27] MEDS: FUROSEMIDE INJ 40 MG/4 ML VIAL IV PUSH ×2 (09:54→16:19)
--- NOTE | 2020-03-27 10:45 | PCPTNOTE ---
Attempted PT evaluation, patient declining therapy at this time secondary to nausea. OT notified nursing, will continue to attempt.
--- NOTE | 2020-03-27 11:27 | PCDIET ---
Physician Consult for heart healthy instruction. See Nutritional Teaching Intervention. Patient Instruction attached. Thank you for the consult.
--- NOTE | 2020-03-27 12:50 | PM.IMPN ---
Progress Note: A&P Assessment and Plan (1) ANGIE (acute kidney injury): Code(s): N17.9 - Acute kidney failure, unspecified Status: Acute (2) Major depressive disorder, recurrent, mild: Code(s): F33.0 - Major depressive disorder, recurrent, mild Status: Acute (3) Type 2 diabetes mellitus with diabetic polyneuropathy: Qualifiers: Diabetes mellitus lobsterman insulin use: without long-term use Qualified Code(s): E11.42 - Type 2 diabetes mellitus with diabetic polyneuropathy Code(s): E11.42 - Type 2 diabetes mellitus with diabetic polyneuropathy Status: Acute (4) Shortness of breath: Code(s): R06.02 - Shortness of breath Status: Acute (5) Hyperlipidemia, unspecified: Qualifiers: Hyperlipidemia type: mixed hyperlipidemia Qualified Code(s): E78.2 - Mixed hyperlipidemia Code(s): E78.5 - Hyperlipidemia, unspecified Status: Acute Additional Plan # volume overload, anasarca, CHF exacerbation -physical exam findings of pitting edema bilateral lower extremities, chest x-ray consistent with CHF exacerbation -heart healthy diet with 1.5L fluid restriction, dietary consulted -will continue with 40 mg IV Lasix b.i.d. and with weight unchanged and strict inputs and outputs unable to be obtained due to incontinence, will place a Arshad catheter for strict input and outputs -will continue diuresis and wean off of oxygen, can give supplemental oxygen to keep oxygen saturation greater than 90% -echocardiogram today, echocardiogram from January 2019 showed normal EF greater than 70%, grade 2 diastolic dysfunction -will continue metolazone 30min before AM lasix -Zofran and prochlorperazine for nausea # ANGIE on CKD stage 3 from HTN/DMII -may be cardiorenal, will continue IV diuresis and trend Cr , creatinine improving with diuresis -down to 2.7 from 2.8, baseline 1.4-1.6 # hypertension -continue home metoprolol, hydralazine TID # other chronic conditions -patient has history of type 2 diabetes not on any diabetic medications, hgb a1c 4.8 -hyperlipidemia: Continue atorvastatin -depression: Continue escitalopram -vitamin-D deficiency: Continue supplement -constipation: Continue docusate, MiraLax, senna -insomnia: continue Restoril -restless leg syndrome: Continue Requip -GERD: continue Protonix -chronic pain: Continue home morphine 15 mg q.12 hours Diet: Heart healthy with 1.5L fluid restriction, consulted cook helper meat DVT prophylaxis: Lovenox Code status: Full code Disposition: Inpatient medical floor pending clinical course Subjective Date/time seen: 03/27/20 12:50 Patient examined bedside. She has no new complaints, states the swelling has come down and that she is going to bathroom many times. Patient has been marked incontinent of urine, will try to get strict I&Os, weight appears to be unchanged. will continue IV diuresis 40 mg b.i.d.. Appears patient is diuresing well, creatinine decreased slightly may be cardiorenal phenomenon and continued diuresis will be edmondson to improve renal function. patient is on 1 L oxygen nasal cannula. plan for echocardiogram today. Patient denies fever, chills, nausea, vomiting, diarrhea, chest pain, dyspnea. Review of Systems Review of Systems: All systems reviewed & are unremarkable except as noted in HPI and below Exam Narrative: Exam Narrative: - GENERAL: Pleasant elderly woman in no acute distress - EYES: EOMI. Anicteric. - HENT: Moist mucous membranes. No scleral icterus. - LUNGS: left-sided rales at lung base, otherwise lungs are clear to auscultation - Breast: left breast nodular mass - CARDIOVASCULAR: Regular rate and rhythm. No murmur. No JVD. - ABDOMEN: Soft, non-tender and non-distended. No palpable masses. - EXTREMITIES: Peripheral pulses 2+. Tender to palpation throughout. 2+ pitting edema up above knee improving. - NEUROLOGIC: No focal neurological deficits. CN II-XII grossly intact. - PSYCHIATRIC: Awake, Aler
--- NOTE | 2020-03-27 14:57 | PCOTNOTE ---
Attempted OT evaluation. Patient states I just don't want to do it today . Patient educated in benefits of therapy and continues to decline therapy at this time. Will attempt tomorrow.
[2020-03-27] MEDS: TEMAZEPAM (*CRX) 15 MG CAPSULE PO (21:23)
[2020-03-27] MEDS: ATORVASTATIN 20 MG TABLET PO (21:25)
[2020-03-28] VITALS (15 sets, daily range): BP systolic 137–175; BP diastolic 48–70; PULSE 57–63; RESP 14–18; TEMP 36.4–37.1; O2SAT 90–98
[2020-03-28 05:37] LABS: Hematocrit 26.3 % (37.0-47.0); Hemoglobin 8.5 g/dL (12.0-15.0); Mean Corpuscular HGB Conc 32.3 g/dl (32-36); Mean Corpuscular Hemoglobin 31.5 pg (26-34); Mean Corpuscular Volume 97.4 fl (80-100); Mean Platelet Volume 9.9 fl (7.4-10.4); Platelet Count Result 240 k/mm3 (150-375); Red Cell Distribution Width 12.2 % (11.5-14.5); White Blood Count 5.3 K/mm3 (4.5-10.0)
[2020-03-28] MEDS: METOCLOPRAMIDE HCL 10 MG TABLET PO ×4 (05:45→21:01)
[2020-03-28 06:03] LABS: Anion Gap 7 mmol/L (8-16); Blood Urea Nitrogen 93 mg/dL (7-17); Calcium 8.3 mg/dL (8.4-10.2); Carbon Dioxide 31 mmol/L (22-30); Chloride 100 mmol/L (98-107); Estimated CRCL calculation 17 ml/min; Estimated Glomerular Filt Rate 17; Glucose 103 mg/dL (65-105); Potassium 3.6 mmol/L (3.4-5.0); Sodium 138 mmol/L (137-145)
[2020-03-28] MEDS: CHOLECALCIFEROL 1,000 UNITS TABLET 1000 UNITS PO (08:50)
[2020-03-28] MEDS: SEVELAMER CARBONATE 800 MG TABLET PO ×3 (08:50→16:33)
[2020-03-28] MEDS: metOLazone 5 MG TABLET 10 MG PO (08:50)
[2020-03-28] MEDS: hydrALAZINE HCL 50 MG TABLET PO ×3 (08:51→16:35)
[2020-03-28] MEDS: ESCITALOPRAM OXALATE 5 MG TABLET PO (08:51)
[2020-03-28] MEDS: METOPROLOL SUCCINATE EXT REL 100 MG TABCR PO (08:52)
[2020-03-28] MEDS: FUROSEMIDE INJ 100 MG/10 ML VIAL 80 MG IV PUSH ×2 (08:58→16:34)
[2020-03-28] MEDS: diphenhydrAMINE HCl CAP 25 MG CAPSULE PO (09:05)
--- NOTE | 2020-03-28 09:31 | PM.IMPN ---
Progress Note: A&P Assessment and Plan (1) ANGIE (acute kidney injury): Code(s): N17.9 - Acute kidney failure, unspecified Status: Acute (2) Major depressive disorder, recurrent, mild: Code(s): F33.0 - Major depressive disorder, recurrent, mild Status: Acute (3) Type 2 diabetes mellitus with diabetic polyneuropathy: Qualifiers: Diabetes mellitus nurse practitioner physician assistant insulin use: without nurse practitioner physician assistant use Qualified Code(s): E11.42 - Type 2 diabetes mellitus with diabetic polyneuropathy Code(s): E11.42 - Type 2 diabetes mellitus with diabetic polyneuropathy Status: Acute (4) Shortness of breath: Code(s): R06.02 - Shortness of breath Status: Acute (5) Hyperlipidemia, unspecified: Qualifiers: Hyperlipidemia type: mixed hyperlipidemia Qualified Code(s): E78.2 - Mixed hyperlipidemia Code(s): E78.5 - Hyperlipidemia, unspecified Status: Acute Additional Plan # volume overload, anasarca, CHF exacerbation -heart healthy diet with 1.5L fluid restriction, dietary discussed with patient -keep goldberg catheter for strict inputs and ouptuts, only net -240 -weaned off O2, can give supplemental oxygen to keep oxygen saturation greater than 90% -echocardiogram EF 60-65%, grade 2 diastolic dysfunction -will continue metolazone 30min before AM lasix -Zofran and prochlorperazine for nausea # ANGIE on CKD stage 3 from HTN/DMII -may be cardiorenal, increasing diuretic Lasix to 80 mg b.i.d. -continue strict inputs/outputs -stable Cr 2.7, baseline 1.4-1.6 # hypertension -continue home metoprolol, hydralazine TID #breast mass -left breast mass, patient will need outpatient mammogram and workup for breast CA # other chronic conditions -patient has history of type 2 diabetes not on any diabetic medications, hgb a1c 4.8 -hyperlipidemia: Continue atorvastatin -depression: Continue escitalopram -vitamin-D deficiency: Continue supplement -constipation: Continue docusate, MiraLax, senna -insomnia: continue Restoril -restless leg syndrome: Continue Requip -GERD: continue Protonix -chronic pain: Continue home morphine 15 mg q.12 hours Diet: Heart healthy with 1.5L fluid restriction, consulted skills auditor DVT prophylaxis: Lovenox Code status: Full code Disposition: likely home tomorrow if kidney function improves Subjective Date/time seen: 03/28/20 09:31 Patient examined. Echocardiogram 03/26 shows normal EF 60-65%, grade 2 diastolic dysfunction. She has been weaned off the oxygen. Working well with physical therapy. Kidney functions about the same, net urine output was only 240 cc, will increase Lasix to 80 mg b.i.d.. Will watch 1 more day. Patient denies fever, chills, nausea, vomiting, diarrhea, chest pain, dyspnea. She states peripheral edema is improving. Review of Systems Review of Systems: All systems reviewed & are unremarkable except as noted in HPI and below Exam Narrative: Exam Narrative: - GENERAL: Pleasant elderly woman in no acute distress - EYES: EOMI. Anicteric. - HENT: Moist mucous membranes. No scleral icterus. - LUNGS: persistent left-sided rales at lung base, otherwise lungs are clear to auscultation - Breast: left breast nodular mass - CARDIOVASCULAR: Regular rate and rhythm. No murmur. No JVD. - ABDOMEN: Soft, non-tender and non-distended. No palpable masses. - EXTREMITIES: Peripheral pulses 2+. non-tender. 2+ pitting edema up above knee improving. - NEUROLOGIC: No focal neurological deficits. CN II-XII grossly intact. - PSYCHIATRIC: Awake, Alert and oriented x 3. Appropriate mood and affect. - SKIN: No rashes or lesions. Warm. - LYMPH: No cervical lymphadenopathy. Objective Data Vital Signs Vital Signs: Vital Signs - 24 hr 03/27/20 10:00 03/27/20 12:00 03/27/20 14:00 Temperature 36.7 C 36.9 C Pulse Rate 82 62 59 L Respiratory Rate 16 16 Blood Pressure 157/53 H 183/58 H Pulse Oximetry 97 99 03/27/20 16:00 03/27/20 18:00 03/27/20 2
[2020-03-28] MEDS: TOLNAFTATE 1% POWDER 45 GM BTL 1 APPLIC TOPICAL ×2 (10:30→21:01)
[2020-03-28] MEDS: ENOXAPARIN 30 MG/0.3 ML SYRINGE SUB-Q (11:07)
[2020-03-28] MEDS: PANTOPRAZOLE 40 MG TABLET PO (11:07)
[2020-03-28 14:52] LABS: SARS-CoV-2 RNA PCR Negative
[2020-03-28] MEDS: ATORVASTATIN 20 MG TABLET PO (21:01)
[2020-03-28] MEDS: MORPHINE SULFATE (*CRX) 15 MG TABCR PO (21:04)
[2020-03-29] VITALS (14 sets, daily range): BP systolic 135–191; BP diastolic 45–64; PULSE 57–65; RESP 16–22; TEMP 36.7–37.2; O2SAT 94–98
[2020-03-29] MEDS: METOCLOPRAMIDE HCL 10 MG TABLET PO ×4 (05:52→20:19)
[2020-03-29] MEDS: ENOXAPARIN 30 MG/0.3 ML SYRINGE SUB-Q (08:10)
[2020-03-29] MEDS: FUROSEMIDE INJ 100 MG/10 ML VIAL 80 MG IV PUSH ×2 (08:10→16:55)
[2020-03-29] MEDS: TOLNAFTATE 1% POWDER 45 GM BTL 1 APPLIC TOPICAL ×2 (08:11→20:20)
[2020-03-29] MEDS: PANTOPRAZOLE 40 MG TABLET PO (08:11)
[2020-03-29] MEDS: SEVELAMER CARBONATE 800 MG TABLET PO ×3 (08:12→16:56)
[2020-03-29] MEDS: CHOLECALCIFEROL 1,000 UNITS TABLET 1000 UNITS PO (08:17)
[2020-03-29] MEDS: hydrALAZINE HCL 50 MG TABLET PO ×3 (08:17→16:56)
[2020-03-29] MEDS: ESCITALOPRAM OXALATE 5 MG TABLET PO (08:17)
[2020-03-29] MEDS: metOLazone 5 MG TABLET 10 MG PO (08:18)
[2020-03-29] MEDS: METOPROLOL SUCCINATE EXT REL 100 MG TABCR PO (08:18)
[2020-03-29 09:24] LABS: Anion Gap 11 mmol/L (8-16); Blood Urea Nitrogen 87 mg/dL (7-17); Calcium 8.5 mg/dL (8.4-10.2); Carbon Dioxide 29 mmol/L (22-30); Chloride 95 mmol/L (98-107); Estimated CRCL calculation 16 ml/min; Estimated Glomerular Filt Rate 17; Glucose 161 mg/dL (65-105); Potassium 3.6 mmol/L (3.4-5.0); Sodium 135 mmol/L (137-145)
--- NOTE | 2020-03-29 12:57 | PM.IMPN ---
Progress Note: A&P Assessment and Plan (1) ANGIE (acute kidney injury): Code(s): N17.9 - Acute kidney failure, unspecified Status: Acute (2) Major depressive disorder, recurrent, mild: Code(s): F33.0 - Major depressive disorder, recurrent, mild Status: Acute (3) Type 2 diabetes mellitus with diabetic polyneuropathy: Qualifiers: Diabetes mellitus long term acute care registered nurse insulin use: without long term acute care registered nurse use Qualified Code(s): E11.42 - Type 2 diabetes mellitus with diabetic polyneuropathy Code(s): E11.42 - Type 2 diabetes mellitus with diabetic polyneuropathy Status: Acute (4) Shortness of breath: Code(s): R06.02 - Shortness of breath Status: Acute (5) Hyperlipidemia, unspecified: Qualifiers: Hyperlipidemia type: mixed hyperlipidemia Qualified Code(s): E78.2 - Mixed hyperlipidemia Code(s): E78.5 - Hyperlipidemia, unspecified Status: Acute Additional Plan # volume overload, anasarca, diastolic heart failure -heart healthy diet with 1.5L fluid restriction, dietary discussed with patient -keep goldberg catheter for strict inputs and ouptuts, net -2600, good urine output with higher dose of lasix -weaned off O2, can give supplemental oxygen to keep oxygen saturation greater than 90% -echocardiogram EF 60-65%, grade 2 diastolic dysfunction -will continue metolazone 30min before AM lasix -Zofran and prochlorperazine for nausea # ANGIE on CKD stage 3 from HTN/DMII -may be cardiorenal, continue diuretic Lasix to IV 80 mg b.i.d. -continue strict inputs/outputs -stable Cr 2.8, baseline 1.4-1.6 patient need to follow up with septic tank setter outpatient. This may be progression of her renal failure # hypertension -continue home metoprolol, hydralazine TID #breast mass -left breast mass, patient will need outpatient mammogram and workup for breast CA # other chronic conditions -patient has history of type 2 diabetes not on any diabetic medications, hgb a1c 4.8 -hyperlipidemia: Continue atorvastatin -depression: Continue escitalopram -vitamin-D deficiency: Continue supplement -constipation: Continue docusate, MiraLax, senna -insomnia: continue Restoril -restless leg syndrome: Continue Requip -GERD: continue Protonix -chronic pain: Continue home morphine 15 mg q.12 hours Diet: Heart healthy with 1.5L fluid restriction, consulted train driver DVT prophylaxis: Lovenox Code status: Full code Disposition: plan for back to senior living tomorrow, will have COVID-19 test tonight Subjective Date/time seen: 03/29/20 12:57 Patient examined. patient feels clinically better. She had good urine output the higher dose of Lasix, will continue for 1 more day, discharge tomorrow. Creatinine is about the same at 2.8. Patient has fever with chills, nausea, vomiting, diarrhea, dyspnea. Review of Systems Review of Systems: All systems reviewed & are unremarkable except as noted in HPI and below Exam Narrative: Exam Narrative: - GENERAL: Pleasant elderly woman in no acute distress - EYES: EOMI. Anicteric. - HENT: Moist mucous membranes. No scleral icterus. - LUNGS: decreased left-sided rales at lung base, otherwise lungs are clear to auscultation - Breast: left breast nodular mass - CARDIOVASCULAR: Regular rate and rhythm. No murmur. No JVD. - ABDOMEN: Soft, non-tender and non-distended. No palpable masses. - EXTREMITIES: non-tender. 2+ pitting edema stable. - NEUROLOGIC: No focal neurological deficits. CN II-XII grossly intact. - PSYCHIATRIC: Awake, Alert and oriented x 3. Appropriate mood and affect. - SKIN: No rashes or lesions. Warm. - LYMPH: No cervical lymphadenopathy. Objective Data Vital Signs Vital Signs: Vital Signs - 24 hr 03/28/20 14:00 03/28/20 16:00 03/28/20 18:00 Temperature 36.4 C L 37.0 C Pulse Rate 60 61 60 Respiratory Rate 16 18 Blood Pressure 137/48 L 156/51 H Pulse Oximetry 93 94 03/28/20 20:00 03/28/20 22:00 03/29/20 00:00 Temperature 37
[2020-03-29] MEDS: diphenhydrAMINE HCl CAP 25 MG CAPSULE PO (14:19)
[2020-03-29] MEDS: TEMAZEPAM (*CRX) 15 MG CAPSULE PO (20:17)
[2020-03-29] MEDS: ATORVASTATIN 20 MG TABLET PO (20:18)
[2020-03-29] MEDS: MORPHINE SULFATE (*CRX) 15 MG TABCR PO (20:19)
[2020-03-30] VITALS (12 sets, daily range): BP systolic 143–195; BP diastolic 45–66; PULSE 57–95; RESP 15–20; TEMP 36.7–37.3; O2SAT 95–99
[2020-03-30] MEDS: rOPINIRole HCL 0.5 MG TABLET PO (00:43)
[2020-03-30] MEDS: diphenhydrAMINE HCl CAP 25 MG CAPSULE PO ×2 (04:20→19:45)
[2020-03-30 06:28] LABS: Anion Gap 5 mmol/L (8-16); Blood Urea Nitrogen 89 mg/dL (7-17); Calcium 8.1 mg/dL (8.4-10.2); Carbon Dioxide 35 mmol/L (22-30); Chloride 97 mmol/L (98-107); Estimated CRCL calculation 16 ml/min; Estimated Glomerular Filt Rate 16; Glucose 106 mg/dL (65-105); Potassium 3.3 mmol/L (3.4-5.0); Sodium 137 mmol/L (137-145)
[2020-03-30] MEDS: METOCLOPRAMIDE HCL 10 MG TABLET PO ×4 (06:37→20:37)
[2020-03-30] MEDS: SEVELAMER CARBONATE 800 MG TABLET PO ×3 (08:42→16:11)
[2020-03-30] MEDS: ENOXAPARIN 30 MG/0.3 ML SYRINGE SUB-Q (08:42)
[2020-03-30] MEDS: POTASSIUM CHLORIDE 20 MEQ PACKET (FOR LIQUID) 40 MEQ PO ×2 (08:42→12:32)
[2020-03-30] MEDS: hydrALAZINE HCL 50 MG TABLET PO ×3 (08:43→16:11)
[2020-03-30] MEDS: TOLNAFTATE 1% POWDER 45 GM BTL 1 APPLIC TOPICAL ×2 (08:43→20:38)
[2020-03-30] MEDS: PANTOPRAZOLE 40 MG TABLET PO (08:43)
[2020-03-30] MEDS: CHOLECALCIFEROL 1,000 UNITS TABLET 1000 UNITS PO (08:45)
[2020-03-30] MEDS: BUMETANIDE 1 MG TABLET PO (08:45)
[2020-03-30] MEDS: METOPROLOL SUCCINATE EXT REL 100 MG TABCR PO (08:46)
[2020-03-30] MEDS: ESCITALOPRAM OXALATE 5 MG TABLET PO (08:47)
[2020-03-30] MEDS: metOLazone 5 MG TABLET 10 MG PO (09:20)
--- NOTE | 2020-03-30 12:19 | PM.DS ---
DS: Admitting Diagnosis Admitting Diagnosis Admitting Diagnosis: CHF/ANGIE DS: Discharge Diagnosis Discharge Diagnosis (1) ANGIE (acute kidney injury): Code(s): N17.9 - Acute kidney failure, unspecified Status: Acute Assessment and Plan: -may be cardiorenal, stopped IV lasix and restarting home 1mg bumex -Cr 2.9, baseline 1.4-1.6 patient need to follow up with brusher machine outpatient. This may be progression of her renal failure and result of aggressive IV diuresis. (2) Major depressive disorder, recurrent, mild: Code(s): F33.0 - Major depressive disorder, recurrent, mild Status: Acute (3) Type 2 diabetes mellitus with diabetic polyneuropathy: Qualifiers: Diabetes mellitus detention insulin use: without vermin exterminator use Qualified Code(s): E11.42 - Type 2 diabetes mellitus with diabetic polyneuropathy Code(s): E11.42 - Type 2 diabetes mellitus with diabetic polyneuropathy Status: Acute (4) Shortness of breath: Code(s): R06.02 - Shortness of breath Status: Acute (5) Hyperlipidemia, unspecified: Qualifiers: Hyperlipidemia type: mixed hyperlipidemia Qualified Code(s): E78.2 - Mixed hyperlipidemia Code(s): E78.5 - Hyperlipidemia, unspecified Status: Acute (6) Anasarca: Code(s): R60.1 - Generalized edema Status: Acute Assessment and Plan: -heart healthy diet with 1.5L fluid restriction, dietary discussed with patient -patient had good urine output to IV Lasix. she has been weaned off oxygen. Her legs are no longer tight at and no longer tender - patient has been adequately diuresed, will resume her home Bumex regimen, patient will need to follow-up with nephrology for progression of kidney disease and adjustment of diuretics. -echocardiogram EF 60-65%, grade 2 diastolic dysfunction -will continue metolazone 30min before AM Bumex DS: Summary Hospital Course Reason for hospitalization: Weakness and bilateral lower extremity pain Hospital Course: Lupe Gomez is a 69 year old female with past medical history of CKD, grade 3 uterine cancer, CHF, type 2 diabetes, peroneal DVT, GERD who presents the ED from [facility] weakness, bilateral edema/pain. patient had been eating a lot of cottage cheese show the past 2 weeks prior to admission and she did not realize how much salt was in the food. She developed progressive swelling and bilateral knee and leg pain. In the ED, she had venous duplex of lower extremities was negative bilaterally. Chest x-ray findings for consistent with CHF exacerbation. Patient was treated with IV Lasix diuresis 40 mg and uptitrated to 80 mg b.i.d. with good urine output. She has been weaned off of oxygen and her legs are no longer tender /tight. She still has 2+ pitting edema in her lower extremities. Advised patient that her kidney numbers are rising which may be progression of her kidney disease and that her diuretic doses will need to be adjusted. Patient to follow-up with brusher machine Dr. Mcmanus for further management of kidney disease and diuretics. Dietitian discussed with patient strategies to cut out salt in diet. patient also has a left breast mass that will need to be followed up with primary care provider for breast cancer screening. Patient understands and agrees with plan. Patient's vitals stable, labs stable, patient stable for discharge. Status at Discharge Functional status at discharge: uses cane/walker Overall status at discharge: patient is back to baseline Time Spent with Patient Time attestation: Total time spent providing and/or coordinating discharge services:35 Time spent: Greater than 30 minutes Exam Narrative: Exam Narrative: - GENERAL: Pleasant elderly woman in no acute distress - EYES: EOMI. Anicteric. - HENT: Dry oral mucosa. No scleral icterus. - LUNGS: Clear to auscultation throughout, no rales or wheezing - Breast: left breast nodular mass - CARDIOVA
[2020-03-30] MEDS: ATORVASTATIN 20 MG TABLET PO (20:37)
== END 2020-03-30 22:45 | DRG 291 ==
LOC: ANHED 10:21 → ANH2MED 10:58
PROVIDERS: General Practice; Internal Medicine; Admitting Provider Student in an Organized Health Care Education/Training Program; Emergency Provider Emergency Medicine; PCP Internal Medicine; Visit Provider Student in an Organized Health Care Education/Training Program
DX: I13.0 Hypertensive heart and chronic kidney disease with heart failure and stage 1 through stage 4 chronic kidney disease, or unspecified chronic kidney disease (principal); I50.33 Acute on chronic diastolic (congestive) heart failure; N17.9 Acute kidney failure, unspecified; N18.30 Chronic kidney disease, stage 3 unspecified; Z20.828 Contact with and (suspected) exposure to other viral communicable diseases; E11.21 Type 2 diabetes mellitus with diabetic nephropathy; E11.22 Type 2 diabetes mellitus with diabetic chronic kidney disease; G89.4 Chronic pain syndrome; E78.5 Hyperlipidemia, unspecified; E11.42 Type 2 diabetes mellitus with diabetic polyneuropathy; F32.9 Major depressive disorder, single episode, unspecified; D64.9 Anemia, unspecified; M54.5 Low back pain; K21.9 Gastro-esophageal reflux disease without esophagitis; G25.81 Restless legs syndrome; E55.9 Vitamin D deficiency, unspecified; Z66 Do not resuscitate; Z86.718 Personal history of other venous thrombosis and embolism; Z98.42 Cataract extraction status, left eye; Z98.41 Cataract extraction status, right eye; Z90.49 Acquired absence of other specified parts of digestive tract; Z87.891 Personal history of nicotine dependence; Z85.42 Personal history of malignant neoplasm of other parts of uterus
CPT/HCPCS: 36415; 71046; 73564; 80048; 80053; 81001; 82550; 83036; 83735; 83880; 84484; 85025; 85027; 85055; 85610; 85730; 87635; 93005; 93306; 93970; 96365; 96375; 97161; 97165; 99285; A9270; C9803; J0131; J0360; J1650; J1940; J2270; J2405; U0003

== ENCOUNTER 2020-04-09 12:24 | Outpatient (NON) | payer MEDICARE, SELFPAY ==
[2020-04-09 13:01] LABS: Anion Gap 5 mmol/L (8-16); Blood Urea Nitrogen 54 mg/dL (7-18); Calcium 7.8 mg/dL (8.5-10.1); Carbon Dioxide 31 mmol/L (21-32); Chloride 102 mmol/L (98-108); Estimated Glomerular Filt Rate 18; Glucose 81 mg/dL (70-99); Osmolality Calculated 299 mOsm/kg (285-295); Potassium 3.9 mmol/L (3.5-5.1); Sodium 138 mmol/L (136-145)
[2020-04-09 13:21] LABS: BNP 1490 pg/mL (0-100)
== END 2020-04-09 12:25 ==
PROVIDERS: Visit Provider Internal Medicine
DX: I50.9 Heart failure, unspecified (principal); N18.9 Chronic kidney disease, unspecified
CPT/HCPCS: 36415; 80048; 83880

== ENCOUNTER 2020-04-16 16:18 | Outpatient (NON) | payer MEDICARE, SELFPAY ==
[2020-04-16 16:48] LABS: Anion Gap 7 mmol/L (8-16); Blood Urea Nitrogen 59 mg/dL (7-18); Calcium 8.2 mg/dL (8.5-10.1); Carbon Dioxide 31 mmol/L (21-32); Chloride 101 mmol/L (98-108); Estimated Glomerular Filt Rate 15; Glucose 120 mg/dL (70-99); Osmolality Calculated 305 mOsm/kg (285-295); Potassium 3.7 mmol/L (3.5-5.1); Sodium 139 mmol/L (136-145)
== END 2020-04-16 16:19 ==
PROVIDERS: Visit Provider Internal Medicine Nephrology
DX: I50.9 Heart failure, unspecified (principal); N18.9 Chronic kidney disease, unspecified
CPT/HCPCS: 36415; 80048

== ENCOUNTER 2020-04-28 16:39 | Inpatient (IN) | payer MEDICARE, MEDICAID, SELFPAY ==
[2020-04-28] VITALS (11 sets, daily range): BP systolic 159–194; BP diastolic 66–92; PULSE 60–97; RESP 4–20; TEMP 36.2–36.3; O2SAT 92–98; BMI 28.8
--- NOTE | ~2020-04-28 | XR_ITS ---
XR chest 1V portable 04/28/2020 17:29 Indication: CHF. Arrhythmia. Weakness and nausea. Procedure: AP portable chest Comparison: Comparison to multiple prior studies sequentially, with oldest reviewed study dated 07/13. Findings: Moderate cardiomegaly. No focal air space disease, pulmonary edema, pleural effusion or zuleika pected pneumothorax. No acute osseous abnormality. There is dextroscoliosis of the thoracic spine. Impression: 1: No acute cardiopulmonary disease. 2: Moderate cardiomegaly. Reviewed, dictated and finalized at location A. K MECHANIC Impression: 1: No acute cardiopulmonary disease. 2: Moderate cardiomegaly.
--- NOTE | ~2020-04-28 | CT_ITS ---
EXAMINATION: CT abdomen pelvis wo con EXAM DATE: 04/28/2020 18:22 INDICATION: Abdominal pain, extremity swelling. Nausea and vomiting. Kidney disease. TECHNIQUE: Spiral CT of the abdomen and pelvis was performed without contrast. Axial, coronal and s agittal images were reviewed. The dose-length product (DLP) for this examination was 1032.53 mGy-cm. The exposure was tailored according to patient size (auto mA exposure control), and iterative recon struction (ASIR) was used as additional dose reduction technique. Comparison is made to prior examina tion from 08/26/2019. FINDINGS: Fat density liver dome lesion measuring about 2 cm is unchanged, a benign finding. The spl een, adrenal glands and pancreas are unremarkable. There are cholecystectomy clips. There is no nep hrolithiasis or hydronephrosis. Patient has had interval hysterectomy. The bladder is unremarkable . There is no retroperitoneal or pelvic lymphadenopathy. There is moderate to severe scattered art eriosclerotic disease. The appendix is normal. The stomach and small bowel are unremarkable. There is mild to moderate sigm oid colonic diverticulosis. There is no adjacent inflammatory change to suggest diverticulitis. Mod erate amount of colonic stool. No free intraperitoneal gas. There is cardiomegaly. Small pericardial and pleural effusions. The interventricular septum is percep tible, suggesting patient is anemic. There is mild intralobular septal thickening and some faint g roundglass opacities. Appearance most consistent with mild pulmonary edema. There are no osteoblasti c or osteolytic lesions identified. Chronic moderate compression fracture of L1 with anterior wedging , mild central compression of L2. L3 limbus. 5 mm sclerotic T12 focus unchanged. Small umbilical fat -containing hernia. IMPRESSION: 1. Cardiomegaly, small pleural and pericardial effusions. Mild basilar intralobular septal thickenin g. Mild fluid overload or CHF most likely. 2. Interval hysterectomy. No evidence of metastatic disease. 3. Moderate colonic stool. Mild to moderate sigmoid diverticulosis. 4. Anasarca. Reviewed, dictated and finalized at location A. ENT SAFETY COORDINATOR IMPRESSION: 1. Cardiomegaly, small pleural and pericardial effusions. Mild basilar intralo bular septal thickening. Mild fluid overload or CHF most likely. 2. Interval hysterectomy. No evidence of metastatic disease. 3. Moderate colonic stool. Mild to moderate sigmoid diverticulosis. 4. Anasarca.
--- NOTE | 2020-04-28 16:56 | ED.GENADULT ---
HPI - General Adult General Chief complaint: Unspecified Stated complaint: 6 Time Seen by Provider: 04/28/20 16:40 Source: RN notes reviewed History of Present Illness HPI narrative: Patient presents emergency department from residential for sling of the lower extremities as well as nausea and vomiting.. His blood pressures trended post EF the patient had increased swelling of the lower extremity she also had 2 episodes of nausea vomiting today. Patient states she had been feeling well earlier today. She denies any fevers or chills chest pain abdominal pain or diarrhea. Patient does have a history of heart failure as well as renal insufficiency Related Data Home Medications Medication Instructions Recorded Confirmed metoclopramide HCl [Reglan] 10 mg PO QID 07/05/19 03/26/20 bumetanide 1 mg PO DAILY 08/01/19 03/26/20 metoprolol succinate 100 mg PO DAILY 08/01/19 03/26/20 polyethylene glycol 3350 [Miralax] 17 g PO DAILY 08/01/19 03/26/20 ropinirole 0.5 mg PO TID PRN 08/01/19 03/26/20 cholecalciferol (vitamin D3) 125 mcg PO DAILY 02/26/20 03/26/20 [Vitamin D3] pantoprazole 40 mg PO QAM 02/26/20 03/26/20 sennosides [senna] 8.6 mg PO DAILY 02/26/20 03/26/20 sevelamer carbonate [Renvela] 800 mg PO TIDWM 02/26/20 03/26/20 temazepam 15 mg PO HS PRN 02/26/20 03/26/20 acetaminophen 500 mg PO BID PRN 03/26/20 03/26/20 diphenhydramine HCl [Allergy 25 mg PO TID PRN 03/26/20 03/26/20 (diphenhydramine)] escitalopram oxalate 5 mg PO QAM 03/26/20 03/26/20 morphine 15 mg PO Q12H PRN 03/26/20 03/26/20 ondansetron HCl 4 mg PO Q6H PRN 03/26/20 03/26/20 prochlorperazine 25 mg MI Q8H PRN 03/26/20 03/26/20 Allergies Allergy/AdvReac Type Severity Reaction Status Date / Time No Known Allergies Allergy Verified 04/28/20 16:48 Review of Systems Review of Systems: Narrative: Gen.: Denies fevers or chills Eyes: Denies eye pain or visual change ENT: Denies congestion Respiratory: Denies shortness of breath or cough CV: Denies chest pain or palpitations reports lower extremity swelling GI: See HPI denies burning, urgency, frequency or hematuria Musculoskeletal: Denies back pain or muscle pain Neuro: Denies numbness, tingling, weakness or focal weakness Skin: Denies rash Except as documented, all other systems reviewed and negative [facility] Past Medical History Medical History Chronic anemia Chronic kidney disease, stage 3 Baseline creatinine between 1.4 and 1.60. Chronic low back pain Chronic pain syndrome Had previously been on morphine 15 milligrams b.i.d. Recently started on Lyrica. Depression Diastolic congestive heart failure Echocardiogram in January 2019 demonstrated normal left ventricular size and function with ejection fraction of > 70% diastolic dysfunction grade 2. Gastritis Hyperlipidemia Hypertension Nephrotic syndrome 12/30/2019 had 24 hour urine Rectal bleeding Type 2 diabetes mellitus with peripheral neuropathy Surgical History Surgical History History of knee surgery Hx of toe surgery Status post cataract extraction Status post cholecystectomy Family History Family History Mother Lung cancer Sibling Malignant neoplasm of prostate Diabetes mellitus Osteoarthritis Dialysis patient Heart disease Social History Social History Social History: The patient has been since 2010, when her from cancer. Her daughter was killed that same year and a drunk driving accident. She does have a son who lives in [place], [place]. Her brother, Kolton Macias, is her surrogate decision maker and she wishes to be a do not resuscitate. She is a former smoker and denies alcohol and drug abuse. Smoking packs per day: 1 Smoking cigarettes per day: 20.0 Years
--- NOTE | 2020-04-28 16:58 | ECG_ITS ---
Measurements Intervals Sparks Rate: 68 P: 103 ID: 170 QRS: 61 QRSD: 106 T: 81 QT: 435 QTc: 463 Interpretive Statements SINUS RHYTHM DELAYED PRECORDIAL R/S TRANSITION BORDERLINE ST-T WAVE ABNORMALITY- INF/LAT LEADS BASELINE ARTIFACT- I, II, III, AVR, AVL, AVF, V1-V6 BORDERLINE ECG Electronically Signed On 04-29-2020 7:00:34 [employer] by Jl Floyd D.O.
[2020-04-28 17:30] LABS: Basophils Percent Auto 0.5 % (0.2-1.2); Eosinophils Absolute Auto 0.3 K/mm3 (0-0.3); Eosinophils Percent Auto 3.8 % (0-4.4); Hemoglobin 9.5 g/dL (12.0-15.0); Immature Granulocyte Absolute 0.06 K/mm3 (0.00-0.031); Immature Granulocyte Percent A 0.7 % (0-0.5); Lymphocytes Absolute Auto 0.43 K/mm3 (0.9-3.2); Mean Corpuscular HGB Conc 31.7 g/dl (32-36); Mean Corpuscular Hemoglobin 30.4 pg (26-34); Mean Corpuscular Volume 96.2 fl (80-100); Mean Platelet Volume 9.6 fl (7.4-10.4); Monocytes Absolute Auto 0.8 K/mm3 (0.1-0.6); Monocytes Percent Auto 9.1 % (2.6-8.5); Neutrophils Absolute Auto 6.9 K/mm3 (1.3-6.7); Neutrophils Percent Auto 80.9 % (45.5-73.1); Platelet Count Result 303 k/mm3 (150-375); Red Blood Count 3.12 M/mm3 (4.2-5.4); White Blood Count 8.6 K/mm3 (4.5-10.0)
[2020-04-28 17:38] LABS: Add Urine Microscopic? YES; Appearance Urine Clear (Clear); Bacteria Urine Trace /hpf; Bilirubin Urine Negative (Negative); Blood Urine Negative (Negative); Color Urine Yellow (Yellow); Glucose Urine UA 2+ mg/dL (Negative); Ketones Urine Negative (Negative); Leukocyte Esterase Ur Negative LEU/UL (Negative); Mucus Urine Rare /lpf; Nitrate Urine Negative (Negative); Protein Urine 3+ mg/dL (Negative); Specific Grav Ur 1.014 (1.001-1.035); Squamous Epithelial Cell Urine Rare /hpf (Few); Urobilinogen Urine Negative mg/dL (<2.0); WBC Urine 0-3 /hpf
[2020-04-28 17:41] LABS: Prothrombin Time 13.7 Seconds (11.1-14.7)
[2020-04-28 17:42] LABS: Partial Thromboplastin Time 28.4 SECONDS (22.3-36.8)
[2020-04-28 17:49] LABS: Alanine Aminotransferase 12 U/L (4-35); Albumin Level 3.1 g/dL (3.5-5.1); Alkaline Phosphatase 102 U/L (38-126); Anion Gap 3 mmol/L (8-16); Aspartate Amino Transferase 24 U/L (14-36); Bilirubin,Total 0.3 mg/dL (0.2-1.3); Blood Urea Nitrogen 67 mg/dL (7-17); Calcium 8.3 mg/dL (8.4-10.2); Carbon Dioxide 35 mmol/L (22-30); Chloride 96 mmol/L (98-107); Estimated CRCL calculation 16 ml/min; Estimated Glomerular Filt Rate 17; Glucose 136 mg/dL (65-105); Lipase 29 U/L (23-300); Magnesium 2.5 mg/dL (1.6-2.3); Potassium 4.5 mmol/L (3.4-5.0); Sodium 134 mmol/L (137-145)
[2020-04-28 18:00] LABS: Troponin I 0.022 ng/mL (0.000-0.034)
[2020-04-28 19:49] LABS: NT Pro B Type Natriuretic Pept 12800 PG/ML (5-100)
--- NOTE | 2020-04-28 20:40 | PM.IMHP ---
H&P: HPI History of Present Illness Date/Time: 04/28/20 20:40 Chief complaint: CHF, Nausea and Vomiting, Narrative: Lupe Gomez is a 69 year old female with past medical history of CKD, grade 3 uterine cancer, CHF, type 2 diabetes, peroneal DVT, GERD who presents the ED from [facility] with [facility] and bilateral lower extremity swelling and nausea/vomiting. Patient has been admitted on 08/26/2019 for nausea vomiting renal sufficiency. She was recently admitted 03/26-03/30 for CHF exacerbation. Echocardiogram showed EF 60-65%, grade 2 diastolic dysfunction. Had good urine output IV Lasix and was becoming hypotensive, leading her to go back to her home Bumex and metolazone. Patient appears not to have followed up with Nephrology within the last month. Also had new breast mass and was recommended to follow-up with PCP for breast cancer screening, I do not think that happened either. Currently patient has this nausea and vomiting without any clear etiology. She is breathing comfortably on room air and does complain of increased swelling in her legs. She states she has noticed her legs increase in swelling and nurse [facility] told her she was hypoxic but she felt fine. She is brought to the ED for hypoxia. In the ED: Patient's BNP was 29663 higher than previously. She was given 40 of IV Lasix once. Creatinine elevated 2.7 however this may be lower than her baseline 2.8-2.9. Her nausea and vomiting is chronic and she is on Zofran and Compazine at home. Her cardiorenal syndrome may be worsening with GFR almost into stage 5. Patient admitted to observation for anasarca and nephrology consult as clearly she has failed to follow-up outpatient. Review of Systems Review of Systems: Narrative: Constitutional: No Fever, No Chills, No Night Sweats, No Fatigue, No Malaise ENT/Mouth: No Hearing Changes, No Ear Pain, No Nasal Congestion, No Sinus Pain, No Hoarseness, No sore throat, No Rhinorrhea, No Swallowing Difficulty Eyes: No Eye Pain, No Redness, No Vision Changes Cardiovascular: No Chest Pain, No Palpitations, No Dyspnea on Exertion, No Orthopnea, No Claudication. Endorses increased lower extremity swelling. Respiratory: No Cough, No Sputum, No Wheezing, No Shortness of Breath Gastrointestinal: Endorses nausea, vomiting. No Diarrhea, No Constipation, No Abdominal Pain, No Heartburn, No Hematochezia, No Melena Genitourinary: No Dysuria, No Urinary Frequency, No Hematuria, No Urinary Incontinence, No Urgency Musculoskeletal: No Arthralgias, No Myalgias, No Joint Swelling, No Joint Stiffness, No Back Pain Skin: No Skin Lesions, No Pruritis, No Hair Changes Neuro: No Weakness, No Numbness, No Paresthesias, No Loss of Consciousness, No Syncope, No Dizziness, No Headache Psych: No Anxiety/Panic, No Depression, No Insomnia Heme: No Bruising, No Bleeding Lymph: No Adenopathy Endocrine: No Polyuria, No Polydipsia, No Temperature Intolerance PMFSH Past Medical History Medical History Chronic anemia Chronic kidney disease, stage 3 Baseline creatinine between 1.4 and 1.60. Chronic low back pain Chronic pain syndrome Had previously been on morphine 15 milligrams b.i.d. Recently started on Lyrica. Depression Diastolic congestive heart failure Echocardiogram in January 2019 demonstrated normal left ventricular size and function with ejection fraction of > 70% diastolic dysfunction grade 2. Gastritis Hyperlipidemia Hypertension Nephrotic syndrome 12/30/2019 had 24 hour urine Rectal bleeding Type 2 diabetes mellitus with peripheral neuropathy Surgical History Surgical History History of knee surgery Hx of toe surgery Status post cataract extraction Status post cholecystectomy Family History Family History Mother Du bunch
[2020-04-28] MEDS: FUROSEMIDE INJ 40 MG/4 ML VIAL IV PUSH (21:21)
--- NOTE | 2020-04-28 23:10 | PC.NURSE ---
This patient, Lupe Gomez, was admitted to Medical Room 247-. Patient/family oriented to hospital policies and general routines including ID bracelet, bed and alarms, visiting hours, pain management, procedures, bathroom and other care routines, personal items, smoking policy, room service/diet, and visiting hours. Information on how to activate the Rapid Response Team has been discussed. Patient/Family are encouraged to report perceived risks to care and to ask questions if they do not understand what they are told or what they should do.
[2020-04-29] VITALS (9 sets, daily range): BP systolic 131–175; BP diastolic 53–72; PULSE 57–66; RESP 16–18; TEMP 36–36.6; O2SAT 96–98
[2020-04-29 00:04] LABS: Troponin I 0.023 ng/mL (0.000-0.034)
[2020-04-29 02:37] LABS: Basophils Percent Auto 0.4 % (0.2-1.2); Eosinophils Absolute Auto 0.3 K/mm3 (0-0.3); Hematocrit 26.7 % (37.0-47.0); Hemoglobin 8.6 g/dL (12.0-15.0); Immature Granulocyte Absolute 0.04 K/mm3 (0.00-0.031); Immature Granulocyte Percent A 0.6 % (0-0.5); Lymphocytes Absolute Auto 0.66 K/mm3 (0.9-3.2); Lymphocytes Percent Auto 9.4 % (18.3-44.2); Mean Corpuscular HGB Conc 32.2 g/dl (32-36); Mean Corpuscular Hemoglobin 30.4 pg (26-34); Mean Corpuscular Volume 94.3 fl (80-100); Mean Platelet Volume 9.5 fl (7.4-10.4); Monocytes Absolute Auto 0.9 K/mm3 (0.1-0.6); Monocytes Percent Auto 12.5 % (2.6-8.5); Neutrophils Absolute Auto 5.2 K/mm3 (1.3-6.7); Neutrophils Percent Auto 73.1 % (45.5-73.1); Platelet Count Result 272 k/mm3 (150-375); Red Blood Count 2.83 M/mm3 (4.2-5.4); Red Cell Distribution Width 11.9 % (11.5-14.5); White Blood Count 7.1 K/mm3 (4.5-10.0)
[2020-04-29] MEDS: MORPHINE SULFATE (*CRX) 15 MG TABCR PO ×2 (02:37→15:16)
[2020-04-29] MEDS: rOPINIRole HCL 0.5 MG TABLET PO ×2 (02:37→12:59)
[2020-04-29] MEDS: ATORVASTATIN 20 MG TABLET PO ×2 (02:38→21:59)
[2020-04-29 02:53] LABS: Anion Gap 6 mmol/L (8-16); Blood Urea Nitrogen 69 mg/dL (7-17); Carbon Dioxide 32 mmol/L (22-30); Chloride 97 mmol/L (98-107); Estimated CRCL calculation 17 ml/min; Estimated Glomerular Filt Rate 18; Glucose 117 mg/dL (65-105); Potassium 4.1 mmol/L (3.4-5.0); Sodium 135 mmol/L (137-145)
[2020-04-29] MEDS: diphenhydrAMINE HCl CAP 25 MG CAPSULE PO ×3 (04:57→18:23)
--- NOTE | 2020-04-29 06:43 | PM.CNNEP ---
Assessment and Plan Assessment and plan (1) CKD (chronic kidney disease) stage 4, GFR 15-29 ml/min: Code(s): N18.4 - Chronic kidney disease, stage 4 (severe) Status: Acute Assessment and Plan: Lupe has chronic kidney disease stage 4. Her GFR has been running in the high teens in the low 20s. 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 This explains her nephrotic syndrome. She tries to stay on a low-protein diet to limit the amount of protein that she spills. We will check A PTH, vitamin-D level, lipids, and a protein creatinine ratio. The latter has been very high. We discussed management of her kidney disease. This includes keeping the blood pressure and the blood sugars under good control. She does not have any symptoms of uremia such as poor appetite and nausea. We discussed the possibility of dialysis down the road. She does not need this now. She talked with her family members at length about this after our last conversation in the office a few months ago. She says that she would want to do this when he came down to it. (2) Anasarca: Code(s): R60.1 - Generalized edema Status: Acute Assessment and Plan: The patient has severe edema. Partly this is from the nephrotic syndrome. She has [id number] of protein per g of creatinine, a tremendous amount of protein in the urine. Her albumin level is low from this causing the swelling. The patient also has pulmonary hypertension and moderate tricuspid regurgitation. This also contributes to the severity of her swelling. At this point we will try aggressive diuresis a get rid of the swelling. Sometimes the competence of the tricuspid valve improves with diuresis. (3) Acute on chronic diastolic (congestive) heart failure: Code(s): I50.33 - Acute on chronic diastolic (congestive) heart failure Status: Acute Assessment and Plan: The patient had an echocardiogram done in March which showed diastolic dysfunction, good LV systolic function, pulmonary hypertension, and tricuspid regurgitation. (4) Anemia, unspecified: Code(s): D64.9 - Anemia, unspecified Status: Acute Assessment and Plan: The patient has a hemoglobin of 8.6. Will check iron levels and reticulocyte count. We can check stool guaiacs. I will put her on some EPO. (5) Hypertension: Qualifiers: Hypertension type: essential hypertension Qualified Code(s): I10 - Essential (primary) hypertension Code(s): I10 - Essential (primary) hypertension Status: Chronic Assessment and Plan: Her blood pressure is on the high side. Will try extra blood pressure meds. Diuretics should help this as well. (6) Type 2 diabetes mellitus with peripheral neuropathy: Code(s): E11.42 - Type 2 diabetes mellitus with diabetic polyneuropathy Status: Chronic Assessment and Plan: Per hospitalist History of Present Illness Reason for Consult Consult date: 04/29/20 Chief Complaint Chief complaint: CHF, Nausea and Vomiting, History of Present Illness Narrative: 70-year-old lady who has multiple medical problems including chronic kidney disease biopsy-proven diabetic and hypertensive nephrosclerosis, tricuspid regurgitation, diastolic dysfunction, chronic pain, depression, hypertension, hyperlipidemia, diabetes, gastritis. The patient lives at [facility]. She was well until a few days ago when she started swelling worse. She always has some swelling but apparently it got much worse in the last couple or 3 days. She also had some nausea and vomiting 2 days ago at which time they put her in isolation and did a rapid COVID screen. This was negative so they took her out of isolation. She continued to have swelling and they felt like she had some shortness of breath, (although the patient says that she did not really feel short of ramon
[2020-04-29 08:48] LABS: Hemoglobin A1C 5.2 % (<5.7)
[2020-04-29 08:50] LABS: Parathyroid Intact 132.4 pg/mL (7.5-53.5)
[2020-04-29] MEDS: ACETAMINOPHEN 500 MG TABLET 1000 MG PO (08:58)
[2020-04-29] MEDS: SEVELAMER CARBONATE 800 MG TABLET PO ×2 (09:37→17:58)
[2020-04-29] MEDS: hydrALAZINE HCL 50 MG TABLET PO ×3 (09:37→17:57)
[2020-04-29] MEDS: PANTOPRAZOLE 40 MG TABLET PO (09:37)
[2020-04-29] MEDS: DOCUSATE SODIUM 100 MG CAPSULE PO (09:37)
[2020-04-29] MEDS: CHOLECALCIFEROL 1,000 UNITS TABLET 5000 UNITS PO (09:37)
[2020-04-29] MEDS: METOCLOPRAMIDE HCL 10 MG TABLET PO ×3 (09:38→21:59)
[2020-04-29] MEDS: SENNOSIDES 8.6 MG TABLET PO (09:38)
[2020-04-29] MEDS: ENOXAPARIN 30 MG/0.3 ML SYRINGE SUB-Q (09:39)
[2020-04-29] MEDS: ESCITALOPRAM OXALATE 5 MG TABLET PO (09:39)
[2020-04-29] MEDS: lisinopriL 20 MG TABLET PO (09:39)
--- NOTE | 2020-04-29 10:38 | PM.IMPN ---
Progress Note: A&P Assessment and Plan (1) Diastolic congestive heart failure: Code(s): I50.30 - Unspecified diastolic (congestive) heart failure Status: Acute Assessment and Plan: Likely CHF exacerbation with acute respiratory failure with hypoxia; now on 1 L O2 NC. Bibasilar crackles noted on lung exam. Pitting LE edema noted b/l. Dr. Mcmanus (Nephrology) consulted for management in diuretics. Echocardiogram 03/27/2020 normal EF 60-65%, grade 2 diastolic dysfunction, pulmonary artery systolic pressure 47 mmHg Continue diuretic regimen per Dr. Mcmanus Monitor fluid status Continue HH diet with 1.5 L fluid restriction Wean supplemental O2 as tolerated. Pain control as needed. (2) Anasarca: Code(s): R60.1 - Generalized edema Status: Acute Assessment and Plan: Patient breathing comfortably on 1L NC. Dr. Mcmanus consulted and following; appreciate input. Continue diuretic regimen per Dr. Mcmanus recommendations Monitor (3) Nausea & vomiting: Code(s): R11.2 - Nausea with vomiting, unspecified Status: Acute Assessment and Plan: No complaints at this time Continue supportive care Continue home Zofran and Compazine. (4) CKD (chronic kidney disease) stage 4, GFR 15-29 ml/min: Code(s): N18.4 - Chronic kidney disease, stage 4 (severe) Status: Acute Assessment and Plan: Appears to at her baseline at this time. Dr. Mcmanus following and appreciate recommendations Continue home medications Continue diuretic regimen per Dr. Mcmanus recommendations Await further rec from Nephrology Additional Plan # other chronic conditions Patient has history of type 2 diabetes not on any diabetic medications. A1c 5.2 hyperlipidemia: Continue atorvastatin depression: Continue escitalopram vitamin-D deficiency: Continue supplement constipation: Continue docusate, MiraLax, senna insomnia: Restoril, Benadryl restless leg syndrome: Continue Requip GERD: Protonix hypertension: BP 170s sys this morning; Continue metoprolol, hydralazine TID, and diuretics. Anticipate improvement with increased diuretics continue home Reglan chronic pain: Continue MS Contin Subjective Date/time seen: 04/29/20 10:38 Interval history: Patient is a 70 yo F with history of CKD, grade 3 uterine cancer, CHF, type 2 diabetes, peroneal DVT, GERD who is seen infollow up for diastolic CHF exacerbation and acute respiratory failure with hypoxia likely due to same. Patient states she feels okay today. She feels a bit weak which is her main complaint this morning. She thinks her LE swelling is about the same. No other complaints at the moment. Denies f/c/s,headaches, dizziness, lightheadedness, cp/palpitations, sob/cough, n/v/d/c, abd pain, dysuria, hematuria, cloudy urine, calf pain. Review of Systems Review of Systems: All systems reviewed & are unremarkable except as noted in HPI and below Exam Narrative: Exam Narrative: General: Patient resting supine in bed in no acute distress. HEENT: Normocephalic, EOMI, oral mucosa moist. Cardiovascular: Rate and rhythm are regular with occasional ectopy. Systolic murmur appreicated. no rub, or gallop. Tele shows sinus rhythm with PVCs and bigeminy occasionally Respiratory: Bibasilar crackles appreciated. Non-labored breathing. On 1L O2 NC at time of visit Abdomen: Soft, non-tender, non-distended, bowel sounds present. Extremities: Peripheral pulses intact. Pitting edema noted B/l LE. NTTP b/l calves Neuro: No focal neurological deficits. Speech is clear. Objective Data Vital Signs Vital Signs: Last Vital Signs Temp 96.8 F L 04/29/20 05:06 Pulse 65 04/29/20 05:06 Resp 18 04/29/20 05:06 BP 175/63 H 04/29/20 05:06 Pulse Ox 96 04/29/20 05:06 Intake/Output Intake/Output
[2020-04-29] MEDS: METOPROLOL SUCCINATE EXT REL 50 MG TABCR 100 MG PO (11:23)
[2020-04-29] MEDS: metOLazone 5 MG TABLET 10 MG PO (11:23)
[2020-04-29] MEDS: TOLNAFTATE 1% POWDER 45 GM BTL 1 APPLIC TOPICAL (11:23)
[2020-04-29] MEDS: BUMETANIDE INJ 1 MG/4 ML VIAL IV PUSH ×2 (12:05→17:56)
--- NOTE | 2020-04-29 13:52 | PCPTNOTE ---
Patient was attempted to be seen this afternoon for PT evaluation, states that she cannot work today, will attempt evaluation tomorrow.
[2020-04-29] MEDS: TEMAZEPAM (*CRX) 15 MG CAPSULE PO (21:59)
[2020-04-29 22:41] LABS: Creatinine Urine 30.5 mg/dL
[2020-04-29 22:44] LABS: Sodium Urine Random 84 meq/L
[2020-04-30] VITALS (8 sets, daily range): BP systolic 138–185; BP diastolic 44–97; PULSE 58–90; RESP 16–18; TEMP 36.5–37.2; O2SAT 93–97
[2020-04-30 00:27] LABS: Total Protein Urine Random > 600 mg/dL
[2020-04-30 05:51] LABS: Hematocrit 24.6 % (37.0-47.0); Hemoglobin 7.7 g/dL (12.0-15.0); Mean Corpuscular HGB Conc 31.3 g/dl (32-36); Mean Corpuscular Volume 95.7 fl (80-100); Mean Platelet Volume 9.7 fl (7.4-10.4); Platelet Count Result 236 k/mm3 (150-375); Red Blood Count 2.57 M/mm3 (4.2-5.4); Red Cell Distribution Width 11.7 % (11.5-14.5)
[2020-04-30 06:04] LABS: Albumin Level 2.5 g/dL (3.5-5.1); Anion Gap 2 mmol/L (8-16); Blood Urea Nitrogen 70 mg/dL (7-17); Calcium 7.6 mg/dL (8.4-10.2); Carbon Dioxide 34 mmol/L (22-30); Chloride 96 mmol/L (98-107); Estimated CRCL calculation 16 ml/min; Estimated Glomerular Filt Rate 17; Glucose 84 mg/dL (65-105); Magnesium 2.3 mg/dL (1.6-2.3); Phosphorus 5.3 mg/dL (2.5-4.5); Potassium 4.5 mmol/L (3.4-5.0); Sodium 132 mmol/L (137-145)
[2020-04-30 08:25] LABS: Glucose Point of Care 98 (65-105)
[2020-04-30] MEDS: SEVELAMER CARBONATE 800 MG TABLET PO ×3 (08:36→16:29)
[2020-04-30] MEDS: metOLazone 5 MG TABLET 10 MG PO (08:36)
[2020-04-30] MEDS: lisinopriL 20 MG TABLET PO (08:36)
[2020-04-30] MEDS: DOCUSATE SODIUM 100 MG CAPSULE PO (08:36)
[2020-04-30] MEDS: METOCLOPRAMIDE HCL 10 MG TABLET PO ×4 (08:36→21:01)
[2020-04-30] MEDS: CHOLECALCIFEROL 1,000 UNITS TABLET 5000 UNITS PO (08:36)
[2020-04-30] MEDS: hydrALAZINE HCL 50 MG TABLET PO ×3 (08:37→16:29)
[2020-04-30] MEDS: ESCITALOPRAM OXALATE 5 MG TABLET PO (08:37)
[2020-04-30] MEDS: SENNOSIDES 8.6 MG TABLET PO (08:37)
[2020-04-30] MEDS: METOPROLOL SUCCINATE EXT REL 50 MG TABCR 100 MG PO (08:37)
[2020-04-30] MEDS: PANTOPRAZOLE 40 MG TABLET PO (08:37)
[2020-04-30] MEDS: ENOXAPARIN 30 MG/0.3 ML SYRINGE SUB-Q (08:37)
[2020-04-30] MEDS: TOLNAFTATE 1% POWDER 45 GM BTL 1 APPLIC TOPICAL ×2 (08:38→16:31)
[2020-04-30] MEDS: diphenhydrAMINE HCl CAP 25 MG CAPSULE PO (08:55)
[2020-04-30] MEDS: BUMETANIDE INJ 1 MG/4 ML VIAL IV PUSH ×2 (09:40→16:31)
--- NOTE | 2020-04-30 11:01 | PM.IMPN ---
Progress Note: A&P Assessment and Plan (1) Diastolic congestive heart failure: Code(s): I50.30 - Unspecified diastolic (congestive) heart failure Status: Acute Assessment and Plan: Likely CHF exacerbation with acute respiratory failure with hypoxia; now on RA. Lung exam unremarkable this morning. Improvement in pitting LE edema noted b/l. Dr. Mcmanus (Nephrology) consulted for management in diuretics. Echocardiogram 03/27/2020 normal EF 60-65%, grade 2 diastolic dysfunction, pulmonary artery systolic pressure 47 mmHg Continue diuretic regimen per Dr. Mcmanus; await for further recommendations Monitor fluid status Continue HH diet with 1.5 L fluid restriction Pain control as needed. (2) Anasarca: Code(s): R60.1 - Generalized edema Status: Acute Assessment and Plan: Patient breathing comfortably on RA. Dr. Mcmanus consulted and following; appreciate input. Continue diuretic regimen per Dr. Mcmanus recommendations Monitor (3) Nausea & vomiting: Code(s): R11.2 - Nausea with vomiting, unspecified Status: Acute Assessment and Plan: No complaints at this time Continue supportive care Continue home Zofran and Compazine. (4) CKD (chronic kidney disease) stage 4, GFR 15-29 ml/min: Code(s): N18.4 - Chronic kidney disease, stage 4 (severe) Status: Acute Assessment and Plan: Appears to at her baseline at this time. Dr. Mcmanus following and appreciate recommendations Continue home medications Continue diuretic regimen per Dr. Mcmanus recommendations Await further rec from Nephrology Additional Plan # other chronic conditions Patient has history of type 2 diabetes not on any diabetic medications. A1c 5.2 hyperlipidemia: Continue atorvastatin depression: Continue escitalopram vitamin-D deficiency: Continue supplement constipation: Continue docusate, MiraLax, senna insomnia: Restoril, Benadryl restless leg syndrome: Continue Requip GERD: Protonix hypertension: BP 180s sys this morning, although labile with BP in 130s prior to that; Continue metoprolol, hydralazine TID, and diuretics. Anticipate improvement with increased diuretics continue home Reglan chronic pain: Continue MS Contin Subjective Date/time seen: 04/30/20 11:01 Interval history: Patient is a 70 yo F with history of CKD, grade 3 uterine cancer, CHF, type 2 diabetes, peroneal DVT, GERD who is seen in follow up for diastolic CHF exacerbation and acute respiratory failure with hypoxia likely due to same. Patient states she feels better today. He breathing is okay. She thinks her swelling has improved some. She denies any n/v today. No other complaints at the moment. Denies f/c/s,headaches, dizziness, lightheadedness, cp/palpitations, sob/cough, n/v/d/c, abd pain, dysuria, hematuria, cloudy urine, calf pain. Review of Systems Review of Systems: All systems reviewed & are unremarkable except as noted in HPI and below Exam Narrative: Exam Narrative: General: Patient resting supine in bed in no acute distress. HEENT: Normocephalic, EOMI, oral mucosa moist. Cardiovascular: Rate and rhythm are regular with occasional ectopy. Systolic murmur appreciated. no rub, or gallop. Tele shows sinus rhythm with PVCs and PACs Respiratory: CATB. Non-labored breathing. On RA at time of visit Abdomen: Soft, non-tender, non-distended, bowel sounds present. Extremities: Peripheral pulses intact. Pitting edema noted B/l LE, some improvement from yesterday. NTTP b/l calves Neuro: No focal neurological deficits. Speech is clear. Objective Data Vital Signs Vital Signs: Last Vital Signs Temp 98.9 F 04/30/20 04:48 Pulse 61 04/30/20 08:40 Resp 18 04/30/20 04:48 BP 185/97 H 04/30/20 08:40 Pulse Ox 97 04/30/20 08:40 Intake/Output
[2020-04-30] MEDS: ACETAMINOPHEN 500 MG TABLET 1000 MG PO (11:46)
[2020-04-30 11:58] LABS: Glucose Point of Care 174 (65-105)
[2020-04-30] MEDS: rOPINIRole HCL 0.5 MG TABLET PO ×3 (11:58→21:00)
--- NOTE | 2020-04-30 15:31 | PM.PNNEP ---
Progress Note: A&P Assessment and Plan (1) CKD (chronic kidney disease) stage 4, GFR 15-29 ml/min: Code(s): N18.4 - Chronic kidney disease, stage 4 (severe) Status: Acute Assessment and Plan: Lupe has chronic kidney disease stage 4. Her GFR has been running in the high teens in the low 20s. she has diabetic and hypertensive nephrosclerosis per biopsy. Long-term treatment is low protein diet, blood pressure control, sugar control , control of sodium intake. Her blood pressure is pretty well controlled right now. Her creatinine looks stable. (2) Anasarca: Code(s): R60.1 - Generalized edema Status: Acute Assessment and Plan: The patient has severe edema. Partly this is from the nephrotic syndrome. She has [id number] of protein per g of creatinine . She is on low-protein diet for this. The patient also has pulmonary hypertension and moderate tricuspid regurgitation. This also contributes to the severity of her swelling. Continue diuretics. She is getting metolazone plus Bumex. When she is ready for discharge we can just switch to Bumex 1 mg orally twice a day. (3) Acute on chronic diastolic (congestive) heart failure: Code(s): I50.33 - Acute on chronic diastolic (congestive) heart failure Status: Acute Assessment and Plan: The patient had an echocardiogram done in March which showed diastolic dysfunction, good LV systolic function, pulmonary hypertension, and tricuspid regurgitation. (4) Anemia, unspecified: Code(s): D64.9 - Anemia, unspecified Status: Acute Assessment and Plan: The patient has a hemoglobin of 8.6. Will check iron levels and reticulocyte count. We can check stool guaiacs. Start Epogen. (5) Hypertension: Qualifiers: Hypertension type: essential hypertension Qualified Code(s): I10 - Essential (primary) hypertension Code(s): I10 - Essential (primary) hypertension Status: Chronic Assessment and Plan: Her blood pressure is on the high side. Will try extra blood pressure meds. Diuretics should help this as well. (6) Type 2 diabetes mellitus with peripheral neuropathy: Code(s): E11.42 - Type 2 diabetes mellitus with diabetic polyneuropathy Status: Chronic Assessment and Plan: Per hospitalist Subjective Date/time seen: 04/30/20 15:31 Interval history: Melina is feeling better today. She says her edema is better. She can cross her legs now when she could not before. She feels like she is making lots of urine. Review of Systems Cardiovascular: Cardiovascular: Reports no additional cardiovascular complaints Respiratory: Respiratory: Reports no additional respiratory complaints Gastrointestinal: Gastrointestinal: Reports no additional gastrointestinal complaints Genitourinary: Genitourinary: Reports no additional female genitourinary complaints Exam Narrative: Exam Narrative: WDWN in NAD skin no rash Or subcu nodules head ncat lungs clear cor reg no rub abd BS+ nontender and soft ext no edema or cyanosis. Objective Data Vital Signs Vital Signs: Vital Signs - 24 hr 04/29/20 16:00 04/29/20 20:00 04/29/20 20:08 Temperature 36.6 C Pulse Rate 65 59 L 57 L Respiratory Rate 16 Blood Pressure 131/72 Pulse Oximetry 97 04/30/20 00:00 04/30/20 04:00 04/30/20 04:48 Temperature 37.2 C Pulse Rate 59 L 59 L 58 L Respiratory Rate 18 Blood Pressure 138/44 L Pulse Oximetry 96 04/30/20 08:00 04/30/20 08:37 04/30/20 08:40 Temperature Pulse Rate 59 L 61 61 Respiratory Rate Blood Pressure 185/97 H Pulse Oximetry 97 04/30/20 14:00 Temperature 36.5 C Pulse Rate 90 Respiratory Rate 16 Blood Pressure 144/53 H Pulse Oximetry 96 Intake/Output Intake/Output: Intake & Output 04/27/20 04/28/20 04/29/20 04/30/20 23:59 23:59 23:59 23:59 Intake Total 1490 540 Output Total 400 450 100 Balance -4
[2020-04-30] MEDS: EPOETIN ALFA-EPBX 10,000 UNITS/ML VIAL 10000 UNITS SUB-Q (16:37)
[2020-04-30 17:19] LABS: Iron 74 ug/dL (37-170)
[2020-04-30 17:28] LABS: Percent Iron Saturation 26 % (20-50)
[2020-04-30 18:02] LABS: Folic Acid 13.1 ng/mL (2.76->20)
[2020-04-30] MEDS: ATORVASTATIN 20 MG TABLET PO (21:01)
[2020-04-30] MEDS: MORPHINE SULFATE (*CRX) 15 MG TABCR PO (21:02)
[2020-04-30] MEDS: TEMAZEPAM (*CRX) 15 MG CAPSULE PO (23:21)
[2020-05-01] MEDS: ACETAMINOPHEN 500 MG TABLET 1000 MG PO ×2 (02:43→16:47)
[2020-05-01] MEDS: diphenhydrAMINE HCl CAP 25 MG CAPSULE PO ×3 (02:44→16:47)
[2020-05-01 04:39] VITALS: BP 189/51; PULSE 58; RESP 18; TEMP 36.3; O2SAT 93
[2020-05-01 05:06] LABS: Hematocrit 24.3 % (37.0-47.0); Hemoglobin 7.9 g/dL (12.0-15.0); Mean Corpuscular HGB Conc 32.5 g/dl (32-36); Mean Corpuscular Hemoglobin 30.5 pg (26-34); Mean Corpuscular Volume 93.8 fl (80-100); Platelet Count Result 258 k/mm3 (150-375); Red Blood Count 2.59 M/mm3 (4.2-5.4); Red Cell Distribution Width 11.9 % (11.5-14.5); White Blood Count 6.4 K/mm3 (4.5-10.0)
[2020-05-01 06:25] LABS: Albumin Level 2.8 g/dL (3.5-5.1); Anion Gap 3 mmol/L (8-16); Blood Urea Nitrogen 76 mg/dL (7-17); Calcium 7.8 mg/dL (8.4-10.2); Carbon Dioxide 35 mmol/L (22-30); Chloride 95 mmol/L (98-107); Estimated CRCL calculation 16 ml/min; Estimated Glomerular Filt Rate 17; Glucose 106 mg/dL (65-105); Magnesium 2.3 mg/dL (1.6-2.3); Phosphorus 5.3 mg/dL (2.5-4.5); Potassium 4.7 mmol/L (3.4-5.0); Sodium 133 mmol/L (137-145)
[2020-05-01 07:28] LABS: Glucose Point of Care 89 (65-105)
--- NOTE | 2020-05-01 09:22 | PM.PNNEP ---
Progress Note: A&P Assessment and Plan (1) CKD (chronic kidney disease) stage 4, GFR 15-29 ml/min: Code(s): N18.4 - Chronic kidney disease, stage 4 (severe) Status: Acute Assessment and Plan: Lpue has chronic kidney disease stage 4. Her GFR has been running in the high teens in the low 20s. she has diabetic and hypertensive nephrosclerosis per biopsy. Long-term treatment is low protein diet, blood pressure control, sugar control , control of sodium intake. Her blood pressure is pretty well controlled right now. Her creatinine is stable. Edema is better. I think it is okay for discharge at any time from the kidney standpoint. (2) Anasarca: Code(s): R60.1 - Generalized edema Status: Acute Assessment and Plan: The patient had severe edema. Partly this is from the nephrotic syndrome. She has [id number] of protein per g of creatinine . She is on low-protein diet for this. The patient also has pulmonary hypertension and moderate tricuspid regurgitation. This also contributes to the severity of her swelling. On IV Bumex plus metolazone. I think we can switch to p.o. Bumex today. (3) Acute on chronic diastolic (congestive) heart failure: Code(s): I50.33 - Acute on chronic diastolic (congestive) heart failure Status: Acute Assessment and Plan: The patient had an echocardiogram done in March which showed diastolic dysfunction, good LV systolic function, pulmonary hypertension, and tricuspid regurgitation. (4) Anemia, unspecified: Code(s): D64.9 - Anemia, unspecified Status: Acute Assessment and Plan: The patient has a hemoglobin of 8.6. Iron levels B12 and folate are all okay. Will continue Epogen. If Daphney can do it we can continue [id number] once a week. If they cannot then she should see Dr. Reeves in the office. (5) Hypertension: Qualifiers: Hypertension type: essential hypertension Qualified Code(s): I10 - Essential (primary) hypertension Code(s): I10 - Essential (primary) hypertension Status: Chronic Assessment and Plan: Her blood pressure is on the high side. She is on lisinopril 20 mg a day. Will increase this dose to 40. Diuretics should help this as well. (6) Type 2 diabetes mellitus with peripheral neuropathy: Code(s): E11.42 - Type 2 diabetes mellitus with diabetic polyneuropathy Status: Chronic Assessment and Plan: Per hospitalist Subjective Date/time seen: 05/01/20 09:22 Interval history: Melina is feeling better today. swelling improved yet more. eager to get back to [place] Review of Systems Cardiovascular: Cardiovascular: Reports no additional cardiovascular complaints Respiratory: Respiratory: Reports no additional respiratory complaints Gastrointestinal: Gastrointestinal: Reports no additional gastrointestinal complaints Genitourinary: Genitourinary: Reports no additional female genitourinary complaints Exam Narrative: Exam Narrative: WDWN in NAD skin no rash Or subcu nodules head ncat lungs clear cor reg no rub abd BS+ nontender and soft ext 1+ edema or cyanosis. Objective Data Vital Signs Vital Signs: Vital Signs - 24 hr 04/30/20 14:00 04/30/20 22:00 05/01/20 04:39 Temperature 36.5 C 36.5 C 36.3 C L Pulse Rate 90 64 58 L Respiratory Rate 16 18 18 Blood Pressure 144/53 H 149/51 H 189/51 H Pulse Oximetry 96 93 93 Intake/Output Intake/Output: Intake & Output 04/28/20 04/29/20 04/30/20 05/01/20 23:59 23:59 23:59 23:59 Intake Total 1490 1080 450 Output Total 400 450 700 700 Balance -400 1040 380 -250 Meds/Results Medications: Active Medications Generic Name Dose Route Start Last Admin Trade Name Freq PRN Reason Stop Dose Admin Acetaminophen 1,000 mg 04/29/20 02:38 05/01/20 02:43 Acetaminophen 500 Mg Tablet PO 1,000 mg Q12H PRN Administration mild pain
[2020-05-01] MEDS: CHOLECALCIFEROL 1,000 UNITS TABLET 5000 UNITS PO (09:51)
[2020-05-01] MEDS: PANTOPRAZOLE 40 MG TABLET PO (09:52)
[2020-05-01] MEDS: ESCITALOPRAM OXALATE 5 MG TABLET PO (09:53)
[2020-05-01] MEDS: METOPROLOL SUCCINATE EXT REL 50 MG TABCR 100 MG PO (09:53)
[2020-05-01] MEDS: hydrALAZINE HCL 50 MG TABLET PO ×3 (09:53→16:48)
[2020-05-01] MEDS: DOCUSATE SODIUM 100 MG CAPSULE PO (09:53)
[2020-05-01] MEDS: METOCLOPRAMIDE HCL 10 MG TABLET PO ×3 (09:54→16:48)
[2020-05-01] MEDS: metOLazone 5 MG TABLET 10 MG PO (09:54)
[2020-05-01] MEDS: SEVELAMER CARBONATE 800 MG TABLET PO ×3 (09:54→16:48)
[2020-05-01] MEDS: SENNOSIDES 8.6 MG TABLET PO (09:55)
[2020-05-01] MEDS: ENOXAPARIN 30 MG/0.3 ML SYRINGE SUB-Q (09:55)
[2020-05-01] MEDS: BUMETANIDE 1 MG TABLET PO ×2 (10:10→16:48)
[2020-05-01] MEDS: lisinopriL 20 MG TABLET 40 MG PO (10:10)
[2020-05-01] MEDS: rOPINIRole HCL 0.5 MG TABLET PO (11:08)
--- NOTE | 2020-05-01 12:07 | PM.DS ---
DS: Admitting Diagnosis Admitting Diagnosis Admitting Diagnosis: CHF exacerbation, anasarca DS: Discharge Diagnosis Discharge Diagnosis (1) Diastolic congestive heart failure: Code(s): I50.30 - Unspecified diastolic (congestive) heart failure Status: Acute Assessment and Plan: Likely CHF exacerbation with acute respiratory failure with hypoxia; now on RA. Lung exam unremarkable this morning. Improvement in pitting LE edema noted b/l. Dr. Mcmanus (Nephrology) consulted for management in diuretics. Echocardiogram 03/27/2020 normal EF 60-65%, grade 2 diastolic dysfunction, pulmonary artery systolic pressure [address] Mcmanus who is okay with discharge Continue diuretic regimen Continue low sodium and low protein diet Pain control as needed. (2) Anasarca: Code(s): R60.1 - Generalized edema Status: Acute Assessment and Plan: Patient breathing comfortably on RA. Dr. Mcmanus consulted and following; appreciate input. Continue diuretic regimen per Dr. Mcmanus recommendations Monitor (3) Nausea & vomiting: Code(s): R11.2 - Nausea with vomiting, unspecified Status: Acute Assessment and Plan: No complaints at this time Continue supportive care Continue home Zofran and Compazine. (4) CKD (chronic kidney disease) stage 4, GFR 15-29 ml/min: Code(s): N18.4 - Chronic kidney disease, stage 4 (severe) Status: Acute Assessment and Plan: Appears to at her baseline at this time. Dr. Mcmanus following and appreciate recommendations Continue home medications Continue diuretic regimen per Dr. Mcmanus recommendations F/u with Nephrology DS: Summary Hospital Course Reason for hospitalization: CHF exacerbation, dyspnea, edema Hospital Course: Date of arrival: 04/28/20 Date of discharge: 05/01/20 Patient is a 69 year old female with past medical history of CKD, grade 3 uterine cancer, CHF, type 2 diabetes, peroneal DVT, GERD who presented to the ED from [facility] on 04/28 with acute hypoxia from [place] [facility] and bilateral lower extremity swelling and nausea/vomiting. [place] [id number] and was given Lasix 40 mg IV. Cr was 2.7, but this appeared lower then her baseline. Patient admitted under the setting of anasarca and CHF exacerbation; Dr. Mcmanus (Nephrology) consulted from the ED. Please see H&P for further details. Patient was admitted to the hospitalist service for further management/treatment. Patient was given IV Bumex BID during her stay and her other home diuretics were resumed. She had improvement in her edema during her stay. She was placed on O2 supplementation briefly during stay, but predominantly stayed on RA, maintaining adequate saturations. A low sodium and low protein diet was recommended at discharge. Epogen weekly injections were also recommended while at [facility]; this would be arranged through the facility if possible or through Dr. Reeves's office. She was started on Lisinopril during stay with improvement in her Blood pressure; this was continued at discharge. She was to follow up with Dr. Mcmanus and her PCP after discharge. She was given a short supply of [place] for breakthrough pain, but was encouraged to discuss further adjustements in her medication with her PCP. Patient agreeable and comfortable with plan for discharge. Patient hemodynamically stable and in improved condition for discharge on 05/01 Status at Discharge Overall status at discharge: patient is progressing back to baseline Time Spent with Patient Time attestation: Total time spent providing and/or coordinating discharge services: Time spent: Greater than 30 minutes Exam Narrative: Exam Narrative: General: Patient sitting uprig
[2020-05-01 14:00] VITALS: BP 155/53; PULSE 60; RESP 15; TEMP 36.6; O2SAT 96
[2020-05-01] MEDS: EPOETIN ALFA-EPBX 10,000 UNITS/ML VIAL 10000 UNITS SUB-Q (16:47)
== END 2020-05-01 18:43 | DRG 291 ==
LOC: ANHED 21:05 → ANH2MED 21:45
PROVIDERS: Internal Medicine Nephrology; Physician Assistant; Admitting Provider Student in an Organized Health Care Education/Training Program; Emergency Provider Emergency Medicine; PCP Internal Medicine; Visit Provider Internal Medicine
DX: I13.0 Hypertensive heart and chronic kidney disease with heart failure and stage 1 through stage 4 chronic kidney disease, or unspecified chronic kidney disease (principal); I50.33 Acute on chronic diastolic (congestive) heart failure; J96.01 Acute respiratory failure with hypoxia; N18.4 Chronic kidney disease, stage 4 (severe); E11.22 Type 2 diabetes mellitus with diabetic chronic kidney disease; G89.4 Chronic pain syndrome; F32.9 Major depressive disorder, single episode, unspecified; E11.42 Type 2 diabetes mellitus with diabetic polyneuropathy; E11.21 Type 2 diabetes mellitus with diabetic nephropathy; D64.9 Anemia, unspecified; E55.9 Vitamin D deficiency, unspecified; E78.5 Hyperlipidemia, unspecified; G25.81 Restless legs syndrome; Z85.42 Personal history of malignant neoplasm of other parts of uterus; Z86.718 Personal history of other venous thrombosis and embolism; Z98.42 Cataract extraction status, left eye; Z98.41 Cataract extraction status, right eye; Z90.49 Acquired absence of other specified parts of digestive tract; Z87.891 Personal history of nicotine dependence
CPT/HCPCS: 36415; 51701; 71045; 74176; 80048; 80053; 80069; 81001; 82570; 82607; 82746; 83036; 83540; 83550; 83690; 83735; 83880; 83970; 84156; 84300; 84484; 85025; 85027; 85610; 85730; 93005; 96372; 96374; 96375; 96376; 97161; 97165; 99285; A9270; G0378; J1650; J1940; Q5106

== ENCOUNTER 2020-05-23 02:37 | Emergency (ER) | payer MEDICARE, MEDICAID, SELFPAY ==
--- NOTE | ~2020-05-23 | CT_ITS ---
EXAMINATION: CT brain wo con DATE: 05/23/2020 04:02 INDICATION: Status post fall. TECHNIQUE: Computed tomography (CT) of the head was performed without intravenous contrast. The dose- length product was 605.33 mGy-cm. The mA was adjusted according to patient size. Iterative reconstruc tion technique was employed. COMPARISON: None FINDINGS: There is a chronic right frontal lobe infarction with encephalomalacia. Generalized atrophy . There are scattered moderate periventricular and subcortical white matter changes, most likely rela taisha to small vessel ischemic disease (microangiopathy). There is intracranial atherosclerosis. No torie triculomegaly or midline shift. Basilar cisterns are patent. No acute intracranial hemorrhage, infarc tion, mass or mass effect. No significant abnormality of the paranasal sinuses. Mastoids are pneumati zed. No depressed skull fractures. IMPRESSION: 1. No acute intracranial abnormality. 2: Chronic right frontal lobe infarction. 3: Chronic age-related findings. Reviewed, dictated and finalized at location A. UBER
[2020-05-23 02:37] VITALS: BP 162/85; PULSE 60; RESP 20; TEMP 36.6; O2SAT 97
--- NOTE | 2020-05-23 02:41 | ECG_ITS ---
Measurements Intervals [place] Rate: 58 P: 80 [place]: 170 QRS: 28 QRSD: 94 T: 38 QT: 457 QTc: 452 Interpretive Statements SINUS BRADYCARDIA DELAYED PRECORDIAL R/S TRANSITION BORDERLINE ST ABNORMALITY- DIFFUSE LEADS BASELINE ARTIFACT- I, III BORDERLINE ECG Electronically Signed On 05-23-2020 7:10:48 CHILD CENTER ASSISTANT by Jl Floyd D.O.
[2020-05-23 03:19] LABS: Basophils Percent Auto 0.3 % (0.2-1.2); Eosinophils Absolute Auto 0.2 K/mm3 (0-0.3); Hematocrit 26.7 % (37.0-47.0); Hemoglobin 8.6 g/dL (12.0-15.0); Immature Granulocyte Absolute 0.04 K/mm3 (0.00-0.031); Immature Granulocyte Percent A 0.5 % (0-0.5); Lymphocytes Absolute Auto 0.57 K/mm3 (0.9-3.2); Lymphocytes Percent Auto 7.5 % (18.3-44.2); Mean Corpuscular HGB Conc 32.2 g/dl (32-36); Mean Corpuscular Hemoglobin 30.8 pg (26-34); Mean Corpuscular Volume 95.7 fl (80-100); Mean Platelet Volume 10.6 fl (7.4-10.4); Monocytes Percent Auto 12.7 % (2.6-8.5); Neutrophils Absolute Auto 5.7 K/mm3 (1.3-6.7); Platelet Count Result 246 k/mm3 (150-375); Red Blood Count 2.79 M/mm3 (4.2-5.4); Red Cell Distribution Width 13.1 % (11.5-14.5); White Blood Count 7.6 K/mm3 (4.5-10.0)
[2020-05-23 03:23] LABS: Add Urine Microscopic? YES; Appearance Urine Clear (Clear); Bacteria Urine Trace /hpf; Bilirubin Urine Negative (Negative); Blood Urine Negative (Negative); Color Urine Yellow (Yellow); Glucose Urine UA 1+ mg/dL (Negative); Ketones Urine Negative (Negative); Leukocyte Esterase Ur Negative LEU/UL (Negative); Nitrate Urine Negative (Negative); Protein Urine 3+ mg/dL (Negative); Specific Grav Ur 1.015 (1.001-1.035); Squamous Epithelial Cell Urine Occasional /hpf (Few); Urobilinogen Urine Negative mg/dL (<2.0); WBC Urine 0-3 /hpf
--- NOTE | 2020-05-23 03:40 | ED.GENADULT ---
HPI - General Adult General Chief complaint: Altered Mental Status Stated complaint: Abnormal labs, fallx2 Time Seen by Provider: 05/23/20 02:42 History of Present Illness HPI narrative: Patient is a 70-year-old female who presents the ER after [facility] This is abnormal for her. Patient is alert and oriented x3. She has no complaints of pain or weakness. She reports she did in fact fall out of bed while she is laying there sleeping a couple times. Denies that she is attempting to get out and was too weak to get up. Apparently there is also some outpatient lab work that showed she had a low GFR so apparently the penitentiary felt she needed to be sent for emergent dialysis. 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 They have been discussing starting her on dialysis. She does not have a tunneled hemodialysis cath nor does she have a peritoneal catheter. Related Data Home Medications Medication Instructions Recorded Confirmed metoclopramide HCl [Reglan] 10 mg PO QID 07/05/19 04/28/20 bumetanide 1 mg PO DAILY 08/01/19 04/28/20 metoprolol succinate 100 mg PO DAILY 08/01/19 04/28/20 polyethylene glycol 3350 [Miralax] 17 g PO DAILY PRN 08/01/19 04/28/20 ropinirole 0.5 mg PO TID PRN 08/01/19 04/28/20 cholecalciferol (vitamin D3) 125 mcg PO DAILY 02/26/20 04/28/20 [Vitamin D3] pantoprazole 40 mg PO QAM 02/26/20 04/28/20 sennosides [senna] 8.6 mg PO DAILY 02/26/20 04/28/20 sevelamer carbonate [Renvela] 800 mg PO TIDWM 02/26/20 04/28/20 temazepam 15 mg PO HS PRN 02/26/20 04/28/20 acetaminophen 1,000 mg PO Q12H PRN 03/26/20 04/28/20 diphenhydramine HCl [Allergy 25 mg PO TID PRN 03/26/20 04/28/20 (diphenhydramine)] escitalopram oxalate 5 mg PO QAM 03/26/20 04/28/20 ondansetron HCl 4 mg PO Q6H PRN 03/26/20 04/28/20 prochlorperazine 25 mg MN Q8H PRN 03/26/20 04/28/20 hydralazine 50 mg PO TID 04/28/20 04/28/20 Allergies Allergy/AdvReac Type Severity Reaction Status Date / Time No Known Allergies Allergy Verified 04/28/20 16:48 Review of Systems Review of Systems: All systems reviewed & are unremarkable except as noted in HPI and below Constitutional: Constitutional: Denies chills, Denies fever(s) and Denies weakness ENT: Denies nasal congestion and Denies sore throat Cardiovascular: Cardiovascular: Denies chest pain and Denies radiating jaw, neck or arm pain Respiratory: Respiratory: Denies cough, Denies dyspnea and Denies wheezing Gastrointestinal: Gastrointestinal: Denies abdominal pain, Denies nausea and Denies vomiting Genitourinary: Genitourinary: Denies nocturia and Denies dysuria Musculoskeletal: Musculoskeletal: Denies back pain and Denies muscle cramps PMFSH Past Medical History Medical History Chronic anemia Chronic kidney disease, stage 3 Baseline creatinine between 1.4 and 1.60. Chronic low back pain Chronic pain syndrome Had previously been on morphine 15 milligrams b.i.d. Recently started on Lyrica. Depression Diastolic congestive heart failure Echocardiogram in January 2019 demonstrated normal left ventricular size and function with ejection fraction of > 70% diastolic dysfunction grade 2. Gastritis Hyperlipidemia Hypertension Nephrotic syndrome 12/30/2019 had 24 hour urine Rectal bleeding Type 2 diabetes mellitus with peripheral neuropathy Surgical History Surgical History History of knee surgery Hx of toe surgery Status post cataract extraction Status post cholecystectomy Family History Family History Mother Lung cancer Sibling Malignant neoplasm of prostate Diabetes mellitus Osteoarthritis Dialysis patient Heart disease Social History Social History Social History:
[2020-05-23 05:16] LABS: Alanine Aminotransferase 58 U/L (4-35); Alkaline Phosphatase 107 U/L (38-126); Anion Gap 5 mmol/L (8-16); Aspartate Amino Transferase 42 U/L (14-36); Bilirubin,Total 0.3 mg/dL (0.2-1.3); Blood Urea Nitrogen 90 mg/dL (7-17); Calcium 7.6 mg/dL (8.4-10.2); Carbon Dioxide 29 mmol/L (22-30); Chloride 99 mmol/L (98-107); Estimated CRCL calculation 14 ml/min; Estimated Glomerular Filt Rate 14; Glucose 105 mg/dL (65-105); Potassium 5.5 mmol/L (3.4-5.0); Sodium 133 mmol/L (137-145)
[2020-05-23] MEDS: BUMETANIDE 1 MG TABLET PO (06:58)
[2020-05-23] MEDS: SODIUM POLYSTYRENE SULFONONATE 15 GM/60 ML BTL PO (06:59)
[2020-05-23 07:29] VITALS: BP 221/72; PULSE 60; RESP 20; O2SAT 98
[2020-05-23] MEDS: hydrALAZINE HCL 20 MG/ML VIAL IV PUSH (07:34)
[2020-05-23 08:05] VITALS: BP 160/61; PULSE 62; RESP 20; O2SAT 98
[2020-05-23 09:01] VITALS: BP 175/73; PULSE 60; RESP 20; O2SAT 98
[2020-05-23 09:54] VITALS: BP 175/73; PULSE 60; RESP 20; O2SAT 98
--- NOTE | 2020-05-23 10:14 | PC.NURSE ---
SPOKE WITH ONEAL GOINS AT [facility]. REPORT GIVEN. NO QUESTIONS
== END 2020-05-23 09:58 ==
PROVIDERS: Emergency Provider Emergency Medicine; PCP Internal Medicine
DX: R53.1 Weakness (principal); E11.22 Type 2 diabetes mellitus with diabetic chronic kidney disease; I13.0 Hypertensive heart and chronic kidney disease with heart failure and stage 1 through stage 4 chronic kidney disease, or unspecified chronic kidney disease; N18.30 Chronic kidney disease, stage 3 unspecified; D63.1 Anemia in chronic kidney disease; G89.4 Chronic pain syndrome; I50.30 Unspecified diastolic (congestive) heart failure; E78.5 Hyperlipidemia, unspecified; E11.42 Type 2 diabetes mellitus with diabetic polyneuropathy; Z87.891 Personal history of nicotine dependence; Z98.49 Cataract extraction status, unspecified eye
CPT/HCPCS: 36415; 51701; 70450; 80053; 81001; 85025; 93005; 96374; 99284; A9270; J0360

== ENCOUNTER 2020-06-09 10:16 | Inpatient (IN) | payer MEDICARE, MEDICAID, SELFPAY ==
[2020-06-09] VITALS (10 sets, daily range): BP systolic 157–233; BP diastolic 76–108; PULSE 89–100; RESP 18–25; TEMP 36–36.8; O2SAT 90–98
--- NOTE | ~2020-06-09 | XR_ITS ---
EXAMINATION: XR chest port-a-cath/central DATE: 06/12/2020 11:45 INDICATION: Tunneled dialysis catheter insertion TECHNIQUE: 3 fluoroscopic spot images of portions of the chest and 2 AP radiographs of the chest were obtained during procedure performed by Dr. Carnes. Radiologist was not present for the imaging or proc edure. The amount of fluoroscopy time used during this procedure was 5.2 minutes. COMPARISON: 06/11/2020 FINDINGS: Large-bore dual-lumen tunneled right internal jugular central venous with distal tip at the caudal damon perior vena cava. Slight increase in bilateral perihilar predominant opacities consistent with worsen ing pulmonary edema. Small left pleural effusion along the major fissure. No pneumothorax or right-si ded pleural effusion. Cardiomegaly. IMPRESSION: 1. Right internal jugular central venous catheter tip in the caudal superior vena cava. 2. Increasing perihilar predominant opacities likely congestive heart failure related pulmonary edema . 3. Small left pleural effusion. 4. Cardiomegaly. Reviewed, dictated and finalized at location B. ERIZER OPERATOR IMPRESSION: 1. Right internal jugular central venous catheter tip in the caudal superior ve na cava. 2. Increasing perihilar predominant opacities likely congestive heart failure r elated pulmonary edema. 3. Small left pleural effusion. 4. Cardiomegaly.
--- NOTE | ~2020-06-09 | XR_ITS ---
EXAMINATION: XR fl guide central line place DATE: 06/12/2020 11:45 INDICATION: Tunneled dialysis catheter insertion TECHNIQUE: 3 fluoroscopic spot images of portions of the chest and 2 AP radiographs of the chest were obtained during procedure performed by Dr. Carnes. Radiologist was not present for the imaging or proc edure. The amount of fluoroscopy time used during this procedure was 5.2 minutes. COMPARISON: 06/11/2020 FINDINGS: Large-bore dual-lumen tunneled right internal jugular central venous with distal tip at the caudal damon perior vena cava. Slight increase in bilateral perihilar predominant opacities consistent with worsen ing pulmonary edema. Small left pleural effusion along the major fissure. No pneumothorax or right-si ded pleural effusion. Cardiomegaly. IMPRESSION: 1. Right internal jugular central venous catheter tip in the caudal superior vena cava. 2. Increasing perihilar predominant opacities likely congestive heart failure related pulmonary edema . 3. Small left pleural effusion. 4. Cardiomegaly. Reviewed, dictated and finalized at location B. PORTAL DEVELOPER IMPRESSION: 1. Right internal jugular central venous catheter tip in the caudal superior ve na cava. 2. Increasing perihilar predominant opacities likely congestive heart failure r elated pulmonary edema. 3. Small left pleural effusion. 4. Cardiomegaly.
--- NOTE | ~2020-06-09 | XR_ITS ---
EXAMINATION: XR chest 1V portable EXAM DATE: 06/11/2020 05:56 INDICATION: Shortness of breath. TECHNIQUE: Portable AP frontal chest x-ray was obtained. Comparison is made to prior examination from 04/28/2020. FINDINGS: There is moderate cardiomegaly. There is pulmonary vascular congestion. There is indistinct reticulation with a bibasal predominance which may indicate pulmonary edema. No confluent consolid ation, pneumothorax or pleural effusion suspected. There are bony degenerative changes. There is aort ic arteriosclerosis. IMPRESSION: Findings consistent with CHF exacerbation. Reviewed, dictated and finalized at location A. MEASURING MACHINE OPERATOR
--- NOTE | 2020-06-09 10:27 | ED.LOWEXIN ---
HPI - Extremity Injury (Lower) General Chief Complaint: Extremity Injury, Lower Stated Complaint: leg pain, high bp, bs >300 Time Seen by Provider: 06/09/20 10:19 Source: patient Mode of arrival: ambulatory Limitations: no limitations History of Present Illness HPI Narrative: A 70-year-old female presents to the emergency department today with complaints of pain in her bilateral lower legs. Patient does note a history of restless leg syndrome. She states that it feels like her legs are jumping and very much bothering her. She does state that she has been compliant with her medications. Patient is a known diabetic. When EMS picked her up sugars were greater than 350. Patient denies any chest pain or shortness of breath at this time. Related Data Home Medications Medication Instructions Recorded Confirmed metoclopramide HCl [Reglan] 10 mg PO QID 07/05/19 04/28/20 bumetanide 1 mg PO DAILY 08/01/19 04/28/20 metoprolol succinate 100 mg PO DAILY 08/01/19 04/28/20 polyethylene glycol 3350 [Miralax] 17 g PO DAILY PRN 08/01/19 04/28/20 ropinirole 0.5 mg PO TID PRN 08/01/19 04/28/20 cholecalciferol (vitamin D3) 125 mcg PO DAILY 02/26/20 04/28/20 [Vitamin D3] pantoprazole 40 mg PO QAM 02/26/20 04/28/20 sennosides [senna] 8.6 mg PO DAILY 02/26/20 04/28/20 sevelamer carbonate [Renvela] 800 mg PO TIDWM 02/26/20 04/28/20 temazepam 15 mg PO HS PRN 02/26/20 04/28/20 acetaminophen 1,000 mg PO Q12H PRN 03/26/20 04/28/20 diphenhydramine HCl [Allergy 25 mg PO TID PRN 03/26/20 04/28/20 (diphenhydramine)] escitalopram oxalate 5 mg PO QAM 03/26/20 04/28/20 ondansetron HCl 4 mg PO Q6H PRN 03/26/20 04/28/20 prochlorperazine 25 mg HI Q8H PRN 03/26/20 04/28/20 hydralazine 50 mg PO TID 04/28/20 04/28/20 Allergies Allergy/AdvReac Type Severity Reaction Status Date / Time No Known Allergies Allergy Verified 04/28/20 16:48 Review of Systems Review of Systems: Narrative: CONSTITUTIONAL: Denies fever, chills, or sweats. EYES: Denies visual changes, redness, or discharge. ENT: Denies rhinorrhea, congestion, sore throat, or otalgia. CARDIOVASCULAR: Denies chest pain, palpitations, or edema. RESPIRATORY: Denies cough or dyspnea. GASTROINTESTINAL: Denies abdominal pain, nausea, vomiting, or diarrhea. GENITOURINARY: Denies dysuria or hematuria. SKIN: Denies rash or itching. MUSCULOSKELETAL: Denies back pain, joint pain, or myalgia. NEUROLOGIC: Denies headache, numbness, dizziness, or weakness. Jumping legs PSYCHIATRIC: Denies anxiety or depression. [facility] Past Medical History Medical History Chronic anemia Chronic kidney disease, stage 3 Baseline creatinine between 1.4 and 1.60. Chronic low back pain Chronic pain syndrome Had previously been on morphine 15 milligrams b.i.d. Recently started on Lyrica. Depression Diastolic congestive heart failure Echocardiogram in January 2019 demonstrated normal left ventricular size and function with ejection fraction of > 70% diastolic dysfunction grade 2. Gastritis Hyperlipidemia Hypertension Nephrotic syndrome 12/30/2019 had 24 hour urine Rectal bleeding Type 2 diabetes mellitus with peripheral neuropathy Surgical History Surgical History History of knee surgery Hx of toe surgery Status post cataract extraction Status post cholecystectomy Family History Family History Mother Lung cancer Sibling Malignant neoplasm of prostate Diabetes mellitus Osteoarthritis Dialysis patient Heart disease Social History Social History Social History: The patient has been since 2010, when her from cancer. Her daughter was killed that same year and a drunk driving accident. She does have a son who lives in [place], [place]. Her brother, Kolton Macias, is her surrog
[2020-06-09 10:29] LABS: Glucose Point of Care 277 (65-105)
[2020-06-09 10:32] LABS: Basophils Percent Auto 0.4 % (0.2-1.2); Eosinophils Absolute Auto 0.1 K/mm3 (0-0.3); Eosinophils Percent Auto 1.7 % (0-4.4); Hematocrit 28.8 % (37.0-47.0); Hemoglobin 9.1 g/dL (12.0-15.0); Immature Granulocyte Absolute 0.05 K/mm3 (0.00-0.031); Immature Granulocyte Percent A 0.7 % (0-0.5); Lymphocytes Absolute Auto 0.56 K/mm3 (0.9-3.2); Lymphocytes Percent Auto 7.9 % (18.3-44.2); Mean Corpuscular HGB Conc 31.6 g/dl (32-36); Mean Corpuscular Hemoglobin 29.9 pg (26-34); Mean Corpuscular Volume 94.7 fl (80-100); Mean Platelet Volume 9.1 fl (7.4-10.4); Monocytes Absolute Auto 0.6 K/mm3 (0.1-0.6); Monocytes Percent Auto 8.6 % (2.6-8.5); Neutrophils Absolute Auto 5.7 K/mm3 (1.3-6.7); Neutrophils Percent Auto 80.7 % (45.5-73.1); Platelet Count Result 251 k/mm3 (150-375); Red Blood Count 3.04 M/mm3 (4.2-5.4); Red Cell Distribution Width 13.3 % (11.5-14.5); White Blood Count 7.1 K/mm3 (4.5-10.0)
[2020-06-09] MEDS: hydrALAZINE HCL 20 MG/ML VIAL 10 MG IV PUSH (10:32)
[2020-06-09] MEDS: FUROSEMIDE INJ 40 MG/4 ML VIAL IV PUSH (10:32)
[2020-06-09 10:44] LABS: Alanine Aminotransferase 24 U/L (4-35); Albumin Level 3.1 g/dL (3.5-5.1); Alkaline Phosphatase 84 U/L (38-126); Anion Gap 9 mmol/L (8-16); Aspartate Amino Transferase 22 U/L (14-36); Bilirubin,Total 0.3 mg/dL (0.2-1.3); Blood Urea Nitrogen 77 mg/dL (7-17); Calcium 8.2 mg/dL (8.4-10.2); Carbon Dioxide 25 mmol/L (22-30); Chloride 101 mmol/L (98-107); Estimated CRCL calculation 14 ml/min; Estimated Glomerular Filt Rate 14; Glucose 245 mg/dL (65-105); Potassium 4.6 mmol/L (3.4-5.0); Sodium 135 mmol/L (137-145)
[2020-06-09 10:57] LABS: Troponin I 0.059 ng/mL (0.000-0.034)
[2020-06-09] MEDS: hydrALAZINE HCL 20 MG/ML VIAL IV PUSH (11:34)
[2020-06-09] MEDS: MORPHINE SULFATE (*CRX) 2 MG/ML INJ IV PUSH (13:12)
[2020-06-09 14:30] LABS: Troponin I 0.051 ng/mL (0.000-0.034)
--- NOTE | 2020-06-09 15:32 | ADMGEN ---
This patient, Lupe Gomez, was admitted to IMU Room 201-01. Patient/family oriented to hospital policies and general routines including ID bracelet, bed and alarms, visiting hours, pain management, procedures, bathroom and other care routines, personal items, smoking policy, room service/diet, and visiting hours. Information on how to activate the Rapid Response Team has been discussed. Patient/Family are encouraged to report perceived risks to care and to ask questions if they do not understand what they are told or what they should do.
[2020-06-09 18:02] LABS: Troponin I 0.058 ng/mL (0.000-0.034)
[2020-06-10] VITALS (20 sets, daily range): BP systolic 166–192; BP diastolic 63–85; PULSE 68–98; RESP 18–20; TEMP 36.1–36.5; O2SAT 91–98
[2020-06-10] MEDS: GABAPENTIN 100 MG CAPSULE PO ×4 (00:58→16:58)
[2020-06-10] MEDS: ATORVASTATIN 20 MG TABLET PO ×2 (00:58→20:55)
[2020-06-10] MEDS: hydrALAZINE HCL 50 MG TABLET 100 MG PO ×4 (00:58→16:57)
[2020-06-10] MEDS: TEMAZEPAM (*CRX) 15 MG CAPSULE PO ×2 (00:58→20:55)
[2020-06-10] MEDS: METOPROLOL TARTRATE INJ 5 MG/5 ML VIAL IV PUSH (01:58)
[2020-06-10 04:26] LABS: Basophils Percent Auto 0.3 % (0.2-1.2); Eosinophils Percent Auto 0.6 % (0-4.4); Hematocrit 26.1 % (37.0-47.0); Hemoglobin 8.3 g/dL (12.0-15.0); Immature Granulocyte Absolute 0.02 K/mm3 (0.00-0.031); Immature Granulocyte Percent A 0.3 % (0-0.5); Lymphocytes Absolute Auto 0.49 K/mm3 (0.9-3.2); Lymphocytes Percent Auto 6.9 % (18.3-44.2); Mean Corpuscular HGB Conc 31.8 g/dl (32-36); Mean Corpuscular Hemoglobin 29.9 pg (26-34); Mean Corpuscular Volume 93.9 fl (80-100); Mean Platelet Volume 9.6 fl (7.4-10.4); Monocytes Absolute Auto 0.5 K/mm3 (0.1-0.6); Neutrophils Absolute Auto 6.1 K/mm3 (1.3-6.7); Neutrophils Percent Auto 84.9 % (45.5-73.1); Platelet Count Result 222 k/mm3 (150-375); Red Blood Count 2.78 M/mm3 (4.2-5.4); Red Cell Distribution Width 13.2 % (11.5-14.5); White Blood Count 7.1 K/mm3 (4.5-10.0)
[2020-06-10 04:41] LABS: Alanine Aminotransferase 18 U/L (4-35); Albumin Level 2.7 g/dL (3.5-5.1); Alkaline Phosphatase 70 U/L (38-126); Anion Gap 4 mmol/L (8-16); Aspartate Amino Transferase 20 U/L (14-36); Bilirubin,Total 0.3 mg/dL (0.2-1.3); Blood Urea Nitrogen 72 mg/dL (7-17); Calcium 8.2 mg/dL (8.4-10.2); Carbon Dioxide 28 mmol/L (22-30); Chloride 105 mmol/L (98-107); Estimated CRCL calculation 15 ml/min; Estimated Glomerular Filt Rate 15; Glucose 119 mg/dL (65-105); Potassium 4.4 mmol/L (3.4-5.0); Sodium 137 mmol/L (137-145)
[2020-06-10 05:04] LABS: Hemoglobin A1C 5.4 % (<5.7)
[2020-06-10] MEDS: SEVELAMER CARBONATE 800 MG TABLET PO ×3 (09:38→16:58)
[2020-06-10] MEDS: METOCLOPRAMIDE HCL 10 MG TABLET PO ×4 (09:39→20:55)
[2020-06-10] MEDS: metOLazone 5 MG TABLET 10 MG PO (09:40)
[2020-06-10] MEDS: CHOLECALCIFEROL 1,000 UNITS TABLET 5000 UNITS PO (09:42)
[2020-06-10] MEDS: ENOXAPARIN 30 MG/0.3 ML SYRINGE SUB-Q (09:43)
[2020-06-10] MEDS: ESCITALOPRAM OXALATE 5 MG TABLET PO (09:44)
[2020-06-10] MEDS: METOPROLOL SUCCINATE EXT REL 50 MG TABCR 100 MG PO (09:46)
[2020-06-10] MEDS: PANTOPRAZOLE 40 MG TABLET PO (09:47)
--- NOTE | 2020-06-10 09:53 | ECG_ITS ---
Measurements Intervals [place] Rate: 98 P: 99 NE: 160 QRS: 110 QRSD: 94 T: 26 QT: 362 QTc: 462 Interpretive Statements SINUS RHYTHM ATRIAL PREMATURE COMPLEXES RIGHT AXIS DEVIATION BORDERLINE R WAVE PROGRESSION, ANTERIOR LEADS BORDERLINE ST-T WAVE ABNORMALITY- INFERIOR LEADS BASELINE WANDER- V2 BORDERLINE ECG Electronically Signed On 06-10-2020 11:03:40 PUNCH CARD OPERATOR by Jl Floyd D.O.
[2020-06-10] MEDS: BUMETANIDE 1 MG TABLET PO (11:19)
[2020-06-10] MEDS: lisinopriL 20 MG TABLET 40 MG PO (11:19)
--- NOTE | 2020-06-10 15:49 | PM.IMHP ---
H&P: HPI History of Present Illness Date/Time: 06/10/20 15:49 Chief Complaint: Swelling and SOB Narrative: Lupe Gomez is a 70 year old female history of CKD, grade 3 uterine cancer, CHF, type 2 diabetes, peroneal DVT, GERD who presents the ED from [facility] with swelling, and restless leg syndrome. Her eyes were so swollen she describes them like monster eyes, pt could not breath and felt swollen, so came in to ED for evaluation. Pt creat is 3.1 today. Pt is known pt of Dr Mcmanus, nephrology. DR shields PCP. Pts sugars are also high presently around 200. Bp was high on admission. Troponin mildly elevated. Review of Systems Review of Systems: All systems reviewed & are unremarkable except as noted in HPI and below PMFSH Past Medical History Medical History Chronic anemia Chronic kidney disease, stage 3 Baseline creatinine between 1.4 and 1.60. Chronic low back pain Chronic pain syndrome Had previously been on morphine 15 milligrams b.i.d. Recently started on Lyrica. Depression Diastolic congestive heart failure Echocardiogram in January 2019 demonstrated normal left ventricular size and function with ejection fraction of > 70% diastolic dysfunction grade 2. Gastritis Hyperlipidemia Hypertension Nephrotic syndrome 12/30/2019 had 24 hour urine Rectal bleeding Type 2 diabetes mellitus with peripheral neuropathy Surgical History Surgical History History of knee surgery Hx of toe surgery Status post cataract extraction Status post cholecystectomy Family History Family History Mother Lung cancer Sibling Malignant neoplasm of prostate Diabetes mellitus Osteoarthritis Dialysis patient Heart disease Social History Social History Social History: The patient has been since 2010, when her from cancer. Her daughter was killed that same year and a drunk driving accident. She does have a son who lives in [place], [place]. Her brother, Kolton Macias, is her surrogate decision maker and she wishes to be a do not resuscitate. She is a former smoker and denies alcohol and drug abuse. Smoking packs per day: 1 Smoking cigarettes per day: 20.0 Years smoked: 5 Smoking pack-years: 5.00 Smoking status: Former smoker Tobacco type: cigarettes Alcohol intake: never Substance use: never Substance use type: does not use Gender identity (if verbalized by the patient): Female Spiritual care concerns: No Agree to blood products: Yes Meds Home Medications and Allergies Home Medications Medication Instructions Recorded Confirmed Type docusate sodium 100 mg tablet 100 mg PO DAILY #1 tablet 03/29/19 06/09/20 Rx metoclopramide HCl [Reglan] 10 mg PO QID 07/05/19 06/09/20 History bumetanide 1 mg PO DAILY 08/01/19 06/09/20 History metoprolol succinate 100 mg PO DAILY 08/01/19 06/09/20 History polyethylene glycol 3350 [Miralax] 17 g PO DAILY PRN 08/01/19 06/09/20 History ropinirole 0.5 mg PO TID PRN 08/01/19 06/09/20 History atorvastatin 20 mg tablet 20 mg PO HS #90 tablet 11/27/19 06/09/20 Rx cholecalciferol (vitamin D3) 125 mcg PO DAILY 02/26/20 06/09/20 History [Vitamin D3] pantoprazole 40 mg PO QAM 02/26/20 06/09/20 History sennosides [senna] 8.6 mg PO DAILY 02/26/20 06/09/20 History sevelamer carbonate [Renvela] 800 mg PO TIDWM 02/26/20 06/09/20 History temazepam 15 mg PO HS 02/26/20 06/09/20 History acetaminophen 1,000 mg PO Q12H PRN 03/26/20 06/09/20 History diphenhydramine HCl [Allergy 25 mg PO TID PRN 03/26/20 06/09/20 History (diphenhydramine)] escitalopram oxalate 5 mg PO QAM 03/26/20 06/09/20 History ondansetron HCl 4 mg PO Q6H PRN 03/26/20 06/09/20 History prochlorperazine maleate 5 mg 5 mg PO Q6H PRN 30 Days #120 table
[2020-06-10] MEDS: fentaNYL (*CRX) 50 MCG PATCH TRANSDERM (20:55)
[2020-06-11] VITALS (11 sets, daily range): BP systolic 132–194; BP diastolic 44–74; PULSE 56–72; RESP 18–20; TEMP 36.1–36.4; O2SAT 91–94
[2020-06-11 05:17] LABS: Alanine Aminotransferase 17 U/L (4-35); Albumin Level 2.7 g/dL (3.5-5.1); Alkaline Phosphatase 68 U/L (38-126); Anion Gap 3 mmol/L (8-16); Aspartate Amino Transferase 19 U/L (14-36); Bilirubin,Total 0.3 mg/dL (0.2-1.3); Blood Urea Nitrogen 69 mg/dL (7-17); Calcium 8.1 mg/dL (8.4-10.2); Carbon Dioxide 30 mmol/L (22-30); Chloride 103 mmol/L (98-107); Estimated CRCL calculation 14 ml/min; Estimated Glomerular Filt Rate 14; Glucose 112 mg/dL (65-105); Potassium 4.1 mmol/L (3.4-5.0); Sodium 136 mmol/L (137-145)
[2020-06-11 07:40] LABS: NT Pro B Type Natriuretic Pept > 35000 PG/ML (5-100)
[2020-06-11] MEDS: METOPROLOL SUCCINATE EXT REL 50 MG TABCR 100 MG PO (08:34)
[2020-06-11] MEDS: PANTOPRAZOLE 40 MG TABLET PO (08:34)
[2020-06-11] MEDS: SENNOSIDES 8.6 MG TABLET PO (08:34)
[2020-06-11] MEDS: METOCLOPRAMIDE HCL 10 MG TABLET PO ×4 (08:34→21:15)
[2020-06-11] MEDS: ENOXAPARIN 30 MG/0.3 ML SYRINGE SUB-Q (08:35)
[2020-06-11] MEDS: hydrALAZINE HCL 50 MG TABLET 100 MG PO ×3 (08:35→16:48)
[2020-06-11] MEDS: ESCITALOPRAM OXALATE 5 MG TABLET PO (08:35)
[2020-06-11] MEDS: GABAPENTIN 100 MG CAPSULE PO ×3 (08:35→16:48)
[2020-06-11] MEDS: CHOLECALCIFEROL 1,000 UNITS TABLET 5000 UNITS PO (08:35)
[2020-06-11] MEDS: lisinopriL 20 MG TABLET 40 MG PO (08:35)
[2020-06-11] MEDS: metOLazone 5 MG TABLET 10 MG PO (08:36)
[2020-06-11] MEDS: SEVELAMER CARBONATE 800 MG TABLET PO ×3 (08:36→16:48)
[2020-06-11] MEDS: BUMETANIDE 1 MG TABLET PO (08:36)
--- NOTE | 2020-06-11 11:27 | P.CONNP_ITS ---
Assessment and Plan Assessment and plan (1) Chronic kidney disease (CKD), stage V: Code(s): N18.5 - Chronic kidney disease, stage 5 Status: Chronic Assessment and Plan: * due to biopsy proven diabetic + hypertensive nephrosclerosis * kidney disease that has been fluctuating between stage 4 - stage 5 for the las t few months * attempt has been attempt to balance swelling/edema with diuretic use to not worsen kidney function but this has become more and more difficult * given her recurrent edema/swelling and advanced kidney disease, dialysis is the next step * plan had been to continue diuretic therapy and outpatient placement of AV access placement for dialysis * unfortunately, with her symptoms as is, I am not sure she will be able to hold out that long Long and extensive discussion (> 20 minutes ) about dialysis with initiation of renal replacement therapy with the use of a tunneled HD catheter with ongoing plan for her to see Dr. Alvarenga as an outpatient for AV access placement and she is aggreeable to HD catheter placement and dialysis now. Will consult Surgery for PermCath placement (2) Anasarca: Code(s): R60.1 - Generalized edema Status: Chronic Assessment and Plan: * multifactorial: - nephrotic syndrome - advanced kidney disease - pulmonary HTN - moderate tricuspid regurgitation - peripheral vascular disease (?) * change of IV bumex * fluid removal/ultrafiltration with HD should help as well (3) Hypertension: Qualifiers: Hypertension type: essential hypertension Qualified Code(s): I10 - Essential (primary) hypertension Code(s): I10 - Essential (primary) hypertension Status: Chronic Assessment and Plan: * quite elevated on admission * use PRN clonidine as a temporary solution * diuresis with IV bumex and fluid removal with HD should help * will adjust BP medications as well * follow trend of hemodynamics (4) Chronic anemia: Code(s): D64.9 - Anemia, unspecified Status: Chronic Assessment and Plan: * partly related to CKD * check iron studies to assess need for venofer * Epogen with HD * follow trend of H/H (5) JEFF (renal osteodystrophy): Code(s): N25.0 - Renal osteodystrophy Status: Acute Assessment and Plan: * follow trend of calcium and phosphorus * check Vitamin D and PTH (6) Diabetes: Code(s): E11.9 - Type 2 diabetes mellitus without complications Status: Acute Assessment and Plan: * follow accuchecks * glycemic control Will continue to follow. History of Present Illness Reason for Consult Consult date: 06/11/20 Reason for consult: chronic renal failure Chief Complaint Chief complaint: End-stage renal disease, inadequate venous access History of Present Illness Narrative: The patient is a 70 year old female with a past medical history as outlined below who presented to [facility] ER from her nursing facility with worsening swelling and edema. The patient was just recently hospitalized here [facility] for issues relating to the same problem but eventually stabilized with conservative therapy prior to her discharge back to her nursing facility. However, in the last month, she has noticed more swelling everywhere including her eyes on arms and legs to the point that she had difficulty breathing. Given these symptoms, she was transferred to the ER for further evaluation. Workup and evaluation
--- NOTE | 2020-06-11 11:27 | PM.CNNEP ---
Assessment and Plan Assessment and plan (1) Chronic kidney disease (CKD), stage V: Code(s): N18.5 - Chronic kidney disease, stage 5 Status: Chronic Assessment and Plan: due to biopsy proven diabetic + hypertensive nephrosclerosis kidney disease that has been fluctuating between stage 4 - stage 5 for the last few months attempt has been attempt to balance swelling/edema with diuretic use to not worsen kidney function but this has become more and more difficult given her recurrent edema/swelling and advanced kidney disease, dialysis is the next step plan had been to continue diuretic therapy and outpatient placement of AV access placement for dialysis unfortunately, with her symptoms as is, I am not sure she will be able to hold out that long Long and extensive discussion (> 20 minutes ) about dialysis with initiation of renal replacement therapy with the use of a tunneled HD catheter with ongoing plan for her to see Dr. Alvarenga as an outpatient for AV access placement and she is aggreeable to HD catheter placement and dialysis now. Will consult Surgery for PermCath placement (2) Anasarca: Code(s): R60.1 - Generalized edema Status: Chronic Assessment and Plan: multifactorial: - nephrotic syndrome - advanced kidney disease - pulmonary HTN - moderate tricuspid regurgitation - peripheral vascular disease (?) change of IV bumex fluid removal/ultrafiltration with HD should help as well (3) Hypertension: Qualifiers: Hypertension type: essential hypertension Qualified Code(s): I10 - Essential (primary) hypertension Code(s): I10 - Essential (primary) hypertension Status: Chronic Assessment and Plan: quite elevated on admission use PRN clonidine as a temporary solution diuresis with IV bumex and fluid removal with HD should help will adjust BP medications as well follow trend of hemodynamics (4) Chronic anemia: Code(s): D64.9 - Anemia, unspecified Status: Chronic Assessment and Plan: partly related to CKD check iron studies to assess need for venofer Epogen with HD follow trend of H/H (5) JEFF (renal osteodystrophy): Code(s): N25.0 - Renal osteodystrophy Status: Acute Assessment and Plan: follow trend of calcium and phosphorus check Vitamin D and PTH (6) Diabetes: Code(s): E11.9 - Type 2 diabetes mellitus without complications Status: Acute Assessment and Plan: follow accuchecks glycemic control Will continue to follow. History of Present Illness Reason for Consult Consult date: 06/11/20 Reason for consult: chronic renal failure Chief Complaint Chief complaint: End-stage renal disease, inadequate venous access History of Present Illness Narrative: The patient is a 70 year old female with a past medical history as outlined below who presented to [facility] ER from her nursing facility with worsening swelling and edema. The patient was just recently hospitalized here [facility] for issues relating to the same problem but eventually stabilized with conservative therapy prior to her discharge back to her nursing facility. However, in the last month, she has noticed more swelling everywhere including her eyes on arms and legs to the point that she had difficulty breathing. Given these symptoms, she was transferred to the ER for further evaluation. Workup and evaluation emergency room demonstrated the patient to be quite hypertensive but otherwise in no acute distress. Her respiratory status actually appears to be reasonably control by the time of her arrival to the ER. She was noted to be quite hyperglycemic by EMS when they checked her blood sugar when they picked her up to be transferred to the ER. Routine blood test demonstrated labs consistent with her known history of chronic ki
[2020-06-11] MEDS: BUMETANIDE INJ 1 MG/4 ML VIAL 2 MG IV PUSH (12:13)
--- NOTE | 2020-06-11 13:59 | WPDANESEPPF ---
Anes - Initial Pre Proc Eval Procedure: Operation Date: 06/12/20 14:30 Proposed Procedures p Insertion Tunneled Dialysis Catheter - Cale Carnes MD Date/Time: 06/11/20 13:59 Surgeon: Jaycob Valencia MD Pre Op Diagnosis: Hypertensive crisis Patient Data Age: 70 Gender: F Height: 1.57 m Weight: 78.1 kg Last Vital Signs Temp 36.2 C L 06/11/20 11:38 Pulse 62 06/11/20 11:38 Resp 20 06/11/20 11:38 BP 132/44 L 06/11/20 11:38 Pulse Ox 93 06/11/20 11:38 Allergies Allergy/AdvReac Type Severity Reaction Status Date / Time No Known Allergies Allergy Verified 06/09/20 15:33 Home Medications Medication Instructions Recorded Confirmed Type docusate sodium 100 mg tablet 100 mg PO DAILY #1 tablet 03/29/19 06/09/20 Rx metoclopramide HCl [Reglan] 10 mg PO QID 07/05/19 06/09/20 History bumetanide 1 mg PO DAILY 08/01/19 06/09/20 History metoprolol succinate 100 mg PO DAILY 08/01/19 06/09/20 History polyethylene glycol 3350 [Miralax] 17 g PO DAILY PRN 08/01/19 06/09/20 History ropinirole 0.5 mg PO TID PRN 08/01/19 06/09/20 History atorvastatin 20 mg tablet 20 mg PO HS #90 tablet 11/27/19 06/09/20 Rx cholecalciferol (vitamin D3) 125 mcg PO DAILY 02/26/20 06/09/20 History [Vitamin D3] pantoprazole 40 mg PO QAM 02/26/20 06/09/20 History sennosides [senna] 8.6 mg PO DAILY 02/26/20 06/09/20 History sevelamer carbonate [Renvela] 800 mg PO TIDWM 02/26/20 06/09/20 History temazepam 15 mg PO HS 02/26/20 06/09/20 History acetaminophen 1,000 mg PO Q12H PRN 03/26/20 06/09/20 History diphenhydramine HCl [Allergy 25 mg PO TID PRN 03/26/20 06/09/20 History (diphenhydramine)] escitalopram oxalate 5 mg PO QAM 03/26/20 06/09/20 History ondansetron HCl 4 mg PO Q6H PRN 03/26/20 06/09/20 History prochlorperazine maleate 5 mg 5 mg PO Q6H PRN 30 Days #120 tablet 04/14/20 06/09/20 Rx tablet metolazone 10 mg tablet 10 mg PO DAILY #30 tablet 04/23/20 06/09/20 Rx hydralazine 50 mg PO TID 04/28/20 06/09/20 History hydrocodone-acetaminophen [Superior] 1 tablet PO Q8H PRN #6 tablet 05/01/20 06/09/20 Rx lisinopril 40 mg PO DAILY #30 tablet 05/01/20 06/09/20 Rx acetaminophen [Tylenol Extra 1,000 mg PO BID PRN 06/09/20 06/09/20 History Strength] fentanyl See Rx Instructions .ROUTE .COMPLEX 06/09/20 06/10/20 History gabapentin 100 mg PO TID 06/09/20 06/09/20 History loperamide [Imodium A-D] 4 mg PO Q4H PRN 06/09/20 06/09/20 History Laboratory Tests 06/11/20 06/11/20 04:18 04:18 Sodium 136 mmol/L L mmol/L (137-145) Potassium 4.1 mmol/L mmol/L (3.4-5.0) Chloride 103 mmol/L mmol/L (98-107) Carbon Dioxide 30 mmol/L mmol/L (22-30) Anion Gap 3 mmol/L L mmol/L (8-16) BUN 69 mg/dL H mg/dL (7-17) Creatinine 3.30 mg/dL H mg/dL (0.7-1.0) Estim Creat Clear Calc 14 ml/min ml/min Estimated GFR 14 L (59 - ) Glucose 112 mg/dL H mg/dL (65-105) Calcium 8.1 mg/dL L mg/dL (8.4-10.2) Total Bilirubin 0.3 mg/dL mg/dL (0.2-1.3) AST 19 U/L U/L (14-36) ALT 17 U/L U/L (4-35) Alkaline Phosphatase 68 U/L U/L (38-126) NT-Pro-B Natriuret Pep > 75097 PG/ML H PG/ML (5-100) Total Protein 6.0 g/dL L g/dL (6.3-8.2) Albumin 2.7 g/dL L g/dL (3.5-5.1) Patient hx anesthesia problems: none Family hx anesthesia problems: none [facility] Past Medical History Medical History (Updated 06/12/20 @ 08:38 by Hemant Jiménez MD) CHF (congestive heart failure) Chronic anemia Chronic kidney disease (CKD), stage V Chronic kidney disease, stage 3 Baseline creatinine between 1.4 and 1.60. Chronic low back pain Chronic pain syndrome Had previously been on morphine 15 milligrams b.i.d. Recently started on Lyrica. Coronary artery disease involving autologous vein coronary bypass graft with angina pectoris Depression Diastolic congestive heart failure Echocardiogram in January 2019 demonstrated normal le
--- NOTE | 2020-06-11 14:01 | PM.IMPN ---
Progress Note: A&P Assessment and Plan (1) Hypertensive crisis: Code(s): I16.9 - Hypertensive crisis, unspecified Status: Acute Assessment and Plan: Bp high on admission continue to watch in the hospital. Continue oral bumex and iv hydralazine and metazolone (2) Elevated troponin: Code(s): R77.8 - Other specified abnormalities of plasma proteins Status: Acute Assessment and Plan: Mildly elevated continue to monitor likely secondary to Bp raise (3) CKD (chronic kidney disease) stage 4, GFR 15-29 ml/min: Code(s): N18.4 - Chronic kidney disease, stage 4 (severe) Status: Chronic Assessment and Plan: Creat at baseline consult nephrology renal biopsy was completed pt has nephrotic syndrome. Pt to have dialysis catheter placed shantelle (4) CHF (congestive heart failure): Code(s): I50.9 - Heart failure, unspecified Status: Acute Assessment and Plan: EF 55-60 % from before, previous echo showed diastolic dysfunction, good LV systolic function, pulmonary hypertension, and tricuspid regurgitation.order CXR and pro BNP and watch kidney function on diuretics Subjective Date/time seen: 06/11/20 14:01 Interval history: 70 year old female history of CKD, grade 3 uterine cancer, CHF, type 2 diabetes, peroneal DVT, GERD who presents the ED from [facility] with swelling, and restless leg syndrome. Bp is better at 132/44. Pt is needing dialysis catheter placement. Pt can be transfereed to medical floor. Review of Systems Review of Systems: All systems reviewed & are unremarkable except as noted in HPI and below Exam Const: General: other (Swollen eyes and puffy face ) Nutritional Appearance: well nourished HENMT: Head: normocephalic Eyes: General: appearance normal, both eyes and all related structures Pupils: Equal, round and reactive pupils present Neck: Neck: supple Chest: Chest palpation & inspection: normal inspection of the chest Resp: Effort & Inspection: normal respiratory effort Auscultation: clear to auscultation bilaterally Cardio: Jugular venous distension: no JVD Rhythm: regular rhythm Heart sounds: S1 normal heart sound present and S2 normal heart sound present GI: Inspection: normal to inspection Auscultation: normal bowel sounds : General: Yes no CVA tenderness Back/Spine/Pelvis: Back: no CVA tenderness Skin: General skin exam: normal color and dry skin Neuro: Cranial nerves: Yes CN's II-XII intact bilaterally and Yes Equal, round and reactive pupils present Cognition (Neuro): normal cognition Speech: normal speech Motor exam (neuro): 5/5 motor strength present throughout Extrem: General: normal to inspection Psych: Appearance: grossly normal Mental Status: mental status grossly normal Objective Data Vital Signs Vital Signs: Vital Signs - 24 hr 06/10/20 16:00 06/10/20 17:57 06/10/20 18:00 Temperature 36.1 C L Pulse Rate 72 72 71 Respiratory Rate 20 20 Blood Pressure 178/70 H Pulse Oximetry 92 92 06/10/20 19:56 06/10/20 20:00 06/10/20 22:00 Temperature 36.1 C L Pulse Rate 70 72 69 Respiratory Rate 18 Blood Pressure 166/85 H Pulse Oximetry 91 06/11/20 00:00 06/11/20 02:00 06/11/20 04:00 Temperature 36.1 C L 36.2 C L Pulse Rate 67 63 67 Respiratory Rate 20 20 Blood Pressure 186/74 H 188/73 H Pulse Oximetry 92 94 06/11/20 06:00 06/11/20 08:00 06/11/20 08:34 Temperature 36.2 C L Pulse Rate 72 71 71 Respiratory Rate 20 Blood Pressure 194/70 H Pulse Oximetry 93 06/11/20 10:00 06/11/20 11:38 Temperature 36.2 C L Pulse Rate 66 62 Respiratory Rate 20 Blood Pressure 132/44 L Pulse Oximetry 93 Intake/Output Intake/Output: Intake & Output 06/08/20 06/09/20 06/10/20 06/11/20 23:59 23:59 23:59 23:59 Intake Total 540 880 Output Total 2202 1550 Balance -9262 -531 Meds/Results Medications: Active Medications Generic Name Dose Route Start
--- NOTE | 2020-06-11 15:16 | PM.CNGS ---
Assessment and Plan Assessment and plan (1) CKD (chronic kidney disease) stage 4, GFR 15-29 ml/min: Code(s): N18.4 - Chronic kidney disease, stage 4 (severe) Status: Chronic Assessment and Plan: RENAL BIOPSY SHOWED DIABETIC AND HYPERTENSIVE RELATED NEPHROSCLEROSIS. SHE ALSO HAS NEPHROTIC SYNDROME. (2) Encounter for care related to vascular access port: Code(s): Z45.2 - Encounter for adjustment and management of vascular access device Status: Acute Assessment and Plan: PLAN TO PROCEED WITH PLACEMENT TUNNELED DURA FLOW CENTRAL VENOUS CATHETER UNDER FLUOROSCOPY TOMORROW. THIS WILL BE DONE IN THE OPERATING ROOM UNDER ANESTHESIA. THE PROCEDURE THE RISKS BENEFITS HAVE BEEN DISCUSSED. SHE AGREES TO GO AHEAD. (3) Hypertensive crisis: Code(s): I16.9 - Hypertensive crisis, unspecified Status: Acute Assessment and Plan: BEING TREATED. LAST BLOOD PRESSURE 132/44 (4) Type 2 diabetes mellitus with diabetic polyneuropathy: Qualifiers: Diabetes mellitus snf insulin use: without termite treater use Qualified Code(s): E11.42 - Type 2 diabetes mellitus with diabetic polyneuropathy Code(s): E11.42 - Type 2 diabetes mellitus with diabetic polyneuropathy Status: Chronic History of Present Illness Consult details Consult date: 06/12/20 Reason for consult: central line (Needs tunneled dialysis catheter) Narrative: Patient is a 70-year-old woman who resides in a care home and [place]. She was just in the hospital about a month ago with severe edema and progression of her chronic kidney disease. She has had a kidney biopsy and is known to have severe, end-stage chronic kidney disease due to diabetic and hypertensive nephrosclerosis. She was readmitted here a couple of days ago with hypertensive crisis and progression of her end-stage renal disease. We were asked to see her to place a tunneled central venous catheter for chronic hemodialysis. She also carries a diagnosis of diastolic congestive heart failure. 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 She is a do not resuscitate status. Review of Systems Review of Systems: All systems reviewed & are unremarkable except as noted in HPI and below Constitutional: Constitutional: Denies chills and Denies fever(s) Cardiovascular: Cardiovascular: Denies chest pain, Denies diaphoresis, Denies dyspnea and Denies paroxysmal nocturnal dyspnea Respiratory: Respiratory: Denies chest congestion, Denies cough and Denies dyspnea Integumentary/Breasts: Skin/Breast: Denies lesions and Denies rash PMF Past Medical History Medical History Chronic anemia Chronic kidney disease, stage 3 Baseline creatinine between 1.4 and 1.60. Chronic low back pain Chronic pain syndrome Had previously been on morphine 15 milligrams b.i.d. Recently started on Lyrica. Depression Diastolic congestive heart failure Echocardiogram in January 2019 demonstrated normal left ventricular size and function with ejection fraction of > 70% diastolic dysfunction grade 2. Gastritis Hyperlipidemia Hypertension Nephrotic syndrome 12/30/2019 had 24 hour urine Rectal bleeding Type 2 diabetes mellitus with peripheral neuropathy Surgical History Surgical History History of knee surgery Hx of toe surgery Status post cataract extraction Status post cholecystectomy Family History Family History Mother Lung cancer Sibling Malignant neoplasm of prostate Diabetes mellitus Osteoarthritis Dialysis patient Heart disease Social History Social History Social History: The patient has been since 2010, when her from cancer. Her daughter was killed that same year and a
--- NOTE | 2020-06-11 19:00 | PC.NURSE ---
This patient, Lupe Gomez, was transferred to [facility] on 06/11/20 at 1850. Personal belongings sent with patient. Report given to David GOINS. Appropriate documentation sent with patient.
[2020-06-11] MEDS: HEPARIN SODIUM 5,000 UNITS/ML VIAL 5000 UNITS SUB-Q (21:15)
[2020-06-11] MEDS: ATORVASTATIN 20 MG TABLET PO (21:16)
[2020-06-11] MEDS: TEMAZEPAM (*CRX) 15 MG CAPSULE PO (21:19)
[2020-06-12] VITALS (25 sets, daily range): BP systolic 139–213; BP diastolic 53–95; PULSE 52–70; RESP 12–20; TEMP 36–36.6; O2SAT 90–100
[2020-06-12] MEDS: METOPROLOL TARTRATE INJ 5 MG/5 ML VIAL IV PUSH (05:55)
[2020-06-12 06:41] LABS: Albumin Level 2.9 g/dL (3.5-5.1); Anion Gap 3 mmol/L (8-16); Blood Urea Nitrogen 73 mg/dL (7-17); Calcium 7.9 mg/dL (8.4-10.2); Carbon Dioxide 28 mmol/L (22-30); Chloride 104 mmol/L (98-107); Estimated CRCL calculation 13 ml/min; Estimated Glomerular Filt Rate 13; Glucose 104 mg/dL (65-105); Phosphorus 5.4 mg/dL (2.5-4.5); Potassium 4.3 mmol/L (3.4-5.0); Sodium 135 mmol/L (137-145)
[2020-06-12 06:50] LABS: NT Pro B Type Natriuretic Pept 31600 PG/ML (5-100)
[2020-06-12 06:52] LABS: Parathyroid Intact 148.2 pg/mL (7.5-53.5)
[2020-06-12 07:34] LABS: Iron 73 ug/dL (37-170)
[2020-06-12 07:38] LABS: Hepatitis B Surface Antigen Negative (Negative)
[2020-06-12 07:43] LABS: HAV RESULT Negative (Negative); Hepatitis B Core IgM Result Negative (Negative)
[2020-06-12 07:53] LABS: Percent Iron Saturation 23 % (20-50); Vitamin D 25 Hydroxy 15.2 ng/mL
[2020-06-12 07:55] LABS: Hepatitis B Surface Anti Res Negative; Hepatitis C Virus Antibody Negative (Negative)
--- NOTE | 2020-06-12 08:00 | WPDHPUPDATE1 ---
History and Physical Update Update Date/Time: 06/12/20 08:00 History and Physical has been reviewed, including an updated exam of the patient. There are NO changes in the patient's condition. Risks, benefits, and alternatives have been discussed and questions answered. Patient agrees to proceed with procedure.
[2020-06-12] MEDS: SODIUM CHLORIDE 0.9% IV 500 ML 30 ML IV CONT (09:00)
[2020-06-12] MEDS: hydrALAZINE HCL 20 MG/ML VIAL 10 MG IV PUSH (09:00)
[2020-06-12] MEDS: ceFAZolin 2 GM/D5W 50 ML 2 GM/50 ML BAG IVPB (09:46)
[2020-06-12] MEDS: LIDO 1%/EPINEPHRINE 1:100,000 50 ML VIAL 26 ML INFILTRATE (10:07)
[2020-06-12] MEDS: SODIUM CHLORIDE 0.9% IV 1,000 ML 30 ML IV CONT (10:45)
--- NOTE | 2020-06-12 11:14 | SUR.OPER ---
catheter port final flush/ 5cc per each port (Heparin 10,000 [facility]/10ml) per Dr Carnes 11:15.
--- NOTE | 2020-06-12 11:17 | SUR.OPER ---
EBL 75ml
--- NOTE | 2020-06-12 11:42 | SUR.OPER ---
port caps on and lines clamped post flush x2
[2020-06-12 11:52] LABS: Glucose Point of Care 113 (65-105)
--- NOTE | 2020-06-12 12:05 | SUR.PHASEI ---
0554 sbar faxed floor notified
[2020-06-12] MEDS: hydrALAZINE HCL 50 MG TABLET 100 MG PO ×2 (13:02→18:43)
[2020-06-12] MEDS: METOPROLOL SUCCINATE EXT REL 50 MG TABCR 100 MG PO (13:03)
[2020-06-12] MEDS: lisinopriL 20 MG TABLET 40 MG PO (13:03)
[2020-06-12] MEDS: HEPARIN SODIUM 5,000 UNITS/ML VIAL 5000 UNITS SUB-Q ×2 (13:04→21:24)
[2020-06-12] MEDS: metOLazone 5 MG TABLET 10 MG PO (13:04)
[2020-06-12] MEDS: ESCITALOPRAM OXALATE 5 MG TABLET PO (13:05)
[2020-06-12] MEDS: DOCUSATE SODIUM 100 MG CAPSULE PO (13:05)
[2020-06-12] MEDS: CHOLECALCIFEROL 1,000 UNITS TABLET 5000 UNITS PO (13:05)
[2020-06-12] MEDS: METOCLOPRAMIDE HCL 10 MG TABLET PO ×3 (13:06→21:25)
[2020-06-12] MEDS: SENNOSIDES 8.6 MG TABLET PO (13:07)
[2020-06-12] MEDS: PANTOPRAZOLE 40 MG TABLET PO (13:07)
[2020-06-12] MEDS: GABAPENTIN 100 MG CAPSULE PO ×2 (13:08→18:44)
--- NOTE | 2020-06-12 13:59 | P.OP_ITS ---
Procedure Note - Detailed Date of procedure: 06/12/20 Pre-op diagnosis: End-stage renal disease, inadequate venous access End-stage renal disease, inadequate venous access Post-op diagnosis: same Procedure performed: Placement Dura Flow tunneled central venous catheter under fluoroscopy, right IJ position Description of procedure: The patient was taken to the operating room placed in a supine position. The head was turned slightly to the left. The right neck and upper chest were prepped and draped. It took many attempts to not only cannulate the internal jugular vein but to have the guidewire pass into the damon perior vena cava. The patient was placed in steep Trendelenburg to accomplish this. Eventually, however, the guidewire was in the distal SVC in good position. The patient was returned to a normal supine position with the head slightly elevated. The position of the guidewire had been confirmed with C-arm fluoroscopy. I then used a 36 cm dual-lumen Dura Flow catheter and plotted the general positioning and eventual placement of the distal tip of the catheter. Fluoroscopy was used for this as well. I marked on the skin several counter incisions in the right side of the neck. Local anesthetic was infiltrated into each of these counter incisions as well as the exit site of the guidewire. Incision was made at each counter incision and the exit of the guidewire. I then tunneled the Dura Flow catheter from the right upper chest to the neck and eventually out the exit site of the guidewire. Each of the counter incisions were used in tunneling the catheter. Under fluoroscopy, I then passed each of the serial dilators over the guidewire. The introducer and sheath were then passed over the guidewire into the SVC under fluoroscopy. I removed the guidewire and the introducer. The Dura Flow catheter was advanced into the sheath and down into the superior vena cava. The sheath was then removed. I then did some dissection to make a gentle curve in the upper neck of the course of the dura flow catheter. Eventually the catheter looked to be in good position. I checked its position with fluoroscopy. I advanced the catheter a bit so that the tip of the dura flow catheter would be in the very distal SVC if not right atrium. I checked again the course of the dura flow catheter and there were no kinks. I aspirated and flushed each of the ports multiple times. Each brought back easy return of venous blood. I heparinized each of the ports. A final flush was then done through each of the ports. Caps were placed. The counter incisions were then closed in layers with 4 0 Vicryl interrupted suture. The catheter was sutured to the skin with 3 0 nylon suture. A sterile transparent dressing was placed over the exit site of the catheter. The patient was then taken to recovery in stable condition. Sponge and needle counts were correct x2. Portable chest x-ray showed the catheter to have no kinks and the end of the catheter was in the distal SVC/right atrial junction. Implants: Angiodynamics Duraflow 2 catheter 36 cm length Anesthesia: MAC and local (0.5% Marcaine with epinephrine) Surgeon: Cale Carnes MD [employer] Operator: Cleopatra GUPTA Estimated blood loss (mL): 75 Drains: No Packing: No Pathology: none sent Complications: None Condition: stable Disposition: PACU Findings: Catheter tip in distal SVC right atrial junction, no kinks in the catheter course
[2020-06-12] MEDS: BUMETANIDE INJ 1 MG/4 ML VIAL IV PUSH ×2 (14:26→18:44)
--- NOTE | 2020-06-12 14:58 | PM.IMPN ---
Progress Note: A&P Assessment and Plan (1) Hypertensive crisis: Code(s): I16.9 - Hypertensive crisis, unspecified Status: Acute Assessment and Plan: Bp high today, 185/72 Continue oral lisinopril, iv bumex and metazolone, nephrology rounding (2) Elevated troponin: Code(s): R77.8 - Other specified abnormalities of plasma proteins Status: Acute Assessment and Plan: Mildly elevated continue to monitor likely secondary to Bp raise (3) CKD (chronic kidney disease) stage 4, GFR 15-29 ml/min: Code(s): N18.4 - Chronic kidney disease, stage 4 (severe) Status: Chronic Assessment and Plan: Creat at baseline at 3-3.4 ,consult nephrology renal biopsy was completed pt has nephrotic syndrome. Pt to have dialysis today pt had catheter placed today (4) CHF (congestive heart failure): Code(s): I50.9 - Heart failure, unspecified Status: Acute Assessment and Plan: EF 55-60 % from before, previous echo showed diastolic dysfunction, good LV systolic function, pulmonary hypertension, and tricuspid regurgitation. watch kidney function on diuretics Subjective Date/time seen: 06/12/20 14:58 Interval history: 70 year old female history of CKD, grade 3 uterine cancer, CHF, type 2 diabetes, peroneal DVT, GERD who presents the ED from [facility] with swelling, and restless leg syndrome. Sp catheter placement today, Bp slightly high 165/54. pt complaining of pain in her neck, receiving first dialysis presently Review of Systems Review of Systems: All systems reviewed & are unremarkable except as noted in HPI and below Exam Const: General: other (Swollen eyes and puffy face ) HENMT: Head: normocephalic Eyes: General: appearance normal, both eyes and all related structures Neck: Neck: other (new dialysis catheter in place ) Chest: Chest palpation & inspection: normal inspection of the chest Resp: Effort & Inspection: normal respiratory effort Auscultation: clear to auscultation bilaterally Cardio: Jugular venous distension: no JVD Rhythm: regular rhythm Heart sounds: S1 normal heart sound present and S2 normal heart sound present GI: Inspection: normal to inspection Auscultation: normal bowel sounds : General: Yes no CVA tenderness Back/Spine/Pelvis: Back: no CVA tenderness Skin: General skin exam: normal color and dry skin Neuro: Cranial nerves: Yes CN's II-XII intact bilaterally and Yes Equal, round and reactive pupils present Cognition (Neuro): normal cognition Speech: normal speech Motor exam (neuro): 5/5 motor strength present throughout Extrem: General: normal to inspection Psych: Appearance: grossly normal Mental Status: mental status grossly normal Objective Data Vital Signs Vital Signs: Vital Signs - 24 hr 06/11/20 16:46 06/11/20 18:58 06/11/20 22:00 Temperature 36.2 C L 36.4 C L 36.3 C L Pulse Rate 62 64 56 L Respiratory Rate 18 20 Blood Pressure 172/60 H 148/53 H 170/63 H Pulse Oximetry 94 91 93 06/12/20 05:55 06/12/20 06:00 06/12/20 08:15 Temperature 36.2 C L 36.4 C Pulse Rate 58 L 58 L 56 L Respiratory Rate 20 16 Blood Pressure 190/80 H 201/95 H Pulse Oximetry 96 91 06/12/20 08:32 06/12/20 11:40 06/12/20 11:55 Temperature 36.1 C L 36.5 C Pulse Rate 52 L 70 69 Respiratory Rate 20 14 12 Blood Pressure 213/71 H 142/53 H 154/71 H Pulse Oximetry 97 98 100 06/12/20 13:01 06/12/20 13:03 Temperature Pulse Rate 68 68 Respiratory Rate 16 Blood Pressure 165/54 H Pulse Oximetry 90 Intake/Output Intake/Output: Intake & Output 06/09/20 06/10/20 06/11/20 06/12/20 23:59 23:59 23:59 23:59 Intake Total 540 880 320 670 Output Total 2200 1550 750 150 [facility] -1660 -670 -430 520 Meds/Results Medications: Active Medications Generic Name Dose Route Start Last Admin Trade Name Freq PRN Reason Stop Dose Admin Acetaminophen 1,000 mg 06/09/20 23:42 Acetaminophen 500 Mg Tablet PO
--- NOTE | 2020-06-12 16:20 | P.PNNP_ITS ---
Progress Note: A&P Assessment and Plan (1) Chronic kidney disease (CKD), stage V: Code(s): N18.5 - Chronic kidney disease, stage 5 Status: Chronic Assessment and Plan: * due to biopsy proven diabetic + hypertensive nephrosclerosis * kidney disease that has been fluctuating between stage 4 - stage 5 for the last few months * attempt has been attempt to balance swelling/edema with diuretic use to not worsen kidney function but this has become more and more difficult * given her recurrent edema/swelling and advanced kidney disease, dialysis is the next step * plan had been to continue diuretic therapy and outpatient placement of AV access placement for dialysis * unfortunately, with her symptoms as is, I am not sure she will be able to hold out that long * s/p HD catheter placement today * HD today and likely tomorrow and day after * will need outpatient HD arranged before discharge (2) Anasarca: Code(s): R60.1 - Generalized edema Status: Chronic Assessment and Plan: * multifactorial: - nephrotic syndrome - advanced kidney disease - pulmonary HTN - moderate tricuspid regurgitation - peripheral vascular disease (?) * change to IV bumex * fluid removal/ultrafiltration with HD should help as well (3) Hypertension: Qualifiers: Hypertension type: essential hypertension Qualified Code(s): I10 - Essential (primary) hypertension Code(s): I10 - Essential (primary) hypertension Status: Chronic Assessment and Plan: * quite elevated on admission * use PRN clonidine as a temporary solution * diuresis with IV bumex and fluid removal with HD should help * will adjust BP medications as well * follow trend of hemodynamics (4) Chronic anemia: Code(s): D64.9 - Anemia, unspecified Status: Chronic Assessment and Plan: * partly related to CKD * adequate iron by anemia studies * Epogen with HD * follow trend of H/H (5) JEFF (renal osteodystrophy): Code(s): N25.0 - Renal osteodystrophy Status: Acute Assessment and Plan: * calcium and phosphorus stable * Vitamin D low and PTH sam * start ergocalciferoal (6) Diabetes: Code(s): E11.9 - Type 2 diabetes mellitus without complications Status: Acute Assessment and Plan: * follow accuchecks * glycemic control Will continue to follow. Subjective Date/time seen: 06/12/20 16:20 S/P tunneled HD catheter today and undergoing dialysis at this time (seen on HD at 4:00PM); major complaint is that of soreness of HD catheter insertion; no acute distress. Exam Narrative: Exam Narrative: General: WD/WN female in NAD Heart: normal S1 and S2; no rub Lungs: clear to auscultation Abdomen: soft, nontender, nondistended, positive bowel sounds Extremities: no cyanosis or clubbing; 2+ edema Skin: warm and dry Objective Data Vital Signs Vital Signs: Vital Signs Temp Pulse Resp BP Pulse Ox 06/12/20 14:00 36.3 C L 59 L 16 97 06/12/20 13:03 68 06/12/20 13:01 68 16 165/54 H 90 06/12/20 11:55 69 12 154/71 H 100 06/12/20 11:40 36.5 C 70 14 142/53 H 98 06/12/20 08:32 36.1 C L 52 L 20 213/71 H 97 06/12/20 08:15 36.4 C 56 L 16 201/95 H 91 06/12/20 06:00 36.2 C L 58 L 20 190/80 H 96
--- NOTE | 2020-06-12 16:20 | PM.PNNEP ---
Progress Note: A&P Assessment and Plan (1) Chronic kidney disease (CKD), stage V: Code(s): N18.5 - Chronic kidney disease, stage 5 Status: Chronic Assessment and Plan: due to biopsy proven diabetic + hypertensive nephrosclerosis kidney disease that has been fluctuating between stage 4 - stage 5 for the last few months attempt has been attempt to balance swelling/edema with diuretic use to not worsen kidney function but this has become more and more difficult given her recurrent edema/swelling and advanced kidney disease, dialysis is the next step plan had been to continue diuretic therapy and outpatient placement of AV access placement for dialysis unfortunately, with her symptoms as is, I am not sure she will be able to hold out that long s/p HD catheter placement today HD today and likely tomorrow and day after will need outpatient HD arranged before discharge (2) Anasarca: Code(s): R60.1 - Generalized edema Status: Chronic Assessment and Plan: multifactorial: - nephrotic syndrome - advanced kidney disease - pulmonary HTN - moderate tricuspid regurgitation - peripheral vascular disease (?) change to IV bumex fluid removal/ultrafiltration with HD should help as well (3) Hypertension: Qualifiers: Hypertension type: essential hypertension Qualified Code(s): I10 - Essential (primary) hypertension Code(s): I10 - Essential (primary) hypertension Status: Chronic Assessment and Plan: quite elevated on admission use PRN clonidine as a temporary solution diuresis with IV bumex and fluid removal with HD should help will adjust BP medications as well follow trend of hemodynamics (4) Chronic anemia: Code(s): D64.9 - Anemia, unspecified Status: Chronic Assessment and Plan: partly related to CKD adequate iron by anemia studies Epogen with HD follow trend of H/H (5) JEFF (renal osteodystrophy): Code(s): N25.0 - Renal osteodystrophy Status: Acute Assessment and Plan: calcium and phosphorus stable Vitamin D low and PTH sam start ergocalciferoal (6) Diabetes: Code(s): E11.9 - Type 2 diabetes mellitus without complications Status: Acute Assessment and Plan: follow accuchecks glycemic control Will continue to follow. Subjective Date/time seen: 06/12/20 16:20 S/P tunneled HD catheter today and undergoing dialysis at this time (seen on HD at 4:00PM); major complaint is that of soreness of HD catheter insertion; no acute distress. Exam Narrative: Exam Narrative: General: WD/WN female in NAD Heart: normal S1 and S2; no rub Lungs: clear to auscultation Abdomen: soft, nontender, nondistended, positive bowel sounds Extremities: no cyanosis or clubbing; 2+ edema Skin: warm and dry Objective Data Vital Signs Vital Signs: Vital Signs Temp Pulse Resp BP Pulse Ox 06/12/20 14:00 36.3 C L 59 L 16 97 06/12/20 13:03 68 06/12/20 13:01 68 16 165/54 H 90 06/12/20 11:55 69 12 154/71 H 100 06/12/20 11:40 36.5 C 70 14 142/53 H 98 06/12/20 08:32 36.1 C L 52 L 20 213/71 H 97 06/12/20 08:15 36.4 C 56 L 16 201/95 H 91 06/12/20 06:00 36.2 C L 58 L 20 190/80 H 96 06/12/20 05:55 58 L 06/11/20 22:00 36.3 C L 56 L 20 170/63 H 93 06/11/20 18:58 36.4 C L 64 18 148/53 H 91 06/11/20 16:46 36.2 C L 62 172/60 H 94 Intake/Output Intake/Output: Intake & Output 06/09/20 06/10/20 06/11/20 06/12/20 23:59 23:59 23:59 23:59 Intake Total 540 238 060 9199 Output Total 2200 1550 750 150 Balance -1660 -670 -430 880 Meds/Results Medications: Active Medications Generic Name Dose Route Start Last Admin Trade Name Freq PRN Reason Stop Dose Admin Acetaminophen 1,000 mg 06/09/20 23:42 Acetaminophen 500 Mg Tablet PO BID PRN
[2020-06-12] MEDS: HYDROcodone/acetaminophen (*CRX) 5-325 MG TABLET 1 TAB PO ×2 (17:02→21:23)
[2020-06-12] MEDS: SEVELAMER CARBONATE 800 MG TABLET PO (18:43)
[2020-06-12] MEDS: TEMAZEPAM (*CRX) 15 MG CAPSULE PO (21:23)
[2020-06-12] MEDS: ATORVASTATIN 20 MG TABLET PO (21:24)
[2020-06-13] VITALS (22 sets, daily range): BP systolic 127–211; BP diastolic 51–94; PULSE 52–61; RESP 16–18; TEMP 36–37.1; O2SAT 95–98
[2020-06-13] MEDS: HYDROcodone/acetaminophen (*CRX) 5-325 MG TABLET 1 TAB PO ×3 (01:20→14:46)
[2020-06-13] MEDS: cloNIDine HCL 0.1 MG TABLET PO (04:16)
[2020-06-13 07:04] LABS: Albumin Level 2.5 g/dL (3.5-5.1); Anion Gap 2 mmol/L (8-16); Blood Urea Nitrogen 44 mg/dL (7-17); Calcium 7.6 mg/dL (8.4-10.2); Carbon Dioxide 28 mmol/L (22-30); Chloride 105 mmol/L (98-107); Estimated CRCL calculation 19 ml/min; Estimated Glomerular Filt Rate 20; Glucose 115 mg/dL (65-105); Phosphorus 4.1 mg/dL (2.5-4.5); Sodium 135 mmol/L (137-145)
[2020-06-13 07:43] LABS: NT Pro B Type Natriuretic Pept 481 PG/ML (5-100)
--- NOTE | 2020-06-13 09:19 | WPDANESPN ---
Anes - Prog Note Post-Op Date/Time: 06/13/20 09:19 Cardiovascular status: normal Respiratory status: normal Airway patency: baseline Mental status: baseline Post-Op hydration status: normal Vital Signs: Last Vital Signs Temp 36.3 C L 06/13/20 06:00 Pulse 56 L 06/13/20 06:00 Resp 16 06/13/20 06:00 BP 180/59 H 06/13/20 06:00 Pulse Ox 98 06/13/20 06:00 Pain Score (VAS): 0 I/O: Intake & Output 06/12/20 06/13/20 06/13/20 23:59 07:59 15:59 Intake Total 600 200 Output Total 1300 700 Balance -700 -500 Laboratory Tests 06/10/20 04:07 06/13/20 06:00 06/12/20 06/13/20 06/13/20 11:50 04:22 04:58 Sodium Potassium Chloride Carbon Dioxide Anion Gap BUN Creatinine Estim Creat Clear Calc Estimated GFR Glucose POC Capillary Glucose 113 H Calcium Phosphorus NT-Pro-B Natriuret Pep 481 H Albumin SARS-CoV-2 RNA (RT-PCR) Pending 06/13/20 06:00 Sodium 135 L Potassium 4.0 Chloride 105 Carbon Dioxide 28 Anion Gap 2 L BUN 44 H D Creatinine 2.40 H Estim Creat Clear Calc 19 Estimated GFR 20 L Glucose 115 H POC Capillary Glucose Calcium 7.6 L Phosphorus 4.1 NT-Pro-B Natriuret Pep Albumin 2.5 L SARS-CoV-2 RNA (RT-PCR) Post-procedural complaints: none Patient Feedback: Patient satisfied with anesthetic care.
[2020-06-13] MEDS: METOPROLOL TARTRATE INJ 5 MG/5 ML VIAL IV PUSH (11:08)
[2020-06-13] MEDS: EPOETIN ALFA-EPBX 10,000 UNITS/ML VIAL 10000 UNITS IV PUSH (11:20)
--- NOTE | 2020-06-13 12:13 | P.PNNP_ITS ---
Progress Note: A&P Assessment and Plan (1) End stage renal disease: Code(s): N18.6 - End stage renal disease Status: Chronic Assessment and Plan: * due to biopsy proven diabetic + hypertensive nephrosclerosis * attempt has been attempt to balance swelling/edema with diuretic use to not worsen kidney function but this has become more and more difficult * given her recurrent edema/swelling and advanced kidney disease, dialysis is the next step * plan had been to continue diuretic therapy and outpatient placement of AV access placement for dialysis * unfortunately, with her symptoms as is, I am not sure she will be able to hold out that long * s/p HD catheter placement 06/12/20 * HD today and likely tomorrow as well * push fluid removal as tolerated and continue diuretics since she has some residual kidney function * will need outpatient HD arranged before discharge (2) Anasarca: Code(s): R60.1 - Generalized edema Status: Chronic Assessment and Plan: * multifactorial: - nephrotic syndrome - advanced kidney disease - pulmonary HTN - moderate tricuspid regurgitation - peripheral vascular disease (?) * change to IV bumex * fluid removal/ultrafiltration with HD should help as well (3) Hypertension: Qualifiers: Hypertension type: essential hypertension Qualified Code(s): I10 - Essential (primary) hypertension Code(s): I10 - Essential (primary) hypertension Status: Chronic Assessment and Plan: * quite elevated on admission and fluctuates * use PRN clonidine as a temporary solution * diuresis with IV bumex and fluid removal with HD should help * will adjust BP medications as well * follow trend of hemodynamics (4) Chronic anemia: Code(s): D64.9 - Anemia, unspecified Status: Chronic Assessment and Plan: * partly related to CKD * adequate iron by anemia studies * Epogen with HD * follow trend of H/H (5) JEFF (renal osteodystrophy): Code(s): N25.0 - Renal osteodystrophy Status: Acute Assessment and Plan: * calcium and phosphorus stable * Vitamin D low and PTH sam * start ergocalciferoal (6) Diabetes: Code(s): E11.9 - Type 2 diabetes mellitus without complications Status: Acute Assessment and Plan: * follow accuchecks * glycemic control Will continue to follow. Subjective Date/time seen: 06/13/20 12:13 Tolerating second dialysis treatment at the time of my visit (seen on HD at [facility] noon); major complaint is still pain in her neck at where HD catheter was placed; no other acute issues or problems to report; no events overnight or earlier this AM. Exam Narrative: Exam Narrative: General: WD/WN female in NAD Heart: normal S1 and S2; no rub Lungs: clear to auscultation Abdomen: soft, nontender, nondistended, positive bowel sounds Extremities: no cyanosis or clubbing; 2+ edema Skin: warm and intact Objective Data Vital Signs Vital Signs: Vital Signs Temp Pulse Resp BP Pulse Ox 06/13/20 12:07 56 L 184/76 H 06/13/20 12:00 56 L 196/82 H 06/13/20 11:45 58 L 197/83 H 06/13/20 11:30 55 L 195/80 H 06/13/20 11:15 56 L 198/77 H 06/13/20 11:08 59 L 06/13/20 11:00 58 L 203/82 H 06/13/20 10:45 59 L 188/79 H 05/17
--- NOTE | 2020-06-13 12:13 | PM.PNNEP ---
Progress Note: A&P Assessment and Plan (1) End stage renal disease: Code(s): N18.6 - End stage renal disease Status: Chronic Assessment and Plan: due to biopsy proven diabetic + hypertensive nephrosclerosis attempt has been attempt to balance swelling/edema with diuretic use to not worsen kidney function but this has become more and more difficult given her recurrent edema/swelling and advanced kidney disease, dialysis is the next step plan had been to continue diuretic therapy and outpatient placement of AV access placement for dialysis unfortunately, with her symptoms as is, I am not sure she will be able to hold out that long s/p HD catheter placement 06/12/20 HD today and likely tomorrow as well push fluid removal as tolerated and continue diuretics since she has some residual kidney function will need outpatient HD arranged before discharge (2) Anasarca: Code(s): R60.1 - Generalized edema Status: Chronic Assessment and Plan: multifactorial: - nephrotic syndrome - advanced kidney disease - pulmonary HTN - moderate tricuspid regurgitation - peripheral vascular disease (?) change to IV bumex fluid removal/ultrafiltration with HD should help as well (3) Hypertension: Qualifiers: Hypertension type: essential hypertension Qualified Code(s): I10 - Essential (primary) hypertension Code(s): I10 - Essential (primary) hypertension Status: Chronic Assessment and Plan: quite elevated on admission and fluctuates use PRN clonidine as a temporary solution diuresis with IV bumex and fluid removal with HD should help will adjust BP medications as well follow trend of hemodynamics (4) Chronic anemia: Code(s): D64.9 - Anemia, unspecified Status: Chronic Assessment and Plan: partly related to CKD adequate iron by anemia studies Epogen with HD follow trend of H/H (5) JEFF (renal osteodystrophy): Code(s): N25.0 - Renal osteodystrophy Status: Acute Assessment and Plan: calcium and phosphorus stable Vitamin D low and PTH sam start ergocalciferoal (6) Diabetes: Code(s): E11.9 - Type 2 diabetes mellitus without complications Status: Acute Assessment and Plan: follow accuchecks glycemic control Will continue to follow. Subjective Date/time seen: 06/13/20 12:13 Tolerating second dialysis treatment at the time of my visit (seen on HD at around noon); major complaint is still pain in her neck at where HD catheter was placed; no other acute issues or problems to report; no events overnight or earlier this AM. Exam Narrative: Exam Narrative: General: WD/WN female in NAD Heart: normal S1 and S2; no rub Lungs: clear to auscultation Abdomen: soft, nontender, nondistended, positive bowel sounds Extremities: no cyanosis or clubbing; 2+ edema Skin: warm and intact Objective Data Vital Signs Vital Signs: Vital Signs Temp Pulse Resp BP Pulse Ox 06/13/20 12:07 56 L 184/76 H 06/13/20 12:00 56 L 196/82 H 06/13/20 11:45 58 L 197/83 H 06/13/20 11:30 55 L 195/80 H 06/13/20 11:15 56 L 198/77 H 06/13/20 11:08 59 L 06/13/20 11:00 58 L 203/82 H 06/13/20 10:45 59 L 188/79 H 06/13/20 10:30 55 L 211/84 H 06/13/20 10:15 56 L 210/91 H 06/13/20 10:00 57 L 197/81 H 06/13/20 09:45 57 L 192/82 H 06/13/20 09:30 54 L 185/76 H 06/13/20 09:15 56 L 191/81 H 06/13/20 09:01 37.1 C 54 L 18 200/81 H 06/13/20 06:00 36.3 C L 56 L 16 180/59 H 98 06/13/20 05:29 52 L 170/51 H 95 06/12/20 22:00 36.5 C 66 16 170/57 H 97 06/12/20 18:25 36.4 C 68 18 177/77 H 06/12/20 18:21 61 170/76 H 06/12/20 18:15 61 162/73 H 06/12/20 18:00 59 L 181/70 H 06/12/20 17:45 57 L 185/76 H 06/12/20 17:30 59 L 185/
[2020-06-13] MEDS: metOLazone 5 MG TABLET 10 MG PO (12:35)
[2020-06-13] MEDS: rOPINIRole HCL 0.5 MG TABLET PO ×2 (12:35→21:46)
[2020-06-13] MEDS: SEVELAMER CARBONATE 800 MG TABLET PO ×2 (12:35→16:50)
[2020-06-13] MEDS: GABAPENTIN 100 MG CAPSULE PO ×2 (12:35→16:50)
[2020-06-13] MEDS: lisinopriL 20 MG TABLET 40 MG PO (12:36)
[2020-06-13] MEDS: METOPROLOL SUCCINATE EXT REL 50 MG TABCR 100 MG PO (12:36)
[2020-06-13] MEDS: PANTOPRAZOLE 40 MG TABLET PO (12:36)
[2020-06-13] MEDS: CHOLECALCIFEROL 1,000 UNITS TABLET 5000 UNITS PO (12:37)
[2020-06-13] MEDS: SENNOSIDES 8.6 MG TABLET PO (12:37)
[2020-06-13] MEDS: DOCUSATE SODIUM 100 MG CAPSULE PO (12:37)
[2020-06-13] MEDS: hydrALAZINE HCL 50 MG TABLET 100 MG PO ×2 (12:37→16:53)
[2020-06-13] MEDS: METOCLOPRAMIDE HCL 10 MG TABLET PO ×3 (12:37→20:05)
[2020-06-13] MEDS: ESCITALOPRAM OXALATE 5 MG TABLET PO (12:38)
[2020-06-13] MEDS: HEPARIN SODIUM 5,000 UNITS/ML VIAL 5000 UNITS SUB-Q ×2 (12:38→20:05)
--- NOTE | 2020-06-13 14:18 | PM.IMPN ---
Progress Note: A&P Assessment and Plan (1) Hypertensive crisis: Code(s): I16.9 - Hypertensive crisis, unspecified Status: Acute Assessment and Plan: Bp high today, 127/58 Continue oral lisinopril and metazolone, nephrology rounding, bp better after starting dialysis (2) Elevated troponin: Code(s): R77.8 - Other specified abnormalities of plasma proteins Status: Acute Assessment and Plan: Mildly elevated continue to monitor likely secondary to Bp raise (3) CKD (chronic kidney disease) stage 4, GFR 15-29 ml/min: Code(s): N18.4 - Chronic kidney disease, stage 4 (severe) Status: Chronic Assessment and Plan: Creat at baseline at 3-3.4 ,consult nephrology renal biopsy was completed pt has nephrotic syndrome. Pt to have dialysis today pt had catheter placed yesterday (4) CHF (congestive heart failure): Code(s): I50.9 - Heart failure, unspecified Status: Acute Assessment and Plan: EF 55-60 % from before, previous echo showed diastolic dysfunction, good LV systolic function, pulmonary hypertension, and tricuspid regurgitation. watch kidney function Subjective Date/time seen: 06/13/20 14:18 Interval history: 70 year old female history of CKD, grade 3 uterine cancer, CHF, type 2 diabetes, peroneal DVT, GERD who presents the ED from [facility] with swelling, and restless leg syndrome. Sp catheter placement today, Bp slightly high 127/58. pt complaining of pain in her neck, receiving second dialysis presently Review of Systems Review of Systems: All systems reviewed & are unremarkable except as noted in HPI and below Exam Const: Nutritional Appearance: No edematous HENMT: Head: normocephalic Eyes: General: appearance normal, both eyes and all related structures Pupils: Equal, round and reactive pupils present Neck: Neck: other (new dialysis catheter in place, neck pain superior to the subclavian ) Chest: Chest palpation & inspection: normal inspection of the chest Resp: Effort & Inspection: normal respiratory effort Auscultation: clear to auscultation bilaterally Cardio: Jugular venous distension: no JVD Rhythm: regular rhythm Heart sounds: S1 normal heart sound present and S2 normal heart sound present GI: Inspection: normal to inspection Auscultation: normal bowel sounds Skin: General skin exam: normal color and dry skin Neuro: Cranial nerves: Yes CN's II-XII intact bilaterally and Yes Equal, round and reactive pupils present Cognition (Neuro): normal cognition Speech: normal speech Motor exam (neuro): 5/5 motor strength present throughout Extrem: General: normal to inspection Psych: Appearance: grossly normal Mental Status: mental status grossly normal Objective Data Vital Signs Vital Signs: Vital Signs - 24 hr 06/12/20 15:40 06/12/20 15:50 06/12/20 16:00 Temperature 36.6 C Pulse Rate 59 L 60 64 Respiratory Rate 18 Blood Pressure 167/67 H 158/68 H 139/61 Pulse Oximetry 06/12/20 16:15 06/12/20 16:30 06/12/20 16:45 Temperature Pulse Rate 55 L 68 60 Respiratory Rate Blood Pressure 147/66 H 162/64 H 153/56 H Pulse Oximetry 06/12/20 17:00 06/12/20 17:15 06/12/20 17:30 Temperature Pulse Rate 61 61 59 L Respiratory Rate Blood Pressure 158/56 H 166/71 H 185/72 H Pulse Oximetry 06/12/20 17:45 06/12/20 18:00 06/12/20 18:15 Temperature Pulse Rate 57 L 59 L 61 Respiratory Rate Blood Pressure 185/76 H 181/70 H 162/73 H Pulse Oximetry 06/12/20 18:21 06/12/20 18:25 06/12/20 22:00 Temperature 36.4 C 36.5 C Pulse Rate 61 68 66 Respiratory Rate 18 16 Blood Pressure 170/76 H 177/77 H 170/57 H Pulse Oximetry 97 06/13/20 05:29 06/13/20 06:00 06/13/20 09:01 Temperature 36.3 C L 37.1 C Pulse Rate 52 L 56 L 54 L Respiratory Rate 16 18 Blood Pressure 170/51 H 180/59 H 200/81 H Pulse Oximetry 95 98 06/13/20 09:15 06/13/20 09:30 06/13/20 09:45 Temperat
[2020-06-13] MEDS: BUMETANIDE INJ 1 MG/4 ML VIAL IV PUSH (16:50)
[2020-06-13 19:17] LABS: SARS-CoV-2 RNA PCR Negative
[2020-06-13] MEDS: ATORVASTATIN 20 MG TABLET PO (20:05)
[2020-06-13] MEDS: fentaNYL (*CRX) 50 MCG PATCH TRANSDERM (21:11)
[2020-06-13] MEDS: TEMAZEPAM (*CRX) 15 MG CAPSULE PO (21:46)
[2020-06-14] VITALS (20 sets, daily range): BP systolic 148–208; BP diastolic 61–84; PULSE 58–72; RESP 16–18; TEMP 36.5–37.2; O2SAT 95–96
[2020-06-14] MEDS: HYDROcodone/acetaminophen (*CRX) 5-325 MG TABLET 1 TAB PO ×2 (02:46→11:22)
[2020-06-14 06:38] LABS: NT Pro B Type Natriuretic Pept 20600 PG/ML (5-100)
[2020-06-14 06:51] LABS: Albumin Level 2.6 g/dL (3.5-5.1); Anion Gap 2 mmol/L (8-16); Blood Urea Nitrogen 33 mg/dL (7-17); Carbon Dioxide 27 mmol/L (22-30); Chloride 103 mmol/L (98-107); Estimated CRCL calculation 22 ml/min; Estimated Glomerular Filt Rate 23; Glucose 116 mg/dL (65-105); Phosphorus 3.3 mg/dL (2.5-4.5); Potassium 3.7 mmol/L (3.4-5.0); Sodium 132 mmol/L (137-145)
[2020-06-14] MEDS: METOPROLOL SUCCINATE EXT REL 50 MG TABCR 100 MG PO (08:19)
[2020-06-14] MEDS: lisinopriL 20 MG TABLET 40 MG PO (08:19)
[2020-06-14] MEDS: rOPINIRole HCL 0.5 MG TABLET PO ×2 (08:19→17:09)
[2020-06-14] MEDS: hydrALAZINE HCL 50 MG TABLET 100 MG PO ×3 (08:19→17:10)
[2020-06-14] MEDS: CHOLECALCIFEROL 1,000 UNITS TABLET 5000 UNITS PO (08:20)
[2020-06-14] MEDS: GABAPENTIN 100 MG CAPSULE PO (08:20)
[2020-06-14] MEDS: SEVELAMER CARBONATE 800 MG TABLET PO ×3 (08:20→17:09)
[2020-06-14] MEDS: DOCUSATE SODIUM 100 MG CAPSULE PO (08:21)
[2020-06-14] MEDS: PANTOPRAZOLE 40 MG TABLET PO (08:21)
[2020-06-14] MEDS: metOLazone 5 MG TABLET 10 MG PO (08:21)
[2020-06-14] MEDS: SENNOSIDES 8.6 MG TABLET PO (08:21)
[2020-06-14] MEDS: ESCITALOPRAM OXALATE 5 MG TABLET PO (08:21)
[2020-06-14] MEDS: METOCLOPRAMIDE HCL 10 MG TABLET PO ×4 (08:21→19:59)
[2020-06-14] MEDS: HEPARIN SODIUM 5,000 UNITS/ML VIAL 5000 UNITS SUB-Q ×2 (08:22→19:59)
[2020-06-14] MEDS: BUMETANIDE INJ 1 MG/4 ML VIAL IV PUSH ×2 (08:22→17:10)
--- NOTE | 2020-06-14 12:13 | PM.IMPN ---
Progress Note: A&P Assessment and Plan (1) Hypertensive crisis: Code(s): I16.9 - Hypertensive crisis, unspecified Status: Acute Assessment and Plan: Continue oral lisinopril and metazolone, nephrology rounding, bp better after starting dialysis (2) Elevated troponin: Code(s): R77.8 - Other specified abnormalities of plasma proteins Status: Acute Assessment and Plan: Mildly elevated continue to monitor likely secondary to Bp raise (3) CKD (chronic kidney disease) stage 4, GFR 15-29 ml/min: Code(s): N18.4 - Chronic kidney disease, stage 4 (severe) Status: Chronic Assessment and Plan: Creat at baseline at 3-3.4 ,consult nephrology renal biopsy was completed pt has nephrotic syndrome. Pt to have dialysis today pt had catheter placed, creat down to 2 (4) CHF (congestive heart failure): Code(s): I50.9 - Heart failure, unspecified Status: Acute Assessment and Plan: EF 55-60 % from before, previous echo showed diastolic dysfunction, good LV systolic function, pulmonary hypertension, and tricuspid regurgitation. watch kidney function Subjective Date/time seen: 06/14/20 12:13 Interval history: 70 year old female history of CKD, grade 3 uterine cancer, CHF, type 2 diabetes, peroneal DVT, GERD who presents the ED from [facility] with swelling, and restless leg syndrome. Pt is doing well with dialysis. Feels less swollen. Review of Systems Review of Systems: All systems reviewed & are unremarkable except as noted in HPI and below Exam Const: General: alert and Physically active HENMT: Head: normocephalic Eyes: General: appearance normal, both eyes and all related structures Pupils: Equal, round and reactive pupils present Neck: Neck: other (new dialysis catheter in place, neck pain superior to the subclavian ) Chest: Chest palpation & inspection: normal inspection of the chest Resp: Effort & Inspection: normal respiratory effort Auscultation: clear to auscultation bilaterally Cardio: Rhythm: regular rhythm Heart sounds: S1 normal heart sound present and S2 normal heart sound present GI: Inspection: normal to inspection Auscultation: normal bowel sounds : General: Yes no CVA tenderness Back/Spine/Pelvis: Back: no CVA tenderness Skin: General skin exam: normal color and dry skin Neuro: Cranial nerves: Yes CN's II-XII intact bilaterally and Yes Equal, round and reactive pupils present Cognition (Neuro): normal cognition Speech: normal speech Motor exam (neuro): 5/5 motor strength present throughout Extrem: General: normal to inspection Psych: Appearance: grossly normal Mental Status: mental status grossly normal Objective Data Vital Signs Vital Signs: Vital Signs - 24 hr 06/13/20 12:15 06/13/20 12:36 06/13/20 14:00 Temperature 37.0 C 36.6 C Pulse Rate 57 L 60 61 Respiratory Rate 18 18 Blood Pressure 206/94 H 127/58 L Pulse Oximetry 96 06/13/20 22:00 06/14/20 06:00 06/14/20 08:00 Temperature 37.1 C 37.2 C Pulse Rate 61 69 64 Respiratory Rate 18 16 16 Blood Pressure 155/57 H 173/62 H Pulse Oximetry 97 96 96 06/14/20 08:19 Temperature Pulse Rate 64 Respiratory Rate Blood Pressure Pulse Oximetry Intake/Output Intake/Output: Intake & Output 06/11/20 06/12/20 06/13/20 06/14/20 23:59 23:59 23:59 23:59 Intake Total 320 1630 1180 360 Output Total 750 1450 1152 300 Balance -430 180 28 60 Meds/Results Medications: Active Medications Generic Name Dose Route Start Last Admin Trade Name Santhoshq PRN Reason Stop Dose Admin Acetaminophen 1,000 mg 06/09/20 23:42 Acetaminophen 500 Mg Tablet PO BID PRN mild pain/headache Acetaminophen 500 mg 06/12/20 12:16 Acetaminophen 500 Mg Tablet PO Q6H PRN Mild Pain (1-3) or Fever Hydrocodone Bitart/Acetaminophen 1 tab 06/12/20 12:16 06/14/20 11:22 Hydrocodone/Acetaminophen (*Crx) 5-325 Mg Tablet PO 1 tab
[2020-06-14] MEDS: GABAPENTIN 100 MG CAPSULE 200 MG PO ×2 (13:01→17:09)
--- NOTE | 2020-06-14 16:47 | PM.PNNEP ---
Progress Note: A&P Assessment and Plan (1) End stage renal disease: Code(s): N18.6 - End stage renal disease Status: Chronic Assessment and Plan: due to biopsy proven diabetic + hypertensive nephrosclerosis attempt has been attempt to balance swelling/edema with diuretic use to not worsen kidney function but this has become more and more difficult given her recurrent edema/swelling and advanced kidney disease, dialysis is the next step plan had been to continue diuretic therapy and outpatient placement of AV access placement for dialysis unfortunately, with her symptoms as is, I am not sure she will be able to hold out that long s/p HD catheter placement 06/12/20 HD today push fluid removal as tolerated and continue diuretics since she has some residual kidney function will need outpatient HD arranged before discharge (2) Anasarca: Code(s): R60.1 - Generalized edema Status: Chronic Assessment and Plan: multifactorial: - nephrotic syndrome - advanced kidney disease - pulmonary HTN - moderate tricuspid regurgitation - peripheral vascular disease (?) change to IV bumex and switch to oral bumex on discharge fluid removal/ultrafiltration with HD should help as well (3) Hypertension: Qualifiers: Hypertension type: essential hypertension Qualified Code(s): I10 - Essential (primary) hypertension Code(s): I10 - Essential (primary) hypertension Status: Chronic Assessment and Plan: quite elevated on admission and fluctuates use PRN clonidine as a temporary solution diuresis with IV bumex and fluid removal with HD should help will adjust BP medications as well follow trend of hemodynamics (4) Chronic anemia: Code(s): D64.9 - Anemia, unspecified Status: Chronic Assessment and Plan: partly related to CKD adequate iron by anemia studies Epogen with HD follow trend of H/H (5) JEFF (renal osteodystrophy): Code(s): N25.0 - Renal osteodystrophy Status: Acute Assessment and Plan: calcium and phosphorus stable Vitamin D low and PTH sam start ergocalciferoal (6) Diabetes: Code(s): E11.9 - Type 2 diabetes mellitus without complications Status: Acute Assessment and Plan: follow accuchecks glycemic control Will continue to follow. Subjective Date/time seen: 06/14/20 18:47 Tolerated dialysis yesterday without any issues or concerns; states she feels less swollen since dialysis started; no other acute events/issues to report at this time; due for dialysis today. Exam Narrative: Exam Narrative: General: WD/WN female in NAD Heart: normal S1 and S2; no rub Lungs: clear to auscultation Abdomen: soft, nontender, nondistended, positive bowel sounds Extremities: no cyanosis or clubbing; 2+ edema Skin: warm and intact Objective Data Vital Signs Vital Signs: Vital Signs Temp Pulse Resp BP Pulse Ox 06/14/20 14:00 36.7 C 61 16 176/82 H 95 06/14/20 08:19 64 06/14/20 08:00 64 16 96 06/14/20 06:00 37.2 C 69 16 173/62 H 96 06/13/20 22:00 37.1 C 61 18 155/57 H 97 Intake/Output Intake/Output: Intake & Output 06/11/20 06/12/20 06/13/20 06/14/20 23:59 23:59 23:59 23:59 Intake Total 320 1630 1180 1150 Output Total 750 1450 1152 800 Balance -430 180 28 350 Meds/Results Medications: Active Medications Generic Name Dose Route Start Last Admin Trade Name Freq PRN Reason Stop Dose Admin Acetaminophen 1,000 mg 06/09/20 23:42 Acetaminophen 500 Mg Tablet PO BID PRN mild pain/headache Acetaminophen 500 mg 06/12/20 12:16 Acetaminophen 500 Mg Tablet PO Q6H PRN Mild Pain (1-3) or Fever Hydrocodone Bitart/Acetaminophen 1 tab 06/12/20 12:16 06/14/20 11:22 Hydrocodone/Acetaminophen (*Crx) 5-325 Mg Tablet PO 1 tab Q4H PRN Admi
--- NOTE | 2020-06-14 16:47 | P.PNNP_ITS ---
Progress Note: A&P Assessment and Plan (1) End stage renal disease: Code(s): N18.6 - End stage renal disease Status: Chronic Assessment and Plan: * due to biopsy proven diabetic + hypertensive nephrosclerosis * attempt has been attempt to balance swelling/edema with diuretic use to not worsen kidney function but this has become more and more difficult * given her recurrent edema/swelling and advanced kidney disease, dialysis is the next step * plan had been to continue diuretic therapy and outpatient placement of AV access placement for dialysis * unfortunately, with her symptoms as is, I am not sure she will be able to hold out that long * s/p HD catheter placement 06/12/20 * HD today * push fluid removal as tolerated and continue diuretics since she has some residual kidney function * will need outpatient HD arranged before discharge (2) Anasarca: Code(s): R60.1 - Generalized edema Status: Chronic Assessment and Plan: * multifactorial: - nephrotic syndrome - advanced kidney disease - pulmonary HTN - moderate tricuspid regurgitation - peripheral vascular disease (?) * change to IV bumex and switch to oral bumex on discharge * fluid removal/ultrafiltration with HD should help as well (3) Hypertension: Qualifiers: Hypertension type: essential hypertension Qualified Code(s): I10 - Essential (primary) hypertension Code(s): I10 - Essential (primary) hypertension Status: Chronic Assessment and Plan: * quite elevated on admission and fluctuates * use PRN clonidine as a temporary solution * diuresis with IV bumex and fluid removal with HD should help * will adjust BP medications as well * follow trend of hemodynamics (4) Chronic anemia: Code(s): D64.9 - Anemia, unspecified Status: Chronic Assessment and Plan: * partly related to CKD * adequate iron by anemia studies * Epogen with HD * follow trend of H/H (5) JEFF (renal osteodystrophy): Code(s): N25.0 - Renal osteodystrophy Status: Acute Assessment and Plan: * calcium and phosphorus stable * Vitamin D low and PTH sam * start ergocalciferoal (6) Diabetes: Code(s): E11.9 - Type 2 diabetes mellitus without complications Status: Acute Assessment and Plan: * follow accuchecks * glycemic control Will continue to follow. Subjective Date/time seen: 06/14/20 18:47 Tolerated dialysis yesterday without any issues or concerns; states she feels less swollen since dialysis started; no other acute events/issues to report at this time; due for dialysis today. Exam Narrative: Exam Narrative: General: WD/WN female in NAD Heart: normal S1 and S2; no rub Lungs: clear to auscultation Abdomen: soft, nontender, nondistended, positive bowel sounds Extremities: no cyanosis or clubbing; 2+ edema Skin: warm and intact Objective Data Vital Signs Vital Signs: Vital Signs Temp Pulse Resp BP Pulse Ox 06/14/20 14:00 36.7 C 61 16 176/82 H 95 06/14/20 08:19 64 06/14/20 08:00 64 16 96 06/14/20 06:00 37.2 C 69 16 173/62 H 96 06/13/20 22:00 37.1 C 61 18 155/57 H 97 Intake/Output Intake/Output: Intake & Output 06/11/20 06/12/20 06/13/20 06/14/20 23:59 23:59 23:59 23
[2020-06-14] MEDS: SODIUM CHLORIDE 0.9% IV 1,000 ML 100 ML IV CONT (19:55)
[2020-06-14] MEDS: ATORVASTATIN 20 MG TABLET PO (19:59)
[2020-06-14] MEDS: TEMAZEPAM (*CRX) 15 MG CAPSULE PO (19:59)
[2020-06-14] MEDS: EPOETIN ALFA-EPBX 10,000 UNITS/ML VIAL 10000 UNITS IV PUSH (22:35)
[2020-06-15] VITALS (10 sets, daily range): BP systolic 146–212; BP diastolic 46–73; PULSE 56–66; RESP 16–18; TEMP 36.7–37.2; O2SAT 94–95
[2020-06-15] MEDS: cloNIDine HCL 0.1 MG TABLET PO (00:04)
[2020-06-15] MEDS: rOPINIRole HCL 0.5 MG TABLET PO ×2 (00:09→05:27)
[2020-06-15] MEDS: METOPROLOL TARTRATE INJ 5 MG/5 ML VIAL IV PUSH (02:17)
[2020-06-15] MEDS: HYDROcodone/acetaminophen (*CRX) 5-325 MG TABLET 1 TAB PO ×3 (02:40→17:05)
[2020-06-15] MEDS: hydrALAZINE HCL 20 MG/ML VIAL 10 MG IV PUSH (04:12)
[2020-06-15] MEDS: ACETAMINOPHEN 500 MG TABLET 1000 MG PO (05:28)
[2020-06-15] MEDS: ENALAPRILAT 1.25 MG/ML VIAL IV PUSH (06:27)
[2020-06-15 07:02] LABS: Hematocrit 24.5 % (37.0-47.0); Hemoglobin 7.8 g/dL (12.0-15.0); Mean Corpuscular HGB Conc 31.8 g/dl (32-36); Mean Corpuscular Hemoglobin 29.8 pg (26-34); Mean Corpuscular Volume 93.5 fl (80-100); Platelet Count Result 177 k/mm3 (150-375); Red Blood Count 2.62 M/mm3 (4.2-5.4); Red Cell Distribution Width 13.5 % (11.5-14.5); White Blood Count 5.7 K/mm3 (4.5-10.0)
[2020-06-15 07:25] LABS: Albumin Level 2.8 g/dL (3.5-5.1); Anion Gap -1 mmol/L (8-16); Blood Urea Nitrogen 22 mg/dL (7-17); Calcium 7.9 mg/dL (8.4-10.2); Carbon Dioxide 28 mmol/L (22-30); Chloride 104 mmol/L (98-107); Estimated CRCL calculation 24 ml/min; Estimated Glomerular Filt Rate 28; Glucose 120 mg/dL (65-105); Phosphorus 2.6 mg/dL (2.5-4.5); Potassium 3.5 mmol/L (3.4-5.0); Sodium 131 mmol/L (137-145)
[2020-06-15] MEDS: metOLazone 5 MG TABLET 10 MG PO (07:43)
[2020-06-15] MEDS: GABAPENTIN 100 MG CAPSULE 200 MG PO ×3 (08:28→17:06)
[2020-06-15] MEDS: BUMETANIDE INJ 1 MG/4 ML VIAL IV PUSH ×2 (08:28→17:06)
[2020-06-15] MEDS: SENNOSIDES 8.6 MG TABLET PO (08:28)
[2020-06-15] MEDS: SEVELAMER CARBONATE 800 MG TABLET PO ×3 (08:28→17:05)
[2020-06-15] MEDS: METOCLOPRAMIDE HCL 10 MG TABLET PO ×4 (08:29→20:56)
[2020-06-15] MEDS: CHOLECALCIFEROL 1,000 UNITS TABLET 5000 UNITS PO (08:29)
[2020-06-15] MEDS: hydrALAZINE HCL 50 MG TABLET 100 MG PO ×3 (08:29→17:06)
[2020-06-15] MEDS: HEPARIN SODIUM 5,000 UNITS/ML VIAL 5000 UNITS SUB-Q ×2 (08:29→20:56)
[2020-06-15] MEDS: lisinopriL 20 MG TABLET 40 MG PO (08:30)
[2020-06-15] MEDS: PANTOPRAZOLE 40 MG TABLET PO (08:30)
[2020-06-15] MEDS: METOPROLOL SUCCINATE EXT REL 50 MG TABCR 100 MG PO (08:30)
[2020-06-15] MEDS: ESCITALOPRAM OXALATE 5 MG TABLET PO (08:30)
[2020-06-15] MEDS: DOCUSATE SODIUM 100 MG CAPSULE PO (08:30)
--- NOTE | 2020-06-15 11:45 | PM.IMPN ---
Progress Note: A&P Assessment and Plan (1) End stage renal disease: Code(s): N18.6 - End stage renal disease Status: Chronic Assessment and Plan: May be discharged when outpatient dialysis is arranged (2) Hypertensive crisis: Code(s): I16.9 - Hypertensive crisis, unspecified Status: Acute Assessment and Plan: Remains labile Continue bumetanide, clonidine, lisinopril, hydralazine (3) CHF (congestive heart failure): Qualifiers: Heart failure type: diastolic Heart failure chronicity: acute on chronic Qualified Code(s): I50.33 - Acute on chronic diastolic (congestive) heart failure Code(s): I50.9 - Heart failure, unspecified Status: Acute Assessment and Plan: EF 55-60 % from before, previous echo showed diastolic dysfunction, good LV systolic function, pulmonary hypertension, and tricuspid regurgitation Continue diuretics, antihypertensives, dialysis (4) Diabetes: Qualifiers: Diabetes mellitus type: type 2 Diabetes mellitus 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 insulin 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 Diabetes mellitus complication status: with kidney complications Diabetes mellitus complication detail: with chronic kidney disease Chronic kidney disease stage: on chronic dialysis Qualified Code(s): E11.22 - Type 2 diabetes mellitus with diabetic chronic kidney disease; N18.6 - End stage renal disease; Z99.2 - Dependence on renal dialysis Code(s): E11.9 - Type 2 diabetes mellitus without complications Status: Acute Assessment and Plan: Continue SSI (5) Anemia due to stage 5 chronic kidney disease: Code(s): N18.5 - Chronic kidney disease, stage 5; D63.1 - Anemia in chronic kidney disease Status: Acute Assessment and Plan: Remains relatively stable (6) Elevated troponin: Code(s): R77.8 - Other specified abnormalities of plasma proteins Status: Acute Assessment and Plan: Due to hypertensive crisis and ESRD NO ACS Subjective Date/time seen: 06/15/20 11:45 Interval history: 70 year old female history of CKD, grade 3 uterine cancer, CHF, type 2 diabetes, peroneal DVT, GERD who presents the ED from [facility] with swelling, and restless leg syndrome. 06/15: Tolerating diet. Chronic generalized pain and narcotic dependence unchanged. No c/o sob or cp or edema. No GI/ issues. Seems comfortable. Awakened to obtain hx. Review of Systems Review of Systems: All systems reviewed & are unremarkable except as noted in HPI and below Exam Const: General: alert HENMT: Head: normocephalic Eyes: General: appearance normal, both eyes and all related structures Pupils: Equal, round and reactive pupils present Neck: Neck: other (new dialysis catheter in place, neck pain superior to the subclavian ) Chest: Chest palpation & inspection: normal inspection of the chest Resp: Effort & Inspection: normal respiratory effort Auscultation: clear to auscultation bilaterally Cardio: Jugular venous distension: no JVD Rhythm: regular rhythm Heart sounds: S1 normal heart sound present and S2 normal heart sound present GI: Inspection: normal to inspection Auscultation: normal bowel sounds Neuro: Cranial nerves: Yes CN's II-XII intact bilaterally and Yes Equal, round and reactive pupils present Cognition (Neuro): normal cognition Speech: normal speech Motor exam (neuro): 5/5 motor strength present throughout Extrem: General: normal to inspection Psych: Mental Status: mental status grossly normal Objective Data Vital Signs Vital Signs: Vital Signs - 24 hr 06/14/20 14:00 06/14/20 20:06 06/14/20 20:13 Temperature 98.1 F 97.7 F Pulse Rate 61 66 64 Respiratory Rate 16 18 Blood Pressure 176/82 H 195/71 H 190/77 H Pulse Oximetry 95 06/14/20 20:30 06/14/20 20:45 06/14/20 21:00 Temperature Pulse Rate 67 65 64 Respiratory Rate Blood Pressure 172/74 H 170/61 H 175/71 H Pulse Oximetry
--- NOTE | 2020-06-15 13:16 | P.PNNP_ITS ---
Progress Note: A&P Assessment and Plan (1) End stage renal disease: Code(s): N18.6 - End stage renal disease Status: Chronic Assessment and Plan: * due to biopsy proven diabetic + hypertensive nephrosclerosis * attempt has been attempt to balance swelling/edema with diuretic use and to not worsen kidney function but this has become more and more difficult * given her recurrent edema/swelling and advanced kidney disease, dialysis is the next step * plan had been to continue diuretic therapy and outpatient placement of AV access placement for dialysis * unfortunately, with her symptoms as is, I am not sure she will be able to hold out that long (she came to the ER because she could not tolerated the swelling /edema) * s/p HD catheter placement 06/12/20 * HD yesterday and plan HD tomorrow * push fluid removal as tolerated and continue diuretics since she has some residual kidney function * will need outpatient HD arranged before discharge (2) Anasarca: Code(s): R60.1 - Generalized edema Status: Chronic Assessment and Plan: * multifactorial: - nephrotic syndrome - advanced kidney disease - pulmonary HTN - moderate tricuspid regurgitation - peripheral vascular disease (?) * change to IV bumex and switch to oral bumex on discharge * fluid removal/ultrafiltration with HD should help as well (3) Hypertension: Qualifiers: Hypertension type: essential hypertension Qualified Code(s): I10 - Essential (primary) hypertension Code(s): I10 - Essential (primary) hypertension Status: Chronic Assessment and Plan: * quite elevated on admission and fluctuates * use PRN clonidine as a temporary solution * diuresis with IV bumex and fluid removal with HD should help * will adjust BP medications as well * follow trend of hemodynamics (4) Chronic anemia: Code(s): D64.9 - Anemia, unspecified Status: Chronic Assessment and Plan: * partly related to CKD * adequate iron by anemia studies * Epogen with HD * follow trend of H/H (5) JEFF (renal osteodystrophy): Code(s): N25.0 - Renal osteodystrophy Status: Acute Assessment and Plan: * calcium and phosphorus stable * Vitamin D low and PTH sam * start ergocalciferoal (6) Diabetes: Qualifiers: Diabetes mellitus type: type 2 Diabetes mellitus 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 Subjective Date/time seen: 06/15/20 13:16 Tolerated dialysis treatment late last night without any issues or problems; no other acute issues or problems to report other than chronic pain issues; feels swelling and edema are doing significantly better; no events or issues overnight. Exam Narrative: Exam Narrative: General: WD/WN female in NAD Heart: normal S1 and S2; no rub Lungs: clear to auscultation Abdomen: soft, nontender, nondistended, positive bowel sounds Extremit
--- NOTE | 2020-06-15 13:16 | PM.PNNEP ---
Progress Note: A&P Assessment and Plan (1) End stage renal disease: Code(s): N18.6 - End stage renal disease Status: Chronic Assessment and Plan: due to biopsy proven diabetic + hypertensive nephrosclerosis attempt has been attempt to balance swelling/edema with diuretic use and to not worsen kidney function but this has become more and more difficult given her recurrent edema/swelling and advanced kidney disease, dialysis is the next step plan had been to continue diuretic therapy and outpatient placement of AV access placement for dialysis unfortunately, with her symptoms as is, I am not sure she will be able to hold out that long (she came to the ER because she could not tolerated the swelling/edema) s/p HD catheter placement 06/12/20 HD yesterday and plan HD tomorrow push fluid removal as tolerated and continue diuretics since she has some residual kidney function will need outpatient HD arranged before discharge (2) Anasarca: Code(s): R60.1 - Generalized edema Status: Chronic Assessment and Plan: multifactorial: - nephrotic syndrome - advanced kidney disease - pulmonary HTN - moderate tricuspid regurgitation - peripheral vascular disease (?) change to IV bumex and switch to oral bumex on discharge fluid removal/ultrafiltration with HD should help as well (3) Hypertension: Qualifiers: Hypertension type: essential hypertension Qualified Code(s): I10 - Essential (primary) hypertension Code(s): I10 - Essential (primary) hypertension Status: Chronic Assessment and Plan: quite elevated on admission and fluctuates use PRN clonidine as a temporary solution diuresis with IV bumex and fluid removal with HD should help will adjust BP medications as well follow trend of hemodynamics (4) Chronic anemia: Code(s): D64.9 - Anemia, unspecified Status: Chronic Assessment and Plan: partly related to CKD adequate iron by anemia studies Epogen with HD follow trend of H/H (5) JEFF (renal osteodystrophy): Code(s): N25.0 - Renal osteodystrophy Status: Acute Assessment and Plan: calcium and phosphorus stable Vitamin D low and PTH sam start ergocalciferoal (6) Diabetes: Qualifiers: Diabetes mellitus type: type 2 Diabetes mellitus 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 Subjective Date/time seen: 06/15/20 13:16 Tolerated dialysis treatment late last night without any issues or problems; no other acute issues or problems to report other than chronic pain issues; feels swelling and edema are doing significantly better; no events or issues overnight. Exam Narrative: Exam Narrative: General: WD/WN female in NAD Heart: normal S1 and S2; no rub Lungs: clear to auscultation Abdomen: soft, nontender, nondistended, positive bowel sounds Extremities: no cyanosis or clubbing; 2+ edema Skin: warm and intact Objective Data Vital Signs Vital Signs: Vital Signs Temp Pulse Resp BP Pulse Ox 06/15/20 10:45 146/46 H 06/15/20 08:30 64 06/15/20 08:00 64 18 94 06/15/20 06:57 184/58 H 06/15/20 06:00 37.2 C 62 18 199/73 H 94 06/15/20 03:40 184/65 H 06/15/20 02:17 56 L 06/15/20 02:14 212/64 H 06/14/20 23:53 36.6 C 64 16 205/84 H
[2020-06-15] MEDS: TEMAZEPAM (*CRX) 15 MG CAPSULE PO (20:56)
[2020-06-15] MEDS: ATORVASTATIN 20 MG TABLET PO (20:58)
[2020-06-16] VITALS (25 sets, daily range): BP systolic 133–221; BP diastolic 55–95; PULSE 59–88; RESP 16–18; TEMP 36–37.1; O2SAT 95–97
[2020-06-16] MEDS: HYDROcodone/acetaminophen (*CRX) 5-325 MG TABLET 1 TAB PO ×2 (03:56→11:17)
[2020-06-16] MEDS: METOPROLOL TARTRATE INJ 5 MG/5 ML VIAL IV PUSH (05:59)
[2020-06-16] MEDS: cloNIDine HCL 0.1 MG TABLET PO (06:53)
--- NOTE | 2020-06-16 08:01 | PC.NURSE ---
Had dialysis nurse [phone]
[2020-06-16] MEDS: CHOLECALCIFEROL 1,000 UNITS TABLET 5000 UNITS PO (08:59)
[2020-06-16] MEDS: ESCITALOPRAM OXALATE 5 MG TABLET PO (08:59)
[2020-06-16] MEDS: rOPINIRole HCL 0.5 MG TABLET PO ×2 (08:59→22:09)
[2020-06-16] MEDS: lisinopriL 20 MG TABLET 40 MG PO (09:00)
[2020-06-16] MEDS: hydrALAZINE HCL 50 MG TABLET 100 MG PO ×3 (09:00→22:05)
[2020-06-16] MEDS: BUMETANIDE INJ 1 MG/4 ML VIAL 2 MG IV PUSH (09:01)
[2020-06-16] MEDS: HEPARIN SODIUM 5,000 UNITS/ML VIAL 5000 UNITS SUB-Q ×2 (09:01→22:08)
[2020-06-16] MEDS: GABAPENTIN 100 MG CAPSULE 200 MG PO ×3 (09:01→17:45)
[2020-06-16] MEDS: PANTOPRAZOLE 40 MG TABLET PO (09:02)
[2020-06-16] MEDS: METOCLOPRAMIDE HCL 10 MG TABLET PO ×4 (09:02→22:08)
[2020-06-16] MEDS: SEVELAMER CARBONATE 800 MG TABLET PO ×3 (09:02→22:06)
[2020-06-16] MEDS: metOLazone 5 MG TABLET 10 MG PO (09:48)
[2020-06-16] MEDS: METOPROLOL SUCCINATE EXT REL 50 MG TABCR 100 MG PO (09:48)
--- NOTE | 2020-06-16 11:04 | PM.IMPN ---
Progress Note: A&P Assessment and Plan (1) Hypertensive crisis: Code(s): I16.9 - Hypertensive crisis, unspecified Status: Acute Assessment and Plan: Continue oral lisinopril and metazolone, nephrology rounding, increase bp control, bp very high today, 221/76 (2) Elevated troponin: Code(s): R77.8 - Other specified abnormalities of plasma proteins Status: Acute Assessment and Plan: Mildly elevated continue to monitor likely secondary to Bp raise (3) CKD (chronic kidney disease) stage 4, GFR 15-29 ml/min: Code(s): N18.4 - Chronic kidney disease, stage 4 (severe) Status: Chronic Assessment and Plan: Creat at baseline at 3-3.4 ,consult nephrology renal biopsy was completed pt has nephrotic syndrome. Pt had dialysis catheter placed pt is doing well with dialysis will need outpatient dialysis set up, nephrology rounding (4) CHF (congestive heart failure): Qualifiers: Heart failure chronicity: acute on chronic Heart failure type: diastolic Qualified Code(s): I50.33 - Acute on chronic diastolic (congestive) heart failure Code(s): I50.9 - Heart failure, unspecified Status: Acute Assessment and Plan: EF 55-60 % from before, previous echo showed diastolic dysfunction, good LV systolic function, pulmonary hypertension, and tricuspid regurgitation. watch kidney function Subjective Date/time seen: 06/16/20 11:04 Interval history: 70 year old female history of CKD, grade 3 uterine cancer, CHF, type 2 diabetes, peroneal DVT, GERD who presents the ED from [facility] with swelling, and restless leg syndrome. Pt is doing well with dialysis. Feels less swollen. Pt is for dialysis today. Bp very high today. Review of Systems Review of Systems: All systems reviewed & are unremarkable except as noted in HPI and below Exam Const: General: alert and Physically active Nutritional Appearance: No edematous HENMT: Head: normocephalic Eyes: General: appearance normal, both eyes and all related structures Pupils: Equal, round and reactive pupils present Neck: Neck: other (new dialysis catheter in place, neck pain superior to the subclavian ) Chest: Chest palpation & inspection: normal inspection of the chest Resp: Effort & Inspection: normal respiratory effort Auscultation: clear to auscultation bilaterally Cardio: Jugular venous distension: no JVD Rhythm: regular rhythm Heart sounds: S1 normal heart sound present and S2 normal heart sound present GI: Inspection: normal to inspection Auscultation: normal bowel sounds Skin: General skin exam: normal color and dry skin Neuro: Cranial nerves: Yes CN's II-XII intact bilaterally and Yes Equal, round and reactive pupils present Cognition (Neuro): normal cognition Speech: normal speech Motor exam (neuro): 5/5 motor strength present throughout Extrem: General: normal to inspection Psych: Appearance: grossly normal Mental Status: mental status grossly normal Objective Data Vital Signs Vital Signs: Vital Signs - 24 hr 06/15/20 14:00 06/15/20 21:58 06/16/20 05:59 Temperature 36.7 C 36.9 C Pulse Rate 66 64 66 Respiratory Rate 16 18 Blood Pressure 166/64 H 176/60 H Pulse Oximetry 95 94 06/16/20 06:00 06/16/20 06:53 06/16/20 08:00 Temperature 36.8 C Pulse Rate 64 70 Respiratory Rate 18 18 Blood Pressure 221/68 H 221/76 H Pulse Oximetry 95 95 06/16/20 09:48 Temperature Pulse Rate 70 Respiratory Rate Blood Pressure Pulse Oximetry Intake/Output Intake/Output: Intake & Output 06/13/20 06/14/20 06/15/20 06/16/20 23:59 23:59 23:59 23:59 Intake Total 1180 1390 1390 340 Output Total 1152 3800 Balance 28 -2410 1390 340 Meds/Results Medications: Active Medications Generic Name Dose Route Start Last Admin Trade Name Freq PRN Reason Stop Dose Admin Acetaminophen 1,000 mg 06/09/20 23:42 06/15/20 05:28 Acetaminophen 500 Mg Tablet PO 1,000
--- NOTE | 2020-06-16 18:16 | P.PNNP_ITS ---
Progress Note: A&P Assessment and Plan (1) End stage renal disease: Code(s): N18.6 - End stage renal disease Status: Chronic Assessment and Plan: * due to biopsy proven diabetic + hypertensive nephrosclerosis * she is now on dialysis. * Will do another treatment today. * She can be discharged tomorrow if her blood pressure is okay and return to dialysis on as an outpatient (2) Anasarca: Code(s): R60.1 - Generalized edema Status: Chronic Assessment and Plan: * multifactorial: - nephrotic syndrome - advanced kidney disease - pulmonary HTN - moderate tricuspid regurgitation - peripheral vascular disease (?) * remove fluid with diuresis (3) Hypertension: Qualifiers: Hypertension type: essential hypertension Qualified Code(s): I10 - Essential (primary) hypertension Code(s): I10 - Essential (primary) hypertension Status: Chronic Assessment and Plan: * systolic up and down today. * Will remove more fluid and continue oral antihypertensives. 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 insulin use: unspecified long wall mining machine tender insulin use status Diabetes mellitus complication status: with kidney complications Diabetes mellitus complication detail: with chronic kidney disease Chronic kidney disease stage: on chronic dialysis Qualified Code(s): E11.22 - Type 2 diabetes mellitus with diabetic chronic kidney disease; N18.6 - End stage renal disease; Z99.2 - Dependence on renal dialysis Code(s): E11.9 - Type 2 diabetes mellitus without complications Status: Acute Assessment and Plan: * follow accuchecks * glycemic control Subjective Date/time seen: 06/16/20 18:16 Interval history: Lupe is feeling better. Swelling is improved. No shortness of breath Appetite is better. Review of Systems Cardiovascular: Cardiovascular: Reports no additional cardiovascular complaints Respiratory: Respiratory: Reports no additional respiratory complaints Gastrointestinal: Gastrointestinal: Reports no additional gastrointestinal complaints Genitourinary: Genitourinary: Reports no additional female genitourinary complaints Exam Narrative: Exam Narrative: General: WD/WN female in NAD Heart: normal S1 and S2; no rub Lungs: clear to auscultation bilaterally Abdomen: soft, nontender, nondistended, positive bowel sounds Extremities: no cyanosis or clubbing; 2+ edema Skin: no rash Objective Data Vital Signs Vital Signs: Vital Signs - 24 hr 06/15/20 21:58 06/16/20 05:59 06/16/20 06:00 Temperature 36.9 C 36.8 C Pulse Rate 64 66 64 Respiratory Rate 18 18 Blood Pressure 176/60 H 221/68 H Pulse Oximetry 94 95 06/16/20 06:53 06/16/20 08:00 06/16/20 08:30 Temper
--- NOTE | 2020-06-16 18:16 | PM.PNNEP ---
Progress Note: A&P Assessment and Plan (1) End stage renal disease: Code(s): N18.6 - End stage renal disease Status: Chronic Assessment and Plan: due to biopsy proven diabetic + hypertensive nephrosclerosis she is now on dialysis. Will do another treatment today. She can be discharged tomorrow if her blood pressure is okay and return to dialysis on as an outpatient (2) Anasarca: Code(s): R60.1 - Generalized edema Status: Chronic Assessment and Plan: multifactorial: - nephrotic syndrome - advanced kidney disease - pulmonary HTN - moderate tricuspid regurgitation - peripheral vascular disease (?) remove fluid with diuresis (3) Hypertension: Qualifiers: Hypertension type: essential hypertension Qualified Code(s): I10 - Essential (primary) hypertension Code(s): I10 - Essential (primary) hypertension Status: Chronic Assessment and Plan: systolic up and down today. Will remove more fluid and continue oral antihypertensives. 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 helper insulin use: unspecified mcfp insulin use status Diabetes mellitus complication status: with kidney complications Diabetes mellitus complication detail: with chronic kidney disease Chronic kidney disease stage: on chronic dialysis Qualified Code(s): E11.22 - Type 2 diabetes mellitus with diabetic chronic kidney disease; N18.6 - End stage renal disease; Z99.2 - Dependence on renal dialysis Code(s): E11.9 - Type 2 diabetes mellitus without complications Status: Acute Assessment and Plan: follow accuchecks glycemic control Subjective Date/time seen: 06/16/20 18:16 Interval history: Lupe is feeling better. Swelling is improved. No shortness of breath Appetite is better. Review of Systems Cardiovascular: Cardiovascular: Reports no additional cardiovascular complaints Respiratory: Respiratory: Reports no additional respiratory complaints Gastrointestinal: Gastrointestinal: Reports no additional gastrointestinal complaints Genitourinary: Genitourinary: Reports no additional female genitourinary complaints Exam Narrative: Exam Narrative: General: WD/WN female in NAD Heart: normal S1 and S2; no rub Lungs: clear to auscultation bilaterally Abdomen: soft, nontender, nondistended, positive bowel sounds Extremities: no cyanosis or clubbing; 2+ edema Skin: no rash Objective Data Vital Signs Vital Signs: Vital Signs - 24 hr 06/15/20 21:58 06/16/20 05:59 06/16/20 06:00 Temperature 36.9 C 36.8 C Pulse Rate 64 66 64 Respiratory Rate 18 18 Blood Pressure 176/60 H 221/68 H Pulse Oximetry 94 95 06/16/20 06:53 06/16/20 08:00 06/16/20 08:30 Temperature Pulse Rate 70 88 Respiratory Rate 18 Blood Pressure 221/76 H 168/74 H Pulse Oximetry 95 06/16/20 09:48 Temperature Pulse Rate 70 Respiratory Rate Blood Pressure Pulse Oximetry Intake/Output Intake/Output: Intake & Output 06/13/20 06/14/20 06/15/20 06/16/20 23:59 23:59 23:59 23:59 Intake Total 1180 1390 1390 460 Output Total 1152 3800 Balance 28 -2410 1390 460 Meds/Results Medications: Active Medications Generic Name Dose Route Start Last Admin Trade Name Angela PRN Reason Stop Dose Admin Acetaminophen 1,000 mg 06/09/20 23:42 06/15/20 05:28 Acetaminophen 500 Mg Tab
--- NOTE | 2020-06-16 18:37 | PC.NURSE ---
out pt dialysis will be Haroldo Levin, Joel.
--- NOTE | 2020-06-16 18:37 | PC.NURSE ---
pt transferred to dialysis 1814
[2020-06-16] MEDS: TEMAZEPAM (*CRX) 15 MG CAPSULE PO (22:06)
[2020-06-16] MEDS: ACETAMINOPHEN 500 MG TABLET PO (22:07)
[2020-06-16] MEDS: ATORVASTATIN 20 MG TABLET PO (22:07)
[2020-06-16] MEDS: fentaNYL (*CRX) 50 MCG PATCH TRANSDERM (22:09)
[2020-06-17] MEDS: cloNIDine HCL 0.1 MG TABLET PO (00:35)
[2020-06-17 06:00] VITALS: BP 125/68; PULSE 61; RESP 18; TEMP 36.5; O2SAT 95
[2020-06-17 06:03] LABS: Basophils Percent Auto 0.3 % (0.2-1.2); Eosinophils Absolute Auto 0.2 K/mm3 (0-0.3); Eosinophils Percent Auto 2.7 % (0-4.4); Hematocrit 24.3 % (37.0-47.0); Hemoglobin 7.7 g/dL (12.0-15.0); Immature Granulocyte Absolute 0.03 K/mm3 (0.00-0.031); Immature Granulocyte Percent A 0.5 % (0-0.5); Lymphocytes Absolute Auto 0.43 K/mm3 (0.9-3.2); Lymphocytes Percent Auto 7.2 % (18.3-44.2); Mean Corpuscular HGB Conc 31.7 g/dl (32-36); Mean Corpuscular Hemoglobin 29.6 pg (26-34); Mean Corpuscular Volume 93.5 fl (80-100); Mean Platelet Volume 10.1 fl (7.4-10.4); Monocytes Absolute Auto 0.7 K/mm3 (0.1-0.6); Monocytes Percent Auto 12.4 % (2.6-8.5); Neutrophils Absolute Auto 4.6 K/mm3 (1.3-6.7); Neutrophils Percent Auto 76.9 % (45.5-73.1); Platelet Count Result 214 k/mm3 (150-375); Red Cell Distribution Width 13.5 % (11.5-14.5)
[2020-06-17 06:22] LABS: Alanine Aminotransferase 12 U/L (4-35); Albumin Level 2.8 g/dL (3.5-5.1); Alkaline Phosphatase 77 U/L (38-126); Anion Gap 4 mmol/L (8-16); Aspartate Amino Transferase 22 U/L (14-36); Bilirubin,Total 0.3 mg/dL (0.2-1.3); Blood Urea Nitrogen 20 mg/dL (7-17); Calcium 8.2 mg/dL (8.4-10.2); Carbon Dioxide 28 mmol/L (22-30); Chloride 103 mmol/L (98-107); Estimated CRCL calculation 26 ml/min; Estimated Glomerular Filt Rate 30; Glucose 115 mg/dL (65-105); Phosphorus 2.1 mg/dL (2.5-4.5); Potassium 3.3 mmol/L (3.4-5.0); Sodium 135 mmol/L (137-145)
[2020-06-17 07:51] VITALS: BP 200/71; PULSE 57; RESP 16; TEMP 36.7; O2SAT 95
[2020-06-17] MEDS: METOCLOPRAMIDE HCL 10 MG TABLET PO ×4 (07:53→21:07)
[2020-06-17] MEDS: SEVELAMER CARBONATE 800 MG TABLET PO ×3 (07:53→16:45)
[2020-06-17 08:00] VITALS: PULSE 59
[2020-06-17] MEDS: METOPROLOL SUCCINATE EXT REL 50 MG TABCR 100 MG PO (08:00)
[2020-06-17] MEDS: hydrALAZINE HCL 50 MG TABLET 100 MG PO ×3 (08:00→16:46)
[2020-06-17] MEDS: ESCITALOPRAM OXALATE 5 MG TABLET PO (08:00)
[2020-06-17] MEDS: lisinopriL 20 MG TABLET 40 MG PO (08:01)
[2020-06-17] MEDS: BUMETANIDE 1 MG TABLET 2 MG PO ×2 (08:01→16:46)
[2020-06-17] MEDS: GABAPENTIN 100 MG CAPSULE 200 MG PO ×3 (08:01→16:46)
[2020-06-17] MEDS: PANTOPRAZOLE 40 MG TABLET PO (08:01)
[2020-06-17] MEDS: CHOLECALCIFEROL 1,000 UNITS TABLET 5000 UNITS PO (08:02)
[2020-06-17] MEDS: SENNOSIDES 8.6 MG TABLET PO (08:02)
[2020-06-17] MEDS: HEPARIN SODIUM 5,000 UNITS/ML VIAL 5000 UNITS SUB-Q ×2 (08:02→21:07)
[2020-06-17] MEDS: NIFEdipine 30 MG TAB.ER.24 PO (10:43)
--- NOTE | 2020-06-17 10:58 | PCNWS ---
Weekly nutritional screen. Patient is tolerating current diet with adequate intake. No weight loss reported. No nutritional needs at this time.
[2020-06-17 12:07] VITALS: BP 152/54; PULSE 56; O2SAT 96
--- NOTE | 2020-06-17 12:41 | PCNSR ---
On 06/17/20, the student, Monika Tabares, provided care and completed [facility] documentation on this patient. I have reviewed the student's documentation and agree with the findings.
[2020-06-17 14:00] VITALS: BP 125/78; PULSE 63; RESP 18; TEMP 36.8; O2SAT 94
--- NOTE | 2020-06-17 14:00 | PCPTNOTE ---
Attempted PT evaluation. Pt agrees to evaluation after she finishes her lunch. Pt given 30 min to eat and therapist attempts evaluation. Pt refuses evaluation stating she's leaving tomorrow. Will try again in AM. JUAN J TorrezT
--- NOTE | 2020-06-17 18:18 | PM.IMPN ---
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: Code(s): I25.719 - Atherosclerosis of autologous vein coronary artery bypass graft(s) with unspecified angina pectoris Status: Acute Assessment and Plan: Stable Continue home meds (4) Diabetes: Qualifiers: Chronic kidney disease stage: on chronic dialysis Diabetes mellitus complication detail: with chronic kidney disease Diabetes mellitus complication status: with kidney complications Diabetes mellitus terminal supervisor insulin use: unspecified terminal supervisor insulin use status Diabetes mellitus type: type 2 Qualified Code(s): E11.22 - Type 2 diabetes mellitus with diabetic chronic kidney disease; N18.6 - End stage renal disease; Z99.2 - Dependence on renal dialysis Code(s): E11.9 - Type 2 diabetes mellitus without complications Status: Acute Assessment and Plan: Accu checks ACHS ISS as needed Carb consistent diet. (5) Type 2 diabetes mellitus with diabetic polyneuropathy: Qualifiers: Diabetes mellitus custodial insulin use: without terminal supervisor use Qualified Code(s): E11.42 - Type 2 diabetes mellitus with diabetic polyneuropathy Code(s): E11.42 - Type 2 diabetes mellitus with diabetic polyneuropathy Status: Chronic Assessment and Plan: On Gabapentin (6) Malignant neoplasm of endometrium: Code(s): C54.1 - Malignant neoplasm of endometrium Status: Acute Assessment and Plan: S/p surgical resection with total hysterectomy oophorectomy Will follow up in the outpatient setting. Subjective Date/time seen: 06/17/20 18:18 Patient wants to go home. States that could not sleep well last night due to her restless leg syndrome. Review of Systems Review of Systems: Narrative: Denies any discomfort at this time. Constitutional: Comments: no fevers, no chills, no rigors. Cardiovascular: Comments: no chest pain. Respiratory: Comments: no sob Gastrointestinal: Comments: no n/v/abdominal pain. Musculoskeletal: Comments: no joint pain. Integumentary/Breasts: Comments: no rashes. Neurologic: Comments: no sensory motor deficit. Exam Narrative: Exam Narrative: Sitting in bed. Const: General: no acute distress, alert, awake, Physically active and other (Chronically ill looking.) Nutritional Appearance: average body habitus HENMT: Head: normocephalic Ears: hearing grossly normal bilaterally Face and sinus: normal facial exam Eyes: Pupils: Equal, round and reactive pupils present Neck: Neck: supple and no JVD Resp: Auscultation: clear to auscultation bilaterally Cardio: Jugular venous distension: no JVD Rate: regular rate Rhythm: regular rhythm GI: GI Palp: Yes Soft to palpation and Yes No hepatosplenomegaly present Skin: Wounds: no wounds Neuro: General: patient oriented x3 and CN's II-XI intact bilaterally Cranial nerves: Yes CN's II-XII intact bilaterally Cognition (Neuro): normal cognition Motor exam (neuro): 5/5 motor strength present throughout Extrem: General: no pedal edema Objective Data Vital Signs Vital Signs: Vital Signs - 24 hr 06/16/20 18:34 06/16/20 18:45 06/16/20 19:00 Temperature Pulse Rate 62 63 63 Respiratory Rate Blood Pressure 158/72 H 133/63 150/69 H Pulse Oximetry 06/16/20 19:15 06/16/20 19:30 06/16/20 19:45 Temperature Pulse Rate 63 63 61 Respiratory Rate Blood Pressure 147/66 H 196/85 H 198/81 H Pulse Oximetry 06/16/20 20:00 06/16/20 20:15
[2020-06-17 19:18] LABS: SARS-CoV-2 RNA PCR Negative
--- NOTE | 2020-06-17 20:42 | PM.PNNEP ---
Progress Note: A&P Assessment and Plan (1) End stage renal disease: Code(s): N18.6 - End stage renal disease Status: Chronic Assessment and Plan: due to biopsy proven diabetic + hypertensive nephrosclerosis HD due . will do here or at [place]. (2) Anasarca: Code(s): R60.1 - Generalized edema Status: Chronic Assessment and Plan: removing fluid with dialysis as permitted byu bp (3) Hypertension: Qualifiers: Hypertension type: essential hypertension Qualified Code(s): I10 - Essential (primary) hypertension Code(s): I10 - Essential (primary) hypertension Status: Chronic Assessment and Plan: systolic running mostly above 150, rarely below. add nifediipine (4) Chronic anemia: Code(s): D64.9 - Anemia, unspecified Status: Chronic Assessment and Plan: partly related to CKD adequate iron by anemia studies Epogen with HD follow trend of H/H (5) JEFF (renal osteodystrophy): Code(s): N25.0 - Renal osteodystrophy Status: Acute Assessment and Plan: calcium and phosphorus stable Vitamin D low and PTH sam start ergocalciferoal (6) Diabetes: Qualifiers: Diabetes mellitus type: type 2 Diabetes mellitus front end specialist insulin use: unspecified snf insulin use status Diabetes mellitus complication status: with kidney complications Diabetes mellitus complication detail: with chronic kidney disease Chronic kidney disease stage: on chronic dialysis Qualified Code(s): E11.22 - Type 2 diabetes mellitus with diabetic chronic kidney disease; N18.6 - End stage renal disease; Z99.2 - Dependence on renal dialysis Code(s): E11.9 - Type 2 diabetes mellitus without complications Status: Acute Assessment and Plan: follow accuchecks glycemic control Subjective Date/time seen: 06/17/20 20:42 Interval history: Lupe is feeling better. sitting up in bed. no sob. Swelling is improved. Appetite is better. Exam Narrative: Exam Narrative: General: WD/WN female in NAD Heart: normal S1 and S2; no rub Lungs: clear to auscultation bilaterally Abdomen: soft, nontender, nondistended, positive bowel sounds Extremities: 1+ edema Skin: no rash or sq nodules Objective Data Vital Signs Vital Signs: Vital Signs - 24 hr 06/16/20 20:47 06/16/20 21:00 06/16/20 21:17 Temperature Pulse Rate 61 59 L 59 L Respiratory Rate Blood Pressure 206/95 H 193/87 H 212/80 H Pulse Oximetry 06/16/20 21:30 06/16/20 21:45 06/16/20 22:02 Temperature 37.1 C Pulse Rate 67 67 62 Respiratory Rate 16 Blood Pressure 184/83 H 184/63 H 190/84 H Pulse Oximetry 06/17/20 06:00 06/17/20 07:51 06/17/20 08:00 Temperature 36.5 C 36.7 C Pulse Rate 61 57 L 59 L Respiratory Rate 18 16 Blood Pressure 125/68 200/71 H Pulse Oximetry 95 95 06/17/20 12:07 06/17/20 14:00 Temperature 36.8 C Pulse Rate 56 L 63 Respiratory Rate 18 Blood Pressure 152/54 H 125/78 Pulse Oximetry 96 94 Intake/Output Intake/Output: Intake & Output 06/14/20 06/15/20 06/16/20 06/17/20 23:59 23:59 23:59 23:59 Intake Total 1390 1390 1250 1580 Output Total 3800 2900 Balance -2410 1390 -1650 1580 Meds/Results Medications: Active Medications Generic Name Dose Route Start Last Admin Trade Name Freq PRN Reason Stop Dose Admin Acetaminophen 1,000 mg 06/09/20 23:42 06/15/20 05:28 Acetaminophen 500 Mg Tablet PO 1,000 mg BID PRN Administration mild pain/headache Acetaminophen 500 mg 06/12/20 12:16 06/16/20 22:07 Acetaminophen 500 Mg Tablet PO 500 mg Q6H PRN Administration Mild Pain (1-3) or Fever Hydrocodone Bitart/Acetaminophen 1 tab 06/12/20 12:16 06/16/20 11:17 Hydrocodone/Acetaminophen (*Crx) 5-325 Mg Tablet PO 1 tab Q4H PRN Administration Pain Rated 4-6 Atorvastatin Calcium 20 mg 06/10/20 00:10 06/16/20 22:0
[2020-06-17] MEDS: ATORVASTATIN 20 MG TABLET PO (21:07)
[2020-06-17] MEDS: TEMAZEPAM (*CRX) 15 MG CAPSULE PO (21:07)
[2020-06-17 22:00] VITALS: BP 153/72; PULSE 66; RESP 20; TEMP 36.8; O2SAT 92
[2020-06-18] MEDS: ACETAMINOPHEN 500 MG TABLET PO (04:10)
[2020-06-18 06:00] VITALS: BP 172/72; PULSE 52; RESP 16; TEMP 36.1; O2SAT 91
[2020-06-18 06:31] LABS: Albumin Level 2.7 g/dL (3.5-5.1); Anion Gap 3 mmol/L (8-16); Blood Urea Nitrogen 31 mg/dL (7-17); Calcium 7.7 mg/dL (8.4-10.2); Carbon Dioxide 27 mmol/L (22-30); Chloride 103 mmol/L (98-107); Estimated CRCL calculation 20 ml/min; Estimated Glomerular Filt Rate 22; Glucose 103 mg/dL (65-105); Phosphorus 2.9 mg/dL (2.5-4.5); Potassium 3.6 mmol/L (3.4-5.0); Sodium 133 mmol/L (137-145)
[2020-06-18] MEDS: hydrALAZINE HCL 50 MG TABLET 100 MG PO ×2 (10:01→12:44)
[2020-06-18] MEDS: CHOLECALCIFEROL 1,000 UNITS TABLET 5000 UNITS PO (10:01)
[2020-06-18] MEDS: lisinopriL 20 MG TABLET 40 MG PO (10:01)
[2020-06-18] MEDS: GABAPENTIN 100 MG CAPSULE 200 MG PO ×2 (10:02→12:44)
[2020-06-18] MEDS: HEPARIN SODIUM 5,000 UNITS/ML VIAL 5000 UNITS SUB-Q (10:02)
[2020-06-18] MEDS: METOCLOPRAMIDE HCL 10 MG TABLET PO ×2 (10:03→12:44)
[2020-06-18] MEDS: NIFEdipine 30 MG TAB.ER.24 PO (10:03)
[2020-06-18] MEDS: DOCUSATE SODIUM 100 MG CAPSULE PO (10:03)
[2020-06-18] MEDS: ESCITALOPRAM OXALATE 5 MG TABLET PO (10:03)
[2020-06-18 10:04] VITALS: PULSE 60
[2020-06-18] MEDS: BUMETANIDE 1 MG TABLET 2 MG PO (10:04)
[2020-06-18] MEDS: SEVELAMER CARBONATE 800 MG TABLET PO ×2 (10:04→12:44)
[2020-06-18] MEDS: METOPROLOL SUCCINATE EXT REL 50 MG TABCR 100 MG PO (10:04)
[2020-06-18] MEDS: PANTOPRAZOLE 40 MG TABLET PO (10:05)
[2020-06-18] MEDS: SENNOSIDES 8.6 MG TABLET PO (10:05)
--- NOTE | 2020-06-18 12:59 | PC.NURSE ---
1225 report called to [facility], discharge instructions faxed. reminded facility to put sriram pad under her when they send her to dialysis tomorrow.
--- NOTE | 2020-06-18 13:07 | PM.DS ---
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: Code(s): I25.719 - Atherosclerosis of autologous vein coronary artery bypass graft(s) with unspecified angina pectoris Status: Acute (4) End stage renal disease: Code(s): N18.6 - End stage renal disease Status: Chronic (5) Chronic kidney disease (CKD), stage V: Code(s): N18.5 - Chronic kidney disease, stage 5 Status: Chronic (6) Anasarca: Code(s): R60.1 - Generalized edema Status: Chronic (7) CKD (chronic kidney disease) stage 4, GFR 15-29 ml/min: Code(s): N18.4 - Chronic kidney disease, stage 4 (severe) Status: Chronic (8) Type 2 diabetes mellitus with diabetic polyneuropathy: Qualifiers: Diabetes mellitus retirement insulin use: without manager long term care use Qualified Code(s): E11.42 - Type 2 diabetes mellitus with diabetic polyneuropathy Code(s): E11.42 - Type 2 diabetes mellitus with diabetic polyneuropathy Status: Chronic (9) 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 Pt creat at presentation was 3.1 . Pt is known pt of Dr Mcmanus, nephrology. DR shields PCP. Pts sugars were also high presently around 200. Bp was high on admission. Troponin mildly elevated. She was then placed on her home meds BP was able to get good control of. Nephrology was consulted as well for renal failure. Patient will follow up in the outpatient setting for renal failure and HD treatment Time Spent with Patient Time attestation: Total time spent providing and/or coordinating discharge services: Exam Const: General: no acute distress Nutritional Appearance: average body habitus Orientation/consciousness: patient oriented x3 HENMT: Head: normocephalic and atraumatic Ears: hearing grossly normal bilaterally General nose exam: Normal external nose present Face and sinus: normal facial exam Eyes: Pupils: Equal, round and reactive pupils present EOM: EOMs intact bilaterally Neck: Neck: no lymphadenopathy and no JVD Resp: Effort & Inspection: normal respiratory effort Auscultation: clear to auscultation bilaterally Cardio: Jugular venous distension: no JVD Skin: Rashes: no rashes Neuro: General: patient oriented x3 and CN's II-XI intact bilaterally Cranial nerves: Yes CN's II-XII intact bilaterally DS: Data Data Completed and Pending Labs on day of discharge: Labs from last 24 hours 06/18/20 06/17/20 05:55 00:34 Sodium 133 L Potassium 3.6 Chloride 103 Carbon Dioxide 27 Anion Gap 3 L BUN 31 H D Creatinine 2.20 H Estim Creat Clear Calc 20 Estimated GFR 22 L Glucose 103 Calcium 7.7 L Phosphorus 2.9 Albumin 2.7 L SARS-CoV-2 RNA (RT-PCR) Negative Discharge Plan Discharge Attending physician on discharge: Jaycob Valencia V. Consulting providers: Ottoniel Mcmanus ; Darius Foster ; Cale Carnes ; Kj Turner ; Bautista Gomez ; Jose Manuel Bess ; Ciara Pool
== END 2020-06-18 15:20 | DRG 304 ==
LOC: ANHED 12:57 → ANHIMU 13:21 → ANH3MEDSUR 06-11 19:00
PROVIDERS: Family Medicine; Internal Medicine; Internal Medicine Nephrology; Surgery; Admitting Provider Internal Medicine; Emergency Provider Emergency Medicine; PCP Internal Medicine; Visit Provider Internal Medicine
PROC: 0JH63XZ Insertion of Tunneled Vascular Access Device into Chest Subcutaneous Tissue and Fascia, Percutaneous Approach (ICD-10-PCS; CPT 36908; principal; 2020-06-12 09:30)
DX: I16.9 Hypertensive crisis, unspecified (principal); I50.33 Acute on chronic diastolic (congestive) heart failure; N18.6 End stage renal disease; I25.719 Atherosclerosis of autologous vein coronary artery bypass graft(s) with unspecified angina pectoris; I13.2 Hypertensive heart and chronic kidney disease with heart failure and with stage 5 chronic kidney disease, or end stage renal disease; I27.20 Pulmonary hypertension, unspecified; D63.1 Anemia in chronic kidney disease; E11.22 Type 2 diabetes mellitus with diabetic chronic kidney disease; E11.42 Type 2 diabetes mellitus with diabetic polyneuropathy; Z99.2 Dependence on renal dialysis; N25.0 Renal osteodystrophy; Z20.822 Contact with and (suspected) exposure to COVID-19; R77.8 Other specified abnormalities of plasma proteins; C54.1 Malignant neoplasm of endometrium; Z66 Do not resuscitate; G25.81 Restless legs syndrome; E78.5 Hyperlipidemia, unspecified; G89.4 Chronic pain syndrome; M54.5 Low back pain; I07.1 Rheumatic tricuspid insufficiency; K21.9 Gastro-esophageal reflux disease without esophagitis; R60.1 Generalized edema; Z79.899 Other long term (current) drug therapy; Z86.718 Personal history of other venous thrombosis and embolism; Z87.891 Personal history of nicotine dependence; Z92.3 Personal history of irradiation; Z98.49 Cataract extraction status, unspecified eye
CPT/HCPCS: 36415; 71045; 77001; 80053; 80069; 80074; 82306; 82728; 82948; 83036; 83540; 83550; 83880; 83970; 84100; 84484; 85025; 85027; 86706; 86850; 86900; 86901; 93005; 96372; 96374; 96375; 96376; 97161; 97165; 99291; A9270; C1750; C1769; C9803; G0257; G0378; J0360; J0690; J1644; J1650; J1940; J2270; J3010; J7030; J7040; Q5106; U0003; U0005